=== PATIENT | male | born 1940 | race Caucasian/White ===

== ENCOUNTER 2016-02-12 12:15 | Inpatient (IN) | payer OTHER, MEDICAID, MEDICARE ==
[~2016-02-12] VITALS: Ht 167.6 cm; Wt 68.0 kg
[~2016-02-12 12:15] MED LIST: ATEN1TAB74 PO; GEMF600 PO; LORTA5 PO; NAPR550 PO; NEUR300C PO; OMEP20CA5 PO; SUCR1TAB6 PO
[2016-02-12 12:17] VITALS: BP 140/65; PULSE 66; RESP 16; TEMP 97.5; O2SAT 94
[2016-02-12] MEDS ORDERED: OMEP20TA PO (12:44)
[2016-02-12] MEDS ORDERED: GABA300C5 PO (12:44)
[2016-02-12] MEDS ORDERED: NAPR550T3 PO (12:44)
[2016-02-12] MEDS ORDERED: SUCR1TAB PO (12:44)
[2016-02-12] MEDS ORDERED: ATEN50TA PO (12:44)
[2016-02-12] MEDS ORDERED: GEMF600 PO (12:44)
[2016-02-12] MEDS ORDERED: SODIUM CHLORIDE 0.9% FLUSH 5 ML FLUSH IVF PRN (13:00)
[2016-02-12 13:18] LABS: AUTOMATED NEUTROPHIL # 4.4 TH/MM3 (1.8-7.7); BASOPHIL % 0.5 % (0.0-2.0); EOSINOPHIL # 0.1 TH/MM3 (0-0.4); EOSINOPHIL % 1.7 % (0.0-4.0); HEMATOCRIT 36.5 % (39.0-51.0); HEMO FLAGS DIFF FINAL; LYMPH % 18.7 % (9.0-44.0); LYMPHOCYTE # 1.2 TH/MM3 (1.0-4.8); MEAN CELL VOLUME 90.3 FL (80.0-100.0); MEAN CORPUSCULAR HEMOGLOBIN 31.2 PG (27.0-34.0); MEAN CORPUSCULAR HGB CONC 34.5 % (32.0-36.0); MONO % 9.2 % (0.0-8.0); NEUT % 69.9 % (16.0-70.0); PLATELET COUNT 253 TH/MM3 (150-450); RED BLOOD COUNT 4.04 MIL/MM3 (4.50-5.90); RED CELL DISTRIBUTION WIDTH 12.9 % (11.6-17.2); WHITE BLOOD COUNT 6.3 TH/MM3 (4.0-11.0)
[2016-02-12 13:26] LABS: APTT (PATIENT) 27.3 SEC (24.3-30.1); INTERNATIONAL NORMALIZED RATIO 1.1 RATIO
--- NOTE | 2016-02-12 13:35 | PD ---
HPI Chief Complaint: Cardiac Complaint Time Seen by Provider: 12:55 Travel History International Travel<30 days: No Contact w/Intl Traveler<30days: No Traveled to known affect area: No History of Present Illness HPI Patient is a 75-year-old male with significant history of tobacco abuse, COPD who presents the emergency department with complaint of shortness of breath and lightheadedness. Patient states that he has noticed exertional shortness of breath, lightheadedness over the course the last several weeks. He has also noticed right sided neck swelling. He was seen by his PCP and yesterday had a CT of the thorax at [facility]. 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 Patient was sent in by his PCP for further evaluation here. PFSH Past Medical History Cerebrovascular Accident: Yes Diminished Hearing: No Hypertension: Yes Ulcer: Yes Tetanus Vaccination: Unknown Past Surgical History Other Surgery: Yes (HERNIA) Social History Alcohol Use: Yes (OCCASIONAL) Tobacco Use: No (QUIT 3 YEARS AGO) Substance Use: No Allergies-Medications (Allergen,Severity, Reaction): Coded Allergies: No Known Allergies (Verified , 02/12/16) Reported Meds & Prescriptions Reported Meds & Active Scripts Active Reported Lopid (Gemfibrozil) 600 Mg Tab 600 Mg PO BIDAC Take 30 minutes prior to breakfast and dinner Naproxen Sodium DS (Naproxen Sodium) 550 Mg Tab 550 Mg PO DAILY Omeprazole 20 Mg Tab 20 Mg PO DAILY Sucralfate 1 Gm Tab 1 Gm PO TID on empty stomach Atenolol 50 Mg Tab 50 Mg PO DAILY Gabapentin 300 Mg Cap 300 Mg PO BID Review of Systems Except as stated in HPI: all other systems reviewed are Neg Physical Exam Narrative GENERAL: Elderly male in no acute distress SKIN: Warm and dry. HEAD: Normocephalic. EYES: No scleral icterus. No injection or drainage. ENT: No nasal bleeding or discharge. Mucous membranes pink and moist. NECK: Venous congestion of the head and neck. CARDIOVASCULAR: Regular rate and rhythm. No murmur appreciated. RESPIRATORY: No accessory muscle use. Clear to auscultation. Breath sounds equal bilaterally. GASTROINTESTINAL: Abdomen soft, non-tender, nondistended. MUSCULOSKELETAL: Mild edema of the upper extremities with venous congestion NEUROLOGICAL: Awake and alert. Normal gait. Normal speech. PSYCHIATRIC: Appropriate mood and affect; insight and judgment normal. Data Data Last Documented VS Vital Signs Date Time Temp Pulse Resp B/P Pulse Ox O2 Delivery O2 Flow Rate FiO2 02/12/16 12:17 97.5 66 16 140/65 94 Room Air Orders Electrocardiogram (02/12/16 12:55) Basic Metabolic Panel (Bmp) (02/12/16 12:55) Complete Blood Count With Diff (02/12/16 12:55) Prothrombin Time / Inr (Pt) (02/12/16 12:55) Act Partial Throm Time (Ptt) (02/12/16 12:55) Troponin I (02/12/16 12:55) Ecg Monitoring (02/12/16 12:55) Iv Access Insert/Monitor (02/12/16 12:55) Oximetry (02/12/16 12:55) Sodium Chloride 0.9% Flush (Ns Flush) (02/12/16 13:00) Invasive Rad Dept Consult (02/12/16 ) Consult Radiation Oncology (02/12/16 ) Consult Medical Oncology (02/12/16 ) (Hub Use Only)Inp Phy Cons/Ref (02/12/16 ) (Hub Use Only)Inp Phy Cons/Ref (02/12/16 ) Admit Order (Ed Use Only) (02/12/16 13:50) Labs Laboratory Tests Test 02/12/16 13:08 White Blood Count 6.3 TH/MM3 Red Blood Count 4.04 MIL/MM3 Hemoglobin 12.6 GM/DL Hematocrit 36.5 % Mean Corpuscular Volume 90.3 FL Mean Corpuscular Hemoglobin 31.2 PG Mean Corpuscular Hemoglobin 34.5 % Concent Red Cell Distribution Width 12.9 % Platelet Count 253 TH/MM3 Mean Platelet Volume 9.3 FL Neutrophils (%) (Auto) 69.9 % Lymphocytes (%) (Auto) 18.7 % Monocytes (%) (Auto) 9.2 % Eosinophils (%) (Auto) 1.7 % Basophils (%) (Auto) 0.5 % Neutrophils # (Auto) 4.4 TH/MM3 Lymphocytes # (Auto) 1.2 TH/MM3 Monocytes # (Auto) 0.6 TH/MM3 Eosinophils # (Auto) 0.1 TH/MM3 Basophils # (Auto) 0.0 TH/MM3 CBC Comment DIFF FINAL Differential Comment Prothrombin Time 12.0 SEC Prothromb Time International 1.1 RATIO Ratio Activated Partial 27.3 SEC Thromboplast Time Sodium Level 133 MEQ/L Potassium Level 3.7 MEQ/L Chloride Level 97 MEQ/L Carbon Dioxide Level 26.8 MEQ/L Anion Gap 9 MEQ/L Blood Urea Nitrogen 15 MG/DL Creatinine 1.30 MG/DL Estimat Glomerular Filtration 54 ML/MIN Rate Random Glucose 93 MG/DL Calcium Level 9.5 MG/DL Troponin I LESS THAN 0.02 NG/ML MDM Medical Decision Making Medical Screen Exam Complete: Yes Emergency Medical Condition: Yes Medical Record Reviewed: Yes Differential Diagnosis 75-year-old male with significant history of smoking and COPD here with several weeks of exertional lightheadedness and dyspnea and CT findings of pulmonary mass with mediastinal spread and superior vena cava syndrome. Differential includes lung cancer, superior vena cava syndrome, ACS, electrolyte abnormality , postobstructive pneumonia, PE. Narrative Course Patient placed on monitor, IV established and blood obtained. I spoke with interventional radiology as patient may benefit from either balloon or stent to the SVC for his SVC syndrome, Dr. Peguero agrees and will plan to balloon patient. I spoke with Dr. rivas of medical oncology who agrees with above plan and also recommends evaluation by radiation oncology. CBC, BMP, coags, troponin unremarkable. Critical Care Narrative Aggregate critical care time was 35 minutes. Time to perform other separately billable procedures was not included in the critical care time. My time did not include minutes spent treating any other patients simultaneously or on activities that did not directly contribute to the patient's treatment. The services I provided to this patient were to treat and/or prevent clinically significant deterioration that could result in: Cardiopulmonary decompensation, , disability, coordination of multiple consulting services I provided critical care services requiring my management, as noted below: Chart data review, documentation time, medication orders and management, vital sign assessments/reviewing monitor data, ordering and reviewing lab tests, ordering and interpreting/reviewing x-rays and diagnostic studies, care of the patient and discussion of the patient with the admitting physicians. Diagnosis Primary Impression: Superior vena cava syndrome Additional Impressions: Lung cancer Qualified Code: C34.31 - Malignant neoplasm of lower lobe of right lung COPD (chronic obstructive pulmonary disease) Qualified Code: J43.2 - Centrilobular emphysema Former smoker Admitting Information Admitting Physician Requests: it Antonia Coats MD Feb 12, 2016 13:35
[2016-02-12 13:40] LABS: ANION GAP 9 MEQ/L (5-15); BICARBONATE 26.8 MEQ/L (21.0-32.0); BLOOD UREA NITROGEN 15 MG/DL (7-18); CHLORIDE 97 MEQ/L (98-107); GLOMERULAR FILTRATION RATE 54 ML/MIN (>89); POTASSIUM 3.7 MEQ/L (3.5-5.1); SODIUM (NA) 133 MEQ/L (136-145)
[2016-02-12] MEDS ORDERED: SENNOSIDES 8.6 MG TAB PO PRN (14:00)
[2016-02-12] MEDS ORDERED: SODIUM CHLORIDE 0.9% FLUSH 5 ML FLUSH FLUSH PRN (14:00)
[2016-02-12] MEDS ORDERED: ONDANSETRON HCL 4 MG/2 ML VIAL IVP PRN (14:00)
[2016-02-12] MEDS ORDERED: BISACODYL 10 MG SUPP PR PRN (14:00)
[2016-02-12] MEDS ORDERED: NALOXONE HCL 0.4 MG/ML AMP IV PRN (14:00)
[2016-02-12] MEDS ORDERED: MAGNESIUM HYDROXIDE SUSP 30 ML CUP PO PRN (14:00)
--- NOTE | 2016-02-12 14:19 | HHI.HP ---
[facility] Primary Care Physician Unknown Admission Diagnosis superior vena cava syndrome, newly diagnosed lung cancer Diagnoses: Chief Complaint: lung mass Travel History International Travel<30 Days: No Contact w/Intl Traveler <30 Da: No Traveled to Known Affected Are: No History of Present Illness 75-year-old male with a past history of HTN, HLD, GERD, neuropathy, COPD who was sent in by his PCP for new lung mass. The patient states that earlier this month for about 17 days he was having cough productive with white and yellow sputum with associated fevers, increased prominence of the veins of his neck and chest wall. He has shortness of breath at that time, which has persisted but improved some. He states his symptoms seem to improved spontaneously. After that he developed for the past 2 weeks swelling of his head and neck. He states he's noticed some dizziness whenever he turns his head too quickly. He also feels like his attitude has been different. He does have a history of 77 to [id number] smoking, quit 7 years ago. He saw his PCP yesterday who ordered a chest CT which the patient had done at [facility]. He was called by his PCP today who told him that he had a large lung mass that was impinging on the great vessels of his thorax and was recommended to come to the ED. On review of systems the patient has intermittent chest discomfort that is relieved by belching. He has had occasional nausea over the past 2 or 3 days, no vomiting. He states he's been having intermittent loose bowel movements, 14 /day. Review of Systems Other 10 point review of systems performed and was negative except as stated in the history of present illness Past Family Social History Past Medical History Hypertension Hyperlipidemia GERD/bladder normal ulcer Neuropathy COPD Past Surgical History Inguinal hernia repair Reported Medications Lopid (Gemfibrozil) 600 Mg Tab 600 Mg PO BIDAC Take 30 minutes prior to breakfast and dinner Naproxen Sodium DS (Naproxen Sodium) 550 Mg Tab 550 Mg PO DAILY Omeprazole 20 Mg Tab 20 Mg PO DAILY Sucralfate 1 Gm Tab 1 Gm PO TID on empty stomach Atenolol 50 Mg Tab 50 Mg PO DAILY Gabapentin 300 Mg Cap 300 Mg PO BID Allergies: Coded Allergies: No Known Allergies (Verified , 02/12/16) Active Ordered Medications Current Medications Medications (Trade) Dose Ordered Sig/Hilaria Route Start Time Stop Time Status Last Admin IV Flush 2 ml 2 ml UNSCH PRN IVF 02/12/16 13:00 (NS 1000 ml Inj) 1,000 ml @ 100 mls/hr Q10H IV 02/12/16 13:51 (NS Flush) 2 ml UNSCH PRN FLUSH 02/12/16 14:00 (NS Flush) 2 ml BID FLUSH 02/12/16 21:00 (Zofran Inj) 4 mg Q6H PRN IVP 02/12/16 14:00 (Dulcolax Supp) 10 mg DAILY PRN AR 02/12/16 14:00 (Milk Of Magnesia Liq) 30 ml Q12HR PRN PO 02/12/16 14:00 (Senokot) 17.2 mg Q12HR PRN PO 02/12/16 14:00 (Narcan Inj) 0.4 mg UNSCH PRN IV 02/12/16 14:00 Family History Father passed in his 80s of heart disease Mother from complications from bilateral hip fracture Social History Former tobacco use, quit 7 years ago, prior to that smoked 1. 52 packs per day for 50 years Has to 3 beers at a time about 2-3 times per week Denies any drug use Physical Exam Vital Signs Vital Signs Date Time Temp Pulse Resp B/P Pulse Ox O2 Delivery O2 Flow Rate FiO2 02/12/16 12:17 97.5 66 16 140/65 94 Room Air Physical Exam GENERAL: Well-developed well-nourished. In no acute distress. SKIN: Warm and dry. Increased prominence of superficial veins on the chest wall. HEENT: Normocephalic. Pupils equal and round and reactive to light. Mucous membranes pink and moist. No cervical lymphadenopathy appreciated. Distention of superficial neck veins. CARDIOVASCULAR: Regular rate and rhythm. No murmur appreciated. RESPIRATORY: No accessory muscle use. Clear to auscultation. Breath sounds equal bilaterally. GASTROINTESTINAL: Abdomen soft, non-tender, nondistended. Bowel sounds x4. Rectus diastasis noted. MUSCULOSKELETAL: No obvious deformities. No clubbing or cyanosis. No edema. Bilateral feet warm with difficult to palpate peripheral pulses. NEUROLOGICAL: Awake and alert. No focal neurological deficits. Moves upper and lower extremities spontaneously. Normal speech. Strength 5/5. PSYCHIATRIC: Appropriate mood and affect; insight and judgment normal. Laboratory Laboratory Tests Test 02/12/16 13:08 White Blood Count 6.3 Red Blood Count 4.04 Hemoglobin 12.6 Hematocrit 36.5 Mean Corpuscular Volume 90.3 Mean Corpuscular Hemoglobin 31.2 Mean Corpuscular Hemoglobin 34.5 Concent Red Cell Distribution Width 12.9 Platelet Count 253 Mean Platelet Volume 9.3 Neutrophils (%) (Auto) 69.9 Lymphocytes (%) (Auto) 18.7 Monocytes (%) (Auto) 9.2 Eosinophils (%) (Auto) 1.7 Basophils (%) (Auto) 0.5 Neutrophils # (Auto) 4.4 Lymphocytes # (Auto) 1.2 Monocytes # (Auto) 0.6 Eosinophils # (Auto) 0.1 Basophils # (Auto) 0.0 CBC Comment DIFF FINAL Differential Comment Prothrombin Time 12.0 Prothromb Time International 1.1 Ratio Activated Partial 27.3 Thromboplast Time Sodium Level 133 Potassium Level 3.7 Chloride Level 97 Carbon Dioxide Level 26.8 Anion Gap 9 Blood Urea Nitrogen 15 Creatinine 1.30 Estimat Glomerular Filtration 54 Rate Random Glucose 93 Calcium Level 9.5 Troponin I LESS THAN 0.02 Result Diagram: 02/12/16 1308 02/12/16 1308 Assessment and Plan Assessment and Plan 75-year-old male with a past history of HTN, HLD, GERD, neuropathy, COPD who was sent in by his PCP for new lung mass Lung mass: Seen on outpatient chest CT. Medical oncology contacted from the EEG , recommended consultation and also consult radiation oncology. 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 See on outpatient chest CT. Complaining of head and neck fullness, distended neck veins, lightheadedness. IR was contacted from the ED, will perform angioplasty with stenting if needed today. Neuropathy: Chronic. Check TSH. Continue gabapentin. Hypertension/hyperlipidemia: Chronic, stable. Continue atenolol. Continue gemfibrozil. GERD/history of duodenal ulcer: Continue Carafate and PPI. DVT prophylaxis: SCDs Written by Giovani Barboza, acting as scribe for Dr. Cline on 02/12/16 at 14:19. Discussed Condition With Patient with at bedside, Dr. Marr Attending Statement The documentation accurately reflects the work performed [id number] by me, Dr. Cline on 02/12/16 at 14:19. Giovani Barboza Feb 12, 2016 14:19 Wade Cline MD Feb 13, 2016 23:47
[2016-02-12] MEDS ORDERED: fentaNYL CITRATE 250 MCG/5 ML AMP ONE (14:33)
[2016-02-12] MEDS ORDERED: MIDAZOLAM HCL 5 MG/5 ML VIAL ONE (14:33)
--- NOTE | 2016-02-12 15:49 | PD.RAD ---
Post Procedure Progress Note Pre Procedure Diagnosis: (1) Superior vena cava syndrome (2) Lung cancer Post Procedure Diagnosis: (1) Superior vena cava syndrome (2) Lung cancer Procedure Date: Feb 12, 2016 Supervising Radiologist: Dustin Peguero JR Proceduralist/Assist: Myrna Stratton, RT(R)(CV), Christy Solorio, RT(R) Anesthesia: Conscious Sedation Plan of Activity Patient to Unit: Other Patient Condition: Good Additional Comments: Patient with narrowing of SVC secondary to mediastinal mass seen on CT. Patient has facial swelling with exertional dyspnea. Denies SOB at rest. Venogram confirms SVC stenosis. Venoplasty shows an elastic stenosis without significant change following 10mm venoplasty. Deferred stent placement at this time as patient is early in workup and do not want to interfere with XRT if this is planned. Also, following therapy the patients mediastinal mass may shrink relieving the obstruction. Can see patient back if symptoms persist and therapy path is chosen. See PACS Report for procedural detail/treatment Jr. Sudhir,Dustin Saini MD Feb 12, 2016 15:49
[2016-02-12] MEDS ORDERED: IOHEXOL 350 MG/ML 100 ML BTL (for RAD DIAG) OTHER ONE (15:53)
[2016-02-12] MEDS: SODIUM CHLOR 0.9% 1000 ML INJ 1,000 ML IV SCH ×2 (15:54→22:02)
[2016-02-12 16:10] VITALS: O2SAT 98
--- NOTE | 2016-02-12 16:59 | RADRPT ---
EXAM DATE/TIME: 02/12/2016 14:04 [place] COMPARISON: No previous studies available for comparison. INDICATIONS : <<Patient newly diagnosed with malignancy of the chest likely relating to a primary bronchogenic carc inoma with metastatic involvement of the mediastinal lymph nodes. Patient has facial swelling with ex ertional dyspnea. Denies shortness of breath at rest. Venography with intervention requested by Dr. Mitzi penaloza. Outside CT scan reviewed. MEDICAL HISTORY : 1. COPD 2. smoker 3. HTN SURGICAL HISTORY : 1. Hernia ENCOUNTER: Initial ACUITY: 2 days PAIN SCORE: 0/10 FLUORO TIME: <<2.4>> minutes ACCESS SITE: Right Internal jugular vein SEDATION TIME: <<60>> minutes CONTRAST: 1.) <<70>> <<cc>> Omnipaque (iohexol) 350 MEDICATION(S): 1.) <<4.5>> mg midazolam (Versed) IV 2.) <<225>> mcg fentanyl (Sublimaze) IV DEVICE(S): 1.) Superior vena cava <<6 x 4>> TELECOMMUNICATION TOWER TECHNICIAN balloon 2.) Superior vena cava <<10 x 4>> TELECOMMUNICATION TOWER TECHNICIAN balloon PROCEDURE : 1. Ultrasound-guided puncture of the right internal jugular vein. 2. Conscious sedation with continuous EKG and Oximetry monitoring. 3. Venography of the <<SVC>> 4. Angioplasty of the SVC 5. Followup venography of the SVC The risks, benefits and alternatives to the procedure were explained and verbal and written consent w as obtained. The site was prepped in sterile fashion. Full sterile technique was used, including ca p, mask, sterile gloves and gown and a large sterile sheet. Hand hygiene and 2% chlorhexidine and/or betadine/alcohol prep was utilized per protocol for cutaneous antisepsis. The skin and subcutaneous tissues were infiltrated with local anesthetic solution. With ultrasound and fluoroscopic guidance the right internal jugular vein was punctured and a vascula r sheath was placed. Venography of the SVC shows occlusion of the SVC at the level of aortic knob. This is secondary to ex trinsic compression when correlated to the outside CT. Was able to navigate past the occlusion and in to the IVC. A 6 mm x 40 mm venoplasty was performed. The stenosis is quite rigid requiring 13 atmosph eres of pressure to fully inflate the balloon. The balloon was left inflated for 2 minutes. Followup venogram shows no change. A venogram was therefore performed with a 10 mm x 40 mm balloon in a simila r fashion. Followup venogram shows a fair amount of glass density to the stenosis but a patent channe l was able to be reestablished. Stenting was not felt prudent at this time. The patient's therapy has not been laid out at this point. It is possible the mediastinal mass wIll decrease in size with ther apy making stenting unnecessary. Stenting can also generated difficulties if radiation therapy is figueroa nned. The puncture site was closed with manual pressure and hemostasis was obtained. The patient tolerated the procedure well and there were no complications. Conscious sedation was performed with the prescribed dosages and duration as above. EKG and oximetry remained stable throughout the procedure. CONCLUSION: 1. 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 This stenosis is quite elastic in nature. I wa s able to reestablish a channel with antegrade flow with venoplasty. I would forego stenting at this time. If the patient's therapy fails to resolve the occlusion then stenting can be entertained at cuco t time. I spoke with Dr. Li. Dustin Peguero Jr., MD on February 12, 2016 at 16:34 Board Certified Radiologist. This report was verified electronically.
[2016-02-12] MEDS ORDERED: DEXAMETHASONE SOD PHOS 20 MG/5 ML VIAL IV PUSH ONE (17:00)
[2016-02-12 17:55] VITALS: BP 129/62; PULSE 55; RESP 18; TEMP 97.9; O2SAT 94
[2016-02-12] MEDS: GEMFIBROZIL 600 MG TAB PO SCH (19:21)
[2016-02-12] MEDS: SUCRALFATE 1 GM TAB PO SCH (19:21)
[2016-02-12 20:00] VITALS: BP 152/83; PULSE 60; RESP 18; TEMP 97.3; O2SAT 94
--- NOTE | 2016-02-12 20:36 | MB ---
cc: RUPERT BLAKE M.D., BOON Y. M.D. DATE OF CONSULTATION 02/12/16 DATE OF 1940 REASON FOR CONSULTATION A 75-year-old former smoker being admitted with a newly diagnosed SVC obstruction. BRIEF HISTORY This is a 75-year-old former smoker with a past history of hypertension, hyperlipidemia, gastroesophageal reflux disease and COPD. Over the past roughly 4 weeks he has had increasing cough which is nonproductive associated with no real shortness of breath, however, he has noticed veins on his chest and he believes these are ruptured veins due to coughing. He then developed some swelling of his face and neck which actually improved somewhat. He did, however, undergo an outpatient CT scan at [facility] yesterday. After that was performed his primary care doctor, Dr. Gutierrez, suggested he be seen in the emergency room. That CT scan reported right lower lobe pulmonary mass measuring 3.4 x 3.4 cm. There was mediastinal spread with lymphadenopathy and severe narrowing of the superior vena cava. No evidence of upper abdominal or bony metastatic disease was noted. Since being in the hospital this gentleman has been seen by Dr. Dustin Peguero of interventional radiology. He performed a venogram confirming the SVC stenosis. He attempted venoplasty which showed an elastic stenosis without significant change following 10 mm venoplasty. He did not put in a stent as he did not want this to interfere with his potential treatment. This patient does report to being a former smoker, although, he claims to have quit 7-8 years ago. He denies significant shortness of breath. He has had a loss of appetite and a 25-pound weight loss over the past 6 months. He has had no hemoptysis. He denies back pain and he feels that his facial swelling has improved somewhat. PAST MEDICAL AND SURGICAL HISTORY Includes a history of hypertension, hyperlipidemia, gastroesophageal reflux disease, unexplained neuropathy, COPD and an inguinal hernia repair. MEDICATIONS ON ADMISSION Have included: 1. Gemfibrozil 600 milligrams b.i.d. 2. Naproxen p.r.n. 3. Omeprazole 20 milligrams daily. 4. Sucralfate 1 gram t.i.d. 5. Atenolol 50 milligrams daily. 6. Gabapentin 300 milligrams b.i.d. ALLERGIES None known. FAMILY HISTORY AND SOCIAL HISTORY He is , although, his was not in attendance at the time I was there. His father in his 80s of heart disease. Mother with complications of hip fracture. He did smoke but quit 7 years ago, having smoked one and a half to two packs a day for 50 years. He drinks beer weekly. REVIEW OF SYSTEMS He has the pulmonary symptoms noted above. He has had facial swelling. He has had constitutional complaints of decreased appetite and 20-25 pounds weight loss. HEAD, EYES, EARS, NOSE AND THROAT: Facial swelling. No difficulty swallowing. No difficulty hearing. No altered taste. No dysphagia. RESPIRATORY: Some shortness of breath, dry cough. CARDIOVASCULAR: Denies chest pains, palpitations or ankle edema. GI: Has symptoms of gastroesophageal reflux disease. No nausea, vomiting, diarrhea, melena or bloody stool. : Denies dysuria, hematuria or urgency. MUSCULOSKELETAL: Age-related arthritis. NEUROLOGIC: He has some numbness in his feet. Denies stroke, seizure or memory loss. He denies diabetes or thyroid disease. He denies skin complaints. PHYSICAL EXAMINATION GENERAL: Today on exam this gentleman is alert and oriented. He is lying in bed resting comfortably. VITAL SIGNS: Vital signs show that he is afebrile. Pulse of 55 and regular, respiratory rate of 18, a blood pressure of 129/62, pulse oximetry on room air on admission was 94%. HEENT: There was no jaundice. His conjunctive and eyelids were normal and he had full EOMs. His oral cavity and oropharynx were visibly normal. There were no mucosal surface lesions. Palpation of his head and neck was also normal. There is no adenopathy in any region of his head and neck including supraclavicular regions. Trachea was midline and thyroid was not enlarged. LUNGS: His lung bases today were resonant on percussion and clear on auscultation. HEART: He had normal first and second heart sounds without murmurs, rubs or bruits. His rate and rhythm was normal. There is no clubbing, no axillary adenopathy. CHEST: He does have dilated veins on his anterior chest wall, both upper and lower. There was no arm edema noted. He has some facial puffiness but this is hard to ascertain as of course I have never met this gentleman before. ABDOMEN: There are no abdominal masses, tenderness or hepatosplenomegaly. EXTREMITIES: There is no ankle edema. He is moving all limbs normally. DATA Review of data, today I have had the opportunity to review this gentleman's CT scan of the chest performed yesterday on an outpatient basis. He has a right lower lobe lesion measuring 3.4 cm which should be easy to biopsy. He has the mediastinal disease as documented in the history. He does not appear to have extremely bulky disease but it is compressing the SVC. I have reviewed this CT scan and our findings with this gentleman. 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 I have discussed his case with Dr. Dustin Peguero, interventional radiology, and he has agreed that a CT directed needle biopsy of the lung would be very straightforward and would happy to arrange that on an in or outpatient basis. This gentleman is stable so I would like to take the time to attain pathology before we initiate treatment. On the other hand, if he is developing progressive symptoms then we would treat him on an emergent basis without pathology and I have discussed that with him. I have spoke to Dr. Marr who is managing his care in the emergency room and I have asked her to order IV steroids for this gentleman with a 10 milligram bolus and 4 milligrams q. 6 h. Have also asked her to order the CT directed needle biopsy. Hopefully, that pathology will be available early next week and we will be in a position to coordinate treatment with medical oncology. Thank you again for asking us to see this gentleman. I will be checking his records over the weekend but I can be contacted at any time. MD LUZ Rodriguez/WALE /6:17 PM /8:19 PM
[2016-02-12] MEDS: SODIUM CHLORIDE 0.9% FLUSH 5 ML FLUSH FLUSH SCH (21:14)
[2016-02-12] MEDS: GABAPENTIN 300 MG CAP PO SCH (21:14)
--- NOTE | 2016-02-12 21:37 | MB ---
cc: CHELSEA GUERRA M.D. DATE OF CONSULTATION 02/12/[address] 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 HISTORY OF PRESENT ILLNESS The patient is a very pleasant 75-year-old male, about a 100 pack year smoking history, first experienced a cough productive of yellowish sputum about 17 days ago. He stated he also had fever. His had the same symptoms. He also started noticing swelling of the neck and see some engorging vein on his chest wall and upper abdomen. He stated that his cough and fever spontaneously improved. However, he has increased swelling of the face and neck. He saw his primary physician and was sent for CT yesterday which showed a lung mass and a mediastinal mass causing occlusion of superior vena cava. He was directed to the emergency room. He stated he lost about 27 pounds over the last 3 weeks. He has dizziness. He had a headache this morning. He denies any chest pressure or palpitation. Denies nausea, vomiting, diarrhea, abdominal pain. Denies any bone pain. He denied any dysuria, hematuria, has chronic back pain. PAST MEDICAL HISTORY Hypertension, hyperlipidemia, gastroesophageal reflux disease, peripheral neuropathy, chronic obstructive pulmonary disease, osteoarthritis. PAST SURGICAL HISTORY Inguinal hernia repair. SOCIAL HISTORY Smoking one and a half to two pack a day for about 50 years, quit 7 years ago. He drinks about three times a week. He worked in sales. FAMILY HISTORY One half-sister . He has one son and two daughter, all healthy. ALLERGIES No known drug allergies. CURRENT MEDICATIONS 1. Atenolol. 2. Protonix. 3. Dexamethasone. 4. Gabapentin. 5. Sucralfate. 6. Lopid. REVIEW OF SYSTEMS CONSTITUTIONAL: He has lost about 27 pounds in 3 weeks. EYES: Denies any blurry vision, double vision. ENT: No mouth or voice changes. CARDIOVASCULAR: Denied chest pressure, palpitation. RESPIRATORY: As above. GI: Denies any nausea, vomiting, diarrhea, abdominal pain. : No dysuria, hematuria. MUSCULOSKELETAL: Chronic back pain. HEMATOLOGY: Negative. ENDOCRINE: Negative. DERMATOLOGY: Negative. PSYCHIATRIC: Negative. NEUROLOGIC: Farley had headache and dizziness. PHYSICAL EXAMINATION VITAL SIGNS: Temperature 97.9, blood pressure 129/62, O2 saturation 94% on room air. GENERAL: He is alert and oriented x3 in no acute distress. He is eating dinner. HEENT: Atraumatic, normocephalic. Pupils equal, round and reactive to light. Extraocular muscles intact. No scleral icterus. Oropharynx dry mucosa. No lesion. NECK: The right neck a little edematous. No significant tenderness. LYMPHATICS: No palpable supraclavicular, axillary, inguinal lymph node. CARDIOVASCULAR: Regular S1-S2. No murmur. He has varicose vein on the right chest wall and upper abdomen. RESPIRATORY: Clear to auscultation bilaterally. No wheezing or rhonchi. ABDOMEN: Soft, nontender. Could not palpate liver or spleen. EXTREMITIES: On examination no cyanosis or edema. No calf tenderness. BACK: No paravertebral tenderness. SKIN: No rash or petechiae. NEUROLOGIC: Nonfocal. LABORATORY DATA Reviewed. ASSESSMENT 1. 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 He started noticing swelling of the neck about 2-[address] of the chest February 10 showed 3.2 cm right lower lobe lung mass with 3.4 x 3.4 cm right paratracheal mass causing occlusion of the superior vena cava. There was also subcarinal adenopathy, largest measured about 2.3 cm. He also had constitutional symptom of a 27-pound weight loss. He has significant swelling of the neck for the last 2 days. He had a venogram done which showed occlusion of superior vena cava secondary to mediastinal mass. He underwent a venoplasty this afternoon. He only has mild swelling of the right neck when I saw him. He still has varicose veins on the chest wall and upper abdomen. I told the patient that he has a primary lung cancer until proven otherwise. I would recommend getting a CT scan, bone scan as well as brain MRI to complete the staging. He will also need a biopsy of the right lung mass. He is also going to need radiation with concurrent chemotherapy given his superior vena cava syndrome. He was started on steroid. We will monitor him closely. 2. Chronic obstructive pulmonary disease. 3. Hypertension. 4. Hyperlipidemia. 5. Peripheral neuropathy unclear etiology. 6. Osteoarthritis. 7. Gastroesophageal reflux disease. RECOMMENDATIONS 1. Reviewed CT scan and extensive discussion with the patient as above. 2. Continue dexamethasone. 3. Radiation oncology has been consulted. 4. Arrange for CT of the abdomen and pelvis, bone scan and brain MRI for complete staging. 5. Consult radiology to biopsy the right lung mass. 6. The patient is going to need treatment with radiation with concurrent chemotherapy once we establish diagnosis. Thank you Dr. Cline for asking me to see this patient. MD CHRIS Hopkins/WALE /7:38 PM /9:09 PM MTDMichael
[2016-02-12] MEDS: DEXAMETHASONE SOD PHOS 4 MG/ML VIAL IV PUSH SCH (21:50)
[2016-02-12] MEDS: diphenhydrAMINE HCL 25 MG CAP PO PRN (22:01)
[2016-02-13] VITALS (7 sets, daily range): BP systolic 145–185; BP diastolic 51–84; PULSE 57–98; RESP 16–20; TEMP 97.3–97.8; O2SAT 94–97
[2016-02-13] MEDS: DEXAMETHASONE SOD PHOS 4 MG/ML VIAL IV PUSH SCH ×3 (06:15→18:37)
[2016-02-13] MEDS: GEMFIBROZIL 600 MG TAB PO SCH ×2 (06:15→20:19)
[2016-02-13] MEDS ORDERED: ENOXAPARIN SODIUM 40 MG/0.4 ML SYRINGE SQ SCH (08:15)
[2016-02-13] MEDS ORDERED: MELATONIN 5 MG TAB PO PRN (08:15)
--- NOTE | 2016-02-13 08:15 | PD.ONC.PN ---
Subjective Subjective Remarks Afebrile overnight. Pt states he had a difficult time sleeping last night. He has some chronic back pain. He denies SOB. He states he feels like his neck is slightly more swollen this am. Objective Data Date Time Temp Pulse Resp B/P Pulse Ox O2 Delivery O2 Flow Rate FiO2 02/13/16 04:00 97.6 77 18 157/67 94 02/13/16 00:00 97.4 57 16 145/57 94 02/12/16 20:00 97.3 60 18 152/83 94 02/12/16 17:55 97.9 55 18 129/62 94 02/12/16 16:10 98 02/12/16 12:17 97.5 66 16 140/65 94 Room Air Result Diagram: 02/12/16 1308 02/12/16 1308 Laboratory Results Laboratory Tests Test 02/12/16 13:08 White Blood Count 6.3 TH/MM3 Red Blood Count 4.04 MIL/MM3 Hemoglobin 12.6 GM/DL Hematocrit 36.5 % Mean Corpuscular Volume 90.3 FL Mean Corpuscular Hemoglobin 31.2 PG Mean Corpuscular Hemoglobin 34.5 % Concent Red Cell Distribution Width 12.9 % Platelet Count 253 TH/MM3 Mean Platelet Volume 9.3 FL Neutrophils (%) (Auto) 69.9 % Lymphocytes (%) (Auto) 18.7 % Monocytes (%) (Auto) 9.2 % Eosinophils (%) (Auto) 1.7 % Basophils (%) (Auto) 0.5 % Neutrophils # (Auto) 4.4 TH/MM3 Lymphocytes # (Auto) 1.2 TH/MM3 Monocytes # (Auto) 0.6 TH/MM3 Eosinophils # (Auto) 0.1 TH/MM3 Basophils # (Auto) 0.0 TH/MM3 CBC Comment DIFF FINAL Differential Comment Prothrombin Time 12.0 SEC Prothromb Time International 1.1 RATIO Ratio Activated Partial 27.3 SEC Thromboplast Time Sodium Level 133 MEQ/L Potassium Level 3.7 MEQ/L Chloride Level 97 MEQ/L Carbon Dioxide Level 26.8 MEQ/L Anion Gap 9 MEQ/L Blood Urea Nitrogen 15 MG/DL Creatinine 1.30 MG/DL Estimat Glomerular Filtration 54 ML/MIN Rate Random Glucose 93 MG/DL Calcium Level 9.5 MG/DL Troponin I LESS THAN 0.02 NG/ML Imaging Studies Last Impressions Vena Cavagram 02/12/16 0000 Signed Impressions: Service Date/Time: Friday, February 12, 2016 14:04 - CONCLUSION: 1. 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 This stenosis is quite elastic in nature. I was able to reestablish a channel with antegrade flow with venoplasty. I would forego stenting at this time. If the patient's therapy fails to resolve the occlusion then stenting can be entertained at that time. I spoke with Dr. Li. Dustin Peguero Jr., MD Administered Medications Medications (Trade) Dose Ordered Sig/Hilaria Route PRN Reason Start Time Stop Time Status Last Admin Dose Admin Sodium Chloride (NS 1000 ml Inj) 1,000 ml @ 100 mls/hr Q10H IV 02/12/16 13:51 02/12/16 15:54 IV Flush (NS Flush) 2 ml BID FLUSH 02/12/16 21:00 02/12/16 21:14 Gabapentin (Neurontin) 300 mg BID PO 02/12/16 21:00 02/12/16 21:14 Gemfibrozil (Lopid) 600 mg BIDAC PO 02/12/16 16:00 02/13/16 06:15 Sucralfate (Carafate) 1 gm TID PO 02/12/16 18:00 02/12/16 19:21 Dexamethasone Sodium Phosphate (Decadron Inj) 4 mg Q6H IV PUSH 02/12/16 23:00 02/13/16 06:15 Diphenhydramine HCl (Benadryl) 25 mg HS PRN PO INSOMNIA 02/12/16 22:00 02/12/16 22:01 Objective Remarks GENERAL: Older male appearing close to chronological age, lying in bed in no distress. SKIN: Warm and dry. Diffuse varicose veins to chest wall. HEAD: Normocephalic. EYES: No scleral icterus. No injection or drainage. NECK: Supple, trachea midline. Very minimal swelling noted. CARDIOVASCULAR: +S1/S2. RESPIRATORY: Breath sounds equal bilaterally. No accessory muscle use. On RA. GASTROINTESTINAL: Abdomen soft, non-tender, nondistended. EXTREMITIES: No cyanosis, or edema. NEUROLOGICAL: No obvious focal deficit. Awake, alert, and oriented x3. Assessment/Plan Problem List: (1) Lung mass Status: Acute Plan: -- IR consulted for CT guided biopsy of lung mass -- To complete staging we will also order a CT scan, bone scan as well as brain MRI. -- He will need radiation with concurrent chemotherapy given the SVC syndrome. Hx: Mr. Luna has a 100 pack year smoking history. He reports having lost 27 pounds over the last 3 weeks. He patel noticed some swelling of his neck and engorgement of veins on his chest and abdomen. He was sent by his PCP for a CT of the chest yesterday which showed a lung mass with mediastinal mass causing occlusion of the superior vena cava. He was then directed to the ER. (2) Superior vena cava syndrome Status: Acute Plan: -- Consult radiation oncology -- Vena cavagram done on 02/12/16 was successful with venoplasty. -- Pt reports that swelling is much improved. -- Monitor Assessment 75 y/o male who presents to the ER with SVC syndrome, sent directly from the imaging center. Plan 1. Re-consult IR to get further imaging to make sure SVC remains patent. 2. IR consulted for biopsy of lung mass; will get staging scans incl MRI Brain. 3. Pt will need concurrent radiation/chemotherapy for SVC syndrome. 4. Continue decadron 4mg Q6H. 5. DVT prophylaxis after lung bx. 6. Supportive care. Attending Statement The exam, history, and the medical decision-making described in the above note were completed with the assistance of the mid-level provider. I reviewed and agree with the findings presented. I attest that I had a [id number] encounter with the patient on the same day, and personally performed and documented my assessment and findings in the medical record. Patient c/o of more neck swelling and headache. Has a lot of pressure behind the eyes. No CP/ SOB. He appeared dusky colored and swelling right and posterior neck. Dr. Saavedra has placed a call to IR online advertising analyst. I have discussed with . stated that the SVC stent may not be rigid enough to hold the SVC open. He is going to need XRT and plan to treat him later today. Will have to treat without tissue at this time due to the emergent nature of his condition. Explained to patient and he agrees. Will consult radiology to biopsy the right lung mass. Continue steroid. Plan to move pt to ICU for close observation. Traci Merritt Feb 13, 2016 08:14 Toro Saba MD Feb 13, 2016 11:34
[2016-02-13 08:16] LABS: ALKALINE PHOSPHATASE 27 U/L (45-117); ALT (GPT) 22 U/L (12-78); ANION GAP 13 MEQ/L (5-15); AST (GOT) 17 U/L (15-37); BICARBONATE 19.8 MEQ/L (21.0-32.0); CHLORIDE 95 MEQ/L (98-107); GLOMERULAR FILTRATION RATE 75 ML/MIN (>89); POTASSIUM 3.6 MEQ/L (3.5-5.1); SODIUM (NA) 128 MEQ/L (136-145); TOTAL BILIRUBIN ADULT 0.7 MG/DL (0.2-1.0)
[2016-02-13] MEDS: SUCRALFATE 1 GM TAB PO SCH ×3 (08:25→18:00)
[2016-02-13 08:29] LABS: BLOOD UREA NITROGEN 15 MG/DL (7-18)
[2016-02-13] MEDS: SODIUM CHLORIDE 0.9% FLUSH 5 ML FLUSH FLUSH SCH ×2 (09:00→19:29)
[2016-02-13] MEDS ORDERED: PANTOPRAZOLE SOD 20 MG DELAYED RELEASE TAB PO SCH (09:00)
[2016-02-13] MEDS: ATENOLOL 50 MG TAB PO SCH (10:43)
[2016-02-13] MEDS: GABAPENTIN 300 MG CAP PO SCH ×2 (10:43→20:19)
[2016-02-13 10:58] LABS: BASOPHIL % 0.1 % (0.0-2.0); EOSINOPHIL % 0.1 % (0.0-4.0); HEMATOCRIT 41.7 % (39.0-51.0); HEMO FLAGS DIFF FINAL; LYMPH % 5.5 % (9.0-44.0); LYMPHOCYTE # 0.5 TH/MM3 (1.0-4.8); MEAN CELL VOLUME 89.5 FL (80.0-100.0); MEAN CORPUSCULAR HEMOGLOBIN 30.6 PG (27.0-34.0); MEAN CORPUSCULAR HGB CONC 34.2 % (32.0-36.0); MONO % 2.1 % (0.0-8.0); NEUT % 92.2 % (16.0-70.0); PLATELET COUNT 283 TH/MM3 (150-450); RED BLOOD COUNT 4.66 MIL/MM3 (4.50-5.90); RED CELL DISTRIBUTION WIDTH 12.8 % (11.6-17.2); WHITE BLOOD COUNT 9.7 TH/MM3 (4.0-11.0)
--- NOTE | 2016-02-13 11:41 | HHI.PR ---
Subjective Remarks DW RN. Patient complained of neck swelling and neck pain. He reports a pressure type headache. He denies difficulty breathing at this time. Face noted to be dusky with conjunctival injection Objective Vitals Vital Signs Date Time Temp Pulse Resp B/P Pulse Ox O2 Delivery O2 Flow Rate FiO2 02/13/16 10:33 97.6 98 20 168/77 97 02/13/16 07:50 97.3 90 20 185/51 95 02/13/16 04:00 97.6 77 18 157/67 94 02/13/16 00:00 97.4 57 16 145/57 94 02/12/16 20:00 97.3 60 18 152/83 94 02/12/16 17:55 97.9 55 18 129/62 94 02/12/16 16:10 98 02/12/16 12:17 97.5 66 16 140/65 94 Room Air I/O 02/12/16 02/12/16 02/12/16 02/13/16 02/13/16 02/13/16 07:00 15:00 23:00 07:00 15:00 23:00 Intake Total 240 ml 240 ml Output Total 500 ml 450 ml Balance -260 ml -210 ml Intake Oral 240 ml 240 ml Output Urine Total 500 ml 450 ml Result Diagram: 02/13/16 1000 02/13/16 0711 Imaging Reported Meds & Active Scripts Active Reported Lopid (Gemfibrozil) 600 Mg Tab 600 Mg PO BIDAC Take 30 minutes prior to breakfast and dinner Naproxen Sodium DS (Naproxen Sodium) 550 Mg Tab 550 Mg PO DAILY Omeprazole 20 Mg Tab 20 Mg PO DAILY Sucralfate 1 Gm Tab 1 Gm PO TID on empty stomach Atenolol 50 Mg Tab 50 Mg PO DAILY Gabapentin 300 Mg Cap 300 Mg PO BID Objective Remarks GENERAL: Obese male in mild discomfort HEENT: Face appear dusky. Conjunctival vascular engorgement. Neck is swollen. Some engorgement of blood vessels on his chest. CARDIOVASCULAR: Normal rate and regular rhythm without murmurs, gallops, or rubs. RESPIRATORY: Good respiratory efforts. Breath sounds equal and clear to auscultation bilaterally. GASTROINTESTINAL: Abdomen soft, non-tender, non-distended. Normal active bowel sounds MUSCULOSKELETAL: Extremities without cyanosis, or edema. NEURO: Alert & Oriented x4 to person, place, time, situation. Moves all ext x4 PSYCH: Appropriate mood and affect. A/P Assessment and Plan 75-year-old male with a past history of HTN, HLD, GERD, neuropathy, COPD admitted with a new lung mass and SVC syndrome: SVC syndrome/Lung mass: New diagnosis. Medical oncology and radiation oncology following. Patient has SVC syndrome. S/P venoplasty, high-grade obstruction. Initially improved but showing symptoms of obstruction again. Radiation Oncology will re eval today, and consider starting treatment today. I discussed with Dr. Saba and interventional radiologist Dr. Peguero who graciously agreed to repeat venoplasty. We agreed this is for temporary relief. He needs radiation and plan to treat him later today given his current condition.- - Continue steroids. Move patient to the ICU for closer monitoring. He is at risk for sudden decompensation. -Will need further imaging for staging per oncology. Neuropathy: Continue gabapentin. Hypertension: Chronic, uncontrolled. Continue atenolol. Vasotec when necessary. Add nifedipine GERD/history of duodenal ulcer: Continue Carafate and PPI. DVT prophylaxis: Katie Leary MD Feb 13, 2016 11:40
[2016-02-13] MEDS ORDERED: MORPHINE SULFATE 4 MG/ML INJ IV PUSH PRN (12:00)
[2016-02-13] MEDS ORDERED: cloNIDine HCL 0.1 MG TAB PO ONE (12:00)
[2016-02-13] MEDS ORDERED: ENALAPRILAT 1.25 MG/ML VIAL IV PRN (12:00)
[2016-02-13] MEDS ORDERED: TEMAZEPAM 15 MG CAP PO PRN (13:00)
--- NOTE | 2016-02-13 14:45 | EKG ---
Date Performed: 02/12/2016 Time Performed: 17:06:37 PTAGE: 75 years EKG: SINUS BRADYCARDIA RIGHT BUNDLE BRANCH BLOCK Compared to previous tracing, the right bundle branch block is new. The inferolateral ST-T wave changes are no longer evident. ABNORMAL ECG PREVIOUS TRACING : 09/23/2003 01.26 DOCTOR: Kalyn Dior Interpretating Date/Time 02/13/2016 14:44:11
[2016-02-13] MEDS ORDERED: MIDAZOLAM HCL 5 MG/5 ML VIAL ONE (16:44)
[2016-02-13] MEDS ORDERED: fentaNYL CITRATE 250 MCG/5 ML AMP ONE (16:44)
--- NOTE | 2016-02-13 17:14 | MB ---
cc: RUPERT BLAKE M.D. DATE OF CONSULTATION: 02/13/2016 DATE OF 1940 BRIEF HISTORY This gentleman was seen yesterday late afternoon in the emergency room. He was presenting with an SVC obstruction and at that time was stable. It was elected to proceed with hospitalization workup including a biopsy of his lung lesion followed by initiation of treatment. Today I was called by Dr. Saba this morning as he was visiting the patient and he had obviously deteriorated overnight. He was having significant more facial swelling and puffiness associated with headaches. It was elected to proceed with emergent radiation treatment without pathology. Yesterday I discussed radiation treatment in detail with all the attendant side effects including fatigue, possible radiation pneumonitis and esophagitis. Today I re-discussed this with the patient with his [id number] present. We discussed initiating radiation treatment without pathology because of his worsening condition. I told him that I believed he had cancer and that this would eventually be proven with a biopsy. He was told that we would not proceed with treatment without his consent with a negative pathology. He did want to proceed with treatment. I discussed treatment briefly with his on the telephone who was not present in the hospital and everyone was in agreement to proceed with treatment. We have delivered his first treatment today. We will deliver his next treatment tomorrow and continue on a daily basis. MD LUZ Rodriguez/IGNACIO /3:22 PM /5:01 PM
[2016-02-13] MEDS ORDERED: IOHEXOL 350 MG/ML 100 ML BTL (for RAD DIAG) OTHER ONE (17:18)
--- NOTE | 2016-02-13 17:30 | PD.RAD ---
Post Procedure Progress Note Pre Procedure Diagnosis: (1) Superior vena cava syndrome (2) Lung cancer Post Procedure Diagnosis: (1) Superior vena cava syndrome (2) Lung cancer Procedure Date: Feb 13, 2016 Supervising Radiologist: Dustin Peguero JR Proceduralist/Assist: Donna Otoole, RT(R), Myrna Stratton, RT(R)(CV) Anesthesia: Conscious Sedation Plan of Activity Patient to Unit: Critical Care Patient Condition: Fair See PACS Report for procedural detail/treatment Vascular-Venous Procedure Procedure 1 Procedure Site: Thoracic Procedure(s): Angioplasty Access Access Site(s): Right Jugular Vein Findings: Recurrent occlusion of SVC since yesterday. Secondary to mediastinal mass. Patient started XRT today. Venogram shows small volume thrombus in SVC above occlusion. Repeat venoplasty shows poor results even less pronounced relative to yesterdays'. There is a small channel that is now patent but this will likely quickly occlude as well. Plan Poor results following venoplasty. Small volume thrombus also noted. Suggest heparinization. Jr. Sudhir,Dustin Saini MD Feb 13, 2016 17:29
--- NOTE | 2016-02-13 18:08 | RADRPT ---
EXAM DATE/TIME: 02/13/2016 16:40 [facility] COMPARISON: VENOGRAM, SUPERIOR VENA CAVA, February 12, 2016, 14:04. ANGIOPLASTY, VENOUS, RIGHT, February 11 6, 15:52. INDICATIONS : Lung mass. Facial swelling.SOB. Patient has SVC syndrome. Facial swelling and breathing improved some what overnight but has returned. Repeat venoplasty requested. Patient has started radiation therapy. MEDICAL HISTORY : 1. lung mass 2. HTN 3. COPD 4. GERD SURGICAL HISTORY : 1. hernia repair ENCOUNTER: Subsequent ACUITY: 4 - 6 days PAIN SCORE: FLUORO TIME: 2.7 minutes ACCESS SITE: Right Internal jugular vein SEDATION TIME: 30 minutes CONTRAST: 20 cc Omnipaque (iohexol) 350 MEDICATION(S): 1.) 3 mg midazolam (Versed) IV 2.) 150 mcg fentanyl (Sublimaze) IV DEVICE(S): 1.) Superior vena cava 10 x 4 GARBAGE COLLECTOR SUPERVISOR balloon PROCEDURE : 1. Ultrasound-guided puncture of the right internal jugular vein. 2. Conscious sedation with continuous EKG and Oximetry monitoring. 3. Angiography of the superior vena cava 4. Angioplasty of the superior vena cava 5. Followup venogram of the superior vena cava The risks, benefits and alternatives to the procedure were explained and verbal and written consent w as obtained. The site was prepped in sterile fashion. Full sterile technique was used, including ca p, mask, sterile gloves and gown and a large sterile sheet. Hand hygiene and 2% chlorhexidine and/or betadine/alcohol prep was utilized per protocol for cutaneous antisepsis. The skin and subcutaneous tissues were infiltrated with local anesthetic solution. With ultrasound and fluoroscopic guidance the right internal jugular vein was punctured and a vascula r sheath was placed. Angiography of the superior vena cava shows recurrent occlusion at the level the aortic knob. There i s small volume thrombus cephalad to the occlusion. This is a new finding. Angioplasty was performed u tilizing a 10 mm x 40 mm balloon. This required 15 atmospheres of pressure to efface the stenosis on the balloon. The patient did develop significant discomfort with this. A followup venogram was perfor med which shows persistent thrombus above the lesion. There is a very small channel but has now been established in the previously occluded segment. This channel measures approximately 2 mm in diameter. This will likely include very quickly. Stenting is not a viable option at this point as previously d iscussed in the other report.. The puncture site was closed with manual pressure and hemostasis was obtained. The patient tolerated the procedure well and there were no complications. Conscious sedation was performed with the prescribed dosages and duration as above. EKG and oximetry remained stable throughout the procedure. CONCLUSION: 1. Recurrent occlusion of the SVC. There has been the development of small volume thrombus above the occlusion which is a new finding. A venoplasty was performed with poor results. An approximate 2 mm c hannel was reestablished despite 10 mm angioplasty. This channel will likely quickly reocclude. I wou ld suggest heparinization of the patient to try and maintain the patency of the collateral vessels an d to try and prevent propagation of the small volume thrombus. A phone call is currently out to Dr. Deniz cruz. Dustin Peguero Jr., MD on February 13, 2016 at 18:00 Board Certified Radiologist. This report was verified electronically.
[2016-02-13] MEDS ORDERED: HEPARIN SODIUM - IV 10,000 UNITS/10 ML VIAL IV ONE (18:15)
[2016-02-13 18:39] LABS: HEMATOCRIT 39.4 % (39.0-51.0); MEAN CELL VOLUME 90.1 FL (80.0-100.0); MEAN CORPUSCULAR HEMOGLOBIN 30.6 PG (27.0-34.0); PLATELET COUNT 279 TH/MM3 (150-450); RED BLOOD COUNT 4.37 MIL/MM3 (4.50-5.90); RED CELL DISTRIBUTION WIDTH 12.6 % (11.6-17.2); REVIEW FLAG FINAL; WHITE BLOOD COUNT 9.8 TH/MM3 (4.0-11.0)
[2016-02-13 18:57] LABS: APTT (PATIENT) 29.4 SEC (24.3-30.1); INTERNATIONAL NORMALIZED RATIO 1.1 RATIO
[2016-02-13] MEDS: HEPARIN-D5W INJ 250 ML IV SCH (19:38)
[2016-02-13] MEDS ORDERED: diphenhydrAMINE HCL 50 MG/ML VIAL IV PUSH ONE (20:15)
[2016-02-13] MEDS: ACETAMINOPHEN/HYDROcodone 325 MG/5 MG TAB PO PRN (20:19)
[2016-02-14] VITALS (12 sets, daily range): BP systolic 131–165; BP diastolic 59–67; PULSE 67–81; RESP 14–20; TEMP 97.1–97.8; O2SAT 92–96
[2016-02-14] MEDS ORDERED: HEPARIN SODIUM - IV 10,000 UNITS/10 ML VIAL IV PRN ×2 (00:15)
[2016-02-14] MEDS: DEXAMETHASONE SOD PHOS 4 MG/ML VIAL IV PUSH SCH ×5 (00:30→21:52)
[2016-02-14 02:06] LABS: HEMATOCRIT 38.5 % (39.0-51.0); MEAN CELL VOLUME 90.6 FL (80.0-100.0); MEAN CORPUSCULAR HEMOGLOBIN 30.3 PG (27.0-34.0); MEAN CORPUSCULAR HGB CONC 33.4 % (32.0-36.0); PLATELET COUNT 261 TH/MM3 (150-450); RED BLOOD COUNT 4.24 MIL/MM3 (4.50-5.90); RED CELL DISTRIBUTION WIDTH 12.9 % (11.6-17.2); REVIEW FLAG FINAL; WHITE BLOOD COUNT 9.4 TH/MM3 (4.0-11.0)
[2016-02-14 04:12] LABS: BICARBONATE 22.9 MEQ/L (21.0-32.0); POTASSIUM 3.5 MEQ/L (3.5-5.1)
[2016-02-14] MEDS: GEMFIBROZIL 600 MG TAB PO SCH ×2 (06:48→16:03)
[2016-02-14 07:08] LABS: APTT (PATIENT) GREATER THAN 153.4 SEC (24.3-30.1)
--- NOTE | 2016-02-14 07:15 | PD.ONC.PN ---
Subjective Subjective Remarks Afebrile overnight. Pt states he slept OK. He denies headache, chest pain or SOB. He c/o not being able to sleep and his chronic back pain. Objective Data Date Time Temp Pulse Resp B/P Pulse Ox O2 Delivery O2 Flow Rate FiO2 02/14/16 06:00 67 02/14/16 04:00 68 02/14/16 04:00 97.3 68 17 132/62 96 02/14/16 02:00 72 02/14/16 00:00 71 02/14/16 00:00 97.7 71 17 134/63 94 02/13/16 22:00 68 02/13/16 21:19 16 02/13/16 20:00 81 02/13/16 20:00 97.8 81 16 152/72 94 02/13/16 16:30 02/13/16 11:30 97.5 90 20 184/84 96 02/13/16 10:33 97.6 98 20 168/77 97 02/13/16 07:50 97.3 90 20 185/51 95 02/14/16 02/14/16 02/14/16 07:00 15:00 23:00 Intake Total 194 ml Output Total 250 ml Balance -56 ml Result Diagram: 02/14/16 0149 02/14/16 0331 Laboratory Results Laboratory Tests Test 02/13/16 02/13/16 02/13/16 02/14/16 07:11 10:00 18:25 01:49 Sodium Level 128 MEQ/L Potassium Level 3.6 MEQ/L Chloride Level 95 MEQ/L Carbon Dioxide Level 19.8 MEQ/L Anion Gap 13 MEQ/L Blood Urea Nitrogen 15 MG/DL Creatinine 0.98 MG/DL Estimat Glomerular Filtration 75 ML/MIN Rate Random Glucose 106 MG/DL Calcium Level 9.5 MG/DL Total Bilirubin 0.7 MG/DL Aspartate Amino Transf 17 U/L (AST/SGOT) Alanine Aminotransferase 22 U/L (ALT/SGPT) Alkaline Phosphatase 27 U/L Total Protein 7.7 GM/DL Albumin 4.5 GM/DL Carcinoembryonic Antigen 5.7 NG/ML Thyroid Stimulating Hormone 0.966 uIU/ML 3rd Gen White Blood Count 9.7 TH/MM3 9.8 TH/MM3 9.4 TH/MM3 Red Blood Count 4.66 MIL/MM3 4.37 MIL/MM3 4.24 MIL/MM3 Hemoglobin 14.3 GM/DL 13.4 GM/DL 12.9 GM/DL Hematocrit 41.7 % 39.4 % 38.5 % Mean Corpuscular Volume 89.5 FL 90.1 FL 90.6 FL Mean Corpuscular Hemoglobin 30.6 PG 30.6 PG 30.3 PG Mean Corpuscular Hemoglobin 34.2 % 34.0 % 33.4 % Concent Red Cell Distribution Width 12.8 % 12.6 % 12.9 % Platelet Count 283 TH/MM3 279 TH/MM3 261 TH/MM3 Mean Platelet Volume 9.7 FL 8.8 FL 9.1 FL Neutrophils (%) (Auto) 92.2 % Lymphocytes (%) (Auto) 5.5 % Monocytes (%) (Auto) 2.1 % Eosinophils (%) (Auto) 0.1 % Basophils (%) (Auto) 0.1 % Neutrophils # (Auto) 9.0 TH/MM3 Lymphocytes # (Auto) 0.5 TH/MM3 Monocytes # (Auto) 0.2 TH/MM3 Eosinophils # (Auto) 0.0 TH/MM3 Basophils # (Auto) 0.0 TH/MM3 CBC Comment DIFF FINAL Differential Comment Prothrombin Time 12.0 SEC Prothromb Time International 1.1 RATIO Ratio Activated Partial 29.4 SEC Thromboplast Time Test 02/14/16 03:31 Sodium Level 130 MEQ/L Potassium Level 3.5 MEQ/L Chloride Level 96 MEQ/L Carbon Dioxide Level 22.9 MEQ/L Anion Gap 11 MEQ/L Blood Urea Nitrogen 23 MG/DL Creatinine 1.22 MG/DL Estimat Glomerular Filtration 58 ML/MIN Rate Random Glucose 127 MG/DL Calcium Level 9.6 MG/DL Imaging Studies Last 24 hours Impressions Vena Cavagram 02/13/16 7053 Signed Impressions: Service Date/Time: Saturday, February 13, 2016 16:40 - CONCLUSION: 1. Recurrent occlusion of the SVC. There has been the development of small volume thrombus above the occlusion which is a new finding. A venoplasty was performed with poor results. An approximate 2 mm channel was reestablished despite 10 mm angioplasty. This channel will likely quickly reocclude. I would suggest heparinization of the patient to try and maintain the patency of the collateral vessels and to try and prevent propagation of the small volume thrombus. A phone call is currently out to Dr. John. Dustin Peguero Jr., MD Administered Medications Medications (Trade) Dose Ordered Sig/Hilaria Route PRN Reason Start Time Stop Time Status Last Admin Dose Admin IV Flush (NS Flush) 2 ml BID FLUSH 02/12/16 21:00 02/13/16 19:29 Atenolol (Tenormin) 50 mg DAILY PO 02/13/16 09:00 02/13/16 10:43 Gabapentin (Neurontin) 300 mg BID PO 02/12/16 21:00 02/13/16 20:19 Gemfibrozil (Lopid) 600 mg BIDAC PO 02/12/16 16:00 02/13/16 20:19 Sucralfate (Carafate) 1 gm TID PO 02/12/16 18:00 02/13/16 08:25 Dexamethasone Sodium Phosphate (Decadron Inj) 4 mg Q6H IV PUSH 02/12/16 23:00 02/14/16 03:35 Diphenhydramine HCl (Benadryl) 25 mg HS PRN PO INSOMNIA 02/12/16 22:00 02/12/16 22:01 Acetaminophen/ Hydrocodone Bitart 1 tab 1 tab Q4H PRN PO PAIN GREATER THAN 5 02/13/16 12:00 02/13/16 20:19 Heparin Sodium/ Dextrose (Heparin-D5W Inj) 250 ml @ 0 mls/hr TITRATE IV 02/13/16 18:15 02/13/16 19:38 Objective Remarks GENERAL: Older male, lying in bed in no distress. SKIN: Varicose veins to chest. HEAD: Mildly erythremic with dusky color remaining to ears. EYES: Sclerae injected. NECK: Swollen. Not worse from yesterday afternoon. CARDIOVASCULAR: +S1/S2. RESPIRATORY: Lungs clear, diminished. GASTROINTESTINAL: Abdomen soft, non-tender, nondistended. EXTREMITIES: No edema to BLE NEUROLOGICAL: No obvious focal deficit. Awake, alert, and oriented x3. PSYCHIATRIC: Appropriate mood and affect. Verbalizes understanding of our discussion. Assessment/Plan Problem List: (1) Lung mass Status: Acute Plan: -- IR consulted for CT guided biopsy of lung mass -- To complete staging we will also order a CT scan, bone scan as well as brain MRI. We will wait until he is stable from the SVC syndrome to proceed. -- He will need radiation with concurrent chemotherapy given the SVC syndrome. Hx: Mr. Luna has a 100 pack year smoking history. He reports having lost 27 pounds over the last 3 weeks. He patel noticed some swelling of his neck and engorgement of veins on his chest and abdomen. He was sent by his PCP for a CT of the chest yesterday which showed a lung mass with mediastinal mass causing occlusion of the superior vena cava. He was then directed to the ER. 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 Swelling is unchanged from yesterday afternoon. Ears remain slightly dusky. Pt on heparin gtt. -- 02/13/16 first radiation treatment. Will proceed with daily treatments per Dr. Li. -- Repeat Vena cavagram done on 02/13/16 was done with a poor result with only a 2mm channel for blood flow in the SVC. 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 --Monitor APTT Assessment 75 y/o male who presents to the ER with SVC syndrome, sent directly from the imaging center. Plan 1. Daily radiation treatments to attempt to shrink mediastinal mass causing SVC syndrome. 2. Continue heparin gtt for SVC thrombus. 3. Pt will need concurrent radiation/chemotherapy for SVC syndrome. 4. Continue decadron 4mg Q6H. 5. IR consulted for biopsy of lung mass; will get staging scans incl MRI Brain once stable. 6. Pt will be monitored closely in the ICU. Pt was encouraged to position himself either on his back or his L side. Attending Statement The exam, history, and the medical decision-making described in the above note were completed with the assistance of the mid-level provider. I reviewed and agree with the findings presented. I attest that I had a [id number] encounter with the patient on the same day, and personally performed and documented my assessment and findings in the medical record. Neck is still swollen, and facial flushing. Stated that headache and pressure behind the eyes have subsided. Had venoplasty but only able to open the SVC to about 2mm. +SVC thrombus noted. Started on heparin. Continue decadron. Continue XRT. Radiology to biopsy right lung mass tomorrow. Traci Merritt Feb 14, 2016 07:15 Toro Saba MD Feb 14, 2016 11:15
[2016-02-14] MEDS: SUCRALFATE 1 GM TAB PO SCH ×3 (08:44→17:19)
[2016-02-14] MEDS: GABAPENTIN 300 MG CAP PO SCH ×2 (08:44→20:34)
[2016-02-14] MEDS: ATENOLOL 50 MG TAB PO SCH (08:44)
[2016-02-14] MEDS: PANTOPRAZOLE SOD 40 MG DELAYED RELEASE TAB PO SCH (08:44)
[2016-02-14] MEDS: SODIUM CHLORIDE 0.9% FLUSH 5 ML FLUSH FLUSH SCH ×2 (08:45→20:34)
[2016-02-14 10:28] LABS: APTT (PATIENT) 44.6 SEC (24.3-30.1)
[2016-02-14] MEDS: HEPARIN-D5W INJ 250 ML IV SCH (13:12)
[2016-02-14] MEDS: diphenhydrAMINE HCL 25 MG CAP PO PRN (16:03)
--- NOTE | 2016-02-14 17:00 | HHI.PR ---
Subjective Remarks Patient seen in follow-up for COPD, hypertension, superior vena cava syndrome. Doing well. Some sensation of neck fullness while eating earlier today. Objective Vitals Vital Signs Date Time Temp Pulse Resp B/P Pulse Ox O2 Delivery O2 Flow Rate FiO2 02/14/16 16:00 81 02/14/16 16:00 97.5 81 20 165/67 92 02/14/16 14:00 74 02/14/16 12:00 75 02/14/16 12:00 97.4 77 14 159/65 96 02/14/16 10:00 78 02/14/16 08:00 97.1 81 14 131/59 96 02/14/16 08:00 81 02/14/16 06:00 67 02/14/16 04:00 68 02/14/16 04:00 97.3 68 17 132/62 96 02/14/16 02:00 72 02/14/16 00:00 71 02/14/16 00:00 97.7 71 17 134/63 94 02/13/16 22:00 68 02/13/16 21:19 16 02/13/16 20:00 81 02/13/16 20:00 97.8 81 16 152/72 94 I/O 02/13/16 02/13/16 02/13/16 02/14/16 02/14/16 02/14/16 07:00 15:00 23:00 07:00 15:00 23:00 Intake Total 240 ml 194 ml 346 ml Output Total 450 ml 250 ml 200 ml Balance -210 ml -56 ml 146 ml Intake Oral 240 ml 300 ml IV Total 194 ml 46 ml Output Urine Total 450 ml 250 ml 200 ml # Bowel Movements 0 Result Diagram: 02/14/16 0149 02/14/16 0331 Imaging Last Impressions Vena Cavagram 02/13/16 1705 Signed Impressions: Service Date/Time: Saturday, February 13, 2016 16:40 - CONCLUSION: 1. Recurrent occlusion of the SVC. There has been the development of small volume thrombus above the occlusion which is a new finding. A venoplasty was performed with poor results. An approximate 2 mm channel was reestablished despite 10 mm angioplasty. This channel will likely quickly reocclude. I would suggest heparinization of the patient to try and maintain the patency of the collateral vessels and to try and prevent propagation of the small volume thrombus. A phone call is currently out to Dr. John. Dustin Peguero Jr., MD Objective Remarks GENERAL: This is a well-nourished, well-developed patient, in no apparent distress. Very thick neck CARDIOVASCULAR: Regular rate and rhythm without murmurs, gallops, or rubs. RESPIRATORY: Clear to auscultation. Breath sounds equal bilaterally. No wheezes , rales, or rhonchi. GASTROINTESTINAL: Abdomen soft, non-tender, nondistended. Normal active bowel sounds MUSCULOSKELETAL: Extremities without clubbing, cyanosis, or edema. NEURO: Alert & Oriented x4 to person, place, time, situation. Moves all ext x4 A/P Problem List: (1) COPD (chronic obstructive pulmonary disease) ICD Code: J44.9 Status: Acute Plan: Patient with 100 pack year history tobacco Patient with broncho-bronchodilators as needed (2) Superior vena cava syndrome ICD Code: I87.1 Status: Acute Plan: Secondary to mediastinal mass continue daily radiation, heparin gtt, decadron 4mg Q6H. ? biopsy of lung mass per IR Keep in ICU [facility] (3) HTN (hypertension) ICD Code: I10 Status: Acute Plan: on atenolol add norvasc may be more elevated due to steroids Problem Qualifiers (1) COPD (chronic obstructive pulmonary disease): Qualified Code: J43.2 - Centrilobular emphysema Kaitlin Sanchez MD Feb 14, 2016 17:00
[2016-02-14 17:39] LABS: APTT (PATIENT) 68.3 SEC (24.3-30.1)
[2016-02-14] MEDS ORDERED: RESP: ALBUTEROL 2.5 MG/IPRATROPIUM 0.5 MG NEB (PRN) NEB (18:00)
[2016-02-14] MEDS: ACETAMINOPHEN/HYDROcodone 325 MG/5 MG TAB PO PRN (20:36)
[2016-02-15] VITALS (16 sets, daily range): BP systolic 120–149; BP diastolic 58–77; PULSE 64–81; RESP 19–22; TEMP 97.5–97.9; O2SAT 92–98
[2016-02-15 02:22] LABS: APTT (PATIENT) 138.5 SEC (24.3-30.1)
[2016-02-15] MEDS: DEXAMETHASONE SOD PHOS 4 MG/ML VIAL IV PUSH SCH ×4 (04:08→19:56)
[2016-02-15 04:28] LABS: AUTOMATED NEUTROPHIL # 7.1 TH/MM3 (1.8-7.7); BASOPHIL % 0.1 % (0.0-2.0); HEMATOCRIT 37.7 % (39.0-51.0); HEMO FLAGS DIFF FINAL; LYMPH % 7.6 % (9.0-44.0); LYMPHOCYTE # 0.6 TH/MM3 (1.0-4.8); MEAN CELL VOLUME 88.7 FL (80.0-100.0); MEAN CORPUSCULAR HEMOGLOBIN 30.9 PG (27.0-34.0); MEAN CORPUSCULAR HGB CONC 34.8 % (32.0-36.0); MONO % 6.4 % (0.0-8.0); NEUT % 85.9 % (16.0-70.0); PLATELET COUNT 267 TH/MM3 (150-450); RED BLOOD COUNT 4.24 MIL/MM3 (4.50-5.90); RED CELL DISTRIBUTION WIDTH 12.7 % (11.6-17.2); WHITE BLOOD COUNT 8.2 TH/MM3 (4.0-11.0)
[2016-02-15 04:49] LABS: APTT (PATIENT) 60.3 SEC (24.3-30.1)
[2016-02-15 04:56] LABS: ALKALINE PHOSPHATASE 26 U/L (45-117); ALT (GPT) 18 U/L (12-78); ANION GAP 11 MEQ/L (5-15); AST (GOT) 11 U/L (15-37); BLOOD UREA NITROGEN 32 MG/DL (7-18); CHLORIDE 95 MEQ/L (98-107); GLOMERULAR FILTRATION RATE 57 ML/MIN (>89); POTASSIUM 3.6 MEQ/L (3.5-5.1); SODIUM (NA) 131 MEQ/L (136-145); TOTAL BILIRUBIN ADULT 0.6 MG/DL (0.2-1.0)
[2016-02-15] MEDS: GEMFIBROZIL 600 MG TAB PO SCH ×2 (06:28→16:10)
[2016-02-15] MEDS: diphenhydrAMINE HCL 25 MG CAP PO PRN (06:28)
[2016-02-15] MEDS: amLODIPine BESYLATE 5 MG TAB PO SCH (09:16)
[2016-02-15] MEDS: GABAPENTIN 300 MG CAP PO SCH ×2 (09:16→19:55)
[2016-02-15] MEDS: SUCRALFATE 1 GM TAB PO SCH ×2 (09:16→16:10)
[2016-02-15] MEDS: SODIUM CHLORIDE 0.9% FLUSH 5 ML FLUSH FLUSH SCH ×2 (09:16→19:57)
[2016-02-15] MEDS: ATENOLOL 50 MG TAB PO SCH (09:16)
[2016-02-15] MEDS: PANTOPRAZOLE SOD 40 MG DELAYED RELEASE TAB PO SCH (09:16)
[2016-02-15] MEDS: HEPARIN-D5W INJ 250 ML IV SCH (10:25)
--- NOTE | 2016-02-15 10:55 | HHI.PR ---
Subjective Remarks Patient seen today in follow-up for SVC. No events overnight. Patient is waiting for radiation therapy today. Care plan discussed with [employer] Objective Vitals Vital Signs Date Time Temp Pulse Resp B/P Pulse Ox O2 Delivery O2 Flow Rate FiO2 02/15/16 10:00 75 02/15/16 08:30 92 02/15/16 08:00 74 02/15/16 06:00 74 02/15/16 04:09 97.5 69 21 140/63 94 02/15/16 04:00 70 02/15/16 02:00 73 02/15/16 00:00 69 02/15/16 00:00 97.6 69 20 123/58 92 02/14/16 22:00 71 02/14/16 21:36 16 02/14/16 20:00 97.8 81 16 132/62 94 02/14/16 20:00 81 02/14/16 18:00 79 02/14/16 16:00 81 02/14/16 16:00 97.5 81 20 165/67 92 02/14/16 14:00 74 02/14/16 12:00 75 02/14/16 12:00 97.4 77 14 159/65 96 I/O 02/14/16 02/14/16 02/14/16 02/15/16 02/15/16 02/15/16 07:00 15:00 23:00 07:00 15:00 23:00 Intake Total 194 ml 346 ml 177 ml Output Total 250 ml 200 ml 351 ml Balance -56 ml 146 ml -174 ml Intake Oral 300 ml IV Total 194 ml 46 ml 177 ml Output Urine Total 250 ml 200 ml 350 ml Stool Total 1 ml # Voids 1 # Bowel Movements 0 Result Diagram: 02/15/16 0412 02/15/16 0412 Objective Remarks GENERAL: This is a well-nourished, well-developed patient, in no apparent distress. Very thick neck CARDIOVASCULAR: Regular rate and rhythm without murmurs, gallops, or rubs. RESPIRATORY: Clear to auscultation. Breath sounds equal bilaterally. No wheezes , rales, or rhonchi. GASTROINTESTINAL: Abdomen soft, non-tender, nondistended. Normal active bowel sounds MUSCULOSKELETAL: Extremities without clubbing, cyanosis, or edema. NEURO: Alert & Oriented x4 to person, place, time, situation. Moves all ext x4 A/P Problem List: (1) COPD (chronic obstructive pulmonary disease) ICD Code: J44.9 Status: Acute Plan: Patient with 100 pack year history tobacco Patient with broncho-bronchodilators as needed (2) Superior vena cava syndrome ICD Code: I87.1 Status: Acute Plan: Secondary to mediastinal mass continue daily radiation, heparin gtt, decadron 4mg Q6H. ? biopsy of lung mass per IR Keep in ICU [facility] for dysphagia (3) HTN (hypertension) ICD Code: I10 Status: Acute Plan: on atenolol, norvasc may be more elevated due to steroids Problem Qualifiers (1) COPD (chronic obstructive pulmonary disease): Qualified Code: J43.2 - Centrilobular emphysema Kaitlin Sanchez MD Feb 15, 2016 10:55
--- NOTE | 2016-02-15 12:16 | PD.ONC.PN ---
Subjective Subjective Remarks Feeling better. Headache and neck congestion improved. Able to eat. No SOB. Objective Data Date Time Temp Pulse Resp B/P Pulse Ox O2 Delivery O2 Flow Rate FiO2 02/15/16 10:00 75 02/15/16 08:30 92 02/15/16 08:00 74 02/15/16 06:00 74 02/15/16 04:09 97.5 69 21 140/63 94 02/15/16 04:00 70 02/15/16 02:00 73 02/15/16 00:00 69 02/15/16 00:00 97.6 69 20 123/58 92 02/14/16 22:00 71 02/14/16 21:36 16 02/14/16 20:00 97.8 81 16 132/62 94 02/14/16 20:00 81 02/14/16 18:00 79 02/14/16 16:00 81 02/14/16 16:00 97.5 81 20 165/67 92 02/14/16 14:00 74 02/15/16 02/15/16 02/15/16 07:00 15:00 23:00 Intake Total 177 ml Output Total 351 ml Balance -174 ml Result Diagram: 02/15/16 0412 02/15/16 0412 Laboratory Results Laboratory Tests Test 02/14/16 02/15/16 02/15/16 16:42 00:48 04:12 Activated Partial 68.3 SEC 138.5 SEC 60.3 SEC Thromboplast Time White Blood Count 8.2 TH/MM3 Red Blood Count 4.24 MIL/MM3 Hemoglobin 13.1 GM/DL Hematocrit 37.7 % Mean Corpuscular Volume 88.7 FL Mean Corpuscular Hemoglobin 30.9 PG Mean Corpuscular Hemoglobin 34.8 % Concent Red Cell Distribution Width 12.7 % Platelet Count 267 TH/MM3 Mean Platelet Volume 8.9 FL Neutrophils (%) (Auto) 85.9 % Lymphocytes (%) (Auto) 7.6 % Monocytes (%) (Auto) 6.4 % Eosinophils (%) (Auto) 0.0 % Basophils (%) (Auto) 0.1 % Neutrophils # (Auto) 7.1 TH/MM3 Lymphocytes # (Auto) 0.6 TH/MM3 Monocytes # (Auto) 0.5 TH/MM3 Eosinophils # (Auto) 0.0 TH/MM3 Basophils # (Auto) 0.0 TH/MM3 CBC Comment DIFF FINAL Differential Comment Sodium Level 131 MEQ/L Potassium Level 3.6 MEQ/L Chloride Level 95 MEQ/L Carbon Dioxide Level 25.0 MEQ/L Anion Gap 11 MEQ/L Blood Urea Nitrogen 32 MG/DL Creatinine 1.24 MG/DL Estimat Glomerular Filtration 57 ML/MIN Rate Random Glucose 128 MG/DL Calcium Level 9.3 MG/DL Total Bilirubin 0.6 MG/DL Aspartate Amino Transf 11 U/L (AST/SGOT) Alanine Aminotransferase 18 U/L (ALT/SGPT) Alkaline Phosphatase 26 U/L Total Protein 7.2 GM/DL Albumin 4.2 GM/DL Administered Medications Medications (Trade) Dose Ordered Sig/Hilaria Route PRN Reason Start Time Stop Time Status Last Admin Dose Admin IV Flush (NS Flush) 2 ml BID FLUSH 02/12/16 21:00 02/15/16 09:16 Atenolol (Tenormin) 50 mg DAILY PO 02/13/16 09:00 02/15/16 09:16 Gabapentin (Neurontin) 300 mg BID PO 02/12/16 21:00 02/15/16 09:16 Gemfibrozil (Lopid) 600 mg BIDAC PO 02/12/16 16:00 02/15/16 06:28 Sucralfate (Carafate) 1 gm TID PO 02/12/16 18:00 02/15/16 09:16 Dexamethasone Sodium Phosphate (Decadron Inj) 4 mg Q6H IV PUSH 02/12/16 23:00 02/15/16 09:16 Diphenhydramine HCl (Benadryl) 25 mg HS PRN PO INSOMNIA 02/12/16 22:00 02/15/16 06:28 Pantoprazole Sodium (Protonix) 40 mg DAILY PO 02/14/16 09:00 02/15/16 09:16 Acetaminophen/ Hydrocodone Bitart 1 tab 1 tab Q4H PRN PO PAIN GREATER THAN 5 02/13/16 12:00 02/14/16 20:36 Heparin Sodium/ Dextrose (Heparin-D5W Inj) 250 ml @ 0 mls/hr TITRATE IV 02/13/16 18:15 02/15/16 10:25 Amlodipine Besylate (Norvasc) 5 mg DAILY PO 02/15/16 09:00 02/15/16 09:16 Objective Remarks GENERAL: Well-nourished, well-developed patient. SKIN: Warm and dry. Facial flushing improving. HEAD: Normocephalic. EYES: No scleral icterus. No injection or drainage. NECK: Supple, trachea midline. No JVD or lymphadenopathy. Neck swelling improving. LYMPHATIC: No adenopathy. CARDIOVASCULAR: Regular rate and rhythm without murmurs. RESPIRATORY: Breath sounds equal bilaterally. No accessory muscle use. GASTROINTESTINAL: Abdomen soft, non-tender, nondistended. EXTREMITIES: No cyanosis, or edema. MUSCULOSKELETAL: Adequate muscle tone. NEUROLOGICAL: No obvious focal deficit. Awake, alert, and oriented x3. PSYCHIATRIC: Appropriate mood and affect; insight and judgment normal. Assessment/Plan Problem List: (1) Lung mass Status: Acute Plan: -- IR consulted for CT guided biopsy of lung mass, scheduled for 02/16/16 -- To complete staging we will also order a CT scan, bone scan as well as brain MRI. We will wait until he is stable from the SVC syndrome to proceed. -- He will need radiation with concurrent chemotherapy given the SVC syndrome. Hx: Mr. Luna has a 100 pack year smoking history. He reports having lost 27 pounds over the last 3 weeks. He patel noticed some swelling of his neck and engorgement of veins on his chest and abdomen. He was sent by his PCP for a CT of the chest yesterday which showed a lung mass with mediastinal mass causing occlusion of the superior vena cava. He was then directed to the ER. 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 Facial flushing improving. 02/14/16: Radiation today. Swelling is unchanged from yesterday afternoon. Ears remain slightly dusky. Pt on heparin gtt. -- 02/13/16 first radiation treatment. Will proceed with daily treatments per Dr. Li. -- Repeat Vena cavagram done on 02/13/16 was done with a poor result with only a 2mm channel for blood flow in the SVC. 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 --Monitor APTT Assessment 75 y/o male who presents to the ER with SVC syndrome, sent directly from the imaging center. Plan 1. Daily radiation treatments to attempt to shrink mediastinal mass causing SVC syndrome. 2. Continue heparin gtt for SVC thrombus. 3. Pt will need concurrent radiation/chemotherapy for SVC syndrome. 4. Continue decadron 4mg Q6H. 5. IR consulted for biopsy of lung mass; scheduled for 02/16/16. will get staging scans incl MRI Brain once stable. Toro Saba MD Feb 15, 2016 12:16
[2016-02-15] MEDS: ACETAMINOPHEN/HYDROcodone 325 MG/5 MG TAB PO PRN ×2 (16:10→19:56)
[2016-02-16] VITALS (16 sets, daily range): BP systolic 120–155; BP diastolic 58–76; PULSE 63–80; RESP 16–20; TEMP 97–98.1; O2SAT 91–98
[2016-02-16] MEDS: GEMFIBROZIL 600 MG TAB PO SCH ×2 (06:05→18:04)
[2016-02-16] MEDS: DEXAMETHASONE SOD PHOS 4 MG/ML VIAL IV PUSH SCH ×4 (06:06→23:53)
[2016-02-16 06:51] LABS: APTT (PATIENT) 58.3 SEC (24.3-30.1); HEMATOCRIT 37.5 % (39.0-51.0); MEAN CELL VOLUME 88.4 FL (80.0-100.0); MEAN CORPUSCULAR HEMOGLOBIN 30.6 PG (27.0-34.0); MEAN CORPUSCULAR HGB CONC 34.6 % (32.0-36.0); PLATELET COUNT 267 TH/MM3 (150-450); RED BLOOD COUNT 4.24 MIL/MM3 (4.50-5.90); RED CELL DISTRIBUTION WIDTH 12.6 % (11.6-17.2); REVIEW FLAG FINAL; WHITE BLOOD COUNT 7.3 TH/MM3 (4.0-11.0)
[2016-02-16] MEDS: GABAPENTIN 300 MG CAP PO SCH ×2 (09:22→19:44)
[2016-02-16] MEDS: PANTOPRAZOLE SOD 40 MG DELAYED RELEASE TAB PO SCH (09:23)
[2016-02-16] MEDS: SODIUM CHLORIDE 0.9% FLUSH 5 ML FLUSH FLUSH SCH ×2 (09:23→21:58)
[2016-02-16] MEDS: amLODIPine BESYLATE 5 MG TAB PO SCH (09:23)
[2016-02-16] MEDS: ATENOLOL 50 MG TAB PO SCH (09:23)
[2016-02-16] MEDS: SUCRALFATE 1 GM TAB PO SCH ×3 (09:23→18:04)
--- NOTE | 2016-02-16 09:33 | PD.ONC.PN ---
Subjective Subjective Remarks Afebrile overnight. Patient complains of feeling cold. He is scheduled for biopsy at 430 this afternoon. Heparin will be held. No overnight events per nurse. Objective Data Date Time Temp Pulse Resp B/P Pulse Ox O2 Delivery O2 Flow Rate FiO2 02/16/16 06:00 68 02/16/16 04:00 97.9 65 16 138/60 91 02/16/16 04:00 65 02/16/16 02:00 66 02/16/16 00:00 63 02/16/16 00:00 98.1 63 19 142/63 94 02/15/16 22:00 64 02/15/16 20:56 18 02/15/16 20:12 98 02/15/16 20:00 76 02/15/16 20:00 97.9 76 22 138/66 95 02/15/16 18:00 81 02/15/16 16:00 74 02/15/16 16:00 97.9 72 20 132/77 96 02/15/16 14:00 71 02/15/16 12:00 97.6 75 22 149/65 94 02/15/16 12:00 80 02/15/16 10:00 75 02/16/16 02/16/16 02/16/16 07:00 15:00 23:00 Intake Total 424 ml Output Total 300 ml Balance 124 ml Result Diagram: 02/16/16 0513 02/15/16 0412 Laboratory Results Laboratory Tests Test 02/15/16 02/16/16 12:25 05:13 Activated Partial 46.0 SEC 58.3 SEC Thromboplast Time White Blood Count 7.3 TH/MM3 Red Blood Count 4.24 MIL/MM3 Hemoglobin 13.0 GM/DL Hematocrit 37.5 % Mean Corpuscular Volume 88.4 FL Mean Corpuscular Hemoglobin 30.6 PG Mean Corpuscular Hemoglobin 34.6 % Concent Red Cell Distribution Width 12.6 % Platelet Count 267 TH/MM3 Mean Platelet Volume 9.7 FL Administered Medications Medications (Trade) Dose Ordered Sig/Hilaria Route PRN Reason Start Time Stop Time Status Last Admin Dose Admin IV Flush (NS Flush) 2 ml UNSCH PRN FLUSH FLUSH AFTER USING IV ACCESS 02/12/16 14:00 02/16/16 09:23 IV Flush (NS Flush) 2 ml BID FLUSH 02/12/16 21:00 02/16/16 09:23 Ondansetron HCl (Zofran Inj) 4 mg Q6H PRN IVP NAUSEA OR VOMITING 02/12/16 14:00 02/16/16 06:09 Atenolol (Tenormin) 50 mg DAILY PO 02/13/16 09:00 02/16/16 09:23 Gabapentin (Neurontin) 300 mg BID PO 02/12/16 21:00 02/16/16 09:22 Gemfibrozil (Lopid) 600 mg BIDAC PO 02/12/16 16:00 02/16/16 06:05 Sucralfate (Carafate) 1 gm TID PO 02/12/16 18:00 02/16/16 09:23 Dexamethasone Sodium Phosphate (Decadron Inj) 4 mg Q6H IV PUSH 02/12/16 23:00 02/16/16 09:23 Diphenhydramine HCl (Benadryl) 25 mg HS PRN PO INSOMNIA 02/12/16 22:00 02/15/16 06:28 Pantoprazole Sodium (Protonix) 40 mg DAILY PO 02/14/16 09:00 02/16/16 09:23 Acetaminophen/ Hydrocodone Bitart 1 tab 1 tab Q4H PRN PO PAIN GREATER THAN 5 02/13/16 12:00 02/15/16 19:56 Heparin Sodium/ Dextrose (Heparin-D5W Inj) 250 ml @ 0 mls/hr TITRATE IV 02/13/16 18:15 02/15/16 10:25 Amlodipine Besylate (Norvasc) 5 mg DAILY PO 02/15/16 09:00 02/16/16 09:23 Objective Remarks GENERAL: Elderly male, sitting up in bed in [facility]. SKIN: Warm and dry. HEAD: Normocephalic. EYES: No scleral icterus. No injection or drainage. NECK: Supple, trachea midline. CARDIOVASCULAR: +S1/S2 RESPIRATORY: Breath sounds equal bilaterally. No accessory muscle use. GASTROINTESTINAL: Abdomen soft, non-tender, nondistended. EXTREMITIES: No cyanosis, or edema. NEUROLOGICAL: No obvious focal deficit. Awake, alert, and oriented x3. Assessment/Plan Problem List: (1) Lung mass Status: Acute Plan: 02/16/16: CT guided lung mass biopsy at 430 this afternoon. plan for bone scan, brain MRI, CT ab/pelvis for staging once stable from SVC syndrome to proceed. continue XRT. -- He will need radiation with concurrent chemotherapy given the SVC syndrome. Hx: Mr. Luna has a 100 pack year smoking history. He reports having lost 27 pounds over the last 3 weeks. He patel noticed some swelling of his neck and engorgement of veins on his chest and abdomen. He was sent by his PCP for a CT of the chest yesterday which showed a lung mass with mediastinal mass causing occlusion of the superior vena cava. He was then directed to the ER. 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 02/15/16: XRT #3 today, Swelling has improved. Facial flushing improving. 02/14/16: Radiation today. Swelling is unchanged from yesterday afternoon. Ears remain slightly dusky. Pt on heparin gtt. -- 02/13/16 first radiation treatment. Will proceed with daily treatments per Dr. Li. -- Repeat Vena cavagram done on 02/13/16 was done with a poor result with only a 2mm channel for blood flow in the SVC. 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 --Monitor APTT Assessment 75 y/o male who presents to the ER with SVC syndrome, sent directly from the imaging center. Plan 1. biopsy lung mass today 2. resume heparin gtt post-biopsy this afternoon 3. continue decadron 4. continue XRT Attending Statement The exam, history, and the medical decision-making described in the above note were completed with the assistance of the mid-level provider. I reviewed and agree with the findings presented. I attest that I had a [id number] encounter with the patient on the same day, and personally performed and documented my assessment and findings in the medical record. Feeling better. Neck edema has improved. Await biopsy of lung mass. Plan to give concurrent chemo with XRT after path available. Charla Bangura Feb 16, 2016 09:33 Toro Saba MD Feb 16, 2016 15:49
[2016-02-16] MEDS: ACETAMINOPHEN/HYDROcodone 325 MG/5 MG TAB PO PRN (11:17)
--- NOTE | 2016-02-16 12:57 | HHI.PR ---
Subjective Remarks Follow for SVC syndrome Patient feels that facial swelling is better than yesterday is not the same. No chest pain, not short of breath. For biopsy today. No overnight events. Objective Vitals Vital Signs Date Time Temp Pulse Resp B/P Pulse Ox O2 Delivery O2 Flow Rate FiO2 02/16/16 10:00 67 02/16/16 08:00 97.6 70 19 145/63 92 02/16/16 08:00 70 02/16/16 06:00 68 02/16/16 04:00 97.9 65 16 138/60 91 02/16/16 04:00 65 02/16/16 02:00 66 02/16/16 00:00 63 02/16/16 00:00 98.1 63 19 142/63 94 02/15/16 22:00 64 02/15/16 20:56 18 02/15/16 20:12 98 02/15/16 20:00 76 02/15/16 20:00 97.9 76 22 138/66 95 02/15/16 18:00 81 02/15/16 16:00 74 02/15/16 16:00 97.9 72 20 132/77 96 02/15/16 14:00 71 I/O 02/15/16 02/15/16 02/15/16 02/16/16 02/16/16 02/16/16 06:59 14:59 22:59 06:59 14:59 22:59 Intake Total 177 ml 327 ml 336 ml 424 ml Output Total 351 ml 1 ml 200 ml 300 ml Balance -174 ml 326 ml 136 ml 124 ml Intake Oral 240 ml 175 ml 350 ml IV Total 177 ml 87 ml 161 ml 74 ml Output Urine Total 350 ml 200 ml 300 ml Stool Total 1 ml 1 ml # Voids 1 1 # Bowel Movements 0 0 Result Diagram: 02/16/16 0513 02/15/16 0412 Objective Remarks GENERAL: Not in distress Positive for facial swelling and thick neck also with swelling, stable. CARDIOVASCULAR: Regular rate and rhythm without murmurs, gallops, or rubs. RESPIRATORY: Clear to auscultation. Breath sounds equal bilaterally. No wheezes , rales, or rhonchi. GASTROINTESTINAL: Abdomen soft, non-tender, nondistended. Normal active bowel sounds MUSCULOSKELETAL: Extremities without clubbing, cyanosis, or edema. NEURO: Alert & Oriented x4 to person, place, time, situation. 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 Status post failed venoplasty 2. Continue heparin drip for thrombosis and monitor PTT, for biopsy of lung mass by interventional radiology this afternoon. Speech therapy evaluating for dysphagia. Will eventually need staging imaging including bone scan, brain MRI , and CT scan of the abdomen and pelvis. Medical Oncology and radiation oncology following COPD-not in exacerbation. Patient with 100 pack year history tobacco , Patient with broncho-bronchodilators as needed Hypertension-controlled, continue Norvasc and atenolol. DVT prophylaxis: On heparin drip. Problem Qualifiers (1) COPD (chronic obstructive pulmonary disease): Qualified Code: J43.2 - Centrilobular emphysema Laney Mckay MD Feb 16, 2016 12:57
[2016-02-16] MEDS ORDERED: LIDOCAINE 1%/EPINEPHrine 1:100,000 SOLN 20 ML VIAL ONE (13:00)
[2016-02-16] MEDS ORDERED: fentaNYL CITRATE 250 MCG/5 ML AMP ONE (13:34)
[2016-02-16] MEDS ORDERED: MIDAZOLAM HCL 5 MG/5 ML VIAL ONE (13:34)
--- NOTE | 2016-02-16 15:04 | RADRPT ---
EXAM DATE/TIME: 02/16/2016 14:37 [facility] COMPARISON: CT NEEDLE BIOPSY LUNG, RIGHT, February 16, 2016, 13:56. INDICATIONS : Post lung biopsy. MEDICAL HISTORY : Hypertension. Chronic obstructive pulmonary disease. Gastroesophageal reflux disease. SURGICAL HISTORY : Hernia repair, Lung biopsy ENCOUNTER: Initial ACUITY: 1 day PAIN SCORE: 3/10 LOCATION: Bilateral chest FINDINGS: The examination demonstrates a 6 mm calcified granuloma at the right lung base. The pulmonary parench yma is otherwise clear. The visualized bony structures are grossly intact. The patient's 2 cm mass in the right lower lobe is not visible by chest x-ray. CONCLUSION: 1. No pneumothorax identified following CT guided biopsy. Wenceslao Vazquez MD on February 16, 2016 at 15:00 Board Certified Radiologist. This report was verified electronically.
--- NOTE | 2016-02-16 15:08 | RADRPT ---
EXAM DATE/TIME: 02/16/2016 13:56 [facility] COMPARISON: CHEST EXPIRATION ONLY, February 16, 2016, 14:37. INDICATIONS : Left lung mass. SEDATION TIME: 30 minutes BIOPSY SITE: Right lung MEDICATION(S): 1.) 2 mg midazolam (Versed) IV 2.) 150 mcg fentanyl (Sublimaze) IV DEVICE(S): 1.) 18 gauge Serrano blunt needle 5cm 2.) 20 gauge Temno core biopsy needle 11cm MEDICAL HISTORY : Chronic obstructive pulmonary disease. Carcinoma, lung. SURGICAL HISTORY : None. ENCOUNTER: Initial ACUITY: 1 day PAIN SCORE: 0/10 LOCATION: chest A total of two core specimen(s) were obtained and sent to the laboratory for pathologic evaluation. PROCEDURE: 1. CT guided lung biopsy. 2. Conscious sedation with continuous EKG and oximetry monitoring. Prior to the procedure informed consent was obtained. Any appropriate prior imaging studies were rev iewed. The site was prepped in a sterile fashion. Full sterile technique was used, including cap, mask, eduar rile gloves and gown and a large sterile sheet. Hand hygiene and 2% chlorhexidine and/or betadine/al cohol prep was utilized per protocol for cutaneous antisepsis. The skin and subcutaneous tissues wer e infiltrated with local anesthetic solution. With CT guidance the previously identified target was localized. Biopsy was performed using the presc ribed needle as above. Adequate hemostasis was obtained with compression at the puncture site. Follow-up CT scan reveals a small right pneumothorax. Conscious sedation was performed with the prescribed dosages and duration as above. The patient yessi ated the procedure well and there were no complications. EKG and oximetry remained stable throughout the procedure. The patient was sent to Radiology Outpatient Unit in stable condition. CONCLUSION: Successful CT-guided biopsy of a right lung mass. Yosef Chappell MD on February 16, 2016 at 15:05 Board Certified Radiologist. This report was verified electronically.
--- NOTE | 2016-02-16 17:39 | RADRPT ---
EXAM DATE/TIME: 02/16/2016 17:06 [facility] COMPARISON: No previous studies available for comparison. INDICATIONS : Post lung biopsy. MEDICAL HISTORY : Hypertension. Chronic obstructive pulmonary disease. Gastroesophageal reflux disease. SURGICAL HISTORY : Lung biopsy ENCOUNTER: Subsequent ACUITY: 1 day PAIN SCORE: 0/10 LOCATION: Bilateral chest FINDINGS: No pneumothorax identified status post lung biopsy of right pulmonary nodule which projects over the right hilum. Calcified granuloma right lung base. Left lung clear. CONCLUSION: No pneumothorax identified post lung biopsy. Jonathan Michel MD on February 16, 2016 at 17:36 Board Certified Radiologist. This report was verified electronically.
[2016-02-16] MEDS: oxyCODONE/ACETAMINOPHEN 5 MG/325 MG TAB PO PRN (19:45)
[2016-02-16] MEDS: HEPARIN-D5W INJ 250 ML IV SCH (22:01)
[2016-02-17] VITALS: BP 147/66; PULSE 60; RESP 18; TEMP 97.6; O2SAT 94
[2016-02-17 04:00] VITALS: BP 144/65; PULSE 64; RESP 18; TEMP 97.7; O2SAT 94
[2016-02-17] MEDS: DEXAMETHASONE SOD PHOS 4 MG/ML VIAL IV PUSH SCH ×4 (05:00→22:45)
[2016-02-17 05:15] LABS: APTT (PATIENT) 53.7 SEC (24.3-30.1)
[2016-02-17] MEDS: GEMFIBROZIL 600 MG TAB PO SCH ×2 (06:24→16:36)
[2016-02-17 08:00] VITALS: BP 121/62; PULSE 68; RESP 18; TEMP 96.4; O2SAT 95
[2016-02-17] MEDS: amLODIPine BESYLATE 5 MG TAB PO SCH (09:05)
[2016-02-17] MEDS: PANTOPRAZOLE SOD 40 MG DELAYED RELEASE TAB PO SCH (09:05)
[2016-02-17] MEDS: SUCRALFATE 1 GM TAB PO SCH ×3 (09:05→16:36)
[2016-02-17] MEDS: ATENOLOL 50 MG TAB PO SCH (09:05)
[2016-02-17] MEDS: GABAPENTIN 300 MG CAP PO SCH ×2 (09:05→20:59)
[2016-02-17] MEDS: SODIUM CHLORIDE 0.9% FLUSH 5 ML FLUSH FLUSH SCH ×2 (09:06→21:00)
[2016-02-17 12:06] LABS: APTT (PATIENT) 48.1 SEC (24.3-30.1)
--- NOTE | 2016-02-17 15:01 | HHI.PR ---
Subjective Remarks no complains of shortness of breath, chest pain no difficulty swallowing Objective Vitals Vital Signs Date Time Temp Pulse Resp B/P Pulse Ox O2 Delivery O2 Flow Rate FiO2 02/17/16 08:00 96.4 68 18 121/62 95 02/17/16 04:00 97.7 64 18 144/65 94 02/17/16 00:00 97.6 60 18 147/66 94 02/16/16 21:45 74 120/64 94 02/16/16 20:00 97.7 71 18 131/63 94 02/16/16 18:00 97.1 74 20 136/67 95 02/16/16 17:00 79 18 128/66 96 02/16/16 16:30 74 16 120/58 97 02/16/16 16:00 72 18 125/71 94 02/16/16 15:30 73 20 136/73 95 I/O 02/16/16 02/16/16 02/16/16 02/17/16 02/17/16 02/17/16 06:59 14:59 22:59 06:59 14:59 22:59 Intake Total 424 ml 0 ml 103 ml 96 ml Output Total 300 ml Balance 124 ml 0 ml 103 ml 96 ml Intake Oral 350 ml 0 ml IV Total 74 ml 103 ml 96 ml Output Urine Total 300 ml # Bowel Movements 0 Result Diagram: 02/16/16 0513 02/15/16 0412 Imaging Last Impressions Chest X-Ray 02/16/16 1700 Signed Impressions: Service Date/Time: Tuesday, February 16, 2016 17:06 - CONCLUSION: No pneumothorax identified post lung biopsy. Jonathan Michel MD Lung Biopsy CT 02/16/16 0000 Signed Impressions: Service Date/Time: Tuesday, February 16, 2016 13:56 - CONCLUSION: Successful CT-guided biopsy of a right lung mass. Yosef Chappell MD Vena Cavagram 02/13/16 1705 Signed Impressions: Service Date/Time: Saturday, February 13, 2016 16:40 - CONCLUSION: 1. Recurrent occlusion of the SVC. There has been the development of small volume thrombus above the occlusion which is a new finding. A venoplasty was performed with poor results. An approximate 2 mm channel was reestablished despite 10 mm angioplasty. This channel will likely quickly reocclude. I would suggest heparinization of the patient to try and maintain the patency of the collateral vessels and to try and prevent propagation of the small volume thrombus. A phone call is currently out to Dr. John. 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 Status post failed venoplasty 2. Continue heparin drip for thrombosis and monitor PTT, for biopsy of lung mass by interventional radiology this afternoon. COPD-not in exacerbation. Patient with 100 pack year history tobacco , Patient with broncho-bronchodilators as needed Hypertension-controlled, continue Norvasc and atenolol. DVT prophylaxis: On heparin drip. Problem Qualifiers (1) COPD (chronic obstructive pulmonary disease): Qualified Code: J43.2 - Centrilobular emphysema Judy White MD Feb 17, 2016 15:01
[2016-02-17 16:00] VITALS: BP 119/57; PULSE 71; RESP 16; TEMP 97.2; O2SAT 96
[2016-02-17] MEDS: oxyCODONE/ACETAMINOPHEN 5 MG/325 MG TAB PO PRN (16:36)
--- NOTE | 2016-02-17 17:23 | PD.ONC.PN ---
Subjective Subjective Remarks No headache, no CP/SOB. Objective Data Date Time Temp Pulse Resp B/P Pulse Ox O2 Delivery O2 Flow Rate FiO2 02/17/16 16:00 97.2 71 16 119/57 96 02/17/16 08:00 96.4 68 18 121/62 95 02/17/16 04:00 97.7 64 18 144/65 94 02/17/16 00:00 97.6 60 18 147/66 94 02/16/16 21:45 74 120/64 94 02/16/16 20:00 97.7 71 18 131/63 94 02/16/16 18:00 97.1 74 20 136/67 95 02/17/16 02/17/16 02/17/16 06:59 14:59 22:59 Intake Total 103 ml 576 ml Balance 103 ml 576 ml Result Diagram: 02/16/16 0513 02/15/16 0412 Laboratory Results Laboratory Tests Test 02/16/16 02/17/16 02/17/16 19:52 04:26 11:29 Activated Partial 25.0 SEC 53.7 SEC 48.1 SEC Thromboplast Time Administered Medications Medications (Trade) Dose Ordered Sig/Hilaria Route PRN Reason Start Time Stop Time Status Last Admin Dose Admin IV Flush (NS Flush) 2 ml UNSCH PRN FLUSH FLUSH AFTER USING IV ACCESS 02/12/16 14:00 02/16/16 09:23 IV Flush (NS Flush) 2 ml BID FLUSH 02/12/16 21:00 02/17/16 09:06 Ondansetron HCl (Zofran Inj) 4 mg Q6H PRN IVP NAUSEA OR VOMITING 02/12/16 14:00 02/16/16 06:09 Atenolol (Tenormin) 50 mg DAILY PO 02/13/16 09:00 02/17/16 09:05 Gabapentin (Neurontin) 300 mg BID PO 02/12/16 21:00 02/17/16 09:05 Gemfibrozil (Lopid) 600 mg BIDAC PO 02/12/16 16:00 02/17/16 16:36 Sucralfate (Carafate) 1 gm TID PO 02/12/16 18:00 02/17/16 16:36 Dexamethasone Sodium Phosphate (Decadron Inj) 4 mg Q6H IV PUSH 02/12/16 23:00 02/17/16 16:37 Diphenhydramine HCl (Benadryl) 25 mg HS PRN PO INSOMNIA 02/12/16 22:00 02/15/16 06:28 Pantoprazole Sodium (Protonix) 40 mg DAILY PO 02/14/16 09:00 02/17/16 09:05 Morphine Sulfate 2 mg 2 mg Q3H PRN IV PUSH BREAKTHROUGH PAIN 02/13/16 12:00 02/16/16 21:57 Heparin Sodium/ Dextrose (Heparin-D5W Inj) 250 ml @ 0 mls/hr TITRATE IV 02/13/16 18:15 02/16/16 22:01 Amlodipine Besylate (Norvasc) 5 mg DAILY PO 02/15/16 09:00 02/17/16 09:05 Oxycodone/ Acetaminophen (Percocet 5-325 Mg) 1 tab Q4H PRN PO PAIN 1-10 02/16/16 15:00 02/17/16 16:36 Objective Remarks GENERAL: Well-nourished, well-developed patient. SKIN: Warm and dry. HEAD: Normocephalic. Swelling is improving, less facial flushing. EYES: No scleral icterus. No injection or drainage. COnjunctiva less injected. NECK: Supple, trachea midline. No JVD or lymphadenopathy. +swelling but improving LYMPHATIC: No adenopathy. CARDIOVASCULAR: Regular rate and rhythm without murmurs. RESPIRATORY: Breath sounds equal bilaterally. No accessory muscle use. GASTROINTESTINAL: Abdomen soft, non-tender, nondistended. EXTREMITIES: No cyanosis, or edema. MUSCULOSKELETAL: Adequate muscle tone. NEUROLOGICAL: No obvious focal deficit. Awake, alert, and oriented x3. PSYCHIATRIC: Appropriate mood and affect; insight and judgment normal. Assessment/Plan Problem List: (1) Lung mass Status: Acute Plan: 02/17/16: Path showed adenocarcinoma of lung primary. At least stage IIIA. 02/16/16: CT guided lung mass biopsy at 430 this afternoon. plan for bone scan, brain MRI, CT ab/pelvis for staging once stable from SVC syndrome to proceed. continue XRT. -- He will need radiation with concurrent chemotherapy given the SVC syndrome. Hx: Mr. Luna has a 100 pack year smoking history. He reports having lost 27 pounds over the last 3 weeks. He patel noticed some swelling of his neck and engorgement of veins on his chest and abdomen. He was sent by his PCP for a CT of the chest yesterday which showed a lung mass with mediastinal mass causing occlusion of the superior vena cava. He was then directed to the ER. (2) Superior vena cava syndrome Status: Acute Plan: 02/17/16:Improving. Continue XRT, plan to add weekly carboplatin/taxol 02/16/16: continue XRT. 02/15/16: XRT #3 today, Swelling has improved. Facial flushing improving. 02/14/16: Radiation today. Swelling is unchanged from yesterday afternoon. Ears remain slightly dusky. Pt on heparin gtt. -- 02/13/16 first radiation treatment. Will proceed with daily treatments per Dr. Li. -- Repeat Vena cavagram done on 02/13/16 was done with a poor result with only a 2mm channel for blood flow in the SVC. 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 --Monitor APTT Assessment 75 y/o male who presents to the ER with SVC syndrome, sent directly from the imaging center. Plan 1. Extensive discussion with patient and his multiple family members. Discussed with his daughter Montserrat over the phone. We discussed the pathology, diagnosis, probable staging and treatment plan. 2. Will need PICC line placement in subclavian vein, not able to place port due to SVC obstruction. Discussed with . 3. Plan to give him concurrent weekly carboplatin and Taxol. 4. Staging CT abdomen/pelvis, brain MRI and bone scan. 5. Continue heparin gtt and consider switching to Pradaxa after he is done with the procedure. 6. continue decadron 7. continue XRT. Discussed with Toro Gaytan MD Feb 17, 2016 17:23
[2016-02-17] MEDS ORDERED: DIATRIZOATE MEGLUM/DIATRIZOATE SOD 9 ML CUP PO ONE (18:45)
[2016-02-17 20:00] VITALS: BP 160/74; PULSE 66; RESP 18; TEMP 97.4; O2SAT 94
[2016-02-17] MEDS ORDERED: IOHEXOL 350 MG/ML 10 ML VIAL (for RAD DIAG) IV ONE (21:56)
--- NOTE | 2016-02-17 22:08 | RADRPT ---
EXAM DATE/TIME: 02/17/2016 21:44 [facility] COMPARISON: No previous studies available for comparison. INDICATIONS : Abdomen pain, evaluate for mass. IV CONTRAST: 91 cc Omnipaque 350 (iohexol) IV ORAL CONTRAST: Prescribed oral contrast ingested. RADIATION DOSE: 9.96 CTDIvol (mGy) MEDICAL HISTORY : Carcinoma, lung. Hypertension. cva SURGICAL HISTORY : None. ENCOUNTER: Initial ACUITY: 1 day PAIN SCALE: 4/10 LOCATION: abdomen TECHNIQUE: Volumetric scanning of the abdomen and pelvis was performed. Using automated exposure control and ad justment of the mA and/or kV according to patient size, radiation dose was kept as low as reasonably achievable to obtain optimal diagnostic quality images. FINDINGS: LOWER LUNGS: Calcified granuloma right middle lobe. Parenchymal scarring right lower lobe. LIVER: Decreased attenuation without lesion. There is no dilation of the biliary tree. No calcified gallst ones. SPLEEN: Normal size without lesion. Calcified splenic cranial most. PANCREAS: Within normal limits. KIDNEYS: Normal in size and shape. There is no mass, stone or hydronephrosis. ADRENAL GLANDS: Right atrium is normal. Slight prominence left adrenal gland. VASCULAR: There is no aortic aneurysm. Extensive atherosclerotic changes. BOWEL/MESENTERY: Diverticulosis without diverticulitis. There is no free intraperitoneal air or fluid. ABDOMINAL WALL: Within normal limits. RETROPERITONEUM: There is no lymphadenopathy. BLADDER: No wall thickening or mass. REPRODUCTIVE: Within normal limits. INGUINAL: There is no lymphadenopathy or hernia. MUSCULOSKELETAL: Within normal limits for patient age. CONCLUSION: 1. Diverticulosis without diverticulitis. 2. Hepatic steatosis. 3. No acute inflammatory process. Wali Coffman MD on February 17, 2016 at 22:03 Board Certified Radiologist. This report was verified electronically.
[2016-02-18] VITALS (9 sets, daily range): BP systolic 130–142; BP diastolic 63–95; PULSE 56–70; RESP 14–20; TEMP 96.8–98.2; O2SAT 94–98
[2016-02-18] MEDS: DEXAMETHASONE SOD PHOS 4 MG/ML VIAL IV PUSH SCH ×4 (04:41→23:20)
[2016-02-18] MEDS: GEMFIBROZIL 600 MG TAB PO SCH ×2 (06:20→17:00)
[2016-02-18] MEDS: HEPARIN-D5W INJ 250 ML IV SCH ×2 (06:39→17:46)
[2016-02-18 07:04] LABS: APTT (PATIENT) 61.1 SEC (24.3-30.1)
[2016-02-18] MEDS: SODIUM CHLORIDE 0.9% FLUSH 5 ML FLUSH FLUSH SCH ×2 (07:36→21:57)
[2016-02-18] MEDS: PANTOPRAZOLE SOD 40 MG DELAYED RELEASE TAB PO SCH (07:37)
[2016-02-18] MEDS: GABAPENTIN 300 MG CAP PO SCH ×2 (07:37→21:55)
[2016-02-18] MEDS: amLODIPine BESYLATE 5 MG TAB PO SCH (07:37)
[2016-02-18] MEDS: SUCRALFATE 1 GM TAB PO SCH ×3 (07:37→18:04)
[2016-02-18] MEDS: ATENOLOL 50 MG TAB PO SCH (07:37)
--- NOTE | 2016-02-18 10:27 | PD.RAD ---
Radiology Post PICC Prog Note Pre Procedure Diagnosis: (1) Lung cancer (2) Superior vena cava syndrome Post Procedure Diagnosis: (1) Superior vena cava syndrome (2) Lung cancer Procedure: Left PICC line placement Procedure Date: Feb 18, 2016 Supervising Radiologist Wenceslao Vazquez Device Korean: 4 single lumen cm: 29 Catheter: Power PICC Plan of Activity Patient to Unit: Nursing Unit Patient Condition: Poor PICC line can be used immediately Additional Comments: PICC placed catheter tip placed in the left subclavian due to SVC stenosis/ Occlusion from the patient's mass. Catheter OK for use. Wenceslao Vazquez MD Feb 18, 2016 10:27
[2016-02-18] MEDS ORDERED: SODIUM CHLORIDE 0.9% FLUSH 5 ML FLUSH IVF PRN ×2 (10:30)
[2016-02-18] MEDS ORDERED: IOHEXOL 350 MG/ML 50 ML BTL (for RAD DIAG) IV ONE (10:45)
--- NOTE | 2016-02-18 10:52 | RADRPT ---
EXAM DATE/TIME: 02/18/2016 09:16 [facility] COMPARISON: No previous studies available for comparison. INDICATIONS : Mass. Neoplasm. CONTRAST: 14 cc Omniscan (gadodiamide) IV MEDICAL HISTORY : Carcinoma, lung. Hypertension. SURGICAL HISTORY : Hernia repair. ENCOUNTER: Subsequent ACUITY: 4-6 days PAIN SCORE: 3/10 LOCATION: cranial TECHNIQUE: Multiplanar, multisequence MRI of the brain was performed both prior to and following the administrat ion of paramagnetic contrast. FINDINGS: There are small nonacute lacunar infarcts in the left caudate and left thalamus. There is patchy T2 p rolongation in the periventricular and subcortical white matter regions likely microvascular ischemic in etiology. There is no evidence of brain mass or hemorrhage. No abnormal parenchymal enhancement i s identified. Normal enhancement is present in the intracranial vascular structures. There is nothing to suggest acute infarction. Extracranial structures are benign and intact. CONCLUSION: No acute intracranial findings. No evidence of metastatic disease. Vikas Sandoval MD on February 18, 2016 at 10:31 Board Certified Radiologist. This report was verified electronically.
[2016-02-18] MEDS ORDERED: GADODIAMIDE PF 287 MG/ML 5 ML VIAL (for RAD MRI) IV ONE (12:21)
--- NOTE | 2016-02-18 13:18 | PD.ONC.PN ---
Subjective Subjective Remarks Afebrile overnight. Patient waiting on stretcher to go down to XRT. He states he is tired and wants to rest. No other complaints. Swelling significantly improved. Objective Data Date Time Temp Pulse Resp B/P Pulse Ox O2 Delivery O2 Flow Rate FiO2 02/18/16 12:00 97.0 60 16 132/95 95 02/18/16 08:00 97.4 70 14 142/68 95 02/18/16 04:00 97.2 67 18 130/63 94 02/18/16 00:00 98.2 63 18 142/64 95 02/17/16 20:00 97.4 66 18 160/74 94 02/17/16 16:00 97.2 71 16 119/57 96 02/18/16 02/18/16 02/18/16 07:00 15:00 23:00 Intake Total 200 ml Output Total 650 ml Balance -450 ml Result Diagram: 02/16/16 0513 02/15/16 0412 Laboratory Results Laboratory Tests Test 02/18/16 06:35 Activated Partial 61.1 SEC Thromboplast Time Imaging Studies Last 24 hours Impressions Brain MRI 02/18/16 0000 Signed Impressions: Service Date/Time: February 09:16 - CONCLUSION: No acute intracranial findings. No evidence of metastatic disease. Vikas Sandoval MD Administered Medications Medications (Trade) Dose Ordered Sig/Hilaria Route PRN Reason Start Time Stop Time Status Last Admin Dose Admin IV Flush (NS Flush) 2 ml UNSCH PRN FLUSH FLUSH AFTER USING IV ACCESS 02/12/16 14:00 02/16/16 09:23 IV Flush (NS Flush) 2 ml BID FLUSH 02/12/16 21:00 02/17/16 09:06 Ondansetron HCl (Zofran Inj) 4 mg Q6H PRN IVP NAUSEA OR VOMITING 02/12/16 14:00 02/16/16 06:09 Atenolol (Tenormin) 50 mg DAILY PO 02/13/16 09:00 02/18/16 07:37 Gabapentin (Neurontin) 300 mg BID PO 02/12/16 21:00 02/18/16 07:37 Gemfibrozil (Lopid) 600 mg BIDAC PO 02/12/16 16:00 02/18/16 06:20 Sucralfate (Carafate) 1 gm TID PO 02/12/16 18:00 02/18/16 07:37 Dexamethasone Sodium Phosphate (Decadron Inj) 4 mg Q6H IV PUSH 02/12/16 23:00 02/18/16 11:39 Diphenhydramine HCl (Benadryl) 25 mg HS PRN PO INSOMNIA 02/12/16 22:00 02/15/16 06:28 Pantoprazole Sodium (Protonix) 40 mg DAILY PO 02/14/16 09:00 02/18/16 07:37 Morphine Sulfate 2 mg 2 mg Q3H PRN IV PUSH BREAKTHROUGH PAIN 02/13/16 12:00 02/16/16 21:57 Heparin Sodium/ Dextrose (Heparin-D5W Inj) 250 ml @ 0 mls/hr TITRATE IV 02/13/16 18:15 02/18/16 06:39 Amlodipine Besylate (Norvasc) 5 mg DAILY PO 02/15/16 09:00 02/18/16 07:37 Oxycodone/ Acetaminophen (Percocet 5-325 Mg) 1 tab Q4H PRN PO PAIN 1-10 02/16/16 15:00 02/17/16 16:36 Objective Remarks GENERAL: Elderly male, sitting up in stretcher in nad. swelling significantly improved in face and upper extremities. SKIN: Warm and dry. HEAD: Normocephalic. EYES: No injection or drainage. NECK: Supple, trachea midline. CARDIOVASCULAR: Regular rate and rhythm RESPIRATORY: Breath sounds equal bilaterally. No accessory muscle use. GASTROINTESTINAL: Abdomen soft, non-tender, nondistended. EXTREMITIES: No cyanosis MUSCULOSKELETAL: Adequate muscle tone. NEUROLOGICAL: No obvious focal deficit. Awake, alert, and oriented x3. Assessment/Plan Problem List: (1) Adenocarcinoma of lung Status: Acute Plan: 02/18/16: start carbo/taxol--weekly. chemo teaching. continue XRT. PICC line placement in IR 02/17/16: Path showed adenocarcinoma of lung primary. At least stage IIIA. 02/16/16: CT guided lung mass biopsy at 430 this afternoon. plan for bone scan, brain MRI, CT ab/pelvis for staging once stable from SVC syndrome to proceed. continue XRT. Hx: Mr. Luna has a 100 pack year smoking history. He reports having lost 27 pounds over the last 3 weeks. He patel noticed some swelling of his neck and engorgement of veins on his chest and abdomen. He was sent by his PCP for a CT of the chest yesterday which showed a lung mass with mediastinal mass causing occlusion of the superior vena cava. He was then directed to the ER. (2) Superior vena cava syndrome Status: Acute Plan: 02/18/16: continuing to improve. start carbo/taxol today. continue XRT. 02/17/16:Improving. Continue XRT, plan to add weekly carboplatin/taxol 02/16/16: continue XRT. 02/15/16: XRT #3 today, Swelling has improved. Facial flushing improving. 02/14/16: Radiation today. Swelling is unchanged from yesterday afternoon. Ears remain slightly dusky. Pt on heparin gtt. -- 02/13/16 first radiation treatment. Will proceed with daily treatments per Dr. Li. -- Repeat Vena cavagram done on 02/13/16 was done with a poor result with only a 2mm channel for blood flow in the SVC. -- Monitor (3) Thrombosis of superior vena cava Status: Acute Plan: --on heparin gtt-->will consider switching to Pradaxa after he is done with the procedure. --Venogram on 02/13/16 showed that there has been the development of small volume thrombus above the occlusion which is a new finding --Heparin gtt started on 02/03/16. --Monitor APTT Assessment 75 y/o male who presents to the ER with SVC syndrome, sent directly from the imaging center. Plan 1. brain MRI and bone scan today 2. start carbo/taxol today 3. continue XRT 4. continue heparin for now 5. PICC line placement today Attending Statement The exam, history, and the medical decision-making described in the above note were completed with the assistance of the mid-level provider. I reviewed and agree with the findings presented. I attest that I had a [id number] encounter with the patient on the same day, and personally performed and documented my assessment and findings in the medical record. He has no headache , neck swelling has improved. Path showed lung adenocarcinoma. I had a long discussion with his daughter. Plan to give him weekly carboplatin/taxol with concurrent XRT. He needs PICC line placement in subclavian vein and can not have port placement at this time due to SVC occlusion. I have ordered the chemotherapy. Charla Bangura Feb 18, 2016 13:18 Toro Saba MD Feb 18, 2016 15:47
--- NOTE | 2016-02-18 13:55 | RADRPT ---
EXAM DATE/TIME: 02/18/2016 08:21 [facility] COMPARISON: No previous studies available for comparison. PRIOR BONE SCANS: No correlative bone scan available for comparison. INDICATIONS : Lung cancer. DOSE: 32.5 mCi Tc99m MDP IV MEDICAL HISTORY : Chronic obstructive pulmonary disease. Hypertension. Carcinoma, lung. Smoking history. SURGICAL HISTORY : Inguinal hernia repair. ENCOUNTER: Initial ACUITY: 4 - 6 months PAIN SCALE: 5/10 LOCATION: Bilateral chest TECHNIQUE: Three hours post intravenous administration of radiotracer, whole body bone scan imaging was performe d. FINDINGS: Blood pool images demonstrate a homogeneous pattern of uptake in the soft tissues. No hyperemic area s are identified. Planar bone scan demonstrates a normal pattern of uptake. No focal areas of incre ased or decreased uptake are seen. CONCLUSION: 1. Negative for metastatic disease. Exam within normal limits for age. Jonathan Michel MD on February 18, 2016 at 13:49 Board Certified Radiologist. This report was verified electronically.
--- NOTE | 2016-02-18 16:19 | HHI.PR ---
Subjective Remarks complained jokingly of back ache laying on those " hard table" patient denies any shortness of breath, chest pains, of headaches very appreciative of care he is getting on this floor Objective Vitals Vital Signs Date Time Temp Pulse Resp B/P Pulse Ox O2 Delivery O2 Flow Rate FiO2 02/18/16 16:00 97.2 65 16 138/64 96 02/18/16 12:00 97.0 60 16 132/95 95 02/18/16 08:00 97.4 70 14 142/68 95 02/18/16 04:00 97.2 67 18 130/63 94 02/18/16 00:00 98.2 63 18 142/64 95 02/17/16 20:00 97.4 66 18 160/74 94 I/O 02/17/16 02/17/16 02/17/16 02/18/16 02/18/16 02/18/16 07:00 15:00 23:00 07:00 15:00 23:00 Intake Total 103 ml 576 ml 300 ml 200 ml 600 ml Output Total 500 ml 650 ml Balance 103 ml 576 ml -200 ml -450 ml 600 ml Intake Oral 480 ml 300 ml 200 ml 600 ml IV Total 103 ml 96 ml Output Urine Total 500 ml 650 ml # Voids 2 1 2 # Bowel Movements 0 1 0 Result Diagram: 02/16/16 0513 02/15/16 0412 Imaging Last Impressions Brain MRI 02/18/16 0000 Signed Impressions: Service Date/Time: February 09:16 - CONCLUSION: No acute intracranial findings. No evidence of metastatic disease. Vikas Sandoval MD Bone Scan Nuclear Medicine 02/18/16 0000 Signed Impressions: Service Date/Time: February 08:21 - CONCLUSION: 1. Negative for metastatic disease. Exam within normal limits for age. Jonathan Michel MD Abdomen/Pelvis CT 02/17/16 0000 Signed Impressions: Service Date/Time: Wednesday, February 17, 2016 21:44 - CONCLUSION: 1. Diverticulosis without diverticulitis. 2. Hepatic steatosis. 3. No acute inflammatory process. Wali Coffman MD Chest X-Ray 02/16/16 1700 Signed Impressions: Service Date/Time: Tuesday, February 16, 2016 17:06 - CONCLUSION: No pneumothorax identified post lung biopsy. Jonathan Michel MD Lung Biopsy CT 02/16/16 0000 Signed Impressions: Service Date/Time: Tuesday, February 16, 2016 13:56 - CONCLUSION: Successful CT-guided biopsy of a right lung mass. Yosef Chappell MD Vena Cavagram 02/13/16 1705 Signed Impressions: Service Date/Time: Saturday, February 13, 2016 16:40 - CONCLUSION: 1. Recurrent occlusion of the SVC. There has been the development of small volume thrombus above the occlusion which is a new finding. A venoplasty was performed with poor results. An approximate 2 mm channel was reestablished despite 10 mm angioplasty. This channel will likely quickly reocclude. I would suggest heparinization of the patient to try and maintain the patency of the collateral vessels and to try and prevent propagation of the small volume thrombus. A phone call is currently out to Dr. John. 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 Status post failed venoplasty 2. Continue heparin drip for thrombosis and monitor PTT S/P PICC placement COPD-not in exacerbation. Patient with 100 pack year history tobacco , Patient with broncho-bronchodilators as needed Hypertension-controlled, continue Norvasc and atenolol. DVT prophylaxis: On heparin drip. Problem Qualifiers (1) COPD (chronic obstructive pulmonary disease): Qualified Code: J43.2 - Centrilobular emphysema Judy White MD Feb 18, 2016 16:19
[2016-02-18] MEDS ORDERED: SODIUM CHLOR 0.9% 250 ML INJ 250 ML IV SCH (16:30)
--- NOTE | 2016-02-18 16:50 | RADRPT ---
EXAM DATE/TIME: 02/18/2016 10:14 [facility] COMPARISON: ANGIOPLASTY, VENOUS, February 13, 2016, 17:05. INDICATIONS : Lung cancer.Central venous occulsion. Needs chemo. MEDICAL HISTORY : 1. HTN 2. HLD 3. GERD 4. COPD 5. Cough SURGICAL HISTORY : 1. Hernia reapir 2.Lung Bx ENCOUNTER: Initial ACUITY: 2 weeks PAIN SCORE: FLUORO TIME: 0.7 minutes CONTRAST: 5 cc Omnipaque (iohexol) 350 ACCESS: Left basilic vein DEVICE(S): 1.) 4 Hebrew single lumen 29 cm Xcela Power PICC PROCEDURE : 1. Ultrasound guidance for venous catheterization. 2. Fluoroscopic guidance. 3. Ultrasound & fluoroscopic guided central venous Power PICC line placement. The risks, benefits and alternatives to the procedure were explained and verbal and written consent w as obtained. The site was prepped in sterile fashion. Full sterile technique was used, including ca p, mask, sterile gloves and gown and a large sterile sheet. Hand hygiene and 2% chlorhexidine prep w as utilized per protocol for cutaneous antisepsis with appropriate dry time for site. The skin and s ubcutaneous tissues were infiltrated with local anesthetic solution. Under direct ultrasound guidance, a suitable vein was accessed and a measuring guidewire was introduc ed and positioned in the central venous system. The ultrasound images depicting access guidance were saved and stored to PACS for permanent record. A Power Injectable PICC line was cut to prescribed length and introduced, positioned with tip at the level of the left subclavian vein. The catheter tip was left in this position as the patient has a kn own SVC occlusion. CONCLUSION: 1. Uncomplicated central venous Power PICC line placement. 2. The PICC line can be used immediately. Wenceslao Vazquez MD on February 18, 2016 at 16:48 Board Certified Radiologist. This report was verified electronically.
[2016-02-18] MEDS: oxyCODONE/ACETAMINOPHEN 5 MG/325 MG TAB PO PRN ×2 (16:58→21:57)
[2016-02-18] MEDS ORDERED: FAMOTIDINE 20 MG/2 ML VIAL IV SCH (18:00)
[2016-02-18] MEDS ORDERED: diphenhydrAMINE HCL 25 MG CAP PO SCH (18:00)
[2016-02-18] MEDS ORDERED: GRANISETRON INJ 1 MG, DEXAMETHASONE INJ 20 MG in SODIUM CHLORIDE 0.9% INJ 50 ML IV SCH (18:00)
[2016-02-18] MEDS ORDERED: SODIUM CHLOR 0.9% IV SCH ×2 (19:00→21:00)
[2016-02-18] MEDS ORDERED: PACLITAXEL IV SCH (19:00)
[2016-02-18] MEDS ORDERED: CARBOPLATIN IV SCH (21:00)
[2016-02-19] VITALS: BP 140/63; PULSE 58; RESP 18; TEMP 96.9; O2SAT 96
[2016-02-19 02:16] LABS: HEMATOCRIT 37.1 % (39.0-51.0); MEAN CELL VOLUME 89.6 FL (80.0-100.0); MEAN CORPUSCULAR HEMOGLOBIN 30.8 PG (27.0-34.0); MEAN CORPUSCULAR HGB CONC 34.3 % (32.0-36.0); PLATELET COUNT 258 TH/MM3 (150-450); RED BLOOD COUNT 4.14 MIL/MM3 (4.50-5.90); RED CELL DISTRIBUTION WIDTH 12.7 % (11.6-17.2); REVIEW FLAG FINAL; WHITE BLOOD COUNT 4.8 TH/MM3 (4.0-11.0)
[2016-02-19 04:00] VITALS: BP 135/68; PULSE 70; RESP 18; TEMP 97.2; O2SAT 96
[2016-02-19] MEDS: DEXAMETHASONE SOD PHOS 4 MG/ML VIAL IV PUSH SCH ×2 (05:48→11:59)
[2016-02-19] MEDS: GEMFIBROZIL 600 MG TAB PO SCH ×2 (06:52→17:52)
[2016-02-19 07:13] LABS: HEMATOCRIT 34.6 % (39.0-51.0); MEAN CELL VOLUME 88.8 FL (80.0-100.0); MEAN CORPUSCULAR HEMOGLOBIN 30.1 PG (27.0-34.0); MEAN CORPUSCULAR HGB CONC 33.9 % (32.0-36.0); PLATELET COUNT 240 TH/MM3 (150-450); RED CELL DISTRIBUTION WIDTH 12.7 % (11.6-17.2); REVIEW FLAG FINAL; WHITE BLOOD COUNT 4.3 TH/MM3 (4.0-11.0)
[2016-02-19 07:17] LABS: APTT (PATIENT) 68.6 SEC (24.3-30.1)
[2016-02-19 08:00] VITALS: BP 140/65; PULSE 72; RESP 18; TEMP 96.8; O2SAT 96
[2016-02-19] MEDS: SODIUM CHLORIDE 0.9% FLUSH 5 ML FLUSH FLUSH SCH ×2 (09:00→20:08)
[2016-02-19] MEDS: SODIUM CHLORIDE 0.9% FLUSH 5 ML FLUSH IVF SCH (09:00)
[2016-02-19] MEDS: ATENOLOL 50 MG TAB PO SCH (09:32)
[2016-02-19] MEDS: amLODIPine BESYLATE 5 MG TAB PO SCH (09:33)
[2016-02-19] MEDS: PANTOPRAZOLE SOD 40 MG DELAYED RELEASE TAB PO SCH (09:33)
[2016-02-19] MEDS: GABAPENTIN 300 MG CAP PO SCH ×2 (09:33→20:07)
[2016-02-19] MEDS: SUCRALFATE 1 GM TAB PO SCH ×3 (09:33→17:52)
[2016-02-19] MEDS ORDERED: PRAD150C PO (10:19)
[2016-02-19 12:00] VITALS: BP 127/59; PULSE 84; RESP 16; TEMP 97.4; O2SAT 93
--- NOTE | 2016-02-19 12:29 | PD.ONC.PN ---
Subjective Subjective Remarks Afebrile overnight. Pt c/o being tired. He is looking forward to going home. He denies headache, head pressure or SOB. Objective Data Date Time Temp Pulse Resp B/P Pulse Ox O2 Delivery O2 Flow Rate FiO2 02/19/16 08:00 96.8 72 18 140/65 96 02/19/16 04:00 97.2 70 18 135/68 96 02/19/16 00:00 96.9 58 18 140/63 96 02/18/16 22:06 68 20 94 02/18/16 21:20 96.8 56 20 135/65 95 02/18/16 19:38 97.7 68 18 137/63 98 02/18/16 19:00 97.6 68 20 131/63 94 02/18/16 16:00 97.2 65 16 138/64 96 Result Diagram: 02/19/16 0620 02/15/16 0412 Laboratory Results Laboratory Tests Test 02/19/16 02/19/16 01:43 06:20 White Blood Count 4.8 TH/MM3 4.3 TH/MM3 Red Blood Count 4.14 MIL/MM3 3.90 MIL/MM3 Hemoglobin 12.7 GM/DL 11.7 GM/DL Hematocrit 37.1 % 34.6 % Mean Corpuscular Volume 89.6 FL 88.8 FL Mean Corpuscular Hemoglobin 30.8 PG 30.1 PG Mean Corpuscular Hemoglobin 34.3 % 33.9 % Concent Red Cell Distribution Width 12.7 % 12.7 % Platelet Count 258 TH/MM3 240 TH/MM3 Mean Platelet Volume 9.7 FL 9.6 FL Activated Partial 68.6 SEC Thromboplast Time Administered Medications Medications (Trade) Dose Ordered Sig/Hilaria Route PRN Reason Start Time Stop Time Status Last Admin Dose Admin IV Flush (NS Flush) 2 ml UNSCH PRN FLUSH FLUSH AFTER USING IV ACCESS 02/12/16 14:00 02/16/16 09:23 IV Flush (NS Flush) 2 ml BID FLUSH 02/12/16 21:00 02/17/16 09:06 Ondansetron HCl (Zofran Inj) 4 mg Q6H PRN IVP NAUSEA OR VOMITING 02/12/16 14:00 02/16/16 06:09 Atenolol (Tenormin) 50 mg DAILY PO 02/13/16 09:00 02/19/16 09:32 Gabapentin (Neurontin) 300 mg BID PO 02/12/16 21:00 02/19/16 09:33 Gemfibrozil (Lopid) 600 mg BIDAC PO 02/12/16 16:00 02/19/16 06:52 Sucralfate (Carafate) 1 gm TID PO 02/12/16 18:00 02/19/16 09:33 Dexamethasone Sodium Phosphate (Decadron Inj) 4 mg Q6H IV PUSH 02/12/16 23:00 02/19/16 05:48 Diphenhydramine HCl (Benadryl) 25 mg HS PRN PO INSOMNIA 02/12/16 22:00 02/15/16 06:28 Pantoprazole Sodium (Protonix) 40 mg DAILY PO 02/14/16 09:00 02/19/16 09:33 Morphine Sulfate (Morphine Inj) 2 mg Q3H PRN IV PUSH BREAKTHROUGH PAIN 02/13/16 12:00 02/16/16 21:57 Temazepam 15 mg 15 mg HS PRN PO INSOMNIA 02/13/16 13:00 02/18/16 21:55 Heparin Sodium/ Dextrose (Heparin-D5W Inj) 250 ml @ 0 mls/hr TITRATE IV 02/13/16 18:15 02/18/16 17:46 Amlodipine Besylate (Norvasc) 5 mg DAILY PO 02/15/16 09:00 02/19/16 09:33 Oxycodone/ Acetaminophen 1 tab 1 tab Q4H PRN PO PAIN 1-10 02/16/16 15:00 02/18/16 21:57 Granisetron HCl/ Dexamethasone Sodium Phosphate/ Sodium Chloride (Kytril Inj/ Decadron Inj/NS Inj) 56 ml @ 224 mls/hr Q7D IV 02/18/16 18:00 02/25/16 18:14 02/18/16 17:54 Famotidine 20 mg 20 mg Q7D IV 02/18/16 18:00 02/25/16 18:01 02/18/16 18:02 Paclitaxel 79.2 mg/Sodium Chloride 263.2 ml @ 131.6 mls/ hr Q7D IV 02/18/16 19:00 02/25/16 20:59 02/18/16 19:08 Carboplatin 151 mg/Sodium Chloride 250 ml @ 500 mls/hr Q7D IV 02/18/16 21:00 02/25/16 21:29 02/18/16 21:34 Sodium Chloride (NS 250 ml Inj) 250 ml @ 0 mls/hr Q7D IV 02/18/16 16:30 02/25/16 23:00 02/18/16 17:47 Diphenhydramine HCl (Benadryl) 25 mg Q7D PO 02/18/16 18:00 02/25/16 18:01 02/18/16 18:02 Objective Remarks GENERAL: Older male, lying in bed in no distress. SKIN: Warm and dry. HEAD: Normocephalic. EYES: Less injected than earlier this week. NECK: Swelling significantly decreased. CARDIOVASCULAR: +S1/S2. Regular rate/rhythm. RESPIRATORY: Scattered rhonchi. GASTROINTESTINAL: +BS. EXTREMITIES: No cyanosis, or edema. NEUROLOGICAL: No obvious focal deficit. Awake, alert, and oriented x3. Assessment/Plan Problem List: (1) Adenocarcinoma of lung Status: Acute Plan: 02/19/16: PICC line accidentally removed by patient overnight. Will attempt to get invasive IV as an outpatient. 02/18/16: start carbo/taxol--weekly. chemo teaching. continue XRT. 02/17/16: Path showed adenocarcinoma of lung primary. At least stage IIIA. 02/16/16: CT guided lung mass biopsy at 430 this afternoon. plan for bone scan, brain MRI, CT ab/pelvis for staging once stable from SVC syndrome to proceed. continue XRT. Hx: Mr. Luna has a 100 pack year smoking history. He reports having lost 27 pounds over the last 3 weeks. He patel noticed some swelling of his neck and engorgement of veins on his chest and abdomen. He was sent by his PCP for a CT of the chest yesterday which showed a lung mass with mediastinal mass causing occlusion of the superior vena cava. He was then directed to the ER. (2) Superior vena cava syndrome Status: Acute Plan: 02/19/16: Swelling significantly decreased. No XRT over the weekend. Tolerated chemo OK yesterday. 02/18/16: continuing to improve. start carbo/taxol today. continue XRT. 02/17/16:Improving. Continue XRT, plan to add weekly carboplatin/taxol 02/16/16: continue XRT. 02/15/16: XRT #3 today, Swelling has improved. Facial flushing improving. 02/14/16: Radiation today. Swelling is unchanged from yesterday afternoon. Ears remain slightly dusky. Pt on heparin gtt. -- 02/13/16 first radiation treatment. Will proceed with daily treatments per Dr. Li. -- Repeat Vena cavagram done on 02/13/16 was done with a poor result with only a 2mm channel for blood flow in the SVC. -- Monitor (3) Thrombosis of superior vena cava Status: Acute Plan: 02/19/16: We will transition pt from heparin gtt to Xarelto. --on heparin gtt-->will consider switching to Pradaxa after he is done with the procedure. (Pradaxa was high cost based on his insurance- we will order Xarelto instead. --Venogram on 02/13/16 showed that there has been the development of small volume thrombus above the occlusion which is a new finding --Heparin gtt started on 02/03/16. --Monitor APTT Assessment 75 y/o male who presents to the ER with SVC syndrome, sent directly from the imaging center. Plan 1. Convert Heparin to Xarelto. Start Xarelto at 2100 tonight. 2. Tolerated chemotherapy OK yesterday. 3. XRT today. He will not be getting XRT over the weekend. 4. Will get invasive line for chemo as an outpatient. 5. OK for pt to be D/C'd home over the weekend from an oncology standpoint. 6. Will decrease Decadron to 4mg po BID. Continue if discharged. Attending Statement The exam, history, and the medical decision-making described in the above note were completed with the assistance of the mid-level provider. I reviewed and agree with the findings presented. I attest that I had a [id number] encounter with the patient on the same day, and personally performed and documented my assessment and findings in the medical record. Feeling better. Tolerated chemotherapy yesterday. Facial edema significantly improved. Need to to f/u with rad onc to continue XRT after d/c. F/u oncology clinic to continue weekly chemotherapy. Traci Merritt Feb 19, 2016 12:29 Toro Saba MD Feb 19, 2016 16:33
[2016-02-19] MEDS: oxyCODONE/ACETAMINOPHEN 5 MG/325 MG TAB PO PRN ×2 (14:46→20:07)
--- NOTE | 2016-02-19 15:07 | HHI.PR ---
Subjective Remarks no pain complains, no chest discomfort or shortness of breath tolerated XRT session today Objective Vitals Vital Signs Date Time Temp Pulse Resp B/P Pulse Ox O2 Delivery O2 Flow Rate FiO2 02/19/16 12:00 97.4 84 16 127/59 93 02/19/16 08:00 96.8 72 18 140/65 96 02/19/16 04:00 97.2 70 18 135/68 96 02/19/16 00:00 96.9 58 18 140/63 96 02/18/16 22:06 68 20 94 02/18/16 21:20 96.8 56 20 135/65 95 02/18/16 19:38 97.7 68 18 137/63 98 02/18/16 19:00 97.6 68 20 131/63 94 02/18/16 16:00 97.2 65 16 138/64 96 I/O 02/18/16 02/18/16 02/18/16 02/19/16 02/19/16 02/19/16 07:00 15:00 23:00 07:00 15:00 23:00 Intake Total 200 ml 703 ml 720 ml 206 ml 102 ml Output Total 650 ml Balance -450 ml 703 ml 720 ml 206 ml 102 ml Intake Oral 200 ml 600 ml 120 ml 120 ml IV Total 103 ml 600 ml 86 ml 102 ml Output Urine Total 650 ml # Voids 1 2 1 1 # Bowel Movements 1 0 0 0 Result Diagram: 02/19/16 0620 02/15/16 0412 Imaging Last Impressions PICC Line Insertion 02/18/16 0000 Signed Impressions: Service Date/Time: February 10:14 - CONCLUSION: 1. Uncomplicated central venous Power PICC line placement. 2. The PICC line can be used immediately. Wenceslao Vazquez MD Brain MRI 02/18/16 0000 Signed Impressions: Service Date/Time: February 09:16 - CONCLUSION: No acute intracranial findings. No evidence of metastatic disease. Vikas Sandoval MD Bone Scan Nuclear Medicine 02/18/16 0000 Signed Impressions: Service Date/Time: February 08:21 - CONCLUSION: 1. Negative for metastatic disease. Exam within normal limits for age. Jonathan Michel MD Abdomen/Pelvis CT 02/17/16 0000 Signed Impressions: Service Date/Time: Wednesday, February 17, 2016 21:44 - CONCLUSION: 1. Diverticulosis without diverticulitis. 2. Hepatic steatosis. 3. No acute inflammatory process. Wali Coffman MD Chest X-Ray 02/16/16 1700 Signed Impressions: Service Date/Time: Tuesday, February 16, 2016 17:06 - CONCLUSION: No pneumothorax identified post lung biopsy. Jonathan Michel MD Lung Biopsy CT 02/16/16 0000 Signed Impressions: Service Date/Time: Tuesday, February 16, 2016 13:56 - CONCLUSION: Successful CT-guided biopsy of a right lung mass. Yosef Chappell MD Vena Cavagram 02/13/16 1705 Signed Impressions: Service Date/Time: Saturday, February 13, 2016 16:40 - CONCLUSION: 1. Recurrent occlusion of the SVC. There has been the development of small volume thrombus above the occlusion which is a new finding. A venoplasty was performed with poor results. An approximate 2 mm channel was reestablished despite 10 mm angioplasty. This channel will likely quickly reocclude. I would suggest heparinization of the patient to try and maintain the patency of the collateral vessels and to try and prevent propagation of the small volume thrombus. A phone call is currently out to Dr. John. 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 Status post failed venoplasty 2. heparin DC and switched to Pradaxa today 02/18 S/P PICC placement COPD-not in exacerbation. Patient with 100 pack year history tobacco , Patient with broncho-bronchodilators as needed Hypertension-controlled, continue Norvasc and atenolol. d/w CM- Pradaxa- cost- Insurance may not pay for thid Problem Qualifiers (1) COPD (chronic obstructive pulmonary disease): Qualified Code: J43.2 - Centrilobular emphysema Judy White MD Feb 19, 2016 15:07
--- NOTE | 2016-02-19 15:24 | HHI.FF ---
Face to Face Verification Diagnosis: (1) Thrombosis of superior vena cava (2) Superior vena cava syndrome (3) Adenocarcinoma of lung Physical Therapy Order: Strength and gait training Instructions: Pt deconditioned from recent hospitalization. He has been receiving PT in hospital. Please continue from a home health standpoint. Home Health Nursing Order: Medical education Signs/symptoms of disease process Medication education-adverse effect Instructions: Pt with new diagnosis of adenocarcinoma of the lung with recent superior vena cava syndrome. Also new thrombosis to superior vena cava. Home health nursing to followup with pt on new anticoagulation medications, education on recent diagnoses. I have seen patient Robert Luna on 02/19/16. My clinical findings support the need for the requested home health care services because: Deconditioned w/ increased weakness Limited ability to care for self Impaired cognition/judgement High risk of falls I certify that my clinical findings support that this patient is homebound because: Unsteady gait/balance Unsafe to leave home unassisted Please provide home health care to pt as he has a recent diagnosis of lung cancer with SVC syndrome as well as new dx of thrombosis of superior vena cava. He will need PT to increase his strength for continued chemotherapy/radiation. Traci Merritt Feb 19, 2016 15:24
[2016-02-19 16:00] VITALS: BP 142/70; PULSE 65; RESP 16; TEMP 97.4; O2SAT 100
[2016-02-19] MEDS: HEPARIN-D5W INJ 250 ML IV SCH (17:51)
[2016-02-19 20:00] VITALS: BP 126/60; PULSE 76; RESP 18; TEMP 95.6; O2SAT 95
[2016-02-19] MEDS: RIVAROXABAN 15 MG TAB PO SCH (20:07)
[2016-02-19] MEDS: DEXAMETHASONE 4 MG TAB PO SCH (20:07)
[2016-02-19] MEDS ORDERED: DABIGATRAN ETEXILATE 150 MG CAP PO SCH (21:00)
[2016-02-20] VITALS: BP 121/59; PULSE 80; RESP 18; TEMP 96; O2SAT 96
[2016-02-20] MEDS: oxyCODONE/ACETAMINOPHEN 5 MG/325 MG TAB PO PRN ×2 (02:22→10:04)
[2016-02-20 04:00] VITALS: BP 136/61; PULSE 62; RESP 18; TEMP 97.4; O2SAT 95
[2016-02-20] MEDS: GEMFIBROZIL 600 MG TAB PO SCH (06:26)
[2016-02-20 08:00] VITALS: BP 121/58; PULSE 77; RESP 18; TEMP 97.7; O2SAT 96
--- NOTE | 2016-02-20 08:20 | HHI.PR ---
Subjective Remarks no pain or shortness of breath Objective Vitals Vital Signs Date Time Temp Pulse Resp B/P Pulse Ox O2 Delivery O2 Flow Rate FiO2 02/20/16 04:00 97.4 62 18 136/61 95 02/20/16 00:00 96.0 80 18 121/59 96 02/19/16 20:00 95.6 76 18 126/60 95 02/19/16 16:00 97.4 65 16 142/70 100 02/19/16 12:00 97.4 84 16 127/59 93 I/O 02/19/16 02/19/16 02/19/16 02/20/16 02/20/16 02/20/16 07:00 15:00 23:00 07:00 15:00 23:00 Intake Total 206 ml 1062 ml 240 ml 240 ml Balance 206 ml 1062 ml 240 ml 240 ml Intake Oral 120 ml 960 ml 240 ml 240 ml IV Total 86 ml 102 ml # Voids 1 3 1 2 # Bowel Movements 0 1 Result Diagram: 02/19/16 0620 Imaging Last Impressions PICC Line Insertion 02/18/16 0000 Signed Impressions: Service Date/Time: February 10:14 - CONCLUSION: 1. Uncomplicated central venous Power PICC line placement. 2. The PICC line can be used immediately. Wenceslao Vazquez MD Brain MRI 02/18/16 0000 Signed Impressions: Service Date/Time: February 09:16 - CONCLUSION: No acute intracranial findings. No evidence of metastatic disease. Vikas Sandoval MD Bone Scan Nuclear Medicine 02/18/16 0000 Signed Impressions: Service Date/Time: February 08:21 - CONCLUSION: 1. Negative for metastatic disease. Exam within normal limits for age. Jonathan Michel MD Abdomen/Pelvis CT 02/17/16 0000 Signed Impressions: Service Date/Time: Wednesday, February 17, 2016 21:44 - CONCLUSION: 1. Diverticulosis without diverticulitis. 2. Hepatic steatosis. 3. No acute inflammatory process. Wali Coffman MD Chest X-Ray 02/16/16 1700 Signed Impressions: Service Date/Time: Tuesday, February 16, 2016 17:06 - CONCLUSION: No pneumothorax identified post lung biopsy. Jonathan Michel MD Lung Biopsy CT 02/16/16 0000 Signed Impressions: Service Date/Time: Tuesday, February 16, 2016 13:56 - CONCLUSION: Successful CT-guided biopsy of a right lung mass. Yosef Chappell MD Vena Cavagram 02/13/16 1705 Signed Impressions: Service Date/Time: Saturday, February 13, 2016 16:40 - CONCLUSION: 1. Recurrent occlusion of the SVC. There has been the development of small volume thrombus above the occlusion which is a new finding. A venoplasty was performed with poor results. An approximate 2 mm channel was reestablished despite 10 mm angioplasty. This channel will likely quickly reocclude. I would suggest heparinization of the patient to try and maintain the patency of the collateral vessels and to try and prevent propagation of the small volume thrombus. A phone call is currently out to Dr. John. 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 Decadron 4 mg po bid. AOC switched to Xaretlo 15 mg po bid 02/18 x 21 days then 20 mg po daily after concurrently getting radiotherapy and radiation therapy tolerated both yesterday 02/18 very well. PICC as OP XRT on Monday Oncology ff up in 2 weeks COPD-not in exacerbation. Patient with 100 pack year history tobacco , Patient with broncho-bronchodilators as needed Hypertension-controlled, continue Norvasc and atenolol. DC today if cleared with Oncology- Adrianna - CM is helping us to see if insurance will cover the cost of Xarelto and will let us know OP ff up with Radiology, Medical oncology Problem Qualifiers (1) COPD (chronic obstructive pulmonary disease): Qualified Code: J43.2 - Centrilobular emphysema Judy White MD Feb 20, 2016 08:20
[2016-02-20] MEDS: SODIUM CHLORIDE 0.9% FLUSH 5 ML FLUSH IVF SCH (09:00)
[2016-02-20] MEDS: SODIUM CHLORIDE 0.9% FLUSH 5 ML FLUSH FLUSH SCH (10:04)
[2016-02-20] MEDS: GABAPENTIN 300 MG CAP PO SCH (10:04)
[2016-02-20] MEDS: SUCRALFATE 1 GM TAB PO SCH ×2 (10:05→13:24)
[2016-02-20] MEDS: RIVAROXABAN 15 MG TAB PO SCH (10:05)
[2016-02-20] MEDS: amLODIPine BESYLATE 5 MG TAB PO SCH (10:05)
[2016-02-20] MEDS: DEXAMETHASONE 4 MG TAB PO SCH (10:05)
[2016-02-20] MEDS: PANTOPRAZOLE SOD 40 MG DELAYED RELEASE TAB PO SCH (10:05)
[2016-02-20] MEDS: ATENOLOL 50 MG TAB PO SCH (10:05)
--- NOTE | 2016-02-20 10:08 | PD.ONC.PN ---
Subjective Subjective Remarks No bleeding. Tolerating anticoagulant well. Objective Data Date Time Temp Pulse Resp B/P Pulse Ox O2 Delivery O2 Flow Rate FiO2 02/20/16 08:00 97.7 77 18 121/58 96 02/20/16 04:00 97.4 62 18 136/61 95 02/20/16 00:00 96.0 80 18 121/59 96 02/19/16 20:00 95.6 76 18 126/60 95 02/19/16 16:00 97.4 65 16 142/70 100 02/19/16 12:00 97.4 84 16 127/59 93 Result Diagram: 02/19/16 0620 Administered Medications Medications (Trade) Dose Ordered Sig/Hilaria Route PRN Reason Start Time Stop Time Status Last Admin Dose Admin IV Flush (NS Flush) 2 ml UNSCH PRN FLUSH FLUSH AFTER USING IV ACCESS 02/12/16 14:00 02/16/16 09:23 IV Flush (NS Flush) 2 ml BID FLUSH 02/12/16 21:00 02/19/16 20:08 Ondansetron HCl (Zofran Inj) 4 mg Q6H PRN IVP NAUSEA OR VOMITING 02/12/16 14:00 02/16/16 06:09 Atenolol (Tenormin) 50 mg DAILY PO 02/13/16 09:00 02/19/16 09:32 Gabapentin (Neurontin) 300 mg BID PO 02/12/16 21:00 02/19/16 20:07 Gemfibrozil (Lopid) 600 mg BIDAC PO 02/12/16 16:00 02/20/16 06:26 Sucralfate (Carafate) 1 gm TID PO 02/12/16 18:00 02/19/16 17:52 Diphenhydramine HCl (Benadryl) 25 mg HS PRN PO INSOMNIA 02/12/16 22:00 02/15/16 06:28 Pantoprazole Sodium (Protonix) 40 mg DAILY PO 02/14/16 09:00 02/19/16 09:33 Morphine Sulfate (Morphine Inj) 2 mg Q3H PRN IV PUSH BREAKTHROUGH PAIN 02/13/16 12:00 02/16/16 21:57 Temazepam (Restoril) 15 mg HS PRN PO INSOMNIA 02/13/16 13:00 02/18/16 21:55 Amlodipine Besylate (Norvasc) 5 mg DAILY PO 02/15/16 09:00 02/19/16 09:33 Oxycodone/ Acetaminophen 1 tab 1 tab Q4H PRN PO PAIN 1-10 02/16/16 15:00 02/20/16 02:22 Granisetron HCl/ Dexamethasone Sodium Phosphate/ Sodium Chloride (Kytril Inj/ Decadron Inj/NS Inj) 56 ml @ 224 mls/hr Q7D IV 02/18/16 18:00 02/25/16 18:14 02/18/16 17:54 Famotidine 20 mg 20 mg Q7D IV 02/18/16 18:00 02/25/16 18:01 02/18/16 18:02 Paclitaxel 79.2 mg/Sodium Chloride 263.2 ml @ 131.6 mls/ hr Q7D IV 02/18/16 19:00 02/25/16 20:59 02/18/16 19:08 Carboplatin 151 mg/Sodium Chloride 250 ml @ 500 mls/hr Q7D IV 02/18/16 21:00 02/25/16 21:29 02/18/16 21:34 Sodium Chloride (NS 250 ml Inj) 250 ml @ 0 mls/hr Q7D IV 02/18/16 16:30 02/25/16 23:00 02/18/16 17:47 Diphenhydramine HCl (Benadryl) 25 mg Q7D PO 02/18/16 18:00 02/25/16 18:01 02/18/16 18:02 Dexamethasone (Decadron) 4 mg Q12HR PO 02/19/16 21:00 02/19/16 20:07 Rivaroxaban (Xarelto) 15 mg BID PO 02/19/16 21:00 02/19/16 20:07 Objective Remarks GENERAL: Older male, lying in bed in no distress. SKIN: Warm and dry. Facial swelling, mild hyperemic. Bruise L arm. HEAD: Normocephalic. EYES: Less injected than earlier this week. NECK: Swelling significantly decreased. CARDIOVASCULAR: +S1/S2. Regular rate/rhythm. RESPIRATORY: Scattered rhonchi. GASTROINTESTINAL: +BS. EXTREMITIES: No cyanosis, or edema. NEUROLOGICAL: No obvious focal deficit. Awake, alert, and oriented x3. Assessment/Plan Problem List: (1) Adenocarcinoma of lung Status: Acute Plan: 02/20/16: IV site L arm, bruising post pic line. Follow up in [facility] for radiation sensitizing chemo. XRT continue at same time. Coordinate follow up. 02/19/16: PICC line accidentally removed by patient overnight. Will attempt to get invasive IV as an outpatient. 02/18/16: start carbo/taxol--weekly. chemo teaching. continue XRT. 02/17/16: Path showed adenocarcinoma of lung primary. At least stage IIIA. 02/16/16: CT guided lung mass biopsy at 430 this afternoon. plan for bone scan, brain MRI, CT ab/pelvis for staging once stable from SVC syndrome to proceed. continue XRT. Hx: Mr. Luna has a 100 pack year smoking history. He reports having lost 27 pounds over the last 3 weeks. He patel noticed some swelling of his neck and engorgement of veins on his chest and abdomen. He was sent by his PCP for a CT of the chest yesterday which showed a lung mass with mediastinal mass causing occlusion of the superior vena cava. He was then directed to the ER. 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 Continue anticoagulant therapy for thrombosis, continue Xarelto starter pack. No bleeding, improve symptoms. 02/19/16: Swelling significantly decreased. No XRT over the weekend. Tolerated chemo OK yesterday. 02/18/16: continuing to improve. start carbo/taxol today. continue XRT. 02/17/16:Improving. Continue XRT, plan to add weekly carboplatin/taxol 02/16/16: continue XRT. 02/15/16: XRT #3 today, Swelling has improved. Facial flushing improving. 02/14/16: Radiation today. Swelling is unchanged from yesterday afternoon. Ears remain slightly dusky. Pt on heparin gtt. -- 02/13/16 first radiation treatment. Will proceed with daily treatments per Dr. Li. -- Repeat Vena cavagram done on 02/13/16 was done with a poor result with only a 2mm channel for blood flow in the SVC. -- Monitor Assessment 75 y/o male who presents to the ER with SVC syndrome, sent directly from the imaging center. Plan 1. Continue Xarelto starter pack. 2. FU [facility] for weekly chemo. 3. XRT to resume on Monday. 4. OK to DC home from heme/onc perspective with follow up. 5. Continue Decadron taper. Wendy Joseph MD Feb 20, 2016 10:08
[2016-02-20] MEDS ORDERED: DEXA4TAB PO (11:27)
[2016-02-20] MEDS ORDERED: AMLO5 PO (11:27)
[2016-02-20] MEDS ORDERED: XARE15TA PO (11:27)
[2016-02-20] MEDS ORDERED: XARE20TA PO (11:29)
[2016-02-20 12:00] VITALS: BP 115/56; PULSE 75; RESP 20; TEMP 96; O2SAT 95
--- NOTE | 2016-02-20 17:00 | HHI.DS ---
Discharge Summary Admission Date Feb 12, 2016 at 13:51 Discharge Date: Feb 20, 2016 Admitting Diagnosis superior vena cava syndrome, newly diagnosed lung cancer (1) Superior vena cava syndrome ICD Code: I87.1 Diagnosis: Principal (2) COPD (chronic obstructive pulmonary disease) ICD Code: J44.9 Diagnosis: Secondary (3) HTN (hypertension) ICD Code: I10 Diagnosis: Secondary Procedures 02/17- LUE PICC line placement Brief History - From Admission 75-year-old male with a past history of HTN, HLD, GERD, neuropathy, COPD who was sent in by his PCP for new lung mass. The patient states that earlier this month for about 17 days he was having cough productive with white and yellow sputum with associated fevers, increased prominence of the veins of his neck and chest wall. He has shortness of breath at that time, which has persisted but improved some. He states his symptoms seem to improved spontaneously. After that he developed for the past 2 weeks swelling of his head and neck. He states he's noticed some dizziness whenever he turns his head too quickly. He also feels like his attitude has been different. He does have a history of 77 to [id number] smoking, quit 7 years ago. He saw his PCP yesterday who ordered a chest CT which the patient had done at [facility]. He was called by his PCP today who told him that he had a large lung mass that was impinging on the great vessels of his thorax and was recommended to come to the ED. On review of systems the patient has intermittent chest discomfort that is relieved by belching. He has had occasional nausea over the past 2 or 3 days, no vomiting. He states he's been having intermittent loose bowel movements, 14 /day. CBC/BMP: 02/19/16 0620 Significant Findings Laboratory Tests Test 02/18/16 02/19/16 02/19/16 06:35 01:43 06:20 Activated Partial 61.1 SEC 68.6 SEC Thromboplast Time (24.3-30.1) (24.3-30.1) Red Blood Count 4.14 MIL/MM3 3.90 MIL/MM3 (4.50-5.90) (4.50-5.90) Hemoglobin 12.7 GM/DL 11.7 GM/DL (13.0-17.0) (13.0-17.0) Hematocrit 37.1 % 34.6 % (39.0-51.0) (39.0-51.0) Imaging Last Impressions PICC Line Insertion 02/18/16 0000 Signed Impressions: Service Date/Time: February 10:14 - CONCLUSION: 1. Uncomplicated central venous Power PICC line placement. 2. The PICC line can be used immediately. Wenceslao Vazquez MD Brain MRI 02/18/16 0000 Signed Impressions: Service Date/Time: February 09:16 - CONCLUSION: No acute intracranial findings. No evidence of metastatic disease. Vikas Sandoval MD Bone Scan Nuclear Medicine 02/18/16 0000 Signed Impressions: Service Date/Time: February 08:21 - CONCLUSION: 1. Negative for metastatic disease. Exam within normal limits for age. Jonathan Michel MD Abdomen/Pelvis CT 02/17/16 0000 Signed Impressions: Service Date/Time: Wednesday, February 17, 2016 21:44 - CONCLUSION: 1. Diverticulosis without diverticulitis. 2. Hepatic steatosis. 3. No acute inflammatory process. Wali Coffman MD Chest X-Ray 02/16/16 1700 Signed Impressions: Service Date/Time: Tuesday, February 16, 2016 17:06 - CONCLUSION: No pneumothorax identified post lung biopsy. Jonathan Michel MD Lung Biopsy CT 02/16/16 0000 Signed Impressions: Service Date/Time: Tuesday, February 16, 2016 13:56 - CONCLUSION: Successful CT-guided biopsy of a right lung mass. Yosef Chappell MD Vena Cavagram 02/13/16 1705 Signed Impressions: Service Date/Time: Saturday, February 13, 2016 16:40 - CONCLUSION: 1. Recurrent occlusion of the SVC. There has been the development of small volume thrombus above the occlusion which is a new finding. A venoplasty was performed with poor results. An approximate 2 mm channel was reestablished despite 10 mm angioplasty. This channel will likely quickly reocclude. I would suggest heparinization of the patient to try and maintain the patency of the collateral vessels and to try and prevent propagation of the small volume thrombus. A phone call is currently out to Dr. John. 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 Decadron 4 mg po bid. AOC switched to Xaretlo 15 mg po bid 02/18 x 21 days then 20 mg po daily after concurrently getting radiotherapy and radiation therapy tolerated both yesterday 02/18 very well. PICC as OP XRT on Monday Oncology ff up in 2 weeks COPD-not in exacerbation. Patient with 100 pack year history tobacco , Patient with broncho-bronchodilators as needed Hypertension-controlled, continue Norvasc and atenolol. DC today if cleared with Oncology- Adrianna - CM is helping us to see if insurance will cover the cost of Xarelto and will let us know OP ff up with Radiology, Medical oncology Problem Qualifiers Pt Condition on Discharge: Stable Discharge Disposition: Discharge Home Discharge Time: <= 30 minutes Discharge Instructions DIET: Follow Instructions for: As Tolerated, No Restrictions Activities you can perform: Weight Bearing as Kristofer Activities to Avoid: Strenuous Activity Follow up Referrals: Oncology - 2 Weeks with [facility] New Medications: Rivaroxaban (Xarelto) 20 Mg Tab 20 MG PO DAILY Blood Clot Prevention #30 Ref 0 TAB Amlodipine (Norvasc) 5 Mg Tab 5 MG PO DAILY HTN Days 30 TAB Dexamethasone (Dexamethasone) 4 Mg Tab 4 MG PO Q12HR chemo #28 TAB Rivaroxaban (Xarelto) 15 Mg Tab 15 MG PO BID SVC #40 Ref 0 TAB Continued Medications: Atenolol (Atenolol) 50 Mg Tab 50 MG PO DAILY Blood Pressure Management #30 Ref 0 TAB Gabapentin (Gabapentin) 300 Mg Cap 300 MG PO BID #60 Ref 0 CAP Gemfibrozil (Lopid) 600 Mg Tab 600 MG PO BIDAC Take 30 minutes prior to breakfast and dinner #60 Ref 0 TAB Discontinued Medications: Naproxen Sodium DS (Naproxen Sodium DS) 550 Mg Tab 550 MG PO DAILY #30 Ref 0 TAB Omeprazole (Omeprazole) 20 Mg Tab 20 MG PO DAILY #30 Ref 0 TAB Sucralfate (Sucralfate) 1 Gm Tab 1 GM PO TID on empty stomach Duodenal ulcer #90 Ref 0 TAB Judy White MD Feb 20, 2016 17:00
== END 2016-02-20 13:59 | disposition home or self-care (01) | DRG 253 ==
LOC: NEPE 12:15 → NEDA 13:51 → HOCB 17:29 → HIMN 02-13 16:05 → HOCA 02-16 12:00
PROVIDERS: ADMIT Internal Medicine; ATTEND Internal Medicine
PROC: 027V3ZZ Dilation of Superior Vena Cava, Percutaneous Approach (ICD-10-PCS; principal; 2016-02-12)
PROC: B5181ZZ Fluoroscopy of Superior Vena Cava using Low Osmolar Contrast (ICD-10-PCS; 2016-02-12)
PROC: 027V3ZZ Dilation of Superior Vena Cava, Percutaneous Approach (ICD-10-PCS; 2016-02-13)
PROC: B5181ZZ Fluoroscopy of Superior Vena Cava using Low Osmolar Contrast (ICD-10-PCS; 2016-02-13)
PROC: 0BBK3ZX Excision of Right Lung, Percutaneous Approach, Diagnostic (ICD-10-PCS; 2016-02-16)
PROC: DW021ZZ Beam Radiation of Chest using Photons 1 - 10 MeV (ICD-10-PCS; 2016-02-18)
PROC: 3E04305 Introduction of Other Antineoplastic into Central Vein, Percutaneous Approach (ICD-10-PCS; 2016-02-18)
PROC: 05H633Z Insertion of Infusion Device into Left Subclavian Vein, Percutaneous Approach (ICD-10-PCS; 2016-02-18)
DX: I87.1 Compression of vein (principal); C34.31 Malignant neoplasm of lower lobe, right bronchus or lung; I82.210 Acute embolism and thrombosis of superior vena cava; G62.9 Polyneuropathy, unspecified; J43.2 Centrilobular emphysema; R63.0 Anorexia; I10 Essential (primary) hypertension; E78.5 Hyperlipidemia, unspecified; K21.9 Gastro-esophageal reflux disease without esophagitis; R59.1 Generalized enlarged lymph nodes; M19.90 Unspecified osteoarthritis, unspecified site; M54.9 Dorsalgia, unspecified; G89.29 Other chronic pain; I86.8 Varicose veins of other specified sites; Z86.73 Personal history of transient ischemic attack (TIA), and cerebral infarction without residual deficits; Z87.891 Personal history of nicotine dependence; Z87.11 Personal history of peptic ulcer disease
CPT/HCPCS: 32405; 35476; 36569; 70553; 71010; 74177; 75827; 76937; 77001; 77012; 77263; 77300; 77301; 77334; 77336; 77338; 77386; 77387; 77412; 77427; 78306; 80048; 80053; 81235; 82378; 84443; 84484; 85025; 85027; 85610; 85730; 88305; 88341; 88342; 88360; 88377; 93005; 99144; 99145; A9503; A9579; C1725; C1751; C1769; C1894; J1100; J1200; J1626; J1644; J2250; J2270; J2405; J3010; J7030; J7050; J8540; J9045; J9267; Q9963; Q9967

== ENCOUNTER 2016-02-26 14:39 | Emergency (ER) | payer OTHER, MEDICAID ==
[~2016-02-26] VITALS: Ht 170.2 cm; Wt 65.0 kg
[~2016-02-26 14:39] MED LIST changes: +AMLO5 PO; -ATEN1TAB74 PO; +ATEN50TA PO; +DEXA4TAB PO; +GABA300C5 PO; -LORTA5 PO; -NAPR550 PO; -NEUR300C PO; -OMEP20CA5 PO; -SUCR1TAB6 PO; +XARE15TA PO; +XARE20TA PO
[2016-02-26 14:43] VITALS: BP 122/58; PULSE 80; RESP 16; TEMP 97.3; O2SAT 99
[2016-02-26 14:45] VITALS: BP 139/63; PULSE 79; RESP 18; TEMP 97.4; O2SAT 98
[2016-02-26] MEDS ORDERED: SODIUM CHLOR 0.9% 1000 ML INJ 1,000 ML IV SCH ×2 (16:29→16:37)
[2016-02-26] MEDS ORDERED: SODIUM CHLORIDE 0.9% FLUSH 5 ML FLUSH IVF PRN (16:30)
[2016-02-26 16:59] LABS: AUTOMATED NEUTROPHIL # 6.4 TH/MM3 (1.8-7.7); BASOPHIL % 0.3 % (0.0-2.0); EOSINOPHIL % 0.1 % (0.0-4.0); HEMATOCRIT 29.6 % (39.0-51.0); LYMPHOCYTE # 0.4 TH/MM3 (1.0-4.8); MEAN CELL VOLUME 89.4 FL (80.0-100.0); MEAN CORPUSCULAR HEMOGLOBIN 30.9 PG (27.0-34.0); MEAN CORPUSCULAR HGB CONC 34.6 % (32.0-36.0); MONO % 8.6 % (0.0-8.0); PLATELET COUNT 277 TH/MM3 (150-450); RED BLOOD COUNT 3.31 MIL/MM3 (4.50-5.90); RED CELL DISTRIBUTION WIDTH 12.7 % (11.6-17.2); WHITE BLOOD COUNT 7.5 TH/MM3 (4.0-11.0)
[2016-02-26 17:09] LABS: APTT (PATIENT) 31.1 SEC (24.3-30.1); INTERNATIONAL NORMALIZED RATIO 1.5 RATIO; PROTHROMBIN TIME - PATIENT 16.7 SEC (9.8-11.6)
[2016-02-26 17:15] LABS: ALT (GPT) 32 U/L (12-78); ANION GAP 9 MEQ/L (5-15); AST (GOT) 11 U/L (15-37); BICARBONATE 24.3 MEQ/L (21.0-32.0); BLOOD UREA NITROGEN 24 MG/DL (7-18); CHLORIDE 101 MEQ/L (98-107); GLOMERULAR FILTRATION RATE 63 ML/MIN (>89); POTASSIUM 3.6 MEQ/L (3.5-5.1); SODIUM (NA) 134 MEQ/L (136-145)
[2016-02-26 17:17] LABS: ALKALINE PHOSPHATASE 24 U/L (45-117); TOTAL BILIRUBIN ADULT 0.3 MG/DL (0.2-1.0)
[2016-02-26 17:19] LABS: HEMO FLAGS AUTO DIFF
[2016-02-26 17:24] VITALS: BP 124/59; PULSE 74; RESP 20; O2SAT 96
[2016-02-26 18:31] LABS: SCAN/DIFF AUTO DIFF CONFIRMED
--- NOTE | 2016-02-26 19:34 | RADRPT ---
EXAM DATE/TIME: 02/26/2016 18:24 [facility] COMPARISON: No previous studies available for comparison. INDICATIONS : Swelling. MEDICAL HISTORY : Carcinoma, lung. COPD. Ulcer. Dsypnea. SURGICAL HISTORY : Hernial repair. ENCOUNTER: Initial ACUITY: 3 days PAIN SCORE: 0/10 LOCATION: Bilateral arms. FINDINGS: RIGHT UPPER EXTREMITY: There is spontaneous flow documented in the brachial, basilic, cephalic, axillary, and subclavian vei ns. The vessels are compressible and augmentation response is documented. No filling defects are se en. The flow is phasic with respiration. Direction of flow in the jugular vein is caudal. LEFT UPPER EXTREMITY: There is spontaneous flow documented in the brachial, basilic, cephalic, axillary, and subclavian vei ns. The vessels are compressible and augmentation response is documented. No filling defects are se en. The flow is phasic with respiration. Direction of flow in the jugular vein is caudal. CONCLUSION: No DVT. Vikas Burden MD on February 26, 2016 at 19:31 Board Certified Radiologist. This report was verified electronically.
--- NOTE | 2016-02-26 19:43 | PD ---
HPI Chief Complaint: Edema Time Seen by Provider: 15:14 Travel History International Travel<30 days: No Contact w/Intl Traveler<30days: No Traveled to known affect area: No History of Present Illness HPI Patient is a 75-year-old male who presents to emergency room with no complaints. Patient reports that he was recently diagnosed with SVC syndrome and has since started on radiation treatment as he has large masses in his lungs causing this SVC syndrome. Patient reports that he has had increased neck swelling and swelling to his upper extremities for a while. Patient reports that he went for his radiation treatment today and was told to come to the emergency room for evaluation. Patient reports that he has no complaints at this time. Patient reports that he feels fine. Patient reports "I don't know why I was sent to the emergency room." Patient denies dizziness, denies chest pain, denies shortness of breath. Patient with no complaints. Patient reports that he is currently on Xarelto for blood clot prevention. PFSH Past Medical History Arthritis: Yes Cancer: Yes (new dx of lunca ca) Chemotherapy: No COPD: Yes Cerebrovascular Accident: Yes Diminished Hearing: No Endocrine: No Gastrointestinal Disorders: No Genitourinary: No Hypertension: Yes Immune Disorder: No Implanted Vascular Access Dvce: No Musculoskeletal: Yes Neurologic: No Reproductive: No Respiratory: Yes (LUNG CA ) Radiation Therapy: No Ulcer: Yes Past Surgical History Other Surgery: Yes (HERNIA) Family History Family History: Negative Social History Alcohol Use: Yes (OCCASIONAL) Tobacco Use: No (QUIT 3 YEARS AGO) Substance Use: No Allergies-Medications (Allergen,Severity, Reaction): Coded Allergies: No Known Allergies (Verified , 02/26/16) Reported Meds & Prescriptions Reported Meds & Active Scripts Active Xarelto (Rivaroxaban) 20 Mg Tab 20 Mg PO DAILY Xarelto (Rivaroxaban) 15 Mg Tab 15 Mg PO BID Dexamethasone 4 Mg Tab 4 Mg PO Q12HR Norvasc (Amlodipine Besylate) 5 Mg Tab 5 Mg PO DAILY 30 Days Reported Lopid (Gemfibrozil) 600 Mg Tab 600 Mg PO BIDAC Take 30 minutes prior to breakfast and dinner Atenolol 50 Mg Tab 50 Mg PO DAILY Gabapentin 300 Mg Cap 300 Mg PO BID Review of Systems General / Constitutional: No: Fever Eyes: No: Visual changes HENT: No: Headaches Cardiovascular: No: Chest Pain or Discomfort Respiratory: No: Shortness of Breath Gastrointestinal: No: Abdominal Pain Genitourinary: No: Dysuria Musculoskeletal: No: Pain Skin: No Rash Neurologic: No: Weakness Psychiatric: No: Depression Endocrine: No: Polydipsia Hematologic/Lymphatic: No: Easy Bruising Physical Exam Narrative GENERAL: No acute distress, nontoxic SKIN: Warm and dry. HEAD: Atraumatic. Normocephalic. EYES: Pupils equal and round. No scleral icterus. No injection or drainage. ENT: No nasal bleeding or discharge. Mucous membranes pink and moist. NECK: Trachea midline. No JVD. CARDIOVASCULAR: Regular rate and rhythm. No murmur appreciated. RESPIRATORY: No accessory muscle use. Clear to auscultation. Breath sounds equal bilaterally. GASTROINTESTINAL: Abdomen soft, non-tender, nondistended. Hepatic and splenic margins not palpable. MUSCULOSKELETAL: No obvious deformities. No clubbing. No cyanosis. Patient with +2 edema to bilateral upper extremities NEUROLOGICAL: Awake and alert. No obvious cranial nerve deficits. Motor grossly within normal limits. Normal speech. PSYCHIATRIC: Appropriate mood and affect; insight and judgment normal. Data Data Last Documented VS Vital Signs Date Time Temp Pulse Resp B/P Pulse Ox O2 Delivery O2 Flow Rate FiO2 02/26/16 17:24 74 20 124/59 96 Room Air 02/26/16 14:45 97.4 Orders Complete Blood Count With Diff (02/26/16 16:29) Comprehensive Metabolic Panel (02/26/16 16:29) Iv Access Insert/Monitor (02/26/16 16:29) Ecg Monitoring (02/26/16 16:29) Sodium Chlor 0.9% 1000 Ml Inj (Ns 1000 M (02/26/16 16:29) Sodium Chloride 0.9% Flush (Ns Flush) (02/26/16 16:30) Prothrombin Time / Inr (Pt) (02/26/16 16:37) Act Partial Throm Time (Ptt) (02/26/16 16:37) Sodium Chlor 0.9% 1000 Ml Inj (Ns 1000 M (02/26/16 16:37) Us Arm Venous Doppler Bilat (02/26/16 ) Labs Laboratory Tests Test 02/26/16 16:46 White Blood Count 7.5 TH/MM3 Red Blood Count 3.31 MIL/MM3 Hemoglobin 10.2 GM/DL Hematocrit 29.6 % Mean Corpuscular Volume 89.4 FL Mean Corpuscular Hemoglobin 30.9 PG Mean Corpuscular Hemoglobin 34.6 % Concent Red Cell Distribution Width 12.7 % Platelet Count 277 TH/MM3 Mean Platelet Volume 9.1 FL Neutrophils (%) (Auto) 86.0 % Lymphocytes (%) (Auto) 5.0 % Monocytes (%) (Auto) 8.6 % Eosinophils (%) (Auto) 0.1 % Basophils (%) (Auto) 0.3 % Neutrophils # (Auto) 6.4 TH/MM3 Lymphocytes # (Auto) 0.4 TH/MM3 Monocytes # (Auto) 0.6 TH/MM3 Eosinophils # (Auto) 0.0 TH/MM3 Basophils # (Auto) 0.0 TH/MM3 CBC Comment AUTO DIFF Differential Comment AUTO DIFF CONFIRMED Prothrombin Time 16.7 SEC Prothromb Time International 1.5 RATIO Ratio Activated Partial 31.1 SEC Thromboplast Time Sodium Level 134 MEQ/L Potassium Level 3.6 MEQ/L Chloride Level 101 MEQ/L Carbon Dioxide Level 24.3 MEQ/L Anion Gap 9 MEQ/L Blood Urea Nitrogen 24 MG/DL Creatinine 1.14 MG/DL Estimat Glomerular Filtration 63 ML/MIN Rate Random Glucose 91 MG/DL Calcium Level 9.1 MG/DL Total Bilirubin 0.3 MG/DL Aspartate Amino Transf 11 U/L (AST/SGOT) Alanine Aminotransferase 32 U/L (ALT/SGPT) Alkaline Phosphatase 24 U/L Total Protein 6.4 GM/DL Albumin 3.9 GM/DL MDM Medical Decision Making Medical Screen Exam Complete: Yes Emergency Medical Condition: Yes Interpretation(s) Vital Signs Date Time Temp Pulse Resp B/P Pulse Ox O2 Delivery O2 Flow Rate FiO2 02/26/16 17:24 74 20 124/59 96 Room Air 02/26/16 14:45 97.4 79 18 139/63 98 02/26/16 14:43 97.3 80 16 122/58 99 Room Air CBC & BMP Diagram 02/26/16 16:46 Differential Diagnosis SVC syndrome, DVT, electrolyte abnormality Narrative Course Patient is a 75-year-old male who was sent to the emergency room by his oncologist for evaluation. Patient does not know why he was sent to the emergency room. Patient has no complaints at this time. A call was made to his oncologist, Dr Aguillon for further information. I talked to Dr. Aguillon's GROCERY MANAGER Traci, patient was sent to the ER for evaluation of possible DVT. Upper extremities given has swelling. Request ultrasound of upper extremities bilaterally. Patient with no complaints at this time.CBC & BMP Diagram 02/26/16 16:46 Patient with no DVT on ultrasound. Patient was given a copy of his also report. Patient with no complaints at this time, request to be discharged home. All labs and all studies reviewed patient in detail. Patient understands need to follow-up with his oncologist as well as primary care doctor and return to ER as needed Diagnosis Primary Impression: Superior vena cava syndrome Additional Impressions: Anemia Qualified Code: D64.9 - Anemia, unspecified type Swelling of upper arm Patient Instructions: General Instructions Additional Instructions: Please follow-up with your oncologist as well as her primary care doctor as soon as possible. Please bring copy of your ultrasound report to doctor's office for follow-up. Return to ER as needed Disposition: 01 DISCHARGE HOME Condition: Stable Christina Phelan DO Feb 26, 2016 19:43
[2016-02-26 20:19] VITALS: BP 109/59
== END 2016-02-26 20:38 | disposition home or self-care (01) ==
LOC: NEPA 14:39
DX: I87.1 Compression of vein (principal); M79.89 Other specified soft tissue disorders; J44.9 Chronic obstructive pulmonary disease, unspecified; I10 Essential (primary) hypertension; D64.9 Anemia, unspecified
CPT/HCPCS: 80053; 85025; 85610; 85730; 93970; 96360; 96361; 99285; J7030

== ENCOUNTER 2016-03-03 12:13 | Day surgery (SDC) | payer OTHER, MEDICAID ==
[2016-03-03 12:39] VITALS: BP 109/55; PULSE 82; RESP 20; TEMP 97.6; O2SAT 97
[2016-03-03] MEDS ORDERED: WARF-20 PO (12:40)
[2016-03-03 14:00] VITALS: BP 116/59; PULSE 75; RESP 20; O2SAT 97
--- NOTE | 2016-03-03 14:08 | PD.RAD ---
Radiology Post PICC Prog Note Pre Procedure Diagnosis: (1) Lung cancer Post Procedure Diagnosis: (1) Lung cancer Procedure: Left PICC line placement ((midline - central venous occlusion)) Procedure Date: Mar 03, 2016 Supervising Radiologist Shabbir Swanson Device Side: Left Iranian: 4 single lumen cm: 30 Catheter: Power PICC Plan of Activity Patient to Unit: ROPU Patient Condition: Good PICC line can be used immediately (Midline catheter) Shabbir Swanson MD Mar 03, 2016 14:08
[2016-03-03] MEDS ORDERED: IOHEXOL 350 MG/ML 50 ML BTL (for RAD DIAG) IV ONE (14:19)
--- NOTE | 2016-03-05 17:33 | RADRPT ---
EXAM DATE/TIME: 03/03/2016 13:13 [facility] COMPARISON: No previous studies available for comparison. INDICATIONS : Patient with history of lung cancer in need of midline placement for chemotherapy. MEDICAL HISTORY : 1.Lung cancer 2.SVC syndrome 3.COPD 4.Ulcers 5.Arthritis 6.CVA SURGICAL HISTORY : 1.Hernia repair ENCOUNTER: Subsequent ACUITY: 3 weeks PAIN SCORE: 0/10 FLUORO TIME: 0.5 minutes CONTRAST: 5 cc Omnipaque (iohexol) 350 ACCESS: Left basilic vein MEDICATION(S): 1.) 200 units Heparin IV DEVICE(S): 1.) 4 Italian single lumen 30 cm Xcela Power PICC PROCEDURE : 1. Ultrasound-guided venipuncture. 2. Fluoroscopically guided midline placement. The risks, benefits and alternatives to the procedure were explained and verbal and written consent w as obtained. The site was prepped in sterile fashion. Full sterile technique was used, including ca p, mask, sterile gloves and gown and a large sterile sheet. Hand hygiene and 2% chlorhexidine prep w as utilized per protocol for cutaneous antisepsis with appropriate dry time for site. The skin and s ubcutaneous tissues were infiltrated with local anesthetic solution. With ultrasound and fluoroscopic guidance the targeted vein was punctured and a guidewire was advance d as distally as possible in this patient with findings of central venous occlusion/stenosis. A peel- away sheath was placed and a PICC line cut to the prescribed length was placed without difficulty. T he catheter was fixed in place with a stat lock device. CONCLUSION: Uncomplicated midline placement. Shabbir Swanson MD on March 05, 2016 at 17:31 Board Certified Radiologist. This report was verified electronically.
== END 2016-03-03 14:30 | disposition home or self-care (01) ==
LOC: HROP 12:13 → HRIP 12:15 → HROP 14:30
PROVIDERS: ATTEND Internal Medicine Hematology & Oncology
DX: Z45.2 Encounter for adjustment and management of vascular access device (principal); C34.90 Malignant neoplasm of unspecified part of unspecified bronchus or lung; J44.9 Chronic obstructive pulmonary disease, unspecified; Z86.73 Personal history of transient ischemic attack (TIA), and cerebral infarction without residual deficits
CPT/HCPCS: 36569; 75820; 76937; 77001; C1751; J1642; Q9967

== ENCOUNTER 2016-03-04 14:33 | Emergency (ER) | payer MEDICAID, OTHER ==
[~2016-03-04] VITALS: Ht 167.6 cm; Wt 68.0 kg
[~2016-03-04 14:33] MED LIST changes: +WARF-20 PO; -XARE15TA PO; -XARE20TA PO
[2016-03-04 14:35] VITALS: BP 121/57; PULSE 17; PULSE 84; RESP 16; TEMP 97.6
--- NOTE | 2016-03-04 15:22 | PD ---
HPI Chief Complaint: Live Games Dealer Problem Time Seen by Provider: 15:21 Travel History International Travel<30 days: No Contact w/Intl Traveler<30days: No Traveled to known affect area: No History of Present Illness HPI 75-year-old Afro-Nauruan male coming in with possible issues with his PICC line. Patient is an oncology patient of Dr. Toro Quarles with history of stage III large cell lung cancer scheduled for radiation therapy. Patient states he' s had some leakage around the insertion site of his PICC line. Patient's PICC line was placed by Dr. Swanson last evening. Patient has had some serosanguineous drainage from the site and is concerned. Patient is here for evaluation and if all is good to go to oncology for his radiation therapy after discharge from here. He has no other acute complaints. Patient has no known drug allergies. PFSH Past Medical History Hx Anticoagulant Therapy: Yes Arthritis: Yes Cancer: Yes (new dx of lunca ca) Cardiovascular Problems: Yes (PE) Chemotherapy: Yes (LUNG CANCER) COPD: Yes Cerebrovascular Accident: Yes Diminished Hearing: No Endocrine: No Gastrointestinal Disorders: No Genitourinary: No Hypertension: Yes Immune Disorder: No Implanted Vascular Access Dvce: No Musculoskeletal: Yes Neurologic: No Reproductive: No Respiratory: Yes (LUNG CA ) Radiation Therapy: No Ulcer: Yes Past Surgical History Other Surgery: Yes (HERNIA) Social History Alcohol Use: Yes (OCCASIONAL) Tobacco Use: No (QUIT 3 YEARS AGO) Substance Use: No Allergies-Medications (Allergen,Severity, Reaction): Coded Allergies: No Known Allergies (Verified , 03/03/16) Reported Meds & Prescriptions Reported Meds & Active Scripts Active Dexamethasone 4 Mg Tab 4 Mg PO Q12HR Norvasc (Amlodipine Besylate) 5 Mg Tab 5 Mg PO DAILY 30 Days Reported Warfarin 4 Mg Tab 4 Mg PO DAILY Lopid (Gemfibrozil) 600 Mg Tab 600 Mg PO BIDAC Take 30 minutes prior to breakfast and dinner Atenolol 50 Mg Tab 50 Mg PO DAILY Gabapentin 300 Mg Cap 300 Mg PO BID Review of Systems Except as stated in HPI: all other systems reviewed are Neg General / Constitutional: No: Fever Eyes: No: Visual changes HENT: No: Headaches Cardiovascular: No: Chest Pain or Discomfort Respiratory: No: Shortness of Breath Gastrointestinal: No: Abdominal Pain Genitourinary: No: Dysuria Musculoskeletal: No: Pain Skin: No Rash Neurologic: No: Weakness Psychiatric: No: Depression Endocrine: No: Polydipsia Hematologic/Lymphatic: No: Easy Bruising Physical Exam Narrative GENERAL: Patient is in no acute distress. SKIN: Warm and dry. Normal color. Normal turgor. Patient's PICC line site was uncovered and assessed by Dr. Marr utilizing sterile technique. It was felt the PICC line was in good condition and dressing was replaced. HEAD: Atraumatic. Normocephalic. EYES: Pupils equal and round. No scleral icterus. No injection or drainage. ENT: No nasal bleeding or discharge. Mucous membranes pink and moist. NECK: Trachea midline. No JVD. CARDIOVASCULAR: Regular rate and rhythm. RESPIRATORY: No accessory muscle use. NEUROLOGICAL: Awake and alert. No obvious cranial nerve deficits. Motor grossly within normal limits. Five out of 5 muscle strength in the arms and legs. Normal speech. PSYCHIATRIC: Appropriate mood and affect; insight and judgment normal. Data Data Last Documented VS Vital Signs Date Time Temp Pulse Resp B/P Pulse Ox O2 Delivery O2 Flow Rate FiO2 03/04/16 14:35 97.6 84 16 121/57 [facility] Medical Decision Making Medical Screen Exam Complete: Yes Emergency Medical Condition: Yes Differential Diagnosis Lung cancer. PICC line drainage. PICC line evaluation. Narrative Course Patient is medically stable. PICC line is evaluated by the physician felt to be in good condition. Dressing to remain in place as previous. Patient follow with his oncologist as scheduled. Patient may return the emergency department at any time for acute issues. Diagnosis Primary Impression: S/P PICC central line placement Additional Impression: Adenocarcinoma of lung Qualified Code: C34.91 - Adenocarcinoma of lung, right Referrals: Toro Saba MD Patient Instructions: General Instructions Med/Other Pt SpecificInfo: No Change to Meds Disposition: 01 DISCHARGE HOME Condition: Stable Ryan Vega Mar 04, 2016 15:22
--- NOTE | 2016-03-04 15:40 | PD ---
Data Data Last Documented VS Vital Signs Date Time Temp Pulse Resp B/P Pulse Ox O2 Delivery O2 Flow Rate FiO2 03/04/16 14:35 97.6 84 16 121/57 MDM Supervised Visit with JESUS: Yes Narrative Course I, Dr. Coats, have reviewed the advance practice practioner's documentation and am in agreement, met with the patient face to face, made the diagnosis, and the medical decision making was done by me. 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 He had a PICC line placed yesterday by interventional radiology and states that it has been draining. On exam he has serosanguineous discharge from around the site. There is no active bleeding. The dressing was changed. Patient was reassured and he will be discharged. Antonia Coats MD Mar 04, 2016 15:40
== END 2016-03-04 16:29 | disposition home or self-care (01) ==
LOC: NEPE 14:33
DX: Z45.2 Encounter for adjustment and management of vascular access device (principal); C34.91 Malignant neoplasm of unspecified part of right bronchus or lung; J44.9 Chronic obstructive pulmonary disease, unspecified; I10 Essential (primary) hypertension; Z87.891 Personal history of nicotine dependence; Z79.01 Long term (current) use of anticoagulants; Z86.73 Personal history of transient ischemic attack (TIA), and cerebral infarction without residual deficits
CPT/HCPCS: 99283

== ENCOUNTER 2016-03-09 11:32 | Emergency (ER) | payer OTHER ==
[~2016-03-09] VITALS: Ht 170.2 cm; Wt 66.0 kg
[2016-03-09 11:34] VITALS: BP 131/59; PULSE 72; RESP 20; TEMP 97.4; O2SAT 97
--- NOTE | 2016-03-09 12:18 | PD ---
HPI Chief Complaint: Bleeding Time Seen by Provider: 12:16 Travel History International Travel<30 days: No Contact w/Intl Traveler<30days: No Traveled to known affect area: No History of Present Illness HPI 75 year old male presents to the ED for evaluation of bleeding from his LUE PICC line. Pt is undergoing chemo for lung cancer and gets it through his PICC. He states he slept on it last evening and when he woke up, his arm was covered in blood. The visiting nurse called 911. [facility] derived and placed a dressing on it. Patient and his family continued on to the ER.. He reports no injury. No fever or chills. No lightheadedness. No chest pain or tightness. Patient's daughter is with him and wants to know why he woke up with a red eye on the left. Patient does not recall any injury. Reports no pain or visual disturbances. PFSH Past Medical History Hx Anticoagulant Therapy: Yes Arthritis: Yes Cancer: Yes (new dx of lunca ca) Cardiovascular Problems: Yes Chemotherapy: Yes (LUNG CANCER) COPD: Yes Cerebrovascular Accident: Yes Diminished Hearing: No Endocrine: No Gastrointestinal Disorders: No Genitourinary: No Hypertension: Yes Immune Disorder: No Implanted Vascular Access Dvce: No Musculoskeletal: Yes Neurologic: No Reproductive: No Respiratory: Yes Radiation Therapy: No Ulcer: Yes Past Surgical History Other Surgery: Yes (HERNIA) Social History Alcohol Use: Yes (OCCASIONAL) Tobacco Use: No (QUIT 3 YEARS AGO) Substance Use: No Allergies-Medications (Allergen,Severity, Reaction): Coded Allergies: No Known Allergies (Verified , 03/09/16) Reported Meds & Prescriptions Reported Meds & Active Scripts Active Reported Warfarin 4 Mg Tab 4 Mg PO DAILY Lopid (Gemfibrozil) 600 Mg Tab 600 Mg PO BIDAC Take 30 minutes prior to breakfast and dinner Atenolol 50 Mg Tab 50 Mg PO DAILY Gabapentin 300 Mg Cap 300 Mg PO BID Review of Systems Except as stated in HPI: all other systems reviewed are Neg Physical Exam Narrative GENERAL: Well-nourished, well-developed male patient, ambulatory no acute distress SKIN: Warm and dry. HEAD: Normocephalic. EYES: No scleral icterus. Sub-conjunctival hematoma of the left eye. NECK: Supple, trachea midline. No JVD or lymphadenopathy. CARDIOVASCULAR: Regular rate and rhythm without murmurs, gallops, or rubs. RESPIRATORY: Breath sounds equal bilaterally. No accessory muscle use. MUSCULOSKELETAL: No cyanosis, or edema. Left upper extremity PICC line in place. Sanguinous drainage on the dressing. Not actively bleeding. Distal pulses are palpable. Cap refill is within normal limits. BACK: Nontender without obvious deformity. No CVA tenderness. Data Data Last Documented VS Vital Signs Date Time Temp Pulse Resp B/P Pulse Ox O2 Delivery O2 Flow Rate FiO2 03/09/16 15:12 72 20 97 03/09/16 11:34 97.4 131/59 Room Air Orders Complete Blood Count With Diff (03/09/16 12:58) Basic Metabolic Panel (Bmp) (03/09/16 12:58) Coag Profile (03/09/16 12:58) ^ Change Dressing (03/09/16 12:58) Labs Laboratory Tests Test 03/09/16 13:10 White Blood Count 7.6 TH/MM3 Red Blood Count 3.64 MIL/MM3 Hemoglobin 11.1 GM/DL Hematocrit 33.1 % Mean Corpuscular Volume 91.1 FL Mean Corpuscular Hemoglobin 30.5 PG Mean Corpuscular Hemoglobin 33.5 % Concent Red Cell Distribution Width 13.6 % Platelet Count 190 TH/MM3 Mean Platelet Volume 7.6 FL Neutrophils (%) (Auto) 92.1 % Lymphocytes (%) (Auto) 1.8 % Monocytes (%) (Auto) 5.9 % Eosinophils (%) (Auto) 0.1 % Basophils (%) (Auto) 0.1 % Neutrophils # (Auto) 7.0 TH/MM3 Lymphocytes # (Auto) 0.1 TH/MM3 Monocytes # (Auto) 0.4 TH/MM3 Eosinophils # (Auto) 0.0 TH/MM3 Basophils # (Auto) 0.0 TH/MM3 CBC Comment DIFF FINAL Differential Comment Prothrombin Time 46.2 SEC Prothromb Time International 3.9 RATIO Ratio Activated Partial 39.9 SEC Thromboplast Time Sodium Level 135 MEQ/L Potassium Level 3.5 MEQ/L Chloride Level 99 MEQ/L Carbon Dioxide Level 26.4 MEQ/L Anion Gap 10 MEQ/L Blood Urea Nitrogen 24 MG/DL Creatinine 1.12 MG/DL Estimat Glomerular Filtration 64 ML/MIN Rate Random Glucose 91 MG/DL Calcium Level 8.5 MG/DL MDM Medical Decision Making Medical Screen Exam Complete: Yes Emergency Medical Condition: Yes Medical Record Reviewed: Yes Differential Diagnosis PICC dressing change versus PICC displacement versus dislodged PICC versus infected line Narrative Course [address] Saba I reviewed the patient's chart it appears that Dr. Saba has ordered CBC and BMP but I can't believe fell at these as well as coagulation to the patient's workup today. CBC and BMP are consistent with previous lab work. INR is 3.9. Patient states this is decreased from 4.1. I discussed the patient with my attending physician Dr. Weldon. Patient is sized to not take his Coumadin until primary care provider or Dr. Saba restart it. PICC dressing is changed using aseptic technique. It is flushed. Patient is discharged to follow-up with his primary care provider and his oncologist. He is in agreement with this plan of care. Dr. Saba contacted me after the patient had been discharged. I discussed the patient's visit here and what we did. He is in agreement with this and states his office has already worked on rescheduling an appointment. Diagnosis Primary Impression: Encounter for assessment of peripherally inserted central venous catheter (PICC ) Additional Impression: Elevated INR Referrals: Toro Saba MD Patient Instructions: General Instructions, How to Care for Your Peripherally Inserted Central Catheter (ED) Additional Instructions: Follow-up with Dr. Galloway Return immediately with any acute worsening of symptoms Med/Other Pt SpecificInfo: No Change to Meds Disposition: 01 DISCHARGE HOME Condition: Stable Syeda Quarles Mar 09, 2016 12:18
[2016-03-09 13:26] LABS: BASOPHIL % 0.1 % (0.0-2.0); EOSINOPHIL % 0.1 % (0.0-4.0); HEMATOCRIT 33.1 % (39.0-51.0); HEMO FLAGS DIFF FINAL; LYMPH % 1.8 % (9.0-44.0); LYMPHOCYTE # 0.1 TH/MM3 (1.0-4.8); MEAN CELL VOLUME 91.1 FL (80.0-100.0); MEAN CORPUSCULAR HEMOGLOBIN 30.5 PG (27.0-34.0); MEAN CORPUSCULAR HGB CONC 33.5 % (32.0-36.0); MONO % 5.9 % (0.0-8.0); NEUT % 92.1 % (16.0-70.0); PLATELET COUNT 190 TH/MM3 (150-450); RED BLOOD COUNT 3.64 MIL/MM3 (4.50-5.90); RED CELL DISTRIBUTION WIDTH 13.6 % (11.6-17.2); WHITE BLOOD COUNT 7.6 TH/MM3 (4.0-11.0)
[2016-03-09 13:32] LABS: APTT (PATIENT) 39.9 SEC (24.3-30.1); INTERNATIONAL NORMALIZED RATIO 3.9 RATIO; PROTHROMBIN TIME - PATIENT 46.2 SEC (9.8-11.6)
[2016-03-09 13:42] LABS: BICARBONATE 26.4 MEQ/L (21.0-32.0); POTASSIUM 3.5 MEQ/L (3.5-5.1)
== END 2016-03-09 15:45 | disposition home or self-care (01) ==
LOC: NETRI 11:32
DX: Z45.2 Encounter for adjustment and management of vascular access device (principal); C34.90 Malignant neoplasm of unspecified part of unspecified bronchus or lung; D68.9 Coagulation defect, unspecified; I10 Essential (primary) hypertension; J44.9 Chronic obstructive pulmonary disease, unspecified; Z79.01 Long term (current) use of anticoagulants
CPT/HCPCS: 80048; 85025; 85610; 85730; 99283

== ENCOUNTER 2016-09-28 13:15 | Inpatient (IN) | payer OTHER, MEDICARE ==
[2016-09-28] VITALS (9 sets, daily range): BP systolic 130–158; BP diastolic 60–88; PULSE 74–86; RESP 16–20; TEMP 96.9–98.1; O2SAT 93–98
[~2016-09-28] VITALS: Ht 167.6 cm; Wt 61.0 kg
[~2016-09-28 13:15] MED LIST changes: -AMLO5 PO; -DEXA4TAB PO
--- NOTE | 2016-09-28 13:22 | PD ---
Physical Exam Date Seen by Provider: Sep 28, 2016 Time Seen by Provider: 13:19 Narrative 76 YOWM H/O LUNG CA. NOW WITH CP FOR 1 MONTH GETTING WORSE. ARMS FEELING SWOLLEN.. SOB AND WHEEZING . LAST CHEMO 2 MONTHS AGO. 5/10 PAIN VS REVIEWED PT WAITING FOR BED PLACEMENT. Data Data Last Documented VS Vital Signs Date Time Temp Pulse Resp B/P Pulse Ox O2 Delivery O2 Flow Rate FiO2 09/28/16 13:16 98.1 84 18 132/60 93 Room Air MDM Supervised Visit with JESUS: Jonathan Presley Sep 28, 2016 13:22
[2016-09-28 14:03] LABS: AUTOMATED NEUTROPHIL # 3.3 TH/MM3 (1.8-7.7); BASOPHIL % 0.6 % (0.0-2.0); EOSINOPHIL % 0.4 % (0.0-4.0); HEMATOCRIT 39.2 % (39.0-51.0); HEMO FLAGS DIFF FINAL; LYMPH % 11.5 % (9.0-44.0); LYMPHOCYTE # 0.5 TH/MM3 (1.0-4.8); MEAN CELL VOLUME 92.2 FL (80.0-100.0); MEAN CORPUSCULAR HGB CONC 34.7 % (32.0-36.0); MONO % 8.2 % (0.0-8.0); NEUT % 79.3 % (16.0-70.0); PLATELET COUNT 147 TH/MM3 (150-450); RED BLOOD COUNT 4.26 MIL/MM3 (4.50-5.90); RED CELL DISTRIBUTION WIDTH 13.6 % (11.6-17.2); WHITE BLOOD COUNT 4.2 TH/MM3 (4.0-11.0)
[2016-09-28 14:15] LABS: APTT (PATIENT) 32.2 SEC (24.3-30.1); INTERNATIONAL NORMALIZED RATIO 1.6 RATIO; PROTHROMBIN TIME - PATIENT 18.1 SEC (9.8-11.6)
[2016-09-28 14:24] LABS: ALT (GPT) 21 U/L (12-78); ANION GAP 9 MEQ/L (5-15); AST (GOT) 18 U/L (15-37); BICARBONATE 27.8 MEQ/L (21.0-32.0); BLOOD UREA NITROGEN 8 MG/DL (7-18); CHLORIDE 105 MEQ/L (98-107); GLOMERULAR FILTRATION RATE 78 ML/MIN (>89); SODIUM (NA) 142 MEQ/L (136-145)
[2016-09-28 14:29] LABS: ALKALINE PHOSPHATASE 62 U/L (45-117); TOTAL BILIRUBIN ADULT 0.8 MG/DL (0.2-1.0)
[2016-09-28 14:34] LABS: POTASSIUM 2.9 MEQ/L (3.5-5.1)
--- NOTE | 2016-09-28 14:38 | PD ---
HPI Chief Complaint: Cardiac Complaint Time Seen by Provider: 14:04 Travel History International Travel<30 days: No Contact w/Intl Traveler<30days: No Traveled to known affect area: No History of Present Illness HPI This is a 76-year-old male with history of lung cancer, presents today with complaints of left sided chest pain with radiation to his back. Patient also reports shortness of breath. Patient states the shortness of breath is worse than his baseline shortness of breath from his cancer and COPD. Denies any fevers, chills. He reports the pain is intermittent and worse with exertion. He states he called his oncologist, Dr. Galloway, who told him to come into the ER to be evaluated. Patient also reports weakness. There are no other complaints time my examination. PFSH Past Medical History Hx Anticoagulant Therapy: Yes Arthritis: Yes Cancer: Yes (new dx of lunca ca) Cardiovascular Problems: Yes Chemotherapy: Yes (LUNG CANCER) COPD: Yes Cerebrovascular Accident: Yes Diabetes: No Diminished Hearing: No Endocrine: No Gastrointestinal Disorders: No Genitourinary: No Hypertension: Yes Immune Disorder: No Implanted Vascular Access Dvce: No Musculoskeletal: Yes Neurologic: No Reproductive: No Respiratory: Yes Radiation Therapy: No Ulcer: Yes Tetanus Vaccination: > 5 Years Influenza Vaccination: Yes Past Surgical History Other Surgery: Yes (HERNIA) Social History Alcohol Use: Yes (OCCASIONAL) Tobacco Use: No Substance Use: No Allergies-Medications (Allergen,Severity, Reaction): Coded Allergies: No Known Allergies (Verified , 09/28/16) Reported Meds & Prescriptions Reported Meds & Active Scripts Active Reported Warfarin 4 Mg Tab 4 Mg PO DAILY Lopid (Gemfibrozil) 600 Mg Tab 600 Mg PO BIDAC Take 30 minutes prior to breakfast and dinner Atenolol 50 Mg Tab 50 Mg PO DAILY Gabapentin 300 Mg Cap 300 Mg PO BID Review of Systems Except as stated in HPI: all other systems reviewed are Neg General / Constitutional: No: Fever, Chills HENT: No: Headaches, Lightheadedness, Neck Stiffness Cardiovascular: Positive: Chest Pain or Discomfort (left sided that radiates to his back.), Palpitations, No: Irregular Rhythm Respiratory: Positive: Shortness of Breath, No: Cough, Wheezing Gastrointestinal: No: Nausea, Vomiting, Abdominal Pain Genitourinary: No: Frequency, Dysuria, Incontinence Musculoskeletal: Positive: Weakness (generalized), No: Pain Skin: No Rash, No Lesions Neurologic: Positive: Weakness (generalized), No: Dizziness Physical Exam Narrative GENERAL: Well-nourished, well-developed patient, in no acute respiratory distress.. SKIN: Focused skin assessment warm/dry. HEAD: Normocephalic/atraumatic. EYES: No scleral icterus. No injection or drainage. No JVD or lymphadenopathy. CARDIOVASCULAR: Regular rate and rhythm without murmurs, gallops, or rubs. RESPIRATORY: Decreased breath sounds on the right lung field. Good movement in the left lung. GASTROINTESTINAL: Abdomen soft, non-tender, nondistended. MUSCULOSKELETAL: No cyanosis, or edema. NEUROLOGICAL: Awake and alert. Cranial nerves II through XII intact. Motor grossly within normal limits. Five out of 5 muscle strength in all muscle groups. Normal speech. Data Data Last Documented VS Vital Signs Date Time Temp Pulse Resp B/P Pulse Ox O2 Delivery O2 Flow Rate FiO2 09/28/16 15:00 75 18 143/70 94 Room Air 09/28/16 13:16 98.1 Orders Electrocardiogram (09/28/16 13:22) Complete Blood Count With Diff (09/28/16 13:22) Comprehensive Metabolic Panel (09/28/16 13:22) Troponin I (09/28/16 13:22) Prothrombin Time / Inr (Pt) (09/28/16 13:22) Act Partial Throm Time (Ptt) (09/28/16 13:22) D-Dimer (09/28/16 13:22) Chest, Pa & Lat (09/28/16 13:22) Iv Access Insert/Monitor (09/28/16 13:22) Ecg Monitoring (09/28/16 13:22) Oximetry (09/28/16 13:22) Ckmb (Isoenzyme) Profile (09/28/16 14:12) Potassium Chloride Powder (Kcl Powder) (09/28/16 15:00) CKMB (09/28/16 13:30) CKMB% (09/28/16 13:30) Ct Brain W/O Iv Contrast(Rout) (09/28/16 15:37) Admit To Inpatient (09/28/16 ) Vital Signs (Adult) Q4H (09/28/16 15:54) Neuro Checks Q4H (09/28/16 15:54) Activity Oob Ad Zulma (09/28/16 15:54) Learning Disabilities Resource Teacher / Telemetry .CONTINUOUS (09/28/16 15:54) Intake + Output ROBERTO.QSHIFT (09/28/16 15:54) Diet Heart Healthy (09/28/16 Dinner) Acetaminophen (Tylenol) (09/28/16 16:00) Ondansetron Inj (Zofran Inj) (09/28/16 16:00) Basic Metabolic Panel (Bmp) (09/29/16 06:00) Complete Blood Count With Diff (09/29/16 06:00) Resp Oxygen Avi C Titrat 1-4 L (09/28/16 ) Pt Request For Service (09/28/16 15:54) Ot Request For Service (09/28/16 15:54) Docusate Sodium-Senna (Angeles-Colace) (09/28/16 21:00) Magnesium Hydroxide Liq (Milk Of Magnesi (09/28/16 16:00) Inpatient Certification (09/28/16 ) Scd&Teds Bilateral/Knee High ROBERTO.QSHIFT (09/28/16 15:54) Atenolol (Tenormin) (09/29/16 09:00) Gabapentin (Neurontin) (09/28/16 21:00) Gemfibrozil (Lopid) (09/28/16 16:00) Prothrombin Time / Inr (Pt) (09/29/16 06:00) Labs Laboratory Tests Test 09/28/16 13:30 White Blood Count 4.2 TH/MM3 Red Blood Count 4.26 MIL/MM3 Hemoglobin 13.6 GM/DL Hematocrit 39.2 % Mean Corpuscular Volume 92.2 FL Mean Corpuscular Hemoglobin 32.0 PG Mean Corpuscular Hemoglobin 34.7 % Concent Red Cell Distribution Width 13.6 % Platelet Count 147 TH/MM3 Mean Platelet Volume 9.1 FL Neutrophils (%) (Auto) 79.3 % Lymphocytes (%) (Auto) 11.5 % Monocytes (%) (Auto) 8.2 % Eosinophils (%) (Auto) 0.4 % Basophils (%) (Auto) 0.6 % Neutrophils # (Auto) 3.3 TH/MM3 Lymphocytes # (Auto) 0.5 TH/MM3 Monocytes # (Auto) 0.3 TH/MM3 Eosinophils # (Auto) 0.0 TH/MM3 Basophils # (Auto) 0.0 TH/MM3 CBC Comment DIFF FINAL Differential Comment Prothrombin Time 18.1 SEC Prothromb Time International 1.6 RATIO Ratio Activated Partial 32.2 SEC Thromboplast Time D-Dimer Quantitative (PE/DVT) 0.45 MG/L FEU Sodium Level 142 MEQ/L Potassium Level 2.9 MEQ/L Chloride Level 105 MEQ/L Carbon Dioxide Level 27.8 MEQ/L Anion Gap 9 MEQ/L Blood Urea Nitrogen 8 MG/DL Creatinine 0.94 MG/DL Estimat Glomerular Filtration 78 ML/MIN Rate Random Glucose 108 MG/DL Calcium Level 8.6 MG/DL Total Bilirubin 0.8 MG/DL Aspartate Amino Transf 18 U/L (AST/SGOT) Alanine Aminotransferase 21 U/L (ALT/SGPT) Alkaline Phosphatase 62 U/L Total Creatine Kinase 126 U/L Creatine Kinase MB 1.8 NG/ML Troponin I LESS THAN 0.02 NG/ML Total Protein 6.6 GM/DL Albumin 4.0 GM/DL [facility] Medical Decision Making Medical Screen Exam Complete: Yes Emergency Medical Condition: Yes Differential Diagnosis ACS versus recurrent lung cancer versus pneumonia versus pulmonary effusion. Narrative Course 76-year-old male presents with complaints of left sided chest pain, shortness of breath. Patient reports the pain as intermittent times several days. He reports exertional component of the chest pain as well as exertional shortness of breath that is worse than his baseline. The patient denies any fevers, chills. Patient has a large right pleural effusion. EKG shows no evidence of acute changes. Potassium is 2.9 and cardiac enzymes are normal. He is on Coumadin and his INR is 1.6. He'll be admitted to the hospital. I spoke with Dr. Henrik Vazquez who states that we hold his Coumadin today, he'll be able to do a thoracentesis tomorrow to drain the fluid. The case was discussed with Dr. Felder, [facility] who will admit the patient to his service. He's been given 20 mEq of potassium. The patient also reported to me that he has pain behind his left eye. A CT scan of the head is been ordered to rule out any intracranial mass. Diagnosis Primary Impression: Chest pain Additional Impressions: large right pleural effusion. Hypokalemia Lung cancer Retro-orbital pain of left eye Admitting Information Admitting Physician Requests: Admit Bentley Baird MD Sep 28, 2016 14:38
[2016-09-28] MEDS ORDERED: POTASSIUM CHLORIDE 20 MEQ PWD PACKET PO ONE (15:00)
--- NOTE | 2016-09-28 15:18 | RADRPT ---
EXAM DATE/TIME: 09/28/2016 14:06 [facility] COMPARISON: No previous studies available for comparison. INDICATIONS : Chest pain for 5 weeks. Short of breath for several weeks. MEDICAL HISTORY : Carcinoma, lung. COPD. Ulcer. Dsypnea. SURGICAL HISTORY : Hernia repair. ENCOUNTER: Initial ACUITY: 3 weeks PAIN SCORE: 2/10 LOCATION: Bilateral chest FINDINGS: There are moderate right pleural effusion. The left lung is clear. The heart and pulmonary vasculari ty are normal. The portion of the bony skeleton visualized is unremarkable. CONCLUSION: Moderate right pleural effusion. Henrik Vazquez MD FACR on September 28, 2016 at 15:15 Board Certified Radiologist. This report was verified electronically.
[2016-09-28 15:30] LABS: CREATINE KINASE 126 U/L (39-308)
[2016-09-28 15:47] LABS: CKMB 1.8 NG/ML (0.5-3.6)
[2016-09-28] MEDS ORDERED: ACETAMINOPHEN 325 MG TAB PO PRN (16:00)
[2016-09-28] MEDS ORDERED: MAGNESIUM HYDROXIDE SUSP 30 ML CUP PO PRN (16:00)
--- NOTE | 2016-09-28 16:38 | RADRPT ---
EXAM DATE/TIME: 09/28/2016 16:22 [facility] COMPARISON: No previous studies available for comparison. INDICATIONS : Left sided headaches for three months. 50 pound weight loss in last 8 months. RADIATION DOSE: 32.14 CTDIvol (mGy) MEDICAL HISTORY : Cardiovascular disease. Hypertension. Carcinoma, lung. SURGICAL HISTORY : Hernia sx. ENCOUNTER: Initial ACUITY: 3 months PAIN SCALE: 8/10 LOCATION: Left cranial TECHNIQUE: Multiple contiguous axial images were obtained of the head. Using automated exposure control and adj ustment of the mA and/or kV according to patient size, radiation dose was kept as low as reasonably a chievable to obtain optimal diagnostic quality images. DICOM format image data is available electro nically for review and comparison. FINDINGS: CEREBRUM: The ventricles are normal for age. No evidence of midline shift, mass lesion, hemorrhage or acute in farction. No extra-axial fluid collections are seen. POSTERIOR FOSSA: The cerebellum and brainstem are intact. The 4th ventricle is midline. The cerebellopontine angle i s unremarkable. EXTRACRANIAL: The visualized portion of the orbits is intact. SKULL: The calvaria is intact. No evidence of skull fracture. CONCLUSION: Negative noncontrast CT Paramjit Farr MD on September 28, 2016 at 16:34 Board Certified Radiologist. This report was verified electronically.
[2016-09-28] MEDS: GEMFIBROZIL 600 MG TAB PO SCH (18:07)
--- NOTE | 2016-09-28 18:08 | HHI.HP ---
[facility] Brigitte Osorio Do, MD Admission Diagnosis chest pain, right pleural effusion, hypokalemia, lung cancer by hist Diagnoses: (1) COPD (chronic obstructive pulmonary disease) Diagnosis: Secondary (2) Chest pain Diagnosis: Principal (3) Lung cancer Diagnosis: Secondary (4) Pleural effusion Diagnosis: Principal Chief Complaint: Chest pain Travel History International Travel<30 Days: No Contact w/Intl Traveler <30 Da: No Traveled to Known Affected Are: No History of Present Illness Mr. Luna is a 76-year-old male patient with a known medical history of non- small cell lung cancer, chronic back pain, hypertension and tobacco history who presented to the ED with complaints of chest pain. Patient states he has been experiencing this intermittent chest pain or the past 5 weeks. He states that this pain is concentrated mainly in the left anterior chest area occasionally radiating to the right anterior chest and around to his lower back. Pain is a 9/ 10 when present, usually lasts 2-3 minutes when present and slowly subsides. Does not recognize any aggravating or relieving factors. States the pain is stabbing and sharp in nature. Patient also complaints of occasional bilateral arm swelling. Does admit to associated shortness of breath and nausea, denies any vomiting or diaphoresis. Denies any recent illness including fever, chills, abdominal pain, diarrhea. Patient has been following with Dr. Saba for his non- small cell lung cancer, last saw him and received chemo 2.5 months ago. Patient states Dr. SABA has held the last 2 scheduled chemotherapy treatments due to patient being worn down and fatigued. Patient will undergo thoracentesis with interventional radiology will consult them Review of Systems Constitutional: DENIES: Fever, Chills Endocrine: DENIES: Polydipsia, Polyuria Eyes: COMPLAINS OF: Eye inflammation, DENIES: Eye pain Ears, nose, mouth, throat: DENIES: Hearing loss, Oral lesions Respiratory: COMPLAINS OF: Cough, Sputum production, Shortness of breath Cardiovascular: COMPLAINS OF: Chest pain, DENIES: Dyspnea on Exertion Gastrointestinal: COMPLAINS OF: Nausea, DENIES: Constipation, Diarrhea, Vomiting Genitourinary: DENIES: Urinary incontinence Musculoskeletal: COMPLAINS OF: Back pain, DENIES: Stiffness Neurologic: DENIES: Abnormal gait, Headache, Localized weakness, Paresthesias Psychiatric: DENIES: Anxiety, Confusion, Mood changes Except as stated in HPI: all other systems reviewed are Neg Past Family Social History Past Medical History Non-small cell lung cancer Arthritis COPD History of CVA Hypertension Past Surgical History Hernia repair Reported Medications Active Reported Warfarin 4 Mg Tab 4 Mg PO DAILY Lopid (Gemfibrozil) 600 Mg Tab 600 Mg PO BIDAC Take 30 minutes prior to breakfast and dinner Atenolol 50 Mg Tab 50 Mg PO DAILY Gabapentin 300 Mg Cap 300 Mg PO BID Allergies: Coded Allergies: No Known Allergies (Verified , 09/28/16) Active Ordered Medications Current Medications Medications (Trade) Dose Ordered Sig/Hilaria Route Start Time Stop Time Status Last Admin (Tylenol) 650 mg Q4H PRN PO 09/28/16 16:00 (Zofran Inj) 4 mg Q6H PRN IVP 09/28/16 16:00 (Angeles-Colace) 1 tab BID PO 09/28/16 21:00 (Milk Of Magnesia Liq) 30 ml Q12H PRN PO 09/28/16 16:00 (Tenormin) 50 mg DAILY PO 09/29/16 09:00 (Neurontin) 300 mg BID PO 09/28/16 21:00 (Lopid) 600 mg BIDAC PO 09/28/16 16:00 Family History Denies any significant family medical history including cardiovascular disease, Alzheimer's disease or cancer. Social History Patient is . Denies any current tobacco use, states he quit smoking 9 years ago. Denies any alcohol use. Denies any illicit drug use. Physical Exam Vital Signs Vital Signs Date Time Temp Pulse Resp B/P Pulse Ox O2 Delivery O2 Flow Rate FiO2 09/28/16 17:00 75 20 151/79 94 Nasal Cannula 2 09/28/16 15:00 75 18 143/70 94 Room Air 09/28/16 14:14 94 Room Air 09/28/16 13:16 98.1 84 18 132/60 93 Room Air Physical Exam GENERAL: This is a well-nourished, well-developed male patient, in no apparent distress. Lying in bed on supplemental O2. SKIN: No rashes. Upper extremity ecchymosis noted. Warm and dry. HEAD: Atraumatic. Normocephalic. Pupils equal round and reactive. Extraocular motions intact. No scleral icterus. Left eye erythema noted. Nose without bleeding. Airway patent. NECK: Trachea midline. No JVD. Supple. Has old extremity vessels from when he had SVC syndrome CARDIOVASCULAR: Regular rate and rhythm. No murmur appreciated. No rubs or gallops. S1 and S2 present. No S3 or S4. RESPIRATORY: Clear to auscultation. Right entire lung field diminished. No wheezing noted. GASTROINTESTINAL: Abdomen soft, non-tender, nondistended. No guarding. Medusae MUSCULOSKELETAL: Extremities without clubbing, cyanosis, or edema. No joint tenderness, effusion, or edema noted. NEUROLOGICAL: Awake and alert. Cranial nerves II through XII intact. Motor and sensory grossly within normal limits. Five out of 5 muscle strength in all muscle groups. Normal speech. Insight and judgment are good mood and behavior appropriate Laboratory Laboratory Tests Test 09/28/16 13:30 White Blood Count 4.2 Red Blood Count 4.26 Hemoglobin 13.6 Hematocrit 39.2 Mean Corpuscular Volume 92.2 Mean Corpuscular Hemoglobin 32.0 Mean Corpuscular Hemoglobin 34.7 Concent Red Cell Distribution Width 13.6 Platelet Count 147 Mean Platelet Volume 9.1 Neutrophils (%) (Auto) 79.3 Lymphocytes (%) (Auto) 11.5 Monocytes (%) (Auto) 8.2 Eosinophils (%) (Auto) 0.4 Basophils (%) (Auto) 0.6 Neutrophils # (Auto) 3.3 Lymphocytes # (Auto) 0.5 Monocytes # (Auto) 0.3 Eosinophils # (Auto) 0.0 Basophils # (Auto) 0.0 CBC Comment DIFF FINAL Differential Comment Prothrombin Time 18.1 Prothromb Time International 1.6 Ratio Activated Partial 32.2 Thromboplast Time D-Dimer Quantitative (PE/DVT) 0.45 Sodium Level 142 Potassium Level 2.9 Chloride Level 105 Carbon Dioxide Level 27.8 Anion Gap 9 Blood Urea Nitrogen 8 Creatinine 0.94 Estimat Glomerular Filtration 78 Rate Random Glucose 108 Calcium Level 8.6 Total Bilirubin 0.8 Aspartate Amino Transf 18 (AST/SGOT) Alanine Aminotransferase 21 (ALT/SGPT) Alkaline Phosphatase 62 Total Creatine Kinase 126 Creatine Kinase MB 1.8 Troponin I LESS THAN 0.02 Total Protein 6.6 Albumin 4.0 Result Diagram: 09/28/16 1330 09/28/16 1330 Imaging Last Impressions Head CT 09/28/16 1537 Signed Impressions: Service Date/Time: Wednesday, September 28, 2016 16:22 - CONCLUSION: Negative noncontrast CT Paramjit Farr MD Chest X-Ray 09/28/16 1322 Signed Impressions: Service Date/Time: Wednesday, September 28, 2016 14:06 - CONCLUSION: Moderate right pleural effusion. 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 Luna is a 76-year-old male patient with a known medical history of non- small cell lung cancer, chronic back pain, hypertension and tobacco history who presented to the ED with complaints of chest pain. Patient states he has been experiencing this intermittent chest pain or the past 5 weeks. He states that this pain is concentrated mainly in the left anterior chest area occasionally radiating to the right anterior chest and around to his lower back. Pain is a 9/ 10 when present, usually lasts 2-3 minutes when present and slowly subsides. Does not recognize any aggravating or relieving factors. States the pain is stabbing and sharp in nature. Atypical chest pain suspect secondary to right pleural effusion vs non-small cell lung cancer Thrombocytopenia suspect secondary to non-small cell lung cancer - CXR reviewed showing moderate right sided pleural effusion. - Troponin less than 0.02. CKMB unremarkable. - Supplemental O2 as needed. - Control pain, per patient pain is controlled at this time. Will monitor. - Repeat CBC in am. Follow. Subtherapeutic INR: INR 1.6 on Coumadin at home. Status post vitamin K given in ED. Will hold Coumadin today. Recheck INR in am. Follow. Hypokalemia suspect secondary to diuretic: K 2.9. Patient states he takes Lasix 40 mg PO daily. Denies any supplemental potassium. Status post replacement in ED. Recheck BMP in am. Follow. Will place on scheduled potassium supplementation. Monitor telemetry for ST changes. Hypertension, chronic: BP relatively controlled. Monitor BP. Continue home atenolol. Dyslipidemia: Continue home gemfibrozil. 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 The exam, history, and the medical decision-making described in the above note were completed with the assistance of the mid-level provider. I reviewed and agree with the findings presented. I attest that I had a [id number] encounter with the patient on the same day, and personally performed and documented my assessment and findings in the medical record. Code Status Full code Discussed Condition With Discussed with ER physician discussed with RN discussed with patient discussed with nurse practitioner Physician Certification 2 Midnight Certification Type: Admission for Inpatient Services Order for Inpatient Services The services are ordered in accordance with Medicare regulations or non- Medicare payer requirements, as applicable. In the case of services not specified as inpatient-only, they are appropriately provided as inpatient services in accordance with the 2-midnight benchmark. Estimated LOS (days): 3 3 days is the estimated time the patient will need to remain in the hospital, assuming treatment plan goals are met and no additional complications. Post-Hospital Plan: Home Nereida Hernandez Sep 28, 2016 18:07 Henrik Felder DO Sep 28, 2016 18:46
[2016-09-28] MEDS ORDERED: FURO1TAB60 PO (18:09)
[2016-09-28] MEDS ORDERED: GLUCAGON 1 MG/ML VIAL OTHER PRN (19:00)
[2016-09-28] MEDS ORDERED: RESP: ALBUTEROL 2.5 MG/IPRATROPIUM 0.5 MG NEB (PRN) NEB (19:00)
[2016-09-28] MEDS ORDERED: DEXTROSE 50% IN WATER 50 ML VIAL(D50) IV PRN (19:00)
[2016-09-28] MEDS: RESP: ALBUTEROL 2.5 MG/IPRATROPIUM 0.5 MG NEB (SCH) NEB (19:30)
[2016-09-28] MEDS: INSULIN ASPART SUPPLEMENTAL SCALE SQ SCH (21:00)
[2016-09-28] MEDS: DOCUSATE SODIUM 50 MG/SENNA 8.6 MG TAB PO SCH (23:00)
[2016-09-28] MEDS: guaiFENesin E.R. 600 MG TAB PO SCH (23:00)
[2016-09-28] MEDS: GABAPENTIN 300 MG CAP PO SCH (23:00)
[2016-09-29] VITALS (9 sets, daily range): BP systolic 129–159; BP diastolic 58–83; PULSE 69–95; RESP 16–20; TEMP 96.1–97.7; O2SAT 92–98
[2016-09-29] MEDS: RESP: ALBUTEROL 2.5 MG/IPRATROPIUM 0.5 MG NEB (SCH) NEB ×4 (04:10→19:34)
[2016-09-29] MEDS: GEMFIBROZIL 600 MG TAB PO SCH ×2 (05:47→17:03)
[2016-09-29] MEDS: INSULIN ASPART SUPPLEMENTAL SCALE SQ SCH ×4 (05:47→20:26)
[2016-09-29] MEDS: POTASSIUM CHLORIDE 10 MEQ CAP PO SCH (08:30)
[2016-09-29] MEDS: ATENOLOL 50 MG TAB PO SCH (08:30)
[2016-09-29] MEDS: DOCUSATE SODIUM 50 MG/SENNA 8.6 MG TAB PO SCH ×2 (08:30→20:18)
[2016-09-29] MEDS: guaiFENesin E.R. 600 MG TAB PO SCH ×2 (08:31→20:17)
[2016-09-29] MEDS: GABAPENTIN 300 MG CAP PO SCH ×2 (08:31→20:17)
[2016-09-29] MEDS: FUROSEMIDE 40 MG TAB PO SCH (08:31)
[2016-09-29] MEDS ORDERED: POTASSIUM CHLORIDE 10 MEQ CAP PO SCH (09:00)
--- NOTE | 2016-09-29 09:20 | EKG ---
Date Performed: 09/28/2016 Time Performed: 13:26:10 PTAGE: 76 years EKG: Sinus rhythm RIGHT BUNDLE BRANCH BLOCK ABNORMAL ECG PREVIOUS TRACING : 02/12/2016 17.06 Compared to prior tracing no significant change DOCTOR: Javon Lizama Interpretating Date/Time 09/29/2016 09:08:10
[2016-09-29 10:11] LABS: AUTOMATED NEUTROPHIL # 3.2 TH/MM3 (1.8-7.7); BASOPHIL % 0.6 % (0.0-2.0); EOSINOPHIL % 0.7 % (0.0-4.0); HEMATOCRIT 45.5 % (39.0-51.0); HEMO FLAGS DIFF FINAL; LYMPH % 10.9 % (9.0-44.0); LYMPHOCYTE # 0.4 TH/MM3 (1.0-4.8); MEAN CELL VOLUME 94.2 FL (80.0-100.0); MEAN CORPUSCULAR HEMOGLOBIN 31.2 PG (27.0-34.0); MEAN CORPUSCULAR HGB CONC 33.1 % (32.0-36.0); MONO % 8.1 % (0.0-8.0); NEUT % 79.7 % (16.0-70.0); PLATELET COUNT 162 TH/MM3 (150-450); RED BLOOD COUNT 4.83 MIL/MM3 (4.50-5.90); RED CELL DISTRIBUTION WIDTH 13.2 % (11.6-17.2)
[2016-09-29 10:13] LABS: INTERNATIONAL NORMALIZED RATIO 1.6 RATIO; PROTHROMBIN TIME - PATIENT 17.7 SEC (9.8-11.6)
--- NOTE | 2016-09-29 10:36 | HHI.PR ---
Subjective Remarks Follow up pleural effusion, chest pain. Patient states that he had an episode of chest pain this morning that lasted a few seconds. No chest pain currently. Dyspnea is less than yesterday. Objective Vitals Vital Signs Date Time Temp Pulse Resp B/P Pulse Ox O2 Delivery O2 Flow Rate FiO2 09/29/16 10:25 86 09/29/16 09:07 92 21 09/29/16 08:00 97.7 95 16 157/76 95 09/29/16 04:15 98 Nasal Cannula 2.00 09/29/16 04:00 97.3 69 18 147/68 93 09/29/16 00:00 97.3 72 20 159/76 92 09/28/16 23:25 86 09/28/16 21:13 96.9 76 20 130/74 94 09/28/16 19:20 82 16 158/88 98 Nasal Cannula 2 09/28/16 19:05 94 Nasal Cannula 2.00 09/28/16 18:30 74 17 152/74 94 Nasal Cannula 2 09/28/16 17:00 75 20 151/79 94 Nasal Cannula 2 09/28/16 15:00 75 18 143/70 94 Room Air 09/28/16 14:14 94 Room Air 09/28/16 14:10 72 17 09/28/16 13:16 98.1 84 18 132/60 93 Room Air I/O 09/28/16 09/28/16 09/28/16 09/29/16 09/29/16 09/29/16 07:00 15:00 23:00 07:00 15:00 23:00 Intake Total 240 ml 0 ml Balance 240 ml 0 ml Intake Oral 240 ml 0 ml # Voids 3 2 # Bowel Movements 2 Result Diagram: 09/29/16 0904 09/28/16 1330 Imaging Last Impressions Head CT 09/28/16 1537 Signed Impressions: Service Date/Time: Wednesday, September 28, 2016 16:22 - CONCLUSION: Negative noncontrast CT Paramjit Farr MD Chest X-Ray 09/28/16 1322 Signed Impressions: Service Date/Time: Wednesday, September 28, 2016 14:06 - CONCLUSION: Moderate right pleural effusion. Henrik Vazquez MD FACR Objective Remarks General: Elderly male in no acute distress. Heart: Regular rate and rhythm. No murmur. Lungs: Decreased breath sounds on the right. Breathing is nonlabored. Abdomen: Soft, nontender, nondistended. Extremities: No lower extremity edema. Psych: Alert and oriented. 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 Atypical chest pain: Likely secondary to pleural effusion, lung cancer. Cardiac enzymes are negative. No chest pain currently. 2. Pleural effusion: Thoracentesis ordered. Cannot be done today due to elevated INR. 3. History of SVC syndrome: Stable. 4. Dyslipidemia: Continue gemfibrozil. 5. Hypertension: Continue atenolol. 6. Hypokalemia: Secondary to diuretic. Supplement potassium. Repeat labs are pending this morning. 7. History of CVA: Patient on Coumadin. INR is subtherapeutic. Patient will receive vitamin K to lower INR so he can have thoracentesis. 8. DVT prophylaxis: SCDs, MI reed. Resume Coumadin following procedure. Sivakumar Rosas MD Sep 29, 2016 10:36
[2016-09-29 10:38] LABS: ALKALINE PHOSPHATASE 62 U/L (45-117); ALT (GPT) 18 U/L (12-78); ANION GAP 8 MEQ/L (5-15); AST (GOT) 15 U/L (15-37); BLOOD UREA NITROGEN 10 MG/DL (7-18); CHLORIDE 102 MEQ/L (98-107); FREE T4 1.08 NG/DL (0.76-1.46); GLOMERULAR FILTRATION RATE 99 ML/MIN (>89); MAGNESIUM 1.9 MG/DL (1.5-2.5); SODIUM (NA) 140 MEQ/L (136-145); TOTAL BILIRUBIN ADULT 0.9 MG/DL (0.2-1.0)
[2016-09-29 10:45] LABS: POTASSIUM 2.8 MEQ/L (3.5-5.1)
[2016-09-29] MEDS: POTASSIUM CHLOR 20 MEQ PREMIX 100 ML IV SCH ×2 (13:18→16:55)
[2016-09-29] MEDS ORDERED: DIATRIZOATE MEGLUM/DIATRIZOATE SOD 9 ML CUP PO ONE (14:40)
--- NOTE | 2016-09-29 15:41 | MB ---
cc: CHELSEA GUERRA M.D. DATE OF CONSULTATION: 09/29/2016. REASON FOR CONSULTATION: Oncology was consulted to render opinion regarding a patient with history of lung cancer admitted with chest pain and shortness of breath. REFERRING PHYSICIAN: Dr. Rosas. HISTORY OF PRESENT ILLNESS: The patient is a 76-year-old male with history of [id number] lung cancer stage III treated with concurrent chemotherapy and radiation which she completed in March of 2016. He has a borderline performance status and is not able to receive further consolidation chemotherapy. He has had chronic right pleural effusion. He was supposed to have a CT scan done as an outpatient prior to follow up however he was not able to get a CT scan done due to financial difficulty. He has not followed up in clinic since about a month ago. He stated that he had been having mid sternal pain for about five weeks. He stated that sometimes belching will relieved the pain. He also has pain in the mid to upper back. He has lost a few more pounds. He still has chronic cough productive of whitish sputum. He has baseline dyspnea on exertion. He denies any fever or chills, night sweats. He denies any chest pressure or palpitations. He has had occasional headache mostly on the left side. He denies any vision changes but it does hurt behind his left eye occasionally. He denies any nausea or vomiting, diarrhea or abdominal pain. He denies any dysuria or hematuria. PAST MEDICAL HISTORY: 1. Ocx-ogdmt-[id number] lung cancer. 2. Superior vena cava syndrome. 3. Chronic obstructive pulmonary disease. 4. Gastroesophageal reflux disease (GERD). 5. Hyperlipidemia. 6. Hypertension. 7. Neuropathy. PAST SURGICAL HISTORY: 1. Colonoscopy. 2. Hernia repair. 3. Port placement. FAMILY HISTORY: Noncontributory. SOCIAL HISTORY: He quit smoking nine years ago. He denies any alcohol use. He lives with his . REVIEW OF SYSTEMS: CONSTITUTIONAL: He has lost a few pounds recently. EYES: As above. HEAD, EYES, EARS, NOSE, THROAT: Negative. CARDIOVASCULAR: As above. RESPIRATORY: As above. GI: Denies any nausea or vomiting, diarrhea or abdominal pain. : Denies any dysuria or hematuria. MUSCULOSKELETAL: As above. HEMATOLOGIC: Negative. ENDOCRINE: Negative. DERMATOLOGIC: Negative. PSYCHIATRIC: Negative. NEUROLOGIC: Negative. PHYSICAL EXAMINATION: VITAL SIGNS: Temperature 96.0, blood pressure 143/72, 02 saturation 95%. GENERAL: He is alert and oriented times three and in no acute distress. He is a little weak. HEAD, EYES, EARS, NOSE, THROAT: Atraumatic, normocephalic. Pupils equal, round, reactive to light. Extraocular muscles are intact. No scleral icterus. OROPHARYNX: Dry mucosa. No lesions. No thrush. NECK: No thyromegaly. No palpable mass. LYMPHATIC: No palpable cervical, clavicular, axillary or inguinal lymph nodes. CARDIOVASCULAR: Regular S1-S2. No murmur. LUNGS: Slightly decreased breath sounds right lung base. No wheezing or rhonchi. ABDOMEN: Abdomen soft nontender. I could not palpate liver or spleen. EXTREMITIES: No cyanosis. No significant edema. No calf tenderness. BACK: A little tender in the upper back. SKIN: No rash or petechiae. NEUROLOGIC EXAM: Nonfocal. LABORATORY DATA: Reviewed. ASSESSMENT: 1. Fhc-[id number] lung carcinoma, at least stage IIIA. He presented with superior vena cava syndrome. He had a mass in the right lower lobe with significant right paratracheal adenopathy causing occlusion of the superior vena cava. He also has subcarinal adenopathy. Biopsy showed moderately to poorly differentiated adenocarcinoma. EGFR wild type, ALK negative. PDL-1 5%. He completed radiation with concurrent weekly carboplatin and Taxol in March of 2016. He has poor performance status and is not able to receive consolidation chemotherapy. He has been observed all this time. He was supposed to have a CT scan done as an outpatient but he was not able to get the CT scan due to the high co-pay. He now has increased pain in the mid-sternal area and upper back. He also has increased shortness of breath. We need to rule out progression of disease. His chest x-ray only showed pleural effusion on the right side, which is chronic. I am going to get a CT scan to see if there is any progression of disease. If he has significant right pleural effusion, would recommend thoracentesis and send fluid for cytology to see if he has developed recurrent disease. 2. Chronic obstructive pulmonary disease. He has quit smoking. 3. Gastroesophageal reflux disease (GERD), stable. 4. Hyperlipidemia. 5. Hypertension. 6. Peripheral neuropathy, stable. RECOMMENDATIONS: 1. Arrange for CT chest, abdomen and pelvis. 2. Recommend thoracentesis if he has significant right pleural effusion and send the fluid for cytology. 3. Continue supportive care. 4. The patient can follow up with me in clinic after discharge. Thank you, Dr. Rosas, for asking me to see this patient. MD CHRIS Hopkins/JCJuice /1:37 PM /3:08 PM MATTEO
[2016-09-29] MEDS: ONDANSETRON HCL 4 MG/2 ML VIAL IVP PRN (16:16)
[2016-09-29 16:33] LABS: HEMOGLOBIN A1a 0.9 %; HEMOGLOBIN A1b 1.2 %; HEMOGLOBIN Ao 87.3 %; HEMOGLOBIN LA1C 1.8 %; HEMOGLOBIN P3 3.4 %
[2016-09-29] MEDS ORDERED: IOHEXOL 350 MG/ML 10 ML VIAL (for RAD DIAG) IV ONE (20:43)
--- NOTE | 2016-09-29 22:50 | RADRPT ---
EXAM DATE/TIME: 09/29/2016 20:35 [facility] COMPARISON: No previous studies available for comparison. INDICATIONS : Evaluate for metastatic disease. Lung cancer. IV CONTRAST: 95 cc Omnipaque 350 (iohexol) IV ; Cumulative dose for multiple exams. ORAL CONTRAST: Prescribed oral contrast ingested. RADIATION DOSE: 8.94 CTDIvol (mGy) ; Combined studies - Thorax/Abdomen/Pelvis MEDICAL HISTORY : Cerebrovascular disease. Hypertension. Chronic obstructive pulmonary disease.Lung cancer GERD SURGICAL HISTORY : Hernia ENCOUNTER: Initial ACUITY: 1 day PAIN SCALE: 0/10 LOCATION: abdomen TECHNIQUE: Volumetric scanning of the abdomen and pelvis was performed. Using automated exposure control and ad justment of the mA and/or kV according to patient size, radiation dose was kept as low as reasonably achievable to obtain optimal diagnostic quality images. DICOM format image data is available electro nically for review and comparison. FINDINGS: Comparison is February 2016. There is now a large right effusion and moderate left effusion with compressive atelectasis. Small pe ricardial effusion. No definite metastatic disease in the liver. Calcified granulomata in the liver and spleen. Compared with February there is a new 2 cm mass in the inferior aspect of the spleen. Would have to consider me tastatic disease given history of malignancy, although unusual in the spleen. Adrenal glands are mildly enlarged but stable. Kidneys and pancreas are stable. Small amount of free fluid present in the pelvis. No free air. No bowel obstruction. No acute bony ab normalities. CONCLUSION: 1. Development of large right effusion and moderate left effusion since February. Small pericardial ef fusion. 2. New 2 cm mass inferior aspect of the spleen. Although unusual would have to consider metastatic di sease given the reported history of malignancy. Jonathan Michel MD on September 29, 2016 at 22:44 Board Certified Radiologist. This report was verified electronically.
--- NOTE | 2016-09-29 22:54 | RADRPT ---
EXAM DATE/TIME: 09/29/2016 20:35 [facility] COMPARISON: No previous studies available for comparison. INDICATIONS : Evaluate right pleural effusion. Lung cancer. IV CONTRAST: 95 cc Omnipaque 350 (iohexol) IV ; Cumulative dose for multiple exams. RADIATION DOSE: 8.94 CTDIvol (mGy) ; Combined studies - Thorax/Abdomen/Pelvis MEDICAL HISTORY : Cerebrovascular disease. Hypertension. Chronic obstructive pulmonary disease.Lung cancer GERD SURGICAL HISTORY : Hernia ENCOUNTER: Initial ACUITY: 1 day PAIN SCALE: 0/10 LOCATION: Right chest TECHNIQUE: Volumetric scanning of the chest was performed. Using automated exposure control and adjustment of t he mA and/or kV according to patient size, radiation dose was kept as low as reasonably achievable to obtain optimal diagnostic quality images. DICOM format image data is available electronically for review and comparison. Follow-up recommendations for detected pulmonary nodules are based at a minimum on nodule size and pa tient risk factors according to Fleischner Society Guidelines. FINDINGS: No prior chest CT for comparison although CT simulation is available. There is development of a large right effusion and moderate left effusion. Postradiation changes are noted in the right lung which i s displaced anteriorly from the large right effusion. There is thrombosis of the superior vena cava and left brachiocephalic vein with numerous venous jesse aterals in the chest wall especially on the left side. No pathologically enlarged lymph nodes. Small pericardial effusion. CONCLUSION: 1. Large right effusion and moderate left effusion with compressive atelectasis in both lungs and pos t radiation changes in the right paramediastinal region. 2. 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 Numerous venous collaterals in the chest wall. Jonathan Michel MD on September 29, 2016 at 22:49 Board Certified Radiologist. This report was verified electronically.
[2016-09-30] VITALS (15 sets, daily range): BP systolic 122–149; BP diastolic 60–74; PULSE 72–91; RESP 14–20; TEMP 96.4–98.5; O2SAT 85–98
[2016-09-30] MEDS: RESP: ALBUTEROL 2.5 MG/IPRATROPIUM 0.5 MG NEB (SCH) NEB ×4 (02:51→21:51)
[2016-09-30] MEDS: INSULIN ASPART SUPPLEMENTAL SCALE SQ SCH ×4 (07:00→20:22)
[2016-09-30] MEDS: GEMFIBROZIL 600 MG TAB PO SCH ×2 (08:01→17:10)
[2016-09-30] MEDS: GABAPENTIN 300 MG CAP PO SCH ×2 (09:10→20:15)
[2016-09-30] MEDS: FUROSEMIDE 40 MG TAB PO SCH (09:10)
[2016-09-30] MEDS: guaiFENesin E.R. 600 MG TAB PO SCH ×2 (09:10→20:15)
[2016-09-30] MEDS: POTASSIUM CHLORIDE 10 MEQ CAP PO SCH (09:11)
[2016-09-30] MEDS: ONDANSETRON HCL 4 MG/2 ML VIAL IVP PRN ×2 (09:11→19:13)
[2016-09-30] MEDS: ATENOLOL 50 MG TAB PO SCH (09:11)
[2016-09-30] MEDS: DOCUSATE SODIUM 50 MG/SENNA 8.6 MG TAB PO SCH ×2 (09:11→20:22)
[2016-09-30 09:16] LABS: INTERNATIONAL NORMALIZED RATIO 1.5 RATIO; PROTHROMBIN TIME - PATIENT 16.7 SEC (9.8-11.6)
[2016-09-30 09:36] LABS: BICARBONATE 27.8 MEQ/L (21.0-32.0)
--- NOTE | 2016-09-30 10:13 | PD.ONC.PN ---
Subjective Subjective Remarks Afebrile overnight. Patient resting in bed in nad. Just back from thoracentesis. feels much better. Objective Data Date Time Temp Pulse Resp B/P Pulse Ox O2 Delivery O2 Flow Rate FiO2 09/30/16 08:38 92 Nasal Cannula 2.00 09/30/16 08:00 98.1 80 18 142/73 93 09/30/16 04:00 96.4 91 16 149/72 94 09/30/16 02:51 96 09/30/16 00:56 82 09/30/16 00:00 96.8 72 16 143/74 95 09/29/16 20:00 96.6 85 16 153/83 93 09/29/16 16:00 97.2 79 20 129/58 95 09/29/16 12:00 96.1 84 16 143/72 95 09/29/16 10:25 86 09/30/16 09/30/16 09/30/16 06:59 14:59 22:59 Intake Total 150 ml Balance 150 ml Result Diagram: 09/29/16 0904 09/30/16 0630 Laboratory Results Laboratory Tests Test 09/30/16 06:30 Prothrombin Time 16.7 SEC Prothromb Time International 1.5 RATIO Ratio Sodium Level 139 MEQ/L Potassium Level 3.0 MEQ/L Chloride Level 103 MEQ/L Carbon Dioxide Level 27.8 MEQ/L Anion Gap 8 MEQ/L Blood Urea Nitrogen 9 MG/DL Creatinine 0.71 MG/DL Estimat Glomerular Filtration 108 ML/MIN Rate Random Glucose 84 MG/DL Calcium Level 8.3 MG/DL Administered Medications Medications (Trade) Dose Ordered Sig/Hilaria Route PRN Reason Start Time Stop Time Status Last Admin Dose Admin Acetaminophen (Tylenol) 650 mg Q4H PRN PO TEMP > 100.4 09/28/16 16:00 09/29/16 17:54 Ondansetron HCl (Zofran Inj) 4 mg Q6H PRN IVP NAUSEA OR VOMITING 09/28/16 16:00 09/30/16 09:11 Senna/Docusate Sodium (Angeles-Colace) 1 tab BID PO 09/28/16 21:00 09/30/16 09:11 Atenolol (Tenormin) 50 mg DAILY PO 09/29/16 09:00 09/30/16 09:11 Gabapentin (Neurontin) 300 mg BID PO 09/28/16 21:00 09/30/16 09:10 Gemfibrozil (Lopid) 600 mg BIDAC PO 09/28/16 16:00 09/30/16 08:01 Furosemide (Lasix) 40 mg DAILY PO 09/29/16 09:00 09/30/16 09:10 Guaifenesin (Mucinex Er) 600 mg BID PO 09/28/16 21:00 09/30/16 09:10 Potassium Chloride (KCl) 20 meq DAILY PO 09/29/16 09:00 09/30/16 09:11 Objective Remarks GENERAL: Elderly male upright in bed in nad. SKIN: Warm and dry. HEAD: Normocephalic. EYES: No injection or drainage. NECK: Supple, trachea midline. CARDIOVASCULAR: Regular rate and rhythm RESPIRATORY: diminished at right base. anterior shields clear GASTROINTESTINAL: Abdomen soft, non-tender, nondistended. MUSCULOSKELETAL: No cyanosis Assessment/Plan Problem List: (1) Lung cancer Status: Chronic Plan: --[id number] lung carcinoma, at least stage IIIA. --presented with superior vena cava syndrome. had a mass in the right lower lobe with significant right paratracheal adenopathy causing occlusion in the superior vena cava. also has subcarinal adenopathy. --Biopsy showed moderately to poorly differentiated adenocarcinoma. EGFR wild type ALK negative. PDL-1 5%. --completed radiation with concurrent weekly carboplatin and Taxol in March of 2016. --has poor performance status and is not able to receive consolidation chemotherapy. has been observed all this time. --was supposed to have a CT scan done as an outpatient but he was not able to get the CT scan due to the high co-pay. --now has increased pain in the mid-sternal area and upper back. also has increased shortness of breath. need to rule out progression of disease. --CT chest shows right pleural effusion and SVC thrombosis --CT ab/pelvis--shows new 2cm mass inferior to the spleen Assessment 76y/o male with history of lung cancer admitted with chest pain and shortness of breath. h/o [id number] lung cancer. Superior vena cava syndrome. Chronic obstructive pulmonary disease. Gastroesophageal reflux disease (GERD). Hyperlipidemia. Hypertension. Neuropathy. Colonoscopy. Hernia repair. Port placement. Plan 1. thoracentesis today 2. resume coumadin 3. once INR therapeutic, patient clear for discharge Charla Bangura Sep 30, 2016 10:13 Toro Saba MD Oct 04, 2016 18:34
--- NOTE | 2016-09-30 10:44 | RADRPT ---
EXAM DATE/TIME: 09/30/2016 09:42 [facility] COMPARISON: No previous studies available for comparison. INDICATIONS : Right pleural effusion. MEDICAL HISTORY : Hypercholesterolemia. Arthritis. Carcinoma, lung. CVA. COPD. Dyspnea. GERD. HTN. Anticoagulant therap y. SURGICAL HISTORY : Hernia repair. Chemotherapy. ENCOUNTER: Initial ACUITY: 2 days PAIN SCORE: 3/10 LOCATION: Right chest FLUID: Total volume of 1000 cc of cloudy pink fluid was removed. Fluid was sent to lab for ordered studies. TECHNIQUE: 1. Ultrasound guidance for thoracentesis. 2. Thoracentesis. The risks, benefits, and alternatives to ultrasound guided thoracentesis were explained to the patien t in lay simple terms, including the risk of bleeding and infection. Written and verbal informed con sent was obtained. Appropriate area for thoracentesis was marked under ultrasound guidance with the patient in the uprig ht position. Overlying skin was prepped and draped in the usual sterile fashion and with local anest hetic, a dermatotomy was made with an 11 blade scalpel. A 6 [place]i thoracentesis catheter was placed in the pleural space and fluid was removed. Catheter was then removed and a sterile dressing applie d. There were no immediate complications. The patient tolerated the procedure well and the left the ultrasound suite in stable condition. Chest radiograph is to be obtained. CONCLUSION: Uncomplicated ultrasound guided thoracentesis. Fluid was sent for ordered studies including cytology and culture. Henrik Vazquez MD FACR on September 30, 2016 at 10:42 Board Certified Radiologist. This report was verified electronically.
--- NOTE | 2016-09-30 10:44 | RADRPT ---
EXAM DATE/TIME: 09/30/2016 10:42 [facility] COMPARISON: CHEST PA & LAT, September 28, 2016, 14:06. CHEST EXPIRATION ONLY, February 16, 2016, 17:06. INDICATIONS : Post thoracentesis. MEDICAL HISTORY : Gastroesophageal reflux disease. Cerebrovascular disease. Hypertension. Chronic obstructive pul monary disease.Lung cancer SURGICAL HISTORY : Hernia repair. ENCOUNTER: Initial ACUITY: 1 day PAIN SCORE: 0/10 LOCATION: Bilateral chest FINDINGS: A single frontal expiratory view of the chest was performed. The lungs are symmetrically aerated and clear. No evidence of pneumothorax. Mediastinal structures are in the midline. The cardio-mediastinal contours and bronchopulmonary markings are unremarkable for an expiratory exam . Osseous structures are intact. CONCLUSION: There is no pneumothorax. Consolidative changes remain right base. Henrik Vazquez MD FACR on September 30, 2016 at 10:42 Board Certified Radiologist. This report was verified electronically.
[2016-09-30 11:57] LABS: TOTAL PROTEIN,PLEURAL FLUID 3.9 GM/DL
[2016-09-30 12:30] LABS: PLEURAL FLUID LYMPHS 37 %
[2016-09-30] MEDS: POTASSIUM CHLOR 20 MEQ PREMIX 100 ML IV SCH ×2 (13:26→17:08)
--- NOTE | 2016-09-30 15:09 | HHI.PR ---
Subjective Remarks Follow-up pleural effusion, chest pain. Patient denies chest pain or dyspnea at this time. States that his breathing is much better following thoracentesis. No specific complaints at this time. Objective Vitals Vital Signs Date Time Temp Pulse Resp B/P Pulse Ox O2 Delivery O2 Flow Rate FiO2 09/30/16 12:00 88 09/30/16 12:00 98.5 88 20 136/71 94 09/30/16 11:00 76 16 128/68 98 09/30/16 10:45 78 16 127/69 98 09/30/16 10:35 98.0 78 16 122/65 98 09/30/16 10:11 98.1 85 14 128/70 85 09/30/16 08:38 92 Nasal Cannula 2.00 09/30/16 08:00 98.1 80 18 142/73 93 09/30/16 08:00 78 09/30/16 04:00 96.4 91 16 149/72 94 09/30/16 02:51 96 09/30/16 00:56 82 09/30/16 00:00 96.8 72 16 143/74 95 09/29/16 20:00 96.6 85 16 153/83 93 09/29/16 16:00 97.2 79 20 129/58 95 I/O 09/29/16 09/29/16 09/29/16 09/30/16 09/30/16 09/30/16 07:00 15:00 23:00 07:00 15:00 23:00 Intake Total 0 ml 480 ml 600 ml 150 ml Balance 0 ml 480 ml 600 ml 150 ml Intake Oral 0 ml 480 ml 600 ml 150 ml # Voids 3 4 1 1 # Bowel Movements 4 1 0 Result Diagram: 09/29/16 0904 09/30/16 0630 Imaging Last Impressions Thoracentesis Ultrasound 09/30/16 0000 Signed Impressions: Service Date/Time: Friday, September 30, 2016 09:42 - CONCLUSION: Uncomplicated ultrasound guided thoracentesis. Fluid was sent for ordered studies including cytology and culture. Henrik Vazquez MD FACR Chest X-Ray 09/30/16 0000 Signed Impressions: Service Date/Time: Friday, September 30, 2016 10:42 - CONCLUSION: There is no pneumothorax. Consolidative changes remain right base. Henrik Vazquez MD FACR Chest CT 09/29/16 0000 Signed Impressions: Service Date/Time: September 20:35 - CONCLUSION: 1. Large right effusion and moderate left effusion with compressive atelectasis in both lungs and post radiation changes in the right paramediastinal region. 2. 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 Numerous venous collaterals in the chest wall. Jonathan Michel MD Abdomen/Pelvis CT 09/29/16 0000 Signed Impressions: Service Date/Time: September 20:35 - CONCLUSION: 1. Development of large right effusion and moderate left effusion since February. Small pericardial effusion. 2. New 2 cm mass inferior aspect of the spleen. Although unusual would have to consider metastatic disease given the reported history of malignancy. Jonathan Michel MD Head CT 09/28/16 1537 Signed Impressions: Service Date/Time: Wednesday, September 28, 2016 16:22 - CONCLUSION: Negative noncontrast CT Paramjit Farr MD Objective Remarks General: Elderly male in no acute distress. Heart: Regular rate and rhythm. No murmur. Lungs: Decreased breath sounds on the right. Breathing is nonlabored. Abdomen: Soft, nontender, nondistended. Extremities: No lower extremity edema. Psych: Alert and oriented. Skin: There is a 2 cm scabbed lesion on the posterior scalp Procedures None Urinary Catheter: No Vascular Central Line Catheter: No A/P Problem List: (1) Pleural effusion ICD Code: J90 Status: Acute (2) Chest pain ICD Code: R07.9 Status: Acute (3) Lung cancer ICD Code: C34.90 Status: Chronic (4) COPD (chronic obstructive pulmonary disease) ICD Code: J44.9 Status: Chronic (5) Hypokalemia ICD Code: E87.6 Status: Acute (6) Elevated INR ICD Code: R79.1 Status: Acute (7) Superior vena cava syndrome ICD Code: I87.1 Status: Chronic (8) Adenocarcinoma of lung ICD Code: C34.90 Status: Chronic Assessment and Plan 1. Atypical chest pain: Likely secondary to pleural effusion, lung cancer. Cardiac enzymes are negative. Chest pain has resolved. 2. Pleural effusion: Thoracentesis done with removal of 1 L of fluid. Cytology pending. 3. History of SVC syndrome: Stable. Coumadin restarted. 4. Dyslipidemia: Continue gemfibrozil. 5. Hypertension: Continue atenolol. 6. Hypokalemia: Secondary to diuretic. Supplement potassium. Repeat labs are pending this morning. 7. History of CVA: Patient on Coumadin. INR is subtherapeutic. Patient will receive vitamin K to lower INR so he can have thoracentesis. 8. DVT prophylaxis: MI Parrish. Coumadin. 9. Nonhealing wound, scalp: Patient was advised to have this removed or biopsied as an outpatient. Discharge Planning Possible discharge home tomorrow pending repeat INR and clearance by oncology. May need Lovenox to bridge to therapeutic INR, which could be given tomorrow prior to discharge. (Lovenox not given at this time due to interventional procedure). Sivakumar Rosas MD Sep 30, 2016 15:09
[2016-09-30] MEDS ORDERED: WARFARIN SOD 4 MG TAB PO ONE (18:00)
[2016-09-30] MEDS: ACETAMINOPHEN/HYDROcodone 325 MG/5 MG TAB PO PRN (20:16)
[2016-09-30] MEDS ORDERED: diphenhydrAMINE HCL 25 MG CAP PO PRN (20:45)
[2016-10-01] VITALS (10 sets, daily range): BP systolic 110–135; BP diastolic 57–64; PULSE 71–91; RESP 16–18; TEMP 96–96.9; O2SAT 92–95
[2016-10-01] MEDS: RESP: ALBUTEROL 2.5 MG/IPRATROPIUM 0.5 MG NEB (SCH) NEB ×4 (03:55→20:42)
[2016-10-01] MEDS: GEMFIBROZIL 600 MG TAB PO SCH ×2 (06:15→16:45)
[2016-10-01] MEDS: INSULIN ASPART SUPPLEMENTAL SCALE SQ SCH ×4 (06:16→21:00)
[2016-10-01] MEDS: POTASSIUM CHLORIDE 10 MEQ CAP PO SCH (09:06)
[2016-10-01] MEDS: DOCUSATE SODIUM 50 MG/SENNA 8.6 MG TAB PO SCH ×2 (09:06→19:56)
[2016-10-01] MEDS: FUROSEMIDE 40 MG TAB PO SCH (09:06)
[2016-10-01] MEDS: ATENOLOL 50 MG TAB PO SCH (09:06)
[2016-10-01] MEDS: GABAPENTIN 300 MG CAP PO SCH ×2 (09:06→19:56)
[2016-10-01] MEDS: guaiFENesin E.R. 600 MG TAB PO SCH ×2 (09:07→19:56)
[2016-10-01] MEDS: ACETAMINOPHEN/HYDROcodone 325 MG/5 MG TAB PO PRN ×2 (11:47→19:55)
[2016-10-01 13:03] LABS: AUTOMATED NEUTROPHIL # 2.5 TH/MM3 (1.8-7.7); BASOPHIL % 0.6 % (0.0-2.0); EOSINOPHIL % 0.7 % (0.0-4.0); HEMATOCRIT 38.7 % (39.0-51.0); HEMO FLAGS DIFF FINAL; LYMPH % 11.1 % (9.0-44.0); LYMPHOCYTE # 0.4 TH/MM3 (1.0-4.8); MEAN CORPUSCULAR HEMOGLOBIN 31.4 PG (27.0-34.0); MEAN CORPUSCULAR HGB CONC 33.7 % (32.0-36.0); MONO % 10.5 % (0.0-8.0); NEUT % 77.1 % (16.0-70.0); PLATELET COUNT 141 TH/MM3 (150-450); RED BLOOD COUNT 4.17 MIL/MM3 (4.50-5.90); RED CELL DISTRIBUTION WIDTH 13.4 % (11.6-17.2); WHITE BLOOD COUNT 3.2 TH/MM3 (4.0-11.0)
[2016-10-01 13:06] LABS: INTERNATIONAL NORMALIZED RATIO 1.4 RATIO
[2016-10-01 13:34] LABS: BICARBONATE 29.9 MEQ/L (21.0-32.0); POTASSIUM 3.4 MEQ/L (3.5-5.1)
--- NOTE | 2016-10-01 14:08 | HHI.PR ---
Subjective Remarks No acute events overnight. Afebrile, vital signs stable. Patient with no complaints this morning. Wishes to go home. Objective Vitals Vital Signs Date Time Temp Pulse Resp B/P Pulse Ox O2 Delivery O2 Flow Rate FiO2 10/01/16 11:57 96.1 76 16 132/64 95 10/01/16 09:54 95 21 10/01/16 08:00 96.7 75 16 135/63 94 10/01/16 04:03 71 10/01/16 04:00 96.5 78 17 117/63 92 10/01/16 00:00 80 10/01/16 00:00 96.8 84 18 118/58 93 09/30/16 21:52 94 21 09/30/16 20:03 76 09/30/16 20:00 96.4 78 17 134/65 93 09/30/16 16:00 96.4 74 16 128/60 95 I/O 09/30/16 09/30/16 09/30/16 10/01/16 10/01/16 10/01/16 07:00 15:00 23:00 07:00 15:00 23:00 Intake Total 150 ml 480 ml 480 ml 240 ml Output Total 4 ml Balance 150 ml 476 ml 480 ml 240 ml Intake Oral 150 ml 480 ml 480 ml 240 ml Output Urine Total 4 ml # Voids 1 9 5 # Bowel Movements 0 1 5 2 Result Diagram: 10/01/16 1150 10/01/16 1150 Objective Remarks General: Elderly male in no acute distress. Heart: Regular rate and rhythm. No murmur. Lungs: Decreased breath sounds on the right. Breathing is nonlabored. Abdomen: Soft, nontender, nondistended. Extremities: No lower extremity edema. Psych: Alert and oriented. Skin: There is a 2 cm scabbed lesion on the posterior scalp Procedures None A/P Problem List: (1) Pleural effusion ICD Code: J90 Status: Acute (2) Chest pain ICD Code: R07.9 Status: Acute (3) Lung cancer ICD Code: C34.90 Status: Chronic (4) COPD (chronic obstructive pulmonary disease) ICD Code: J44.9 Status: Chronic (5) Hypokalemia ICD Code: E87.6 Status: Acute (6) Elevated INR ICD Code: R79.1 Status: Acute (7) Superior vena cava syndrome ICD Code: I87.1 Status: Chronic (8) Adenocarcinoma of lung ICD Code: C34.90 Status: Chronic Assessment and Plan 1. Atypical chest pain: Likely secondary to pleural effusion, lung cancer. Cardiac enzymes are negative. Chest pain has resolved. 2. Pleural effusion: Thoracentesis done with removal of 1 L of fluid. Cytology pending. 3. History of SVC syndrome: Stable. Coumadin restarted. 4. Dyslipidemia: Continue gemfibrozil. 5. Hypertension: Continue atenolol. 6. Hypokalemia: Secondary to diuretic. Supplement potassium. Repeat labs are pending this morning. 7. History of CVA: Patient on Coumadin. Given vitamin K so that he could have thoracentesis. Coumadin restarted as above. 8. DVT prophylaxis: MI Parrish. Coumadin. 9. Nonhealing wound, scalp: Patient was advised to have this removed or biopsied as an outpatient. Discharge Planning Discharge once INR therapeutic Christina Guaman MD R3 Oct 01, 2016 14:08
[2016-10-01] MEDS ORDERED: WARFARIN SOD 4 MG TAB PO SCH (16:00)
[2016-10-01] MEDS: ONDANSETRON HCL 4 MG/2 ML VIAL IVP PRN (19:54)
[2016-10-02] VITALS (12 sets, daily range): BP systolic 100–113; BP diastolic 55–63; PULSE 72–96; RESP 16–18; TEMP 96–97.5; O2SAT 92–97
[2016-10-02] MEDS: RESP: ALBUTEROL 2.5 MG/IPRATROPIUM 0.5 MG NEB (SCH) NEB ×4 (03:58→21:29)
[2016-10-02] MEDS: GEMFIBROZIL 600 MG TAB PO SCH ×2 (05:35→16:31)
[2016-10-02 05:39] LABS: INTERNATIONAL NORMALIZED RATIO 1.4 RATIO; PROTHROMBIN TIME - PATIENT 16.2 SEC (9.8-11.6)
[2016-10-02] MEDS: INSULIN ASPART SUPPLEMENTAL SCALE SQ SCH ×4 (05:39→21:00)
[2016-10-02] MEDS: GABAPENTIN 300 MG CAP PO SCH ×2 (08:20→21:10)
[2016-10-02] MEDS: guaiFENesin E.R. 600 MG TAB PO SCH ×2 (08:20→21:10)
[2016-10-02] MEDS: DOCUSATE SODIUM 50 MG/SENNA 8.6 MG TAB PO SCH ×2 (08:20→21:00)
[2016-10-02] MEDS: ATENOLOL 50 MG TAB PO SCH (08:20)
[2016-10-02] MEDS: FUROSEMIDE 40 MG TAB PO SCH (08:20)
[2016-10-02] MEDS: POTASSIUM CHLORIDE 10 MEQ CAP PO SCH (08:20)
--- NOTE | 2016-10-02 13:01 | HHI.PR ---
Subjective Remarks No acute events overnight. Afebrile, vital signs stable. Patient with no complaints this morning. INR 1.4. Objective Vitals Vital Signs Date Time Temp Pulse Resp B/P (MAP) Pulse Ox O2 Delivery O2 Flow Rate FiO2 10/02/16 07:18 97.0 83 16 113/63 (80) 92 10/02/16 04:00 97.0 77 17 107/60 (76) 93 10/02/16 00:05 85 10/02/16 00:00 97.5 84 18 106/61 (76) 94 10/01/16 20:44 93 10/01/16 20:11 87 10/01/16 20:00 96.9 84 17 111/57 (75) 93 10/01/16 16:00 96.0 91 16 110/62 (78) 95 I/O 10/01/16 10/01/16 10/01/16 10/02/16 10/02/16 10/02/16 07:00 15:00 23:00 07:00 15:00 23:00 Intake Total 240 ml 480 ml 480 ml Balance 240 ml 480 ml 480 ml Intake Oral 240 ml 480 ml 480 ml # Voids 5 7 6 3 # Bowel Movements 2 Result Diagram: 10/01/16 1150 10/01/16 1150 Objective Remarks General: Elderly male in no acute distress. Heart: Regular rate and rhythm. No murmur. Lungs: Decreased breath sounds on the right. Breathing is nonlabored. Abdomen: Soft, nontender, nondistended. Extremities: No lower extremity edema. Psych: Alert and oriented. Skin: There is a 2 cm scabbed lesion on the posterior scalp Procedures None A/P Problem List: (1) Pleural effusion ICD Code: J90 - Pleural effusion, not elsewhere classified Status: Acute (2) Chest pain ICD Code: R07.9 - Chest pain, unspecified Status: Acute (3) Lung cancer ICD Code: C34.90 - Malignant neoplasm of unspecified part of unspecified bronchus or lung Status: Chronic (4) COPD (chronic obstructive pulmonary disease) ICD Code: J44.9 - Chronic obstructive pulmonary disease, unspecified Status: Chronic (5) Hypokalemia ICD Code: E87.6 - Hypokalemia Status: Acute (6) Elevated INR ICD Code: R79.1 - Abnormal coagulation profile Status: Acute (7) Superior vena cava syndrome ICD Code: I87.1 - Compression of vein Status: Chronic (8) Adenocarcinoma of lung ICD Code: C34.90 - Malignant neoplasm of unspecified part of unspecified bronchus or lung Status: Chronic Assessment and Plan 1. Atypical chest pain: Likely secondary to pleural effusion, lung cancer. Cardiac enzymes are negative. Chest pain has resolved. 2. Pleural effusion: Thoracentesis done with removal of 1 L of fluid. Cytology pending. 3. History of SVC syndrome: Stable. Coumadin restarted. Patient remains subtherapeutic, increased Coumadin to 5 mg daily. 4. Dyslipidemia: Continue gemfibrozil. 5. Hypertension: Continue atenolol. 6. Hypokalemia: Secondary to diuretic. Supplement potassium. Repeat labs are pending this morning. 7. History of CVA: Patient on Coumadin. Given vitamin K so that he could have thoracentesis. Coumadin restarted as above. 8. DVT prophylaxis: MI Parrish. Coumadin. 9. Nonhealing wound, scalp: Patient was advised to have this removed or biopsied as an outpatient. Discharge Planning Discharge once INR therapeutic Christina Guaman MD R3 Oct 02, 2016 13:01
[2016-10-02] MEDS: WARFARIN SOD 5 MG TAB PO SCH (16:31)
[2016-10-02] MEDS: ACETAMINOPHEN/HYDROcodone 325 MG/5 MG TAB PO PRN (21:10)
[2016-10-03] VITALS (10 sets, daily range): BP systolic 99–125; BP diastolic 51–64; PULSE 75–95; RESP 16–18; TEMP 95.7–97; O2SAT 92–96
[2016-10-03] MEDS: GEMFIBROZIL 600 MG TAB PO SCH ×2 (05:54→16:08)
[2016-10-03] MEDS: INSULIN ASPART SUPPLEMENTAL SCALE SQ SCH ×4 (05:58→21:31)
--- NOTE | 2016-10-03 07:57 | PD.ONC.PN ---
Subjective Subjective Remarks SOB improved. No chest pressure. Objective Data Date Time Temp Pulse Resp B/P (MAP) Pulse Ox O2 Delivery O2 Flow Rate FiO2 10/03/16 04:00 96.8 84 18 118/64 (82) 94 10/03/16 00:00 96.2 95 17 117/60 (79) 94 10/02/16 21:31 97 10/02/16 20:00 96.0 91 18 112/55 (74) 95 10/02/16 16:37 88 10/02/16 16:00 97.2 72 16 108/61 (77) 94 10/02/16 12:13 92 10/02/16 12:00 97.3 89 16 100/57 (71) 94 10/02/16 09:02 96 10/02/16 08:33 95 21 10/03/16 10/03/16 10/03/16 07:00 15:00 23:00 Intake Total 480 ml Balance 480 ml Result Diagram: 10/01/16 1150 10/01/16 1150 Laboratory Results Laboratory Tests Test 10/03/16 05:56 Culture Results Microbiology Date/Time Source Procedure Growth Status 09/30/16 10:20 Fluid Pleural Fluid Fungal Smear - Final NO FUNGAL ELEMENTS SEEN. Resulted 09/30/16 10:20 Fluid Pleural Fluid Fungal Culture Pending Resulted 09/30/16 10:20 Fluid Pleural Fluid Acid Fast Stain - Final NO ACID FAST BACILLI SEEN Resulted 09/30/16 10:20 Fluid Pleural Fluid Mycobacterial Culture Pending Resulted 09/30/16 10:20 Fluid Pleural Fluid Gram Stain - Final Resulted 09/30/16 10:20 Fluid Pleural Fluid Body Fluid Culture - Preliminary NO GROWTH IN 48 HOURS. Resulted Administered Medications Medications (Trade) Dose Ordered Sig/Hilaria Route PRN Reason Start Time Stop Time Status Last Admin Dose Admin Acetaminophen (Tylenol) 650 mg Q4H PRN PO TEMP > 100.4 09/28/16 16:00 09/29/16 17:54 Ondansetron HCl (Zofran Inj) 4 mg Q6H PRN IVP NAUSEA OR VOMITING 09/28/16 16:00 10/01/16 19:54 Senna/Docusate Sodium (Angeles-Colace) 1 tab BID PO 09/28/16 21:00 10/01/16 09:06 Atenolol (Tenormin) 50 mg DAILY PO 09/29/16 09:00 10/02/16 08:20 Gabapentin (Neurontin) 300 mg BID PO 09/28/16 21:00 10/02/16 21:10 Gemfibrozil (Lopid) 600 mg BIDAC PO 09/28/16 16:00 10/03/16 05:54 Furosemide (Lasix) 40 mg DAILY PO 09/29/16 09:00 10/02/16 08:20 Insulin Aspart (NovoLOG SUPPLEMENTAL SCALE) 1 ACHS SLIDING SCALE SQ 09/28/16 21:00 09/29/16 11:00 Guaifenesin (Mucinex Er) 600 mg BID PO 09/28/16 21:00 10/02/16 21:10 Potassium Chloride (KCl) 20 meq DAILY PO 09/29/16 09:00 10/02/16 08:20 Acetaminophen/ Hydrocodone Bitart ([place] 5-325 Mg) 1 tab Q6H PRN PO PAIN SCALE 2 TO 10 09/30/16 20:15 10/02/16 21:10 Warfarin Sodium (Coumadin) 5 mg DAILY@1600 PO 10/02/16 16:00 10/02/16 16:31 Objective Remarks GENERAL: Well-nourished, well-developed patient. SKIN: Warm and dry. HEAD: Normocephalic. EYES: No scleral icterus. No injection or drainage. NECK: Supple, trachea midline. No JVD or lymphadenopathy. No edema. LYMPHATIC: No adenopathy. CARDIOVASCULAR: Regular rate and rhythm without murmurs. RESPIRATORY: Breath sounds equal bilaterally. No accessory muscle use. GASTROINTESTINAL: Abdomen soft, non-tender, nondistended. EXTREMITIES: No cyanosis, or edema. MUSCULOSKELETAL: Adequate muscle tone. NEUROLOGICAL: No obvious focal deficit. Awake, alert, and oriented x3. PSYCHIATRIC: Appropriate mood and affect; insight and judgment normal. Assessment/Plan Problem List: (1) Lung cancer ICD Codes: C34.90 - Malignant neoplasm of unspecified part of unspecified bronchus or lung Status: Chronic Plan: --[id number] lung carcinoma, at least stage IIIA. --presented with superior vena cava syndrome. had a mass in the right lower lobe with significant right paratracheal adenopathy causing occlusion in the superior vena cava. also has subcarinal adenopathy. --Biopsy showed moderately to poorly differentiated adenocarcinoma. EGFR wild type ALK negative. PDL-1 5%. --completed radiation with concurrent weekly carboplatin and Taxol in March of 2016. --has poor performance status and is not able to receive consolidation chemotherapy. has been observed all this time. --was supposed to have a CT scan done as an outpatient but he was not able to get the CT scan due to the high co-pay. --now has increased pain in the mid-sternal area and upper back. also has increased shortness of breath. need to rule out progression of disease. --CT chest shows right pleural effusion and SVC thrombosis, no evidence of recurrent mass. S/p thoracentesis, pleural fluid cytology pending. --CT ab/pelvis--shows new 2cm mass inferior to the spleen Assessment 76y/o male with history of lung cancer admitted with chest pain and shortness of breath. h/o [id number] lung cancer. Superior vena cava syndrome. Chronic obstructive pulmonary disease. Gastroesophageal reflux disease (GERD). Hyperlipidemia. Hypertension. Neuropathy. Colonoscopy. Hernia repair. Plan 1. thoracentesis todaypleural fluid cytology pending. 2. Continue coumadin, f/u PCP to monitor INR. 3. Can be d/c from oncology standpoint. F/u Oncology clinic. Toro Saba MD Oct 03, 2016 07:56
[2016-10-03 08:03] LABS: AUTOMATED NEUTROPHIL # 1.7 TH/MM3 (1.8-7.7); BASOPHIL % 0.6 % (0.0-2.0); EOSINOPHIL # 0.1 TH/MM3 (0-0.4); EOSINOPHIL % 2.1 % (0.0-4.0); HEMATOCRIT 38.6 % (39.0-51.0); HEMO FLAGS DIFF FINAL; LYMPH % 23.1 % (9.0-44.0); LYMPHOCYTE # 0.6 TH/MM3 (1.0-4.8); MEAN CORPUSCULAR HEMOGLOBIN 31.3 PG (27.0-34.0); MEAN CORPUSCULAR HGB CONC 33.6 % (32.0-36.0); MONO % 12.6 % (0.0-8.0); NEUT % 61.6 % (16.0-70.0); PLATELET COUNT 138 TH/MM3 (150-450); RED BLOOD COUNT 4.15 MIL/MM3 (4.50-5.90); RED CELL DISTRIBUTION WIDTH 13.5 % (11.6-17.2); WHITE BLOOD COUNT 2.7 TH/MM3 (4.0-11.0)
[2016-10-03 08:12] LABS: INTERNATIONAL NORMALIZED RATIO 1.7 RATIO; PROTHROMBIN TIME - PATIENT 18.7 SEC (9.8-11.6)
[2016-10-03 08:30] LABS: BICARBONATE 26.2 MEQ/L (21.0-32.0); POTASSIUM 3.5 MEQ/L (3.5-5.1)
[2016-10-03] MEDS: DOCUSATE SODIUM 50 MG/SENNA 8.6 MG TAB PO SCH ×2 (09:00→21:36)
--- NOTE | 2016-10-03 09:06 | HHI.PR ---
Subjective Remarks no complains of chest discomfort or shortness of breath good po Objective Vitals Vital Signs Date Time Temp Pulse Resp B/P (MAP) Pulse Ox O2 Delivery O2 Flow Rate FiO2 10/03/16 04:00 96.8 84 18 118/64 (82) 94 10/03/16 00:00 96.2 95 17 117/60 (79) 94 10/02/16 21:31 97 10/02/16 20:00 96.0 91 18 112/55 (74) 95 10/02/16 16:37 88 10/02/16 16:00 97.2 72 16 108/61 (77) 94 10/02/16 12:13 92 10/02/16 12:00 97.3 89 16 100/57 (71) 94 I/O 10/02/16 10/02/16 10/02/16 10/03/16 10/03/16 10/03/16 06:59 14:59 22:59 06:59 14:59 22:59 Intake Total 1440 ml 480 ml Balance 1440 ml 480 ml Intake Oral 1440 ml 480 ml # Voids 3 10 2 # Bowel Movements 1 2 Result Diagram: 10/03/16 0556 10/03/16 0556 Imaging Last Impressions Thoracentesis Ultrasound 09/30/16 0000 Signed Impressions: Service Date/Time: Friday, September 30, 2016 09:42 - CONCLUSION: Uncomplicated ultrasound guided thoracentesis. Fluid was sent for ordered studies including cytology and culture. Henrik Vazquez MD FACR Chest X-Ray 09/30/16 0000 Signed Impressions: Service Date/Time: Friday, September 30, 2016 10:42 - CONCLUSION: There is no pneumothorax. Consolidative changes remain right base. Henrik Vazquez MD FACR Chest CT 09/29/16 0000 Signed Impressions: Service Date/Time: September 20:35 - CONCLUSION: 1. Large right effusion and moderate left effusion with compressive atelectasis in both lungs and post radiation changes in the right paramediastinal region. 2. 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 Numerous venous collaterals in the chest wall. Jonathan Michel MD Abdomen/Pelvis CT 09/29/16 0000 Signed Impressions: Service Date/Time: September 20:35 - CONCLUSION: 1. Development of large right effusion and moderate left effusion since February. Small pericardial effusion. 2. New 2 cm mass inferior aspect of the spleen. Although unusual would have to consider metastatic disease given the reported history of malignancy. Jonathan Michel MD Head CT 09/28/16 1537 Signed Impressions: Service Date/Time: Wednesday, September 28, 2016 16:22 - CONCLUSION: Negative noncontrast CT Paramjit Farr MD Objective Remarks awake and alert, NAD anicteric, no facial sweeling lungs no rales or wheezes regular rhythm abdomen soft, nontender UE/LE- no edema, good peripheral pulses neuro exam- unremarkable Procedures 07/31- thoracentesis, right A/P Problem List: (1) Pleural effusion ICD Code: J90 - Pleural effusion, not elsewhere classified Status: Acute (2) Chest pain ICD Code: R07.9 - Chest pain, unspecified Status: Acute (3) Lung cancer ICD Code: C34.90 - Malignant neoplasm of unspecified part of unspecified bronchus or lung Status: Chronic (4) COPD (chronic obstructive pulmonary disease) ICD Code: J44.9 - Chronic obstructive pulmonary disease, unspecified Status: Chronic (5) Hypokalemia ICD Code: E87.6 - Hypokalemia Status: Acute (6) Elevated INR ICD Code: R79.1 - Abnormal coagulation profile Status: Acute (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 Atypical chest pain: Likely secondary to pleural effusion, lung cancer. Cardiac enzymes are negative. Chest pain has resolved. 2. Malignant Pleural effusion: Thoracentesis done with removal of 1 L of fluid. Cytology + 3. History of SVC syndrome: Stable. Coumadin restarted. Patient remains subtherapeutic, increased Coumadin to 5 mg daily. give extra 2 mg today. INR as OP 4. Dyslipidemia: Continue gemfibrozil. 5. Hypertension: Continue atenolol. 6. Hypokalemia: Secondary to diuretic. Supplement potassium. Improved. on KCL daily 7. History of CVA: Patient on Coumadin. Given vitamin K so that he could have thoracentesis. Coumadin restarted as above. 8. DVT prophylaxis: MI Parrish. Coumadin. 9. Nonhealing wound, scalp: Patient was advised to have this removed or biopsied as an outpatient. Discharge Planning Discharge once INR therapeutic Judy White MD Oct 03, 2016 09:06
[2016-10-03] MEDS: guaiFENesin E.R. 600 MG TAB PO SCH ×2 (09:07→21:35)
[2016-10-03] MEDS: ATENOLOL 50 MG TAB PO SCH (09:07)
[2016-10-03] MEDS: POTASSIUM CHLORIDE 10 MEQ CAP PO SCH (09:07)
[2016-10-03] MEDS: FUROSEMIDE 40 MG TAB PO SCH (09:07)
[2016-10-03] MEDS: GABAPENTIN 300 MG CAP PO SCH ×2 (09:07→21:36)
[2016-10-03] MEDS: ONDANSETRON HCL 4 MG/2 ML VIAL IVP PRN (10:45)
[2016-10-03] MEDS: ACETAMINOPHEN/HYDROcodone 325 MG/5 MG TAB PO PRN (13:17)
[2016-10-03] MEDS ORDERED: WARFARIN SOD 2.5 MG TAB PO ONE (16:00)
[2016-10-03] MEDS: WARFARIN SOD 5 MG TAB PO SCH (16:08)
[2016-10-04] VITALS: BP 104/56; PULSE 70; RESP 18; TEMP 96.1; O2SAT 93
[2016-10-04 04:00] VITALS: BP 114/55; PULSE 77; PULSE 81; RESP 18; TEMP 97.5; O2SAT 94
[2016-10-04] MEDS: GEMFIBROZIL 600 MG TAB PO SCH (05:47)
[2016-10-04] MEDS: INSULIN ASPART SUPPLEMENTAL SCALE SQ SCH (06:47)
--- NOTE | 2016-10-04 07:33 | PD.ONC.PN ---
Subjective Subjective Remarks No CP. SOB improved. Eager to go home. Objective Data Date Time Temp Pulse Resp B/P (MAP) Pulse Ox O2 Delivery O2 Flow Rate FiO2 10/04/16 04:00 81 10/04/16 04:00 97.5 77 18 114/55 (74) 94 10/04/16 00:00 70 10/04/16 00:00 96.1 70 18 104/56 (72) 93 10/03/16 21:02 21 10/03/16 20:00 97.0 75 18 105/59 (74) 93 10/03/16 16:30 83 10/03/16 16:00 95.9 83 16 99/54 (69) 96 10/03/16 12:07 84 10/03/16 12:00 95.7 82 18 125/64 (84) 95 10/03/16 09:40 95 10/03/16 08:32 81 10/03/16 08:00 96.7 89 16 102/51 (68) 92 Result Diagram: 10/03/16 0556 10/03/16 0556 Administered Medications Medications (Trade) Dose Ordered Sig/Hilaria Route PRN Reason Start Time Stop Time Status Last Admin Dose Admin Acetaminophen (Tylenol) 650 mg Q4H PRN PO TEMP > 100.4 09/28/16 16:00 09/29/16 17:54 Ondansetron HCl (Zofran Inj) 4 mg Q6H PRN IVP NAUSEA OR VOMITING 09/28/16 16:00 10/03/16 10:45 Senna/Docusate Sodium (Angeles-Colace) 1 tab BID PO 09/28/16 21:00 10/03/16 21:36 Atenolol (Tenormin) 50 mg DAILY PO 09/29/16 09:00 10/03/16 09:07 Gabapentin (Neurontin) 300 mg BID PO 09/28/16 21:00 10/03/16 21:36 Gemfibrozil (Lopid) 600 mg BIDAC PO 09/28/16 16:00 10/04/16 05:47 Furosemide (Lasix) 40 mg DAILY PO 09/29/16 09:00 10/03/16 09:07 Insulin Aspart (NovoLOG SUPPLEMENTAL SCALE) 1 ACHS SLIDING SCALE SQ 09/28/16 21:00 09/29/16 11:00 Guaifenesin (Mucinex Er) 600 mg BID PO 09/28/16 21:00 10/03/16 21:35 Potassium Chloride (KCl) 20 meq DAILY PO 09/29/16 09:00 10/03/16 09:07 Acetaminophen/ Hydrocodone Bitart ([place] 5-325 Mg) 1 tab Q6H PRN PO PAIN SCALE 2 TO 10 09/30/16 20:15 10/03/16 13:17 Diphenhydramine HCl (Benadryl) 25 mg HS PRN PO SLEEP 09/30/16 20:45 10/03/16 21:36 Warfarin Sodium (Coumadin) 5 mg DAILY@1600 PO 10/02/16 16:00 10/03/16 16:08 Objective Remarks GENERAL: Well-nourished, well-developed patient. SKIN: Warm and dry. HEAD: Normocephalic. EYES: No scleral icterus. No injection or drainage. NECK: Supple, trachea midline. No JVD or lymphadenopathy. LYMPHATIC: No adenopathy. CARDIOVASCULAR: Regular rate and rhythm without murmurs. RESPIRATORY: Breath sounds decreased at bases. GASTROINTESTINAL: Abdomen soft, non-tender, nondistended. EXTREMITIES: No cyanosis, or edema. MUSCULOSKELETAL: Adequate muscle tone. NEUROLOGICAL: No obvious focal deficit. Awake, alert, and oriented x3. PSYCHIATRIC: Appropriate mood and affect; insight and judgment normal. Assessment/Plan Problem List: (1) Lung cancer ICD Codes: C34.90 - Malignant neoplasm of unspecified part of unspecified bronchus or lung Status: Chronic Plan: --[id number] lung carcinoma, at least stage IIIA. --presented with superior vena cava syndrome. had a mass in the right lower lobe with significant right paratracheal adenopathy causing occlusion in the superior vena cava. also has subcarinal adenopathy. --Biopsy showed moderately to poorly differentiated adenocarcinoma. EGFR wild type ALK negative. PDL-1 5%. --completed radiation with concurrent weekly carboplatin and Taxol in March of 2016. --has poor performance status and is not able to receive consolidation chemotherapy. has been observed all this time. --was supposed to have a CT scan done as an outpatient but he was not able to get the CT scan due to the high co-pay. --now has increased pain in the mid-sternal area and upper back. also has increased shortness of breath. need to rule out progression of disease. --CT chest shows right pleural effusion and SVC thrombosis, no evidence of recurrent mass. S/p thoracentesis, pleural fluid cytology pending. 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 INR not therapeutic yet. Assessment 76y/o male with history of lung cancer admitted with chest pain and shortness of breath. h/o [id number] lung cancer. Superior vena cava syndrome. Chronic obstructive pulmonary disease. Gastroesophageal reflux disease (GERD). Hyperlipidemia. Hypertension. Neuropathy. Colonoscopy. Hernia repair. Plan 1. pleural fluid cytology pending. 2. Continue coumadin, f/u PCP to monitor INR. 3. Can be d/c from oncology standpoint. F/u Oncology clinic. Toro Saba MD Oct 04, 2016 07:33
[2016-10-04 08:27] LABS: INTERNATIONAL NORMALIZED RATIO 1.8 RATIO
[2016-10-04 08:47] VITALS: BP 107/53; PULSE 89; RESP 18; TEMP 96.2; O2SAT 94
--- NOTE | 2016-10-04 09:43 | HHI.PR ---
Subjective Remarks comfortable, no complains of chest discomfort or shortness of breath- ambulating around slowly in the room Objective Vitals Vital Signs Date Time Temp Pulse Resp B/P (MAP) Pulse Ox O2 Delivery O2 Flow Rate FiO2 10/04/16 08:47 96.2 89 18 107/53 (71) 94 10/04/16 04:00 81 10/04/16 04:00 97.5 77 18 114/55 (74) 94 10/04/16 00:00 70 10/04/16 00:00 96.1 70 18 104/56 (72) 93 10/03/16 21:02 21 10/03/16 20:00 97.0 75 18 105/59 (74) 93 10/03/16 16:30 83 10/03/16 16:00 95.9 83 16 99/54 (69) 96 10/03/16 12:07 84 10/03/16 12:00 95.7 82 18 125/64 (84) 95 I/O 10/03/16 10/03/16 10/03/16 10/04/16 10/04/16 10/04/16 06:59 14:59 22:59 06:59 14:59 22:59 Intake Total 480 ml 960 ml Balance 480 ml 960 ml Intake Oral 480 ml 960 ml # Voids 2 5 1 # Bowel Movements 2 0 Result Diagram: 10/03/16 0556 10/03/16 0556 Imaging Last Impressions Thoracentesis Ultrasound 09/30/16 0000 Signed Impressions: Service Date/Time: Friday, September 30, 2016 09:42 - CONCLUSION: Uncomplicated ultrasound guided thoracentesis. Fluid was sent for ordered studies including cytology and culture. Henrik Vazquez MD FACR Chest X-Ray 09/30/16 0000 Signed Impressions: Service Date/Time: Friday, September 30, 2016 10:42 - CONCLUSION: There is no pneumothorax. Consolidative changes remain right base. Henrik Vazquez MD FACR Chest CT 09/29/16 0000 Signed Impressions: Service Date/Time: September 20:35 - CONCLUSION: 1. Large right effusion and moderate left effusion with compressive atelectasis in both lungs and post radiation changes in the right paramediastinal region. 2. 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 Numerous venous collaterals in the chest wall. Jonathan Michel MD Abdomen/Pelvis CT 09/29/16 0000 Signed Impressions: Service Date/Time: September 20:35 - CONCLUSION: 1. Development of large right effusion and moderate left effusion since February. Small pericardial effusion. 2. New 2 cm mass inferior aspect of the spleen. Although unusual would have to consider metastatic disease given the reported history of malignancy. Jonathan Michel MD Head CT 09/28/16 1537 Signed Impressions: Service Date/Time: Wednesday, September 28, 2016 16:22 - CONCLUSION: Negative noncontrast CT Paramjit Farr MD Objective Remarks awake and alert, NAD anicteric, no facial swelling lungs no rales or wheezes, decrease breath sounds and vocal fremiti, right base regular rhythm abdomen soft, nontender UE/LE- no edema, good peripheral pulses neuro exam- unremarkable Procedures 07/31- thoracentesis, right A/P Problem List: (1) Pleural effusion ICD Code: J90 - Pleural effusion, not elsewhere classified Status: Acute (2) Chest pain ICD Code: R07.9 - Chest pain, unspecified Status: Acute (3) Lung cancer ICD Code: C34.90 - Malignant neoplasm of unspecified part of unspecified bronchus or lung Status: Chronic (4) COPD (chronic obstructive pulmonary disease) ICD Code: J44.9 - Chronic obstructive pulmonary disease, unspecified Status: Chronic (5) Hypokalemia ICD Code: E87.6 - Hypokalemia Status: Acute (6) Elevated INR ICD Code: R79.1 - Abnormal coagulation profile Status: Acute (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 Atypical chest pain: Likely secondary to pleural effusion, lung cancer. Cardiac enzymes are negative. Chest pain has resolved. 2. Malignant Pleural effusion: S/P Thoracentesis done with removal of 1 L of fluid. Cytology + 3. History of SVC syndrome: Stable. Coumadin restarted. Patient remains subtherapeutic, increased Coumadin to 5 mg daily. give extra 2 mg today. INR as OP 4. Dyslipidemia: Continue gemfibrozil. 5. Hypertension: Continue atenolol. 6. Hypokalemia: Secondary to diuretic. Supplement potassium. Improved. on KCL daily 7. History of CVA: Patient on Coumadin. Given vitamin K so that he could have thoracentesis. Coumadin restarted as above. 8. DVT prophylaxis: SCDs, MI reed. Coumadin. 9. Nonhealing wound, scalp: Patient was advised to have this removed or biopsied as an outpatient. DC home today OP repeat INR in am- results to PCP OP ff up with Judy Jimenez MD Oct 04, 2016 09:43
[2016-10-04] MEDS: guaiFENesin E.R. 600 MG TAB PO SCH (09:46)
[2016-10-04] MEDS: POTASSIUM CHLORIDE 10 MEQ CAP PO SCH (09:46)
[2016-10-04] MEDS: DOCUSATE SODIUM 50 MG/SENNA 8.6 MG TAB PO SCH (09:46)
[2016-10-04] MEDS: ATENOLOL 50 MG TAB PO SCH (09:46)
[2016-10-04] MEDS: GABAPENTIN 300 MG CAP PO SCH (09:46)
[2016-10-04] MEDS: FUROSEMIDE 40 MG TAB PO SCH (09:46)
[2016-10-04] MEDS ORDERED: COUM5TAB PO (09:49)
[2016-10-04] MEDS ORDERED: POTA10CA PO (09:49)
--- NOTE | 2016-10-04 09:55 | HHI.DS ---
Discharge Summary Admission Date Sep 28, 2016 at 15:59 Discharge Date: Oct 04, 2016 Admitting Diagnosis chest pain, right pleural effusion, hypokalemia, lung cancer by hist (1) Pleural effusion ICD Code: J90 - Pleural effusion, not elsewhere classified Status: Acute (2) Chest pain ICD Code: R07.9 - Chest pain, unspecified Status: Acute (3) Lung cancer ICD Code: C34.90 - Malignant neoplasm of unspecified part of unspecified bronchus or lung Status: Chronic (4) COPD (chronic obstructive pulmonary disease) ICD Code: J44.9 - Chronic obstructive pulmonary disease, unspecified Status: Chronic (5) Hypokalemia ICD Code: E87.6 - Hypokalemia Status: Acute (6) Elevated INR ICD Code: R79.1 - Abnormal coagulation profile Status: Acute (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 Luna is a 76-year-old male patient with a known medical history of non- small cell lung cancer, chronic back pain, hypertension and tobacco history who presented to the ED with complaints of chest pain. Patient states he has been experiencing this intermittent chest pain or the past 5 weeks. He states that this pain is concentrated mainly in the left anterior chest area occasionally radiating to the right anterior chest and around to his lower back. Pain is a 9/ 10 when present, usually lasts 2-3 minutes when present and slowly subsides. Does not recognize any aggravating or relieving factors. States the pain is stabbing and sharp in nature. Patient also complaints of occasional bilateral arm swelling. Does admit to associated shortness of breath and nausea, denies any vomiting or diaphoresis. Denies any recent illness including fever, chills, abdominal pain, diarrhea. Patient has been following with Dr. Saba for his non- small cell lung cancer, last saw him and received chemo 2.5 months ago. Patient states Dr. SABA has held the last 2 scheduled chemotherapy treatments due to patient being worn down and fatigued. Patient will undergo thoracentesis with interventional radiology will consult them CBC/BMP: 10/03/16 0556 10/03/16 0556 Significant Findings Laboratory Tests Test 10/01/16 11:50 10/02/16 03:20 10/03/16 05:56 10/04/16 07:21 White Blood Count 3.2 TH/MM3 (4.0-11.0) 2.7 TH/MM3 (4.0-11.0) Red Blood Count 4.17 MIL/MM3 (4.50-5.90) 4.15 MIL/MM3 (4.50-5.90) Hematocrit 38.7 % (39.0-51.0) 38.6 % (39.0-51.0) Platelet Count 141 TH/MM3 (150-450) 138 TH/MM3 (150-450) Neutrophils (%) (Auto) 77.1 % (16.0-70.0) Monocytes (%) (Auto) 10.5 % (0.0-8.0) 12.6 % (0.0-8.0) Lymphocytes # (Auto) 0.4 TH/MM3 (1.0-4.8) 0.6 TH/MM3 (1.0-4.8) Prothrombin Time 16.0 SEC (9.8-11.6) 16.2 SEC (9.8-11.6) 18.7 SEC (9.8-11.6) 21.0 SEC (9.8-11.6) Calcium Level 8.4 MG/DL (8.5-10.1) Potassium Level 3.4 MEQ/L (3.5-5.1) Neutrophils # (Auto) 1.7 TH/MM3 (1.8-7.7) Imaging Last Impressions Thoracentesis Ultrasound 09/30/16 0000 Signed Impressions: Service Date/Time: Friday, September 30, 2016 09:42 - CONCLUSION: Uncomplicated ultrasound guided thoracentesis. Fluid was sent for ordered studies including cytology and culture. Henrik Vazquez MD FACR Chest X-Ray 09/30/16 0000 Signed Impressions: Service Date/Time: Friday, September 30, 2016 10:42 - CONCLUSION: There is no pneumothorax. Consolidative changes remain right base. Henrik Vazquez MD FACR Chest CT 09/29/16 0000 Signed Impressions: Service Date/Time: September 20:35 - CONCLUSION: 1. Large right effusion and moderate left effusion with compressive atelectasis in both lungs and post radiation changes in the right paramediastinal region. 2. 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 Numerous venous collaterals in the chest wall. Jonathan Michel MD Abdomen/Pelvis CT 09/29/16 0000 Signed Impressions: Service Date/Time: , September 29, 2016 20:35 - CONCLUSION: 1. Development of large right effusion and moderate left effusion since February. Small pericardial effusion. 2. New 2 cm mass inferior aspect of the spleen. Although unusual would have to consider metastatic disease given the reported history of malignancy. Jonathan Michel MD Head CT 09/28/16 1537 Signed Impressions: Service Date/Time: Wednesday, September 28, 2016 16:22 - CONCLUSION: Negative noncontrast CT Paramjit Farr MD PE at Discharge awake and alert, NAD anicteric, no facial swelling lungs no rales or wheezes, decrease breath sounds and vocal fremiti, right base regular rhythm abdomen soft, nontender UE/LE- no edema, good peripheral pulses neuro exam- unremarkable Pt update on day of discharge no distress, no pain sinus rhythm amublating around- good sats at room air Hospital Course 76 years old male 1. Atypical chest pain: Likely secondary to pleural effusion, lung cancer. Cardiac enzymes are negative. Chest pain has resolved. 2. Malignant Pleural effusion: S/P Thoracentesis done with removal of 1 L of fluid. Cytology + 3. History of SVC syndrome: Stable. Coumadin restarted. Patient remains subtherapeutic, increased Coumadin to 5 mg daily. give extra 2 mg today. INR as OP 4. Dyslipidemia: Continue gemfibrozil. 5. Hypertension: Continue atenolol. 6. Hypokalemia: Secondary to diuretic. Supplement potassium. Improved. on KCL daily 7. History of CVA: Patient on Coumadin. Given vitamin K so that he could have thoracentesis. Coumadin restarted as above. 8. DVT prophylaxis: SCDs, MI hose. Coumadin. 9. Nonhealing wound, scalp: Patient was advised to have this removed or biopsied as an outpatient. DC home today. Instruct patient - if develops shortness of breath- to inform PCP- -may need periodic thoracentesis- which can be done as OP with INR monitoring OP repeat INR in am- results to PCP OP ff up with Dr. Saba Pt Condition on Discharge: Stable Discharge Disposition: Discharge Home Discharge Time: <= 30 minutes Discharge Instructions DIET: Follow Instructions for: Heart Healthy Diet, Coumadin (Warfarin) Diet Speech Therapy-Diet Recommends: Regular Activities you can perform: Weight Bearing as Kristofer Follow up Referrals: Oncology - 3-5 Days @ [facility] PCP Follow-up - 2-3 Days with [facility] New Orders: PT/INR - 10/05/16 New Medications: Potassium Chloride ER (Potassium Chloride ER) 10 Meq Cap 20 MEQ PO DAILY for electrrepl for 30 Days, #30 CAP Warfarin (Coumadin) 5 Mg Tab 5 MG PO DAILY@1600 for SVC for 30 Days, #30 TAB Continued Medications: Atenolol (Atenolol) 50 Mg Tab 50 MG PO DAILY for Blood Pressure Management, #30 TAB 0 Refills Furosemide (Lasix) 40 Mg Tab 40 MG PO DAILY for diuretic, #30 TAB 0 Refills Gabapentin (Gabapentin) 300 Mg Cap 300 MG PO BID, #60 CAP 0 Refills Judy White MD Oct 04, 2016 09:55
[2016-10-04 10:01] VITALS: O2SAT 96
[2016-10-04 10:05] VITALS: O2SAT 95
[2016-10-04] MEDS ORDERED: WARFARIN SOD 2.5 MG TAB PO ONE (16:00)
== END 2016-10-04 12:31 | disposition home or self-care (01) | DRG 181 ==
LOC: NEPC 13:15 → NEDA 15:59 → HOCA 21:10
PROVIDERS: ADMIT Internal Medicine; ATTEND Internal Medicine
PROC: 0W993ZZ Drainage of Right Pleural Cavity, Percutaneous Approach (ICD-10-PCS; principal; 2016-09-30)
DX: C34.91 Malignant neoplasm of unspecified part of right bronchus or lung (principal); J91.0 Malignant pleural effusion; I82.210 Acute embolism and thrombosis of superior vena cava; I87.1 Compression of vein; G62.9 Polyneuropathy, unspecified; J44.9 Chronic obstructive pulmonary disease, unspecified; R07.89 Other chest pain; E87.6 Hypokalemia; E78.5 Hyperlipidemia, unspecified; I10 Essential (primary) hypertension; Z92.21 Personal history of antineoplastic chemotherapy; Z92.3 Personal history of irradiation; K21.9 Gastro-esophageal reflux disease without esophagitis; T50.2X5A Adverse effect of carbonic-anhydrase inhibitors, benzothiadiazides and other diuretics, initial encounter; Z79.01 Long term (current) use of anticoagulants; Z86.73 Personal history of transient ischemic attack (TIA), and cerebral infarction without residual deficits; Z87.891 Personal history of nicotine dependence; M19.90 Unspecified osteoarthritis, unspecified site
CPT/HCPCS: 32555; 70450; 71010; 71020; 71260; 74177; 80048; 80053; 82150; 82550; 82552; 82945; 82948; 83036; 83615; 83735; 83986; 84100; 84157; 84439; 84443; 84484; 85025; 85379; 85610; 85730; 87015; 87070; 87102; 87116; 87205; 87206; 88112; 88305; 89051; 93005; 94640; 94664; C1729; J1815; J2405; J3480; Q9963; Q9967

== ENCOUNTER 2017-01-02 12:36 | Inpatient (IN) | payer OTHER, MEDICARE ==
[2017-01-02] VITALS (11 sets, daily range): BP systolic 105–137; BP diastolic 52–65; PULSE 82–100; RESP 16–20; TEMP 97.4–98.3; O2SAT 95–100
[~2017-01-02] VITALS: Ht 172.7 cm; Wt 57.5 kg
[~2017-01-02 12:36] MED LIST changes: +ATOR20TA15 PO; +COUM5TAB PO; +FURO1TAB60 PO; +POTA10CA PO; -WARF-20 PO
--- NOTE | 2017-01-02 13:18 | PD ---
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 PFSH Past Medical History Hx Anticoagulant Therapy: Yes Arthritis: Yes Asthma: No Blood Disorders: No Anxiety: No Depression: No Heart Rhythm Problems: No Cancer: Yes (non-small cell lung cancer) Cardiovascular Problems: Yes High Cholesterol: Yes Chemotherapy: Yes Chest Pain: No Congestive Heart Failure: No COPD: Yes Cerebrovascular Accident: Yes Diabetes: No Diminished Hearing: No Endocrine: No Gastrointestinal Disorders: No GERD: Yes Genitourinary: No Headaches: No Hiatal Hernia: No Heparin Induced Thrombocytopen: No Hypertension: Yes Immune Disorder: No Implanted Vascular Access Dvce: No Kidney Stones: No Musculoskeletal: Yes Neurologic: No Psychiatric: No Reproductive: No Respiratory: Yes (COPD, LUNG CA) Migraines: No Radiation Therapy: No Renal Failure: No Sickle Cell Disease: No Sleep Apnea: No Thyroid Disease: No Ulcer: No ?: Not Past Surgical History Abdominal Surgery: No AICD: No Arteriovenous Shunt: No Cardiac Surgery: No Ear Surgery: No Endocrine Surgery: No Eye Surgery: No Genitourinary Surgery: No Gynecologic Surgery: No Insulin Pump: No Joint Replacement: No Neurologic Surgery: No Oral Surgery: No Pacemaker: No Thoracic Surgery: No Other Surgery: Yes (HERNIA) Social History Alcohol Use: Yes (on occasion) Tobacco Use: Yes (quit 8 yrs ago) Substance Use: No Allergies-Medications (Allergen,Severity, Reaction): Coded Allergies: No Known Allergies (Verified Allergy, Unknown, 12/27/16) Reported Meds & Prescriptions Reported Meds & Active Scripts Active Atorvastatin (Atorvastatin Calcium) 20 Mg Tab 20 Mg PO HS Potassium Chloride ER (Potassium Chloride) 10 Meq Cap 20 Meq PO DAILY 30 Days Coumadin (Warfarin) 5 Mg Tab 5 Mg PO DAILY@1600 30 Days Lasix (Furosemide) 40 Mg Tab 40 Mg PO DAILY Reported Lopid (Gemfibrozil) 600 Mg Tab 600 Mg PO BIDAC Take 30 minutes prior to breakfast and dinner Atenolol 50 Mg Tab 50 Mg PO DAILY Gabapentin 300 Mg Cap 300 Mg PO BID Review of Systems Except as stated in HPI: all other systems reviewed are Neg General / Constitutional: No: Fever Eyes: No: Visual changes HENT: No: Headaches Cardiovascular: No: Chest Pain or Discomfort Respiratory: Positive: Cough, Hemoptysis Gastrointestinal: No: Abdominal Pain Genitourinary: No: Dysuria Musculoskeletal: No: Pain Skin: No Rash Neurologic: No: Weakness Psychiatric: No: Depression Endocrine: No: Polydipsia Hematologic/Lymphatic: No: Easy Bruising Physical Exam Narrative GENERAL: SKIN: Warm and dry. HEAD: Atraumatic. Normocephalic. EYES: Pupils equal and round. No scleral icterus. No injection or drainage. ENT: No nasal bleeding or discharge. Mucous membranes pink and moist. NECK: Trachea midline. No JVD. CARDIOVASCULAR: Regular rate and rhythm. RESPIRATORY: No accessory muscle use. Clear to auscultation. Breath sounds equal bilaterally. GASTROINTESTINAL: Abdomen soft, non-tender, nondistended. MUSCULOSKELETAL: Extremities without clubbing, cyanosis, or edema. No obvious deformities. NEUROLOGICAL: Awake and alert. No obvious cranial nerve deficits. Motor grossly within normal limits. Five out of 5 muscle strength in the arms and legs. Normal speech. PSYCHIATRIC: Appropriate mood and affect; insight and judgment normal. Data Data Last Documented VS Vital Signs Date Time Temp Pulse Resp B/P (MAP) Pulse Ox O2 Delivery O2 Flow Rate FiO2 01/02/17 14:12 86 18 122/61 (81) 98 Nasal Cannula 4.00 01/02/17 12:38 98.0 Orders Orders Complete Blood Count With Diff (01/02/17 13:15) Basic Metabolic Panel (Bmp) (01/02/17 13:15) Troponin I (01/02/17 13:15) Prothrombin Time / Inr (Pt) (01/02/17 13:15) Act Partial Throm Time (Ptt) (01/02/17 13:15) Chest, Single Ap (01/02/17 13:15) Hydromorphone Pf Inj (Dilaudid Pf Inj) (01/02/17 13:30) Ondansetron Inj (Zofran Inj) (01/02/17 13:30) Oxygen Administration (01/02/17 13:58) Admit Order (Ed Use Only) (01/02/17 14:53) Labs Laboratory Tests Test 01/02/17 13:20 White Blood Count 4.4 TH/MM3 Red Blood Count 4.13 MIL/MM3 Hemoglobin 13.1 GM/DL Hematocrit 38.9 % Mean Corpuscular Volume 94.2 FL Mean Corpuscular Hemoglobin 31.7 PG Mean Corpuscular Hemoglobin Concent 33.6 % Red Cell Distribution Width 13.4 % Platelet Count 164 TH/MM3 Mean Platelet Volume 9.0 FL Neutrophils (%) (Auto) 66.0 % Lymphocytes (%) (Auto) 19.7 % Monocytes (%) (Auto) 12.1 % Eosinophils (%) (Auto) 1.4 % Basophils (%) (Auto) 0.8 % Neutrophils # (Auto) 2.9 TH/MM3 Lymphocytes # (Auto) 0.9 TH/MM3 Monocytes # (Auto) 0.5 TH/MM3 Eosinophils # (Auto) 0.1 TH/MM3 Basophils # (Auto) 0.0 TH/MM3 CBC Comment DIFF FINAL Differential Comment Prothrombin Time 16.3 SEC Prothromb Time International Ratio 1.5 RATIO Activated Partial Thromboplast Time 31.7 SEC Blood Urea Nitrogen 18 MG/DL Creatinine 0.91 MG/DL Random Glucose 109 MG/DL Calcium Level 8.9 MG/DL Sodium Level 140 MEQ/L Potassium Level 3.7 MEQ/L Chloride Level 101 MEQ/L Carbon Dioxide Level 30.7 MEQ/L Anion Gap 8 MEQ/L Estimat Glomerular Filtration Rate 81 ML/MIN Troponin I LESS THAN 0.02 NG/ML [facility] Medical Decision Making Medical Screen Exam Complete: Yes Emergency Medical Condition: Yes Medical Record Reviewed: Yes Differential Diagnosis PNA V HEMOPTYSIS FROM COUMADIN V HEMOPTYSIS FROM LUNG CA V SVC Narrative Course PATIENT H/H STABLE, HD STABLE, NO REPEAT EPISODES OF HEMOPTYSIS WHILE IN OBSERVATION IN ED...HOWEVER DUE TO THE COMPLEX MEDICAL HISTORY I BELIEVE IT PRUDENT TO ADMIT FOR OBSERVATION TO [facility] Diagnosis Primary Impression: HEMOPTYSIS Admitting Information Admitting Physician Requests: Observation Mahad Nelson MD Jan 02, 2017 13:18
[2017-01-02] MEDS ORDERED: ONDANSETRON HCL 4 MG/2 ML VIAL IV PUSH ONE (13:30)
[2017-01-02] MEDS ORDERED: HYDROmorphone HCL PF 0.5 MG/0.5 ML SYRINGE IV PUSH ONE (13:30)
[2017-01-02 13:43] LABS: AUTOMATED NEUTROPHIL # 2.9 TH/MM3 (1.8-7.7); BASOPHIL % 0.8 % (0.0-2.0); EOSINOPHIL # 0.1 TH/MM3 (0-0.4); EOSINOPHIL % 1.4 % (0.0-4.0); HEMATOCRIT 38.9 % (39.0-51.0); HEMO FLAGS DIFF FINAL; LYMPH % 19.7 % (9.0-44.0); LYMPHOCYTE # 0.9 TH/MM3 (1.0-4.8); MEAN CELL VOLUME 94.2 FL (80.0-100.0); MEAN CORPUSCULAR HEMOGLOBIN 31.7 PG (27.0-34.0); MEAN CORPUSCULAR HGB CONC 33.6 % (32.0-36.0); MONO % 12.1 % (0.0-8.0); PLATELET COUNT 164 TH/MM3 (150-450); RED BLOOD COUNT 4.13 MIL/MM3 (4.50-5.90); RED CELL DISTRIBUTION WIDTH 13.4 % (11.6-17.2); WHITE BLOOD COUNT 4.4 TH/MM3 (4.0-11.0)
--- NOTE | 2017-01-02 13:50 | RADRPT ---
EXAM DATE/TIME: 01/02/2017 13:26 [facility] COMPARISON: CHEST EXPIRATION ONLY, December 29, 2016, 9:26. CT PULMONARY ANGIOGRAM, December 27, 2016, 19:03. INDICATIONS : Coughing up blood, short of breath. MEDICAL HISTORY : None. SURGICAL HISTORY : None. ENCOUNTER: Initial ACUITY: 2 days PAIN SCORE: 0/10 LOCATION: Bilateral chest FINDINGS: A single portable frontal view the chest is a masslike consolidation involving the suprahilar region on the right. A tiny right effusion is seen. This is considerably smaller than the prior CT. No effus ion on the left. There is a tiny apical pneumothorax which is a new finding from the prior study. Hea rt is normal in size. CONCLUSION: 1. Tiny right-sided apical pneumothorax which is a new finding from the prior exam. Its lack of visua lization on the post thoracentesis study may simply be technical in nature. 2. Unchanged masslike density involving the right suprahilar region. 3. Tiny right effusion. Dustin Peguero Jr., MD on January 02, 2017 at 13:42 Board Certified Radiologist. This report was verified electronically.
[2017-01-02 13:54] LABS: APTT (PATIENT) 31.7 SEC (24.3-30.1); INTERNATIONAL NORMALIZED RATIO 1.5 RATIO; PROTHROMBIN TIME - PATIENT 16.3 SEC (9.8-11.6)
[2017-01-02 14:02] LABS: ANION GAP 8 MEQ/L (5-15); BICARBONATE 30.7 MEQ/L (21.0-32.0); BLOOD UREA NITROGEN 18 MG/DL (7-18); CHLORIDE 101 MEQ/L (98-107); GLOMERULAR FILTRATION RATE 81 ML/MIN (>89); POTASSIUM 3.7 MEQ/L (3.5-5.1); SODIUM (NA) 140 MEQ/L (136-145)
--- NOTE | 2017-01-02 16:33 | HHI.HP ---
HPI Service [facility] Hospitalists Primary Care Physician Unknown Admission Diagnosis SMALL RIGHT APICAL PNEUMOTHORAX Diagnoses: Chief Complaint: chest pain hemoptysis head pain s/p excision of cancer Travel History International Travel<30 Days: No Contact w/Intl Traveler <30 Da: No Traveled to Known Affected Are: No History of Present Illness Written by Jen Jones, acting as scribe for Dr. Jones on 01/02/17 at 16: 25. This is a 76-year-old male with past medical history significant for 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 Saba, anticoagulated on Coumadin, COPD, dyslipidemia and hypertension who was recently admitted to our facility on 12/27/16 to 12/30/16 for altered mental status, confusion and dizziness and was found to have moderate right-sided effusion and underwent therapeutic thoracentesis with 2100ml of fluid removed. Patient presents to [facility] ED today with complaints of hemoptysis, left-sided chest pain and excisional pain from recent resection of a cancerous lesion on the back of his head. Patient describes 8 out of 10 left-sided chest pain that would improve with belching but then returns. He reports associated nausea but denies any vomiting. In the ED, chest x-ray was obtained showing a tiny right- sided apical pneumothorax. His O2 saturation is currently 99% on 4 L nasal cannula. Hemoglobin and hematocrit are within normal limits. Initial troponin is less than 0.02. Review of Systems Except as stated in HPI: all other systems reviewed are Neg Past Family Social History Past Medical History Non-small cell lung cancer SVC syndrome, anticoagulated on Coumadin Recent admission 12/27/16, status post therapeutic right-sided thoracentesis with 2100ml fluid removed COPD Dyslipidemia Hypertension GERD Dyslipidemia Neuropathy Past Surgical History Hernia repair Port placement Reported Medications Atorvastatin (Atorvastatin Calcium) 20 Mg Tab 20 Mg PO HS Potassium Chloride ER (Potassium Chloride) 10 Meq Cap 20 Meq PO DAILY 30 Days Coumadin (Warfarin) 5 Mg Tab 5 Mg PO DAILY@1600 30 Days Lasix (Furosemide) 40 Mg Tab 40 Mg PO DAILY Lopid (Gemfibrozil) 600 Mg Tab 600 Mg PO BIDAC Take 30 minutes prior to breakfast and dinner Atenolol 50 Mg Tab 50 Mg PO DAILY Gabapentin 300 Mg Cap 300 Mg PO BID Allergies: Coded Allergies: No Known Allergies (Verified Allergy, Unknown, 12/27/16) Family History Father, cardiac disease Social History Patient quit smoking 9 years ago but prior to that has a [id number] history of smoking. Reports rare alcohol consumption. Denies any illicit drug use. Physical Exam Vital Signs Vital Signs Date Time Temp Pulse Resp B/P (MAP) Pulse Ox O2 Delivery O2 Flow Rate FiO2 01/02/17 15:43 83 18 116/56 (76) 99 Nasal Cannula 4.00 01/02/17 14:12 86 18 122/61 (81) 98 Nasal Cannula 4.00 01/02/17 14:12 98 Nasal Cannula 4.00 01/02/17 13:15 92 18 122/61 (81) 96 Room Air 01/02/17 13:11 18 01/02/17 12:38 98.0 100 18 137/65 (89) 95 Physical Exam GENERAL: This is a elderly ill-appearing patient, in no apparent distress. SKIN: Cool and dry. Healing incision back of head s/p recent excision of cancerous lesion. HEAD: Normocephalic. (+)scalp tenderness around recent excision. EYES: Pupils equal round and reactive. Extraocular motions intact. No scleral icterus. No injection or drainage. ENT: Nose without bleeding or purulent drainage. Throat without erythema, tonsillar hypertrophy or exudate. Uvula midline. Airway patent. NECK: Trachea midline. No lymphadenopathy. Supple, nontender, no meningeal signs. CARDIOVASCULAR: Regular rate and rhythm without murmurs, gallops, or rubs. RESPIRATORY: Fair air entry. Breath sounds equal bilaterally. No wheezes, rales , or rhonchi. GASTROINTESTINAL: Abdomen soft, non-tender, nondistended. No hepato-splenomegaly , or palpable masses. No guarding. MUSCULOSKELETAL: Extremities without clubbing, cyanosis, or edema. No joint tenderness, effusion, or edema noted. No calf tenderness. NEUROLOGICAL: Awake and alert. Able to move all extremities spontaneously. No focal neurologic findings appreciated.. Normal speech. Laboratory Laboratory Tests Test 01/02/17 13:20 White Blood Count 4.4 Red Blood Count 4.13 Hemoglobin 13.1 Hematocrit 38.9 Mean Corpuscular Volume 94.2 Mean Corpuscular Hemoglobin 31.7 Mean Corpuscular Hemoglobin Concent 33.6 Red Cell Distribution Width 13.4 Platelet Count 164 Mean Platelet Volume 9.0 Neutrophils (%) (Auto) 66.0 Lymphocytes (%) (Auto) 19.7 Monocytes (%) (Auto) 12.1 Eosinophils (%) (Auto) 1.4 Basophils (%) (Auto) 0.8 Neutrophils # (Auto) 2.9 Lymphocytes # (Auto) 0.9 Monocytes # (Auto) 0.5 Eosinophils # (Auto) 0.1 Basophils # (Auto) 0.0 CBC Comment DIFF FINAL Differential Comment Prothrombin Time 16.3 Prothromb Time International Ratio 1.5 Activated Partial Thromboplast Time 31.7 Blood Urea Nitrogen 18 Creatinine 0.91 Random Glucose 109 Calcium Level 8.9 Sodium Level 140 Potassium Level 3.7 Chloride Level 101 Carbon Dioxide Level 30.7 Anion Gap 8 Estimat Glomerular Filtration Rate 81 Troponin I LESS THAN 0.02 Result Diagram: 01/02/17 1320 01/02/17 1320 Imaging Last Impressions Chest X-Ray 01/02/17 1315 Signed Impressions: Service Date/Time: Monday, January 02, 2017 13:26 - CONCLUSION: 1. Tiny right-sided apical pneumothorax which is a new finding from the prior exam. Its lack of visualization on the post thoracentesis study may simply be technical in nature. 2. Unchanged masslike density involving the right suprahilar region. 3. Tiny right effusion. MD Natalie Tenorio Jr. VTE Risk Assessment Caprini VTE Risk Assessment: Mod/High Risk (score >= 2) Caprini Risk Assessment Model Point Value = 1 Point Value = 2 Point Value = 3 Point Value = 5 Age 41-60 Minor surgery BMI > 25 kg/m2 Swollen legs Varicose veins or History of unexplained or recurrent spontaneous Oral contraceptives or hormone replacement Sepsis (< 1 month) Serious lung disease, including pneumonia (< 1 month) Abnormal pulmonary function Acute myocardial infarction Congestive heart failure (< 1 month) History of inflammatory bowel disease Medical patient at bed rest Age 61-74 Arthroscopic surgery Major open surgery (> 45 min) Laparoscopic surgery (> 45 min) Malignancy Confined to bed (> 72 hours) Immobilizing plaster cast Central venous access Age >= 75 History of VTE Family history of VTE Factor V Leiden Prothrombin [id number] Lupus anticoagulant Anticardiolipin antibodies Elevated serum homocysteine Heparin-induced thrombocytopenia Other congenital or acquired thrombophilia Stroke (< 1 month) Elective arthroplasty Hip, pelvis, or leg fracture Acute spinal cord injury (< 1 month) Prophylaxis Regimen Total Risk Factor Score Risk Level Prophylaxis Regimen 0-1 Low Early ambulation 2 Moderate Order ONE of the following: *Sequential Compression Device (SCD) *Heparin 5000 units SQ BID 3-4 Higher Order ONE of the following medications: *Heparin 5000 units SQ TID *Enoxaparin/Lovenox 40 mg SQ daily (WT < 150 kg, CrCl > 30 mL/min) *Enoxaparin/Lovenox 30 mg SQ daily (WT < 150 kg, CrCl > 10-29 mL/min) *Enoxaparin/Lovenox 30 mg SQ BID (WT < 150 kg, CrCl > 30 mL/min) AND/OR *Sequential Compression Device (SCD) 5 or more Highest Order ONE of the following medications: *Heparin 5000 units SQ TID (Preferred with Epidurals) *Enoxaparin/Lovenox 40 mg SQ daily (WT < 150 kg, CrCl > 30 mL/min) *Enoxaparin/Lovenox 30 mg SQ daily (WT < 150 kg, CrCl > 10-29 mL/min) *Enoxaparin/Lovenox 30 mg SQ BID (WT < 150 kg, CrCl > 30 mL/min) AND *Sequential Compression Device (SCD) Assessment and Plan Assessment and Plan 76-year-old male with a history of non-small cell lung cancer status post recent admission with right-sided therapeutic thoracentesis with 2100 miles fluid removed admitted with complaints of hemoptysis, left-sided chest pain and post incisional pain from recent excision of cancerous lesion on the back of the head. Small right sided apical pneumothorax status post recent therapeutic thoracentesis for right-sided pleural effusion - Chest x-ray personally reviewed shows tiny right-sided apical pneumothorax - Patient currently satting 99% on 4 L nasal cannula - Continue to monitor respiratory status - Continue supplemental oxygen to maintain O2 sats above 92% - Repeat chest x-ray in a.m. - Of note, cytology from thoracentesis 12/29/16 negative for malignant cells Hemoptysis - Status post recent thoracentesis - Patient anticoagulated on Coumadin - He is hemodynamically stable. - Hemoglobin and hematocrit are within normal limits. Continue to monitor. Stage III Non-small cell lung carcinoma/SVC syndrome - Completed radiation with concurrent chemotherapy March 2016 - Patient follows with Dr. Saba - Continue on Coumadin. INR subtherapeutic at 1.5. Continue to monitor INR. Pharmacy to dose. Left-sided chest pain, atypical - Patient is asymptomatic at this time - rule out for ACS although unlikely - Continuous cardiac monitoring - Initial troponin less than 0.02 - Continue trending cardiac enzymes COPD, not in acute exacerbation - Brian - Monitor respiratory status Splenic lesion - Incidental finding found on CT of abdomen/pelvis from September 2016 - Enlarging, worrisome for metastasis - Oncology aware and is following Status post excision of skin cancer back of head - Bacitracin ointment twice a day Hypertension/hyperlipidemia - Resume on home medications DVT prophylaxis - Patient is on Coumadin Discussed Condition With ED physician, patient This note was transcribed by cayla Jones ]. I, Dr. Trciia Jones personally performed the history, physical exam, and medical decision making; and confirmed the accuracy of the information in the transcribed note. Authenticated by Dr. Tricia Jones on 01/02/17 at 16:25. Jen Jones Jan 02, 2017 16:33 Tricia Jones MD Jan 03, 2017 10:41
[2017-01-02] MEDS ORDERED: SODIUM CHLORIDE 0.9% FLUSH 10 ML FLUSH IV FLUSH PRN (17:15)
[2017-01-02] MEDS ORDERED: WARFARIN SOD 2.5 MG TAB PO ONE (18:00)
[2017-01-02] MEDS: RESP: ALBUTEROL 2.5 MG/IPRATROPIUM 0.5 MG NEB (SCH) NEB (19:31)
[2017-01-02] MEDS: GABAPENTIN 300 MG CAP PO SCH (20:54)
[2017-01-02] MEDS: ATORVASTATIN 20 MG TAB PO SCH (20:54)
[2017-01-02] MEDS: BACITRACIN TOP OINT 15 GM TUBE TOPICAL SCH (20:54)
[2017-01-02] MEDS: SODIUM CHLORIDE 0.9% FLUSH 10 ML FLUSH IV FLUSH SCH (22:14)
[2017-01-02] MEDS: ACETAMINOPHEN 325 MG TAB PO PRN (22:15)
[2017-01-03] VITALS (12 sets, daily range): BP systolic 105–146; BP diastolic 55–68; PULSE 80–106; RESP 18–23; TEMP 97.5–98.2; O2SAT 94–99
[2017-01-03 05:19] LABS: AUTOMATED NEUTROPHIL # 2.5 TH/MM3 (1.8-7.7); BASOPHIL % 0.6 % (0.0-2.0); EOSINOPHIL # 0.1 TH/MM3 (0-0.4); EOSINOPHIL % 2.3 % (0.0-4.0); HEMATOCRIT 36.3 % (39.0-51.0); HEMO FLAGS DIFF FINAL; LYMPH % 17.5 % (9.0-44.0); LYMPHOCYTE # 0.6 TH/MM3 (1.0-4.8); MEAN CELL VOLUME 93.2 FL (80.0-100.0); MEAN CORPUSCULAR HEMOGLOBIN 32.3 PG (27.0-34.0); MEAN CORPUSCULAR HGB CONC 34.7 % (32.0-36.0); MONO % 11.1 % (0.0-8.0); NEUT % 68.5 % (16.0-70.0); PLATELET COUNT 161 TH/MM3 (150-450); RED BLOOD COUNT 3.89 MIL/MM3 (4.50-5.90); RED CELL DISTRIBUTION WIDTH 13.2 % (11.6-17.2); WHITE BLOOD COUNT 3.6 TH/MM3 (4.0-11.0)
[2017-01-03 05:25] LABS: INTERNATIONAL NORMALIZED RATIO 1.3 RATIO; PROTHROMBIN TIME - PATIENT 14.7 SEC (9.8-11.6)
[2017-01-03 05:55] LABS: ANION GAP 10 MEQ/L (5-15); BICARBONATE 30.4 MEQ/L (21.0-32.0); BLOOD UREA NITROGEN 19 MG/DL (7-18); CHLORIDE 102 MEQ/L (98-107); GLOMERULAR FILTRATION RATE 87 ML/MIN (>89); POTASSIUM 3.6 MEQ/L (3.5-5.1); SODIUM (NA) 142 MEQ/L (136-145)
[2017-01-03] MEDS: RESP: ALBUTEROL 2.5 MG/IPRATROPIUM 0.5 MG NEB (SCH) NEB ×3 (07:29→19:12)
[2017-01-03] MEDS: POTASSIUM CHLORIDE 10 MEQ CAP PO SCH (09:10)
--- NOTE | 2017-01-03 09:10 | RADRPT ---
EXAM DATE/TIME: 01/03/2017 08:33 [facility] COMPARISON: CHEST SINGLE AP, January 02, 2017, 13:26. CHEST PA & LAT, December 27, 2016, 17:00. INDICATIONS : Shortness of breath. Follow up pneumothorax. MEDICAL HISTORY : Hypercholesterolemia. Arthritis. Carcinoma, lung. CVA. COPD. Dyspnea. GERD. HTN. Superior vena cava s yndrome. Anticoagulant therapy. SURGICAL HISTORY : Thoracentesis. Hernia repair. Chemotherapy. ENCOUNTER: Subsequent ACUITY: 3 days PAIN SCORE: 0/10 LOCATION: Bilateral chest FINDINGS: There is a stable subtle right apical pneumothorax. Redemonstration of right suprahilar opacity. Stab le small right pleural effusion with elevation of the right hemidiaphragm. Very subtle blunting of th e posterior costophrenic angle on the left. Cardiac silhouette is within normal limits. Remainder of the exam is unchanged. CONCLUSION: 1. Stable subtle right apical pneumothorax. 2. Redemonstration of right suprahilar masslike opacity. 3. Small right and subtle left pleural effusions. 4. No significant interval change. Sammy Duval MD on January 03, 2017 at 8:59 Board Certified Radiologist. This report was verified electronically.
[2017-01-03] MEDS: FUROSEMIDE 40 MG TAB PO SCH (09:11)
[2017-01-03] MEDS: BACITRACIN TOP OINT 15 GM TUBE TOPICAL SCH ×2 (09:11→20:47)
[2017-01-03] MEDS: SODIUM CHLORIDE 0.9% FLUSH 10 ML FLUSH IV FLUSH SCH ×2 (09:11→20:47)
[2017-01-03] MEDS: GABAPENTIN 300 MG CAP PO SCH ×2 (09:11→20:46)
[2017-01-03] MEDS ORDERED: INFLUENZA VIRUS VACCINE (QUADRIVALENT) 0.5 ML SYR IM ONE (10:00)
[2017-01-03] MEDS: ATENOLOL 50 MG TAB PO SCH (11:24)
--- NOTE | 2017-01-03 12:24 | HHI.PR ---
Subjective Remarks Patient still having chest pain on the right side 8 out of 10 Repeated chest x-ray still showing apical pneumothorax not changed Objective Vitals Vital Signs Date Time Temp Pulse Resp B/P (MAP) Pulse Ox O2 Delivery O2 Flow Rate FiO2 01/03/17 11:21 97.5 106 20 146/68 (94) 97 01/03/17 07:43 97.5 94 18 123/57 (79) 94 01/03/17 07:31 95 Nasal Cannula 2.00 01/03/17 07:30 92 01/03/17 03:42 98.2 85 18 110/55 (73) 94 01/02/17 23:17 98.3 86 20 105/52 (69) 96 01/02/17 23:11 82 01/02/17 19:33 99 Nasal Cannula 4.00 01/02/17 19:21 97.4 88 16 126/61 (82) 100 01/02/17 19:08 93 01/02/17 18:52 97.5 90 20 128/58 (81) 100 01/02/17 18:39 99 Nasal Cannula 4.00 01/02/17 15:43 83 18 116/56 (76) 99 Nasal Cannula 4.00 01/02/17 14:12 86 18 122/61 (81) 98 Nasal Cannula 4.00 01/02/17 14:12 98 Nasal Cannula 4.00 01/02/17 13:15 92 18 122/61 (81) 96 Room Air 01/02/17 13:11 18 01/02/17 12:38 98.0 100 18 137/65 (89) 95 Result Diagram: 01/03/1739901/03/17399 Objective Remarks GENERAL: This is a elderly ill-appearing patient, in no apparent distress. SKIN: Cool and dry. Healing incision back of head s/p recent excision of cancerous lesion. HEAD: Normocephalic. (+)scalp tenderness around recent excision. EYES: Pupils equal round and reactive. Extraocular motions intact. No scleral icterus. No injection or drainage. ENT: Nose without bleeding or purulent drainage. Throat without erythema, tonsillar hypertrophy or exudate. Uvula midline. Airway patent. NECK: Trachea midline. No lymphadenopathy. Supple, nontender, no meningeal signs. CARDIOVASCULAR: Regular rate and rhythm without murmurs, gallops, or rubs. RESPIRATORY: Crackles bibasilar. No wheezes, rales, or rhonchi. GASTROINTESTINAL: Abdomen soft, non-tender, nondistended. No hepato-splenomegaly , or palpable masses. No guarding. MUSCULOSKELETAL: Extremities without clubbing, cyanosis, or edema. No joint tenderness, effusion, or edema noted. No calf tenderness. NEUROLOGICAL: Awake and alert. Able to move all extremities spontaneously. No focal neurologic findings appreciated.. Normal speech. A/P Assessment and Plan 76-year-old male with a history of non-small cell lung cancer status post recent admission with right-sided therapeutic thoracentesis with 2100 miles fluid removed admitted with complaints of hemoptysis, left-sided chest pain and post incisional pain from recent excision of cancerous lesion on the back of the head. Small right sided apical pneumothorax status post recent therapeutic thoracentesis for right-sided pleural effusion -Repeat the chest x-ray 01/03 still shows tiny right-sided apical pneumothorax no change in volume, however patient still having pain, we'll consult pulmonology - Continue to monitor respiratory status - Continue supplemental oxygen to maintain O2 sats above 92% - Repeat chest x-ray in a.m. - Of note, cytology from thoracentesis 12/29/16 negative for malignant cells Hemoptysis - Status post recent thoracentesis - Patient anticoagulated on Coumadin - He is hemodynamically stable. - Hemoglobin and hematocrit are within normal limits. Continue to monitor. Stage III Non-small cell lung carcinoma/SVC syndrome - Completed radiation with concurrent chemotherapy March 2016 - Patient follows with Dr. Saba - Continue on Coumadin. INR subtherapeutic at 1.5. Continue to monitor INR. Pharmacy to dose. Left-sided chest pain, atypical - Patient is asymptomatic at this time - rule out for ACS although unlikely - Continuous cardiac monitoring - Initial troponin less than 0.02 - Continue trending cardiac enzymes COPD, not in acute exacerbation - Brian - Monitor respiratory status Splenic lesion - Incidental finding found on CT of abdomen/pelvis from September 2016 - Enlarging, worrisome for metastasis - Oncology aware and is following Status post excision of skin cancer back of head - Bacitracin ointment twice a day Hypertension/hyperlipidemia - Resume on home medications DVT prophylaxis - Patient is on Coumadin Tricia Jones MD Jan 03, 2017 12:24
[2017-01-03] MEDS: ONDANSETRON HCL 4 MG/2 ML VIAL IVP PRN (14:50)
[2017-01-03] MEDS: ACETAMINOPHEN 325 MG TAB PO PRN ×2 (14:50→20:46)
[2017-01-03] MEDS ORDERED: HYDR-3580 PO (15:16)
[2017-01-03] MEDS ORDERED: CLON.5 PO (15:16)
[2017-01-03] MEDS: WARFARIN SOD 5 MG TAB PO SCH (15:30)
[2017-01-03] MEDS: ACETAMINOPHEN/HYDROcodone 325 MG/7.5 MG TAB PO PRN (15:32)
[2017-01-03] MEDS ORDERED: WARFARIN SOD 2 MG TAB PO ONE (16:00)
[2017-01-03] MEDS: cefTRIAXone INJ 1,000 MG in SODIUM CHLORIDE 0.9% INJ 100 ML IV SCH (16:37)
--- NOTE | 2017-01-03 16:58 | MB ---
cc: JEMMA EASTON DATE OF CONSULTATION 01/03/17 REASON FOR CONSULTATION COPD, hemoptysis, known history of lung cancer. HISTORY OF PRESENT ILLNESS Mr. Luna is a 76-year-old male with known history of mga-[id number] lung cancer and SV syndrome. The patient has had radiation and chemotherapy, presently anticoagulated, complaining of hemoptysis which is minor for the last two or three days. He had a recent right thoracentesis draining 2100 mL of fluid. The patient has mild exertional dyspnea. No orthopnea, no PND. He has chronic respiratory failure, presently on home oxygen therapy as well as bronchodilator therapy. Denies history of fever, chills or hemoptysis. PAST MEDICAL HISTORY 1. 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 History of COPD 3. Pleural effusion post thoracentesis 4. Hyperlipidemia, 5. Hypertension, 5. Acid reflux disease 6. He has a port in place MEDICATIONS 1. Inhaled bronchodilator 2. Atorvastatin 3. Coumadin 4. Potassium. 5. Lasix 6. Lopid 7. Atenolol 8. Gabapentin ALLERGIES None known to medication FAMILY HISTORY Noncontributory. REVIEW OF SYSTEMS A 12-point review of systems as per HPI and past history otherwise negative. SOCIAL HISTORY A long smoking history, however, smoked about nine years ago. Drinks alcohol on rare occasion. Does not use drugs. PHYSICAL EXAMINATION GENERAL: The patient is alert. VITAL SIGNS: Temperature 98, pulse 84, respirations 18, blood pressure 130/65. HEENT: Exam unremarkable. Eyes without icterus. NECK: Without adenopathy or thyroid enlargement. Central trachea. CHEST: Without dullness to percussion, decreased breath sounds at right base on auscultation. CARDIAC: PMI not appreciated. S1-S2 audible. No murmur or rub. ABDOMEN: Lax, audible bowel sounds. EXTREMITIES: No clubbing, cyanosis or edema. LABORATORY DATA White count 4.4, hemoglobin 13, hematocrit 38, platelets 164,000. Sodium 140, potassium 3.7, BUN 18, creatinine 0.9. IMAGING STUDIES Chest x-ray with tiny apical right pneumothorax which was previously present, apparently post thoracentesis, right suprahilar mass noted as well. IMPRESSION 1. Hemoptysis, probably due to underlying malignancy 2. Stage III [id number] lung cancer. 3. COPD 4. Hyperlipidemia. PLAN Patient is with minor hemoptysis. Antibiotic therapy would be appropriate for possible superimposed infection. The patient had concluded radiation therapy and has received chemotherapy. This needs to be discussed with Dr. Saba if he is a candidate for further radiation therapy. If this is the case, further evaluation including CT of the chest as well as bronchoscopic examination in an attempt to localize the exact origin of the patient's hemoptysis. Otherwise, empiric therapy with antibiotics and bronchodilator therapy will be appropriate. I do thank you for asking me to partake in Mr. Luna's care. Jemma Easton MD WWW/ /3:57 PM /4:50 PM
[2017-01-03] MEDS: clonazePAM 0.5 MG TAB PO PRN (20:46)
[2017-01-03] MEDS: ATORVASTATIN 20 MG TAB PO SCH (20:47)
[2017-01-04] VITALS (11 sets, daily range): BP systolic 108–119; BP diastolic 57–68; PULSE 75–94; RESP 16–24; TEMP 97.5–98.3; O2SAT 91–99
[2017-01-04] MEDS: ACETAMINOPHEN/HYDROcodone 325 MG/7.5 MG TAB PO PRN ×3 (00:08→19:36)
[2017-01-04 06:55] LABS: INTERNATIONAL NORMALIZED RATIO 1.2 RATIO; PROTHROMBIN TIME - PATIENT 13.4 SEC (9.8-11.6)
[2017-01-04] MEDS: RESP: ALBUTEROL 2.5 MG/IPRATROPIUM 0.5 MG NEB (SCH) NEB ×3 (07:26→20:01)
[2017-01-04] MEDS: SODIUM CHLORIDE 0.9% FLUSH 10 ML FLUSH IV FLUSH SCH ×2 (09:38→19:39)
[2017-01-04] MEDS: FUROSEMIDE 40 MG TAB PO SCH (09:38)
[2017-01-04] MEDS: ATENOLOL 50 MG TAB PO SCH (09:38)
[2017-01-04] MEDS: POTASSIUM CHLORIDE 10 MEQ CAP PO SCH (09:38)
[2017-01-04] MEDS: GABAPENTIN 300 MG CAP PO SCH ×2 (09:38→19:36)
[2017-01-04] MEDS: BACITRACIN TOP OINT 15 GM TUBE TOPICAL SCH ×2 (09:41→19:39)
[2017-01-04] MEDS ORDERED: LORazepam 2 MG/ML VIAL IV PUSH ONE (11:15)
[2017-01-04] MEDS: ONDANSETRON HCL 4 MG/2 ML VIAL IVP PRN (11:57)
[2017-01-04] MEDS: clonazePAM 0.5 MG TAB PO PRN (13:10)
--- NOTE | 2017-01-04 15:05 | HHI.PR ---
Subjective Remarks still having hemoptysis Pulmonary asked for oncology to reevaluate No significant change as far as the pneumothorax will repeat chest x-ray in a.m. Objective Vitals Vital Signs Date Time Temp Pulse Resp B/P (MAP) Pulse Ox O2 Delivery O2 Flow Rate FiO2 01/04/17 11:47 97.5 89 20 108/57 (74) 95 01/04/17 07:51 97.5 89 20 117/58 (77) 91 01/04/17 07:48 89 01/04/17 07:26 96 Nasal Cannula 2.00 01/04/17 04:24 98.0 79 18 119/59 (79) 93 01/04/17 04:02 75 01/04/17 00:01 94 01/03/17 23:26 98.2 85 18 105/56 (72) 96 01/03/17 20:00 80 01/03/17 19:42 97.9 83 18 129/61 (83) 95 01/03/17 19:13 98 01/03/17 16:11 98.2 82 23 113/56 (75) 99 01/03/17 16:02 80 I/O 01/03/17 01/03/17 01/03/17 01/04/17 01/04/17 01/04/17 07:00 15:00 23:00 07:00 15:00 23:00 Intake Total 100 ml 240 ml Balance 100 ml 240 ml Intake Oral 240 ml IV Total 100 ml # Voids 2 3 2 # Bowel Movements 1 Result Diagram: 01/03/1739901/03/17399 Objective Remarks GENERAL: This is a elderly ill-appearing patient, in no apparent distress. SKIN: Cool and dry. Healing incision back of head s/p recent excision of cancerous lesion. HEAD: Normocephalic. (+)scalp tenderness around recent excision. EYES: Pupils equal round and reactive. Extraocular motions intact. No scleral icterus. No injection or drainage. ENT: Nose without bleeding or purulent drainage. Throat without erythema, tonsillar hypertrophy or exudate. Uvula midline. Airway patent. NECK: Trachea midline. No lymphadenopathy. Supple, nontender, no meningeal signs. CARDIOVASCULAR: Regular rate and rhythm without murmurs, gallops, or rubs. RESPIRATORY: Crackles bibasilar. No wheezes, rales, or rhonchi. GASTROINTESTINAL: Abdomen soft, non-tender, nondistended. No hepato-splenomegaly , or palpable masses. No guarding. MUSCULOSKELETAL: Extremities without clubbing, cyanosis, or edema. No joint tenderness, effusion, or edema noted. No calf tenderness. NEUROLOGICAL: Awake and alert. Able to move all extremities spontaneously. No focal neurologic findings appreciated.. Normal speech. A/P Assessment and Plan 76-year-old male with a history of non-small cell lung cancer status post recent admission with right-sided therapeutic thoracentesis with 2100 miles fluid removed admitted with complaints of hemoptysis, left-sided chest pain and post incisional pain from recent excision of cancerous lesion on the back of the head. Small right sided apical pneumothorax status post recent therapeutic thoracentesis for right-sided pleural effusion -Repeat the chest x-ray 01/03 still shows tiny right-sided apical pneumothorax no change in volume, -Appreciate pulmonary consultation, recommending reevaluation by oncologist, and starting antibiotic Rocephin for suspected superimposed respiratory infection - Continue to monitor respiratory status - Continue supplemental oxygen to maintain O2 sats above 92% - Repeat chest x-ray in a.m. - Of note, cytology from thoracentesis 12/29/16 negative for malignant cells Hemoptysis - Status post recent thoracentesis - Patient anticoagulated on Coumadin - He is hemodynamically stable. - Hemoglobin and hematocrit are within normal limits. Continue to monitor. Stage III Non-small cell lung carcinoma/SVC syndrome - Completed radiation with concurrent chemotherapy March 2016 - Patient follows with Dr. Saba which was consulted for pulmonology recommendation - Continue on Coumadin. INR subtherapeutic at 1.5. Continue to monitor INR. Pharmacy to dose. Left-sided chest pain, atypical - Patient is asymptomatic at this time - rule out for ACS although unlikely - Continuous cardiac monitoring - Initial troponin less than 0.02 - Continue trending cardiac enzymes COPD, not in acute exacerbation - Brian - Monitor respiratory status Splenic lesion - Incidental finding found on CT of abdomen/pelvis from September 2016 - Enlarging, worrisome for metastasis - Oncology aware and is following Status post excision of skin cancer back of head - Bacitracin ointment twice a day Hypertension/hyperlipidemia - Resume on home medications DVT prophylaxis - Patient is on Coumadin Tricia Jones MD Jan 04, 2017 15:04
[2017-01-04] MEDS ORDERED: WARFARIN SOD 2.5 MG TAB PO ONE (16:00)
--- NOTE | 2017-01-04 16:18 | HHI.PR ---
Subjective Remarks alert no sob minor hemoptysis Objective Vital Signs Date Time Temp Pulse Resp B/P (MAP) Pulse Ox O2 Delivery O2 Flow Rate FiO2 01/04/17 11:47 97.5 89 20 108/57 (74) 95 01/04/17 07:51 97.5 89 20 117/58 (77) 91 01/04/17 07:48 89 01/04/17 07:26 96 Nasal Cannula 2.00 01/04/17 04:24 98.0 79 18 119/59 (79) 93 01/04/17 04:02 75 01/04/17 00:01 94 01/03/17 23:26 98.2 85 18 105/56 (72) 96 01/03/17 20:00 80 01/03/17 19:42 97.9 83 18 129/61 (83) 95 01/03/17 19:13 98 I/O 01/03/17 01/03/17 01/03/17 01/04/17 01/04/17 01/04/17 07:00 15:00 23:00 07:00 15:00 23:00 Intake Total 100 ml 240 ml Balance 100 ml 240 ml Intake Oral 240 ml IV Total 100 ml # Voids 2 3 2 # Bowel Movements 1 Result Diagram: 01/03/1739901/03/17399 Objective Remarks GENERAL: SKIN: Warm and dry. HEAD: Atraumatic. Normocephalic. EYES: Pupils equal and round. No scleral icterus. No injection or drainage. ENT: No nasal bleeding or discharge. Mucous membranes pink and moist. NECK: Trachea midline. No JVD. CARDIOVASCULAR: Regular rate and rhythm. RESPIRATORY: No accessory muscle use. Clear to auscultation. Breath sounds equal bilaterally. GASTROINTESTINAL: Abdomen soft, non-tender, nondistended. Hepatic and splenic margins not palpable. MUSCULOSKELETAL: Extremities without clubbing, cyanosis, or edema. No obvious deformities. NEUROLOGICAL: Awake and alert. No obvious cranial nerve deficits. Motor grossly within normal limits. Five out of 5 muscle strength in the arms and legs. Normal speech. PSYCHIATRIC: Appropriate mood and affect; insight and judgment normal. Assessment and Plan Assessment and Plan IMP: Minor hemoptysis lung CA PLAN STABLE AT PRESENT MQAY GO HOME ON PO ANTIBX OFFICE 1 WEEK Jemma Easton MD Jan 04, 2017 16:18
[2017-01-04] MEDS: WARFARIN SOD 5 MG TAB PO SCH (16:58)
[2017-01-04] MEDS: cefTRIAXone INJ 1,000 MG in SODIUM CHLORIDE 0.9% INJ 100 ML IV SCH (17:00)
[2017-01-04] MEDS: ATORVASTATIN 20 MG TAB PO SCH (19:36)
[2017-01-04] MEDS: HEPARIN SODIUM - SQ 10,000 UNITS/ML VIAL SQ SCH (19:39)
--- NOTE | 2017-01-04 20:21 | MB ---
cc: CHELSEA GUERRA M.D., KHALIL MD DATE OF CONSULTATION: 01/04/2017 ATTENDING PHYSICIAN: Dr. Jones REASON FOR CONSULTATION: Oncology consulted to render an opinion regarding patient with lung cancer, admitted with hemoptysis and chest pain. HISTORY OF PRESENT ILLNESS Patient is a 76-year-old male with history of a stage III [id number] lung cancer treated with concurrent chemotherapy and radiation completed March 2016. He had a good response to treatment. He was just admitted to the hospital on December 27, with mental status change. At that time he was found to have significant right-sided pleural effusion. He underwent thoracentesis removal of 2100 cc of fluid. Fluid cytology was negative for malignancy. He was just discharged last week. He stated that since a thoracentesis he had hemoptysis. He coughed up about a teaspoonful of bright red blood. His shortness of breath has improved since thoracentesis. He is complaining of pain in the left lateral chest as well as midsternal area. It is non-pleuritic. He also denies significant shortness of breath. He continues to complain of pain at the scalp biopsy site. He denies any fever or chills. Denies any chest pressure or palpitation. He has dyspnea on exertion but has no nausea or vomiting. Denies any diarrhea. Denies change in urinary habit. He stopped taking the Coumadin Monday because of hemoptysis. PAST MEDICAL HISTORY: 1. Nonsmall cell lung cancer. 2. Severe vena cava syndrome. 3. Chronic obstructive pulmonary disease. 4. Gastroesophageal reflux disease. 5. Hyperlipidemia. 6. Hypertension. 7. Neuropathy. 8. Right pleural effusion. 9. Lung cancer. PAST SURGICAL HISTORY: 1. Colonoscopy. 2. Hernia repair. 3. Port placement. 4. Multiple thoracenteses. 5. Excisional scalp lesion. FAMILY HISTORY: Noncontributory. SOCIAL HISTORY: He quit smoking more than nine years ago. He denies any alcohol use. He lives with his . REVIEW OF SYSTEMS Constitution: As above. Eyes: Negative. ENT: Negative. Cardiovascular: As above. Respiratory: As above. GI: Negative. : Negative. Musculoskeletal: Negative. Endocrine: Negative. Dermatology: As above. Psychiatric: As above. Neurologic: As above. PHYSICAL EXAMINATION: Vitals: Temperature 97.5, blood pressure 108/57, O2 saturation 95% room air. General: He is alert and oriented x3. No acute distress. He is eating his lunch. HEENT: Atraumatic, normocephalic. Pupils equal, round and reactive to light. Extraocular muscles intact. No scleral icterus. Oropharynx: dry mucosa. No lesion, no thrush. Neck: No thyromegaly. No palpable masses. Lymphatics: No palpable cervical, clavicular, axillary lymph node. Cardiovascular: Regular S1-S2 no murmur. Lungs: Slight decreased breath sounds lung bases. Occasional wheezes. Abdomen: Soft, nontender. Could not palpate liver or spleen. Extremities: No cyanosis, no clubbing, no edema, no calf tenderness. Back: No paravertebral tenderness. Skin: No rash or petechia. The scalp excision site well-healed. No erythema noted. Neurologic: Exam nonfocal. LABORATORY DATA Reviewed. ASSESSMENT: 1. [id number] lung cancer stage III. He presented with superior vena cava syndrome. He had a large mass in the right lower lobe with significant right paratracheal adenopathy causing occlusion of superior vena cava. He also had subcarinal adenopathy. Biopsy showed moderately differentiated to poorly differentiated adenocarcinoma. EGFR wild type, ALK negative and PDL1 5%. He completed radiation with concurrent chemotherapy in March of 2016. He had a CT angiogram done last week when he was admitted to the hospital which showed reaccumulation of right pleural effusion but there is no obvious mass or adenopathy. The CT of the abdomen and pelvis, however, showed splenic lesion that has enlarged and worrisome for metastatic disease. 2. Right pleural effusion. He had thoracentesis done last week with removal of 2100 mL fluid. Cytology again did not show any malignancy. On exam the fluid has not reaccumulated. His shortness of breath has significantly improved since the thoracentesis. 3. Hemoptysis, started after the thoracentesis. Etiology unclear. He stopped taking the Coumadin on Monday because of hemoptysis. He is still coughing up specs of blood. I would recommend doing a bronchoscopy to see if we can find the etiology of the hemoptysis. CT scan of the chest does not show clear recurrent malignancy at this time. 4. Splenic lesion noted incidentally on CT scan in September. His CT scan last week showed the splenic lesion was larger, worrisome for metastatic disease. However, this lesion is too risky for biopsy. I would recommend getting a PET scan as outpatient, and if it is hypermetabolic can consider giving him radiation. 5. Chronic obstructive pulmonary disease. He has quit smoking. He has chronic cough and shortness of breath. 6. Gastroesophageal reflux disease, stable. 7. Skin cancer. He has a lesion excised from the scalp. The wound is healing well. He still complains of pain around the excision site. 7. Hyperlipidemia. 8. Hypertension. 9. Peripheral neuropathy. PLAN 1. Recommend a bronchoscopy to further evaluate the hemoptysis. 2. Continue supportive care. 3. Start him on heparin for DVT prophylaxis. Coumadin may have to be on hold if he is going to have a bronchoscopy. 4. Continue empiric antibiotic. 5. Discussed with the patient and his daughter. Thank you Dr. Jones for asking me to see this patient. Chelsea Guerra MD [facility] /2:47 PM /7:31 PM MATTEO
[2017-01-05] VITALS (12 sets, daily range): BP systolic 93–108; BP diastolic 50–67; PULSE 74–98; RESP 15–20; TEMP 97.5–98.4; O2SAT 92–97
[2017-01-05] MEDS: ACETAMINOPHEN/HYDROcodone 325 MG/7.5 MG TAB PO PRN ×4 (03:41→23:48)
[2017-01-05 04:33] LABS: INTERNATIONAL NORMALIZED RATIO 1.2 RATIO; PROTHROMBIN TIME - PATIENT 13.4 SEC (9.8-11.6)
--- NOTE | 2017-01-05 08:10 | PD.ONC.PN ---
Subjective Subjective Remarks CP improved. No SOB. Still cough up small specks of blood this morning. Objective Data Date Time Temp Pulse Resp B/P (MAP) Pulse Ox O2 Delivery O2 Flow Rate FiO2 01/05/17 03:33 98.3 74 18 101/60 (74) 95 01/05/17 00:04 98.2 80 16 96/50 (65) 95 01/04/17 20:01 99 21 01/04/17 20:00 98.0 85 16 117/68 (84) 96 01/04/17 20:00 82 01/04/17 18:35 97.6 81 20 117/68 (84) 98 01/04/17 16:15 98.3 89 24 117/58 (77) 94 01/04/17 11:47 97.5 89 20 108/57 (74) 95 01/05/17 01/05/17 01/05/17 07:00 15:00 23:00 Intake Total 240 ml Balance 240 ml Result Diagram: 01/03/17 0400 01/03/17 0400 Laboratory Results Laboratory Tests Test 01/05/17 03:30 Prothrombin Time 13.4 SEC Prothromb Time International Ratio 1.2 RATIO Administered Medications Medications (Trade) Dose Ordered Sig/Hilaria Route PRN Reason Start Time Stop Time Status Last Admin Dose Admin Sodium Chloride (NS Flush) 2 ml BID IV FLUSH 01/02/17 21:00 01/04/17 19:39 Acetaminophen (Tylenol) 650 mg Q4H PRN PO headache/fever/pain1-4 01/02/17 17:15 01/03/17 20:46 Ondansetron HCl (Zofran Inj) 4 mg Q6H PRN IVP NAUSEA OR VOMITING 01/02/17 17:15 01/04/17 11:57 Bacitracin (Baciguent Oint) 1 applic Q12HR TOPICAL 01/02/17 21:00 01/04/17 19:39 Atenolol (Tenormin) 50 mg DAILY PO 01/03/17 09:00 01/04/17 09:38 Atorvastatin Calcium (Lipitor) 20 mg HS PO 01/02/17 21:00 01/04/17 19:36 Furosemide (Lasix) 40 mg DAILY PO 01/03/17 09:00 01/04/17 09:38 Gabapentin (Neurontin) 300 mg BID PO 01/02/17 21:00 01/04/17 19:36 Potassium Chloride (KCl) 20 meq DAILY PO 01/03/17 09:00 01/04/17 09:38 Warfarin Sodium (Coumadin) 5 mg DAILY@1600 PO 01/03/17 16:00 01/04/17 16:58 Albuterol/ Ipratropium (Duoneb Neb) 1 ampule Q6HR WHILE AWAKE NEB NEB 01/02/17 20:00 01/04/17 20:01 Clonazepam (KlonoPIN) 0.5 mg Q8H PRN PO ANXIETY 01/03/17 15:30 01/04/17 13:10 Acetaminophen/ Hydrocodone Bitart ([place] 7.5-325 Mg) 1 tab Q6H PRN PO pain scale 5-10 01/03/17 15:30 01/05/17 03:41 Ceftriaxone Sodium 1000 mg/ Sodium Chloride 100 ml @ 200 mls/hr Q24H IV 01/03/17 17:00 01/04/17 17:00 Heparin Sodium (Porcine) (Heparin Inj) 5,000 units Q12HR SQ 01/04/17 21:00 01/04/17 19:39 Objective Remarks GENERAL: Well-nourished, well-developed patient. SKIN: Warm and dry. HEAD: Normocephalic. EYES: No scleral icterus. No injection or drainage. NECK: Supple, trachea midline. No JVD or lymphadenopathy. LYMPHATIC: No adenopathy. CARDIOVASCULAR: Regular rate and rhythm without murmurs. RESPIRATORY: Breath sounds slightly decreased right lung base. No accessory muscle use. GASTROINTESTINAL: Abdomen soft, non-tender, nondistended. EXTREMITIES: No cyanosis, or edema. MUSCULOSKELETAL: Adequate muscle tone. NEUROLOGICAL: No obvious focal deficit. Awake, alert, and oriented x3. PSYCHIATRIC: Appropriate mood and affect; insight and judgment normal. Assessment/Plan Assessment 1. Oiz-deszf-ykzt lung cancer stage III. He presented with superior vena cava syndrome. He had a large mass in the right lower lobe with significant right paratracheal adenopathy causing occlusion of superior vena cava. He also had subcarinal adenopathy. Biopsy showed moderately differentiated to poorly differentiated adenocarcinoma. EGFR wild type, ALK negative and PDL1 5%. He completed radiation with concurrent chemotherapy in March of 2016. He had a CT angiogram done last week when he was admitted to the hospital which showed reaccumulation of right pleural effusion but there is no obvious mass or adenopathy. The CT of the abdomen and pelvis, however, showed splenic lesion that has enlarged and worrisome for metastatic disease. 2. Right pleural effusion. He had thoracentesis done last week with removal of 2100 mL fluid. Cytology again did not show any malignancy. On exam the fluid has not reaccumulated. His shortness of breath has significantly improved since the thoracentesis. 3. Hemoptysis, started after the thoracentesis. Etiology unclear. He stopped taking the Coumadin on Monday because of hemoptysis. He is still coughing up specks of blood. CT scan of the chest did not show clear recurrent malignancy at this time. 01/05 Cough up tiny specks of blood but better. Pulmonology recommend continue abx and f/u outpt for bronchoscopy if no improvement. 4. Splenic lesion noted incidentally on CT scan in September. His CT scan last week showed the splenic lesion was larger, worrisome for metastatic disease. However, this lesion is too risky for biopsy. I would recommend getting a PET scan as outpatient, and if it is hypermetabolic can consider giving him radiation. 5. Chronic obstructive pulmonary disease. He has quit smoking. He has chronic cough and shortness of breath. 6. Skin cancer. He has a lesion excised from the scalp. The wound is healing well. He still complains of pain around the excision site. No erythema noted. Plan PLAN 1. Continue abx and f/u pulmonology for bronchoscopy if no improvement of hemoptysis. 2. Continue supportive care. 3. Continue heparin for DVT prophylaxis until coumadin is therapeutic. Toro Saba MD Jan 05, 2017 08:10
[2017-01-05] MEDS: RESP: ALBUTEROL 2.5 MG/IPRATROPIUM 0.5 MG NEB (SCH) NEB ×3 (08:28→19:56)
[2017-01-05] MEDS: HEPARIN SODIUM - SQ 10,000 UNITS/ML VIAL SQ SCH ×2 (10:39→20:43)
[2017-01-05] MEDS: ATENOLOL 50 MG TAB PO SCH (10:40)
[2017-01-05] MEDS: POTASSIUM CHLORIDE 10 MEQ CAP PO SCH (10:40)
[2017-01-05] MEDS: clonazePAM 0.5 MG TAB PO PRN ×2 (10:40→20:29)
[2017-01-05] MEDS: GABAPENTIN 300 MG CAP PO SCH ×2 (10:41→20:29)
[2017-01-05] MEDS: FUROSEMIDE 40 MG TAB PO SCH (10:41)
[2017-01-05] MEDS: BACITRACIN TOP OINT 15 GM TUBE TOPICAL SCH ×2 (10:42→20:35)
[2017-01-05] MEDS: SODIUM CHLORIDE 0.9% FLUSH 10 ML FLUSH IV FLUSH SCH ×2 (10:46→20:29)
--- NOTE | 2017-01-05 10:59 | HHI.PR ---
Subjective Remarks alert no sob minor hemoptysis Objective Vital Signs Date Time Temp Pulse Resp B/P (MAP) Pulse Ox O2 Delivery O2 Flow Rate FiO2 01/05/17 09:43 97.6 98 20 102/60 (74) 97 01/05/17 08:25 97 21 01/05/17 03:33 98.3 74 18 101/60 (74) 95 01/05/17 00:04 98.2 80 16 96/50 (65) 95 01/04/17 20:01 99 21 01/04/17 20:00 98.0 85 16 117/68 (84) 96 01/04/17 20:00 82 01/04/17 18:35 97.6 81 20 117/68 (84) 98 01/04/17 16:15 98.3 89 24 117/58 (77) 94 01/04/17 11:47 97.5 89 20 108/57 (74) 95 I/O 01/04/17 01/04/17 01/04/17 01/05/17 01/05/17 01/05/17 07:00 15:00 23:00 07:00 15:00 23:00 Intake Total 240 ml 100 ml 240 ml Balance 240 ml 100 ml 240 ml Intake Oral 240 ml 240 ml IV Total 100 ml # Voids 2 2 Result Diagram: 01/03/1739901/03/17399 Objective Remarks GENERAL: SKIN: Warm and dry. HEAD: Atraumatic. Normocephalic. EYES: Pupils equal and round. No scleral icterus. No injection or drainage. ENT: No nasal bleeding or discharge. Mucous membranes pink and moist. NECK: Trachea midline. No JVD. CARDIOVASCULAR: Regular rate and rhythm. RESPIRATORY: No accessory muscle use. Clear to auscultation. Breath sounds equal bilaterally. GASTROINTESTINAL: Abdomen soft, non-tender, nondistended. Hepatic and splenic margins not palpable. MUSCULOSKELETAL: Extremities without clubbing, cyanosis, or edema. No obvious deformities. NEUROLOGICAL: Awake and alert. No obvious cranial nerve deficits. Motor grossly within normal limits. Five out of 5 muscle strength in the arms and legs. Normal speech. PSYCHIATRIC: Appropriate mood and affect; insight and judgment normal. Assessment and Plan Assessment and Plan IMP: Minor hemoptysis lung CA ONCOLOGY NOTE APPRETIATED PLAN BRONCHOSCOPY Jemma Fernandez MD Jan 05, 2017 10:59
--- NOTE | 2017-01-05 13:28 | RADRPT ---
EXAM DATE/TIME: 01/05/2017 12:37 [facility] COMPARISON: CHEST PA & LAT, January 03, 2017, 8:33. INDICATIONS : Evaluate neoplasm RADIATION DOSE: 8.01 CTDIvol (mGy) MEDICAL HISTORY : Hypertension. Carcinoma, lung. Cardiovascular disease SURGICAL HISTORY : None. ENCOUNTER: Initial ACUITY: 1 day PAIN SCALE: 0/10 LOCATION: chest TECHNIQUE: Volumetric scanning of the chest was performed. Using automated exposure control and adjustment of t he mA and/or kV according to patient size, radiation dose was kept as low as reasonably achievable to obtain optimal diagnostic quality images. DICOM format image data is available electronically for r eview and comparison. Follow-up recommendations for detected pulmonary nodules are based at a minimum on nodule size and pa tient risk factors according to Fleischner Society Guidelines. FINDINGS: LUNGS: Prominent area of consolidation in the medial right lung with sharp lateral demarcation, characterist ic of radiation pneumonitis measures in excess of 14 cm in superior/inferior extent and surrounds the bronchi in the upper middle and lower lobes. There is a pneumothorax in the medial right apex measu ring 2.7 cm and a right medial basilar pneumothorax which measures 1.6 cm. The left lung is clear. 7 mm calcified granuloma lateral right midlung. PLEURAE: Large right pleural effusion measures in excess of 5.8 cm in AP dimension and extends the upper one t hird of the lung. MEDIASTINUM: No enlarged middle mediastinal nodes. Coronary calcification. Several calcified middle mediastinal and right hilar nodes. There is mild thickening of the anterior pericardium measuring up to 1.2 cm. AXILLAE: Within normal limits. No lymphadenopathy. MUSCULOSKELETAL: Within normal limits for patient age. MISCELLANEOUS: Scattered calcifications in the liver and spleen characteristic of granulomatous exposure. CONCLUSION: 1. 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 2. Large right pleural effusion. 3. Localized pneumothoraces are seen in the medial right apex and medial right lower lung 4. Probable pericardial effusion. Dustin Francois MD on January 05, 2017 at 13:21 Board Certified Radiologist. This report was verified electronically.
--- NOTE | 2017-01-05 14:00 | HHI.PR ---
Subjective Remarks No significant deterioration since last night per nursing. Patient says he still is coughing up some specks of blood in the commode and then flushing them. Says that his breathing is much better today. Says his head still hurts where they had the excisional bx done. He admits to still having chest pain and admits that it is reproducible when i palpate his sternum and left sided rib cage. Objective Vital Signs Date Time Temp Pulse Resp B/P (MAP) Pulse Ox O2 Delivery O2 Flow Rate FiO2 01/05/17 12:00 98.4 75 18 93/50 (64) 95 01/05/17 09:43 97.6 98 20 102/60 (74) 97 01/05/17 08:25 97 21 01/05/17 08:00 75 01/05/17 03:33 98.3 74 18 101/60 (74) 95 01/05/17 00:04 98.2 80 16 96/50 (65) 95 01/04/17 20:01 99 21 01/04/17 20:00 98.0 85 16 117/68 (84) 96 01/04/17 20:00 82 01/04/17 18:35 97.6 81 20 117/68 (84) 98 01/04/17 16:15 98.3 89 24 117/58 (77) 94 I/O 01/04/17 01/04/17 01/04/17 01/05/17 01/05/17 01/05/17 07:00 15:00 23:00 07:00 15:00 23:00 Intake Total 240 ml 100 ml 240 ml Balance 240 ml 100 ml 240 ml Intake Oral 240 ml 240 ml IV Total 100 ml # Voids 2 2 Result Diagram: 01/03/1739901/03/170 Objective Remarks Lying in bed, awake, alert, no acute distress Unlabored breathing, clear lungs bilaterally chest wall TTP over sternum and left sided rib cage Has a healing deep excisional wound on his occipital scalp l A/P Assessment and Plan 76-year-old male with a history of non-small cell lung cancer status post recent admission with right-sided therapeutic thoracentesis with 2100 miles fluid removed admitted with complaints of hemoptysis, left-sided chest pain and post incisional pain from recent excision of cancerous lesion on the back of the head. Hemoptysis - Likely secondary to cancer, still persisting, pulmonology plans to do bronchoscopy in a.m. - Status post recent thoracentesis - Patient anticoagulated on Coumadin - He is hemodynamically stable. - Hemoglobin and hematocrit are within normal limits. Continue to monitor. Small right sided apical pneumothorax status post recent therapeutic thoracentesis for right-sided pleural effusion - Repeat the chest x-ray 01/03 still shows tiny right-sided apical pneumothorax no change in volume. 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 IINR stable at this time, pharmacy co-managing Left-sided chest wall pain - not cardiac COPD, not in acute exacerbation - DuoNebs - Monitor respiratory status Splenic lesion - Incidental finding found on CT of abdomen/pelvis from September 2016 - Enlarging, worrisome for metastasis per oncology who is following Status post excision of skin cancer back of head - Bacitracin ointment twice a day Hypertension/hyperlipidemia -home medications DVT prophylaxis - Patient is on Coumadin w/ heparin for bridging. INR currently 1.2. RN will contact pulmonology to see if they want to hold heparin and Coumadin for scope or not. Froy Vazquez MD Jan 05, 2017 14:00
[2017-01-05] MEDS: WARFARIN SOD 4 MG TAB PO SCH (16:00)
[2017-01-05] MEDS: cefTRIAXone INJ 1,000 MG in SODIUM CHLORIDE 0.9% INJ 100 ML IV SCH (17:17)
[2017-01-05] MEDS: ACETAMINOPHEN 325 MG TAB PO PRN (20:41)
[2017-01-05] MEDS: ATORVASTATIN 20 MG TAB PO SCH (20:43)
[2017-01-06] VITALS (12 sets, daily range): BP systolic 72–113; BP diastolic 40–62; PULSE 60–87; RESP 16–18; TEMP 97.8–98.3; O2SAT 93–98
[2017-01-06 06:09] LABS: INTERNATIONAL NORMALIZED RATIO 1.3 RATIO; PROTHROMBIN TIME - PATIENT 14.2 SEC (9.8-11.6)
[2017-01-06] MEDS: ATENOLOL 50 MG TAB PO SCH (07:10)
[2017-01-06] MEDS: RESP: ALBUTEROL 2.5 MG/IPRATROPIUM 0.5 MG NEB (SCH) NEB ×2 (08:06→14:00)
[2017-01-06] MEDS ORDERED: EPINEPHrine HCL (1:1000) 1 MG/ML VIAL ONE (08:31)
[2017-01-06] MEDS ORDERED: SODIUM CHLORIDE 0.9% 20 ML VIAL ONE (08:31)
[2017-01-06] MEDS ORDERED: LIDOCAINE HCL 2% PF SOLN 10 ML VIAL ONE (08:31)
--- NOTE | 2017-01-06 08:35 | PD.ONC.PN ---
Subjective Subjective Remarks Afebrile Still coughing up blood but overall improved "I'm so tired" Objective Data Date Time Temp Pulse Resp B/P (MAP) Pulse Ox O2 Delivery O2 Flow Rate FiO2 01/06/17 08:06 97 21 01/06/17 04:26 98.2 83 16 102/58 (73) 93 01/06/17 04:01 81 01/06/17 00:48 16 01/06/17 00:00 98.3 80 18 105/62 (76) 96 01/05/17 23:45 80 01/05/17 21:41 18 01/05/17 20:27 97.5 93 15 104/55 (71) 94 01/05/17 20:09 86 01/05/17 19:56 92 21 01/05/17 17:21 98.0 87 20 100/55 (70) 97 01/05/17 16:43 97.6 90 20 108/67 (81) 96 01/05/17 12:00 98.4 75 18 93/50 (64) 95 01/05/17 09:43 97.6 98 20 102/60 (74) 97 Result Diagram: 01/03/17 0400 01/03/17 0400 Laboratory Results Laboratory Tests Test 01/06/17 04:20 Prothrombin Time 14.2 SEC Prothromb Time International Ratio 1.3 RATIO Administered Medications Medications (Trade) Dose Ordered Sig/Hilaria Route PRN Reason Start Time Stop Time Status Last Admin Dose Admin Sodium Chloride (NS Flush) 2 ml BID IV FLUSH 01/02/17 21:00 01/05/17 20:29 Acetaminophen (Tylenol) 650 mg Q4H PRN PO headache/fever/pain1-4 01/02/17 17:15 01/05/17 20:41 Ondansetron HCl (Zofran Inj) 4 mg Q6H PRN IVP NAUSEA OR VOMITING 01/02/17 17:15 01/04/17 11:57 Bacitracin (Baciguent Oint) 1 applic Q12HR TOPICAL 01/02/17 21:00 01/05/17 20:35 Atenolol (Tenormin) 50 mg DAILY PO 01/03/17 09:00 01/06/17 07:10 Atorvastatin Calcium (Lipitor) 20 mg HS PO 01/02/17 21:00 01/05/17 20:43 Furosemide (Lasix) 40 mg DAILY PO 01/03/17 09:00 01/05/17 10:41 Gabapentin (Neurontin) 300 mg BID PO 01/02/17 21:00 01/05/17 20:29 Potassium Chloride (KCl) 20 meq DAILY PO 01/03/17 09:00 01/05/17 10:40 Albuterol/ Ipratropium (Duoneb Neb) 1 ampule Q6HR WHILE AWAKE NEB NEB 01/02/17 20:00 01/06/17 08:06 Clonazepam (KlonoPIN) 0.5 mg Q8H PRN PO ANXIETY 01/03/17 15:30 01/05/17 20:29 Acetaminophen/ Hydrocodone Bitart (Cassatt 7.5-325 Mg) 1 tab Q6H PRN PO pain scale 5-10 01/03/17 15:30 01/05/17 23:48 Ceftriaxone Sodium 1000 mg/ Sodium Chloride 100 ml @ 200 mls/hr Q24H IV 01/03/17 17:00 01/05/17 17:17 Heparin Sodium (Porcine) (Heparin Inj) 5,000 units Q12HR SQ 01/04/17 21:00 01/05/17 10:39 Objective Remarks GENERAL: Older male, chronically ill appearing resting in bed in no acute distress SKIN: Warm and dry. HEAD: Normocephalic. EYES: No injection or drainage. NECK: Supple, trachea midline. CARDIOVASCULAR: Regular rate and rhythm without murmurs. RESPIRATORY: Clear, diminished anteriorly. Breathing unlabored at rest. GASTROINTESTINAL: Abdomen soft, non-tender, nondistended. EXTREMITIES: No cyanosis, or edema. MUSCULOSKELETAL: Generalized weakness. NEUROLOGICAL: No obvious focal deficit. Awake, alert, and oriented x3. Assessment/Plan Assessment 1. Vtk-[id number]-ryux lung cancer stage III. He presented with superior vena cava syndrome. He had a large mass in the right lower lobe with significant right paratracheal adenopathy causing occlusion of superior vena cava. He also had subcarinal adenopathy. Biopsy showed moderately differentiated to poorly differentiated adenocarcinoma. EGFR wild type, ALK negative and PDL1 5%. He completed radiation with concurrent chemotherapy in March of 2016. He had a CT angiogram done last week when he was admitted to the hospital which showed reaccumulation of right pleural effusion but there is no obvious mass or adenopathy. The CT of the abdomen and pelvis, however, showed splenic lesion that has enlarged and worrisome for metastatic disease. 2. Right pleural effusion. He had thoracentesis done last week with removal of 2100 mL fluid. Cytology again did not show any malignancy. On exam the fluid has not reaccumulated. His shortness of breath has significantly improved since the thoracentesis. 3. Hemoptysis, started after the thoracentesis. Etiology unclear. He stopped taking the Coumadin on Monday because of hemoptysis. He is still coughing up specks of blood. CT scan of the chest did not show clear recurrent malignancy at this time. 01/06- Pulmonology planning bronchoscopy this am 4. Splenic lesion noted incidentally on CT scan in September. His CT scan last week showed the splenic lesion was larger, worrisome for metastatic disease. However, this lesion is too risky for biopsy. I would recommend getting a PET scan as outpatient, and if it is hypermetabolic can consider giving him radiation. 5. Chronic obstructive pulmonary disease. He has quit smoking. He has chronic cough and shortness of breath. 6. Skin cancer. He has a lesion excised from the scalp. The wound is healing well. He still complains of pain around the excision site. No erythema noted. Plan 1. Dr Easton planning bronchoscopy this am 2. Pt had CT thorax yesterday that showed radiation pneumonitis; likely chronic 3. Monitor CBC 4. Supportive care Attending Statement The exam, history, and the medical decision-making described in the above note were completed with the assistance of the mid-level provider. I reviewed and agree with the findings presented. I attest that I had a [id number] encounter with the patient on the same day, and personally performed and documented my assessment and findings in the medical record. Still has mild hemoptysis. Await bronchoscopy this am. CT showed reaccumulation of right pleural effusion and chronic radiation pneumonitis. No significant SOB. May have to consider pleurodesis if pleural effusion continue to worsen. Traci Merritt Jan 06, 2017 08:35 Toro Saba MD Jan 06, 2017 09:58
[2017-01-06] MEDS: PANTOPRAZOLE SOD 40 MG DELAYED RELEASE TAB PO SCH (09:00)
[2017-01-06] MEDS: SODIUM CHLORIDE 0.9% FLUSH 10 ML FLUSH IV FLUSH SCH ×2 (09:00→21:16)
[2017-01-06] MEDS ORDERED: methylPREDNISolone SOD SUCC 125 MG/2 ML VIAL IV PUSH SCH (09:00)
[2017-01-06] MEDS: HEPARIN SODIUM - SQ 10,000 UNITS/ML VIAL SQ SCH ×2 (09:00→21:14)
[2017-01-06] MEDS: BACITRACIN TOP OINT 15 GM TUBE TOPICAL SCH ×2 (09:00→21:00)
[2017-01-06] MEDS: POTASSIUM CHLORIDE 10 MEQ CAP PO SCH (09:53)
[2017-01-06] MEDS: FUROSEMIDE 40 MG TAB PO SCH (09:53)
[2017-01-06] MEDS: GABAPENTIN 300 MG CAP PO SCH ×2 (09:53→21:14)
--- NOTE | 2017-01-06 10:31 | HHI.PR ---
Subjective Remarks alert no sob minor hemoptysis RADIATION PNA BY CT , AND LARGE RIGHT EFUSION Objective Vital Signs Date Time Temp Pulse Resp B/P (MAP) Pulse Ox O2 Delivery O2 Flow Rate FiO2 01/06/17 08:06 97 21 01/06/17 04:26 98.2 83 16 102/58 (73) 93 01/06/17 04:01 81 01/06/17 00:48 16 01/06/17 00:00 98.3 80 18 105/62 (76) 96 01/05/17 23:45 80 01/05/17 21:41 18 01/05/17 20:27 97.5 93 15 104/55 (71) 94 01/05/17 20:09 86 01/05/17 19:56 92 21 01/05/17 17:21 98.0 87 20 100/55 (70) 97 01/05/17 16:43 97.6 90 20 108/67 (81) 96 01/05/17 12:00 98.4 75 18 93/50 (64) 95 I/O 01/05/17 01/05/17 01/05/17 01/06/17 01/06/17 01/06/17 06:59 14:59 22:59 06:59 14:59 22:59 Intake Total 240 ml Balance 240 ml Intake Oral 240 ml # Voids 2 Result Diagram: 01/03/1739901/03/17399 Objective Remarks GENERAL: SKIN: Warm and dry. HEAD: Atraumatic. Normocephalic. EYES: Pupils equal and round. No scleral icterus. No injection or drainage. ENT: No nasal bleeding or discharge. Mucous membranes pink and moist. NECK: Trachea midline. No JVD. CARDIOVASCULAR: Regular rate and rhythm. RESPIRATORY: No accessory muscle use. Clear to auscultation. Breath sounds equal bilaterally. GASTROINTESTINAL: Abdomen soft, non-tender, nondistended. Hepatic and splenic margins not palpable. MUSCULOSKELETAL: Extremities without clubbing, cyanosis, or edema. No obvious deformities. NEUROLOGICAL: Awake and alert. No obvious cranial nerve deficits. Motor grossly within normal limits. Five out of 5 muscle strength in the arms and legs. Normal speech. PSYCHIATRIC: Appropriate mood and affect; insight and judgment normal. Assessment and Plan Assessment and Plan IMP: Minor hemoptysis lung CA ONCOLOGY NOTE APPRETIATED PLAN BRONCHOSCOPY TODAY IR FOR RIGHT CHEST TUBE Jemma,Jemma Wadie MD Jan 06, 2017 10:31
[2017-01-06] MEDS ORDERED: DO NOT ADM ANY ANTICOAGULANT DRUGS PRN (11:00)
--- NOTE | 2017-01-06 12:25 | MR ---
cc: JEMMA EASTON M.D. DATE 01/06/2017 PROCEDURE Fiberoptic bronchoscopy flexible. REASON FOR BRONCHOSCOPY History of lung cancer, hemoptysis. PROCEDURE NOTE Fiberoptic bronchoscopy performed via LMA. Vocal cords intact. Trachea mildly hyperemic. Satcy sharp. Right mainstem bronchus, right upper, middle and lower lobes, left main bronchus, left upper and lower lobes inspected. No obstructive pathology or mass lesion seen. Mild diffuse hyperemia noted. Washings obtained from both sides of the tracheobronchial tree for routine TB, fungal cultures cytological exam. Procedure well tolerated. The patient transferred to recovery in stable condition. IMPRESSION 1. Mild tracheobronchitis 2. No obstruction. No mass lesion. 3. No evidence of active bleeding. 4. Procedure well tolerated. 5. The patient transferred recovery in stable condition. Jemma Easton MD [email or web address] /11:37 AM /12:25 PM
[2017-01-06] MEDS ORDERED: LIDOCAINE 1%/EPINEPHrine 1:100,000 SOLN 20 ML VIAL ONE (13:16)
--- NOTE | 2017-01-06 14:38 | PD.RAD ---
Post CT Procedure Prog Note Pre Procedure Diagnosis: (1) Lung mass Post Procedure Diagnosis: (1) Lung cancer Procedure Date: Jan 06, 2017 Supervising Radiologist: Sammy Duval Anesthesia: Local Plan of Activity Patient to Unit: ROPU Patient Condition: Good See PACS Report for procedural detail/treatment Sammy Duval MD Jan 06, 2017 14:38
--- NOTE | 2017-01-06 15:10 | RADRPT ---
EXAM DATE/TIME: 01/06/2017 14:18 INDICATIONS : Recurrent likely malignant pleural effusion. Chest tube placement are requested. MEDICATION(S): 1.) 75 mcg fentanyl (Sublimaze) IV DEVICE(S): 1.) 12 gauge [place] FLUID: Total volume [id number] cc of clear, yellow fluid was remoted. Fluid was sent for laboratory ordered studies. MEDICAL HISTORY : Carcinoma, lung. SURGICAL HISTORY : None. ENCOUNTER: Initial ACUITY: 1 day PAIN SCORE: 0/10 LOCATION: Right chest PROCEDURE : 1. CT guided chest tube placement. 2. Conscious sedation with continuous EKG and oximetry monitoring. The risks, benefits and alternatives to the procedure were explained and verbal and written consent w as obtained. The site was prepped in sterile fashion. Full sterile technique was used, including ca p, mask, sterile gloves and gown and a large sterile sheet. Hand hygiene and 2% chlorhexidine and/or betadine/alcohol prep was utilized per protocol for cutaneous antisepsis. The skin and subcutaneous tissues were infiltrated with local anesthetic solution. Using automated exposure control and adjus tment of the mA and/or kV according to patient size, radiation dose was kept as low as reasonably ach ievable to obtain optimal diagnostic quality images. DICOM format image data is available electronic ally for review and comparison. With CT guidance the chest was punctured and the prescribed catheter was placed in the lung apex. Wal l suction was applied. Post procedure images demonstrate satisfactory position of the tube. The cat heter was sutured in place and a Percu-Stay was applied. Conscious sedation was performed with the prescribed dosages and duration as above. The patient yessi ated the procedure well and there were no complications. EKG and oximetry remained stable throughout the procedure. The patient was sent to post anesthesia recovery in stable condition. CONCLUSION: Uncomplicated chest tube placement as above. Sammy Duval MD on January 06, 2017 at 15:08 Board Certified Radiologist. This report was verified electronically.
[2017-01-06] MEDS ORDERED: SODIUM CHLOR 0.9% 1000 ML INJ 1,000 ML IV SCH (16:00)
--- NOTE | 2017-01-06 17:24 | HHI.PR ---
Subjective Remarks No significant deterioration since last night per nursing except for some transient hypotension after bronchoscopy. Tolerated procedure well otherwise. Patient has also now returned from chest tube insertion. Objective Vital Signs Date Time Temp Pulse Resp B/P (MAP) Pulse Ox O2 Delivery O2 Flow Rate FiO2 01/06/17 13:15 78/50 (59) 01/06/17 13:00 75/44 (54) 01/06/17 12:45 72/40 (51) 01/06/17 12:11 98.4 73 19 97/54 (68) 97 Nasal Cannula 2 01/06/17 12:00 72 20 96/55 (69) 97 Nasal Cannula 2 01/06/17 11:45 75 24 105/57 (73) 96 Nasal Cannula 3 01/06/17 11:35 98.6 76 14 94/51 (65) 95 Nasal Cannula 4 01/06/17 11:20 80 167/68 01/06/17 09:00 98.3 60 18 100/60 (73) 98 01/06/17 08:06 97 21 01/06/17 04:26 98.2 83 16 102/58 (73) 93 01/06/17 04:01 81 01/06/17 00:48 16 01/06/17 00:00 98.3 80 18 105/62 (76) 96 01/05/17 23:45 80 01/05/17 21:41 18 01/05/17 20:27 97.5 93 15 104/55 (71) 94 01/05/17 20:09 86 01/05/17 19:56 92 21 I/O 01/05/17 01/05/17 01/05/17 01/06/17 01/06/17 01/06/17 07:00 15:00 23:00 07:00 15:00 23:00 Intake Total 240 ml 400 ml Balance 240 ml 400 ml Intake Oral 240 ml 0 ml IV Total 0 ml Other 400 ml # Voids 2 0 Result Diagram: 01/03/1739901/03/17399 Objective Remarks Lying in bed, awake, alert, no acute distress Unlabored breathing, clear lungs bilaterally Has chest tube on right side which is actively suctioning A/P Assessment and Plan 76-year-old male with a history of non-small cell lung cancer status post recent admission with right-sided therapeutic thoracentesis with 2100 miles fluid removed admitted with complaints of hemoptysis, left-sided chest pain and post incisional pain from recent excision of cancerous lesion on the back of the head. New hypotension - likely 2/2 sedation, given NS bolus, no signs of fever, improved post bolus, continue IVFs. Hemoptysis - Likely secondary to cancer, hemodynamically stable, on cost to be unremarkable, bronchoscopy is unremarkable for any obstruction or mass - just shows hyperemia suggestive of tracheobronchitis. 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 INR stable at this time, pharmacy co-managing Left-sided chest wall pain - not cardiac COPD, not in acute exacerbation - DuoNebs - Monitor respiratory status Splenic lesion - Incidental finding found on CT of abdomen/pelvis from September 2016 - Enlarging, worrisome for metastasis per oncology who is following Status post excision of skin cancer back of head - Bacitracin ointment twice a day Hypertension/hyperlipidemia -home medications DVT prophylaxis - Patient is on Coumadin w/ heparin for bridging. Resume anticoagulation post procedure. Froy Vazquez MD Jan 06, 2017 17:24
[2017-01-06] MEDS: cefTRIAXone INJ 1,000 MG in SODIUM CHLORIDE 0.9% INJ 100 ML IV SCH (17:43)
[2017-01-06] MEDS: WARFARIN SOD 4 MG TAB PO SCH (17:44)
[2017-01-06] MEDS: ONDANSETRON HCL 4 MG/2 ML VIAL IVP PRN (17:44)
[2017-01-06] MEDS: ACETAMINOPHEN/HYDROcodone 325 MG/7.5 MG TAB PO PRN ×2 (17:45→23:36)
[2017-01-06 18:18] LABS: TOTAL PROTEIN,PLEURAL FLUID 4.2 GM/DL
[2017-01-06 19:14] LABS: PLEURAL FLUID LYMPHS 53 %
[2017-01-06] MEDS: ATORVASTATIN 20 MG TAB PO SCH (21:00)
[2017-01-06] MEDS: clonazePAM 0.5 MG TAB PO PRN (21:14)
[2017-01-06] MEDS: ACETAMINOPHEN 325 MG TAB PO PRN (21:29)
[2017-01-07] VITALS (9 sets, daily range): BP systolic 97–111; BP diastolic 53–60; PULSE 77–91; RESP 16–18; TEMP 97.7–98; O2SAT 93–99
[2017-01-07] MEDS: ACETAMINOPHEN 325 MG TAB PO PRN (02:34)
[2017-01-07 05:41] LABS: INTERNATIONAL NORMALIZED RATIO 1.3 RATIO; PROTHROMBIN TIME - PATIENT 14.7 SEC (9.8-11.6)
[2017-01-07] MEDS: ACETAMINOPHEN/HYDROcodone 325 MG/7.5 MG TAB PO PRN ×3 (05:53→21:53)
[2017-01-07] MEDS: POTASSIUM CHLORIDE 10 MEQ CAP PO SCH (08:20)
[2017-01-07] MEDS: FUROSEMIDE 40 MG TAB PO SCH (08:20)
[2017-01-07] MEDS: PANTOPRAZOLE SOD 40 MG DELAYED RELEASE TAB PO SCH (08:20)
[2017-01-07] MEDS: GABAPENTIN 300 MG CAP PO SCH ×2 (08:20→19:41)
[2017-01-07] MEDS: SODIUM CHLORIDE 0.9% FLUSH 10 ML FLUSH IV FLUSH SCH ×2 (08:21→19:52)
[2017-01-07] MEDS: HEPARIN SODIUM - SQ 10,000 UNITS/ML VIAL SQ SCH ×2 (08:21→19:41)
[2017-01-07] MEDS: ATENOLOL 50 MG TAB PO SCH (09:00)
--- NOTE | 2017-01-07 09:18 | RADRPT ---
EXAM DATE/TIME: 01/07/2017 08:43 [facility] COMPARISON: CHEST PA & LAT, January 03, 2017, 8:33. CT THORAX W/O CONTRAST, January 05, 2017, 12:37. INDICATIONS : Pneumothorax. MEDICAL HISTORY : Carcinoma, lung. SURGICAL HISTORY : None. ENCOUNTER: Subsequent ACUITY: 2 days PAIN SCORE: 0/10 LOCATION: Bilateral chest FINDINGS: Right-sided paramediastinal airspace disease is stable. There is a small caliber right chest tube wit h no significant pneumothorax. Minimal basilar dependent atelectasis. Heart size normal. Atherosclero tic aorta. CONCLUSION: 1. Small caliber right chest tube present without significant pneumothorax. Jonathan Michel MD on January 07, 2017 at 9:14 Board Certified Radiologist. This report was verified electronically.
--- NOTE | 2017-01-07 10:23 | PD.ONC.PN ---
Subjective Subjective Remarks Afebrile C/o pain from chest tube insertion site Reports his breathing is much improved Had a difficult time sleeping last night Objective Data Date Time Temp Pulse Resp B/P (MAP) Pulse Ox O2 Delivery O2 Flow Rate FiO2 01/07/17 09:57 97.8 77 16 98/56 (70) 93 01/07/17 09:19 94 21 01/07/17 05:30 97.7 77 16 97/54 (68) 96 01/06/17 23:38 76 16 96/51 (66) 95 01/06/17 22:18 96 21 01/06/17 20:00 87 01/06/17 20:00 97.8 81 18 113/59 (77) 97 01/06/17 17:00 97.8 72 18 98/56 (70) 96 01/06/17 13:15 78/50 (59) 01/06/17 13:00 75/44 (54) 01/06/17 12:45 72/40 (51) 01/06/17 12:11 98.4 73 19 97/54 (68) 97 Nasal Cannula 2 01/06/17 12:00 72 20 96/55 (69) 97 Nasal Cannula 2 01/06/17 11:45 75 24 105/57 (73) 96 Nasal Cannula 3 01/06/17 11:35 98.6 76 14 94/51 (65) 95 Nasal Cannula 4 01/06/17 11:20 80 167/68 01/07/17 01/07/17 01/07/17 07:00 15:00 23:00 Intake Total 894 ml Output Total 200 ml Balance 694 ml Result Diagram: 01/03/17 0400 01/03/17 0400 Laboratory Results Laboratory Tests Test 01/06/17 14:30 01/07/17 05:17 Pleural Fluid WBC 464 /MM3 Pleural Fluid RBC 3978 /MM3 Pleural Fluid Neutrophils 4 % Pleural Fluid Lymphocytes 53 % Pleural Fluid Monocytes 6 % Pleural Fluid Eosinophils 37 % Pleural Fluid Comment Pleural Fluid Total Protein 4.2 GM/DL Pleural Fluid LDH 161 U/L Pleural Fluid Glucose 97 MG/DL Prothrombin Time 14.7 SEC Prothromb Time International Ratio 1.3 RATIO Culture Results Microbiology Date/Time Source Procedure Growth Status 01/06/17 14:30 Fluid Pleural Fluid Gram Stain - Final Resulted 01/06/17 14:30 Fluid Pleural Fluid Body Fluid Culture Pending Resulted 01/06/17 11:25 Bronchial Washings Bronchial Acid Fast Stain Pending Received 01/06/17 11:25 Bronchial Washings Bronchial Mycobacterial Culture Pending Received 01/06/17 11:25 Bronchial Washings Bronchial Fungal Smear - Final NO FUNGAL ELEMENTS SEEN. Resulted 01/06/17 11:25 Bronchial Washings Bronchial Fungal Culture Pending Resulted 01/06/17 11:25 Bronchial Washings Bronchial Gram Stain - Final Resulted 01/06/17 11:25 Bronchial Washings Bronchial Bronchial Culture Pending Resulted Imaging Studies Last 24 hours Impressions Chest X-Ray 01/07/17 0000 Signed Impressions: Service Date/Time: Saturday, January 07, 2017 08:43 - CONCLUSION: 1. Small caliber right chest tube present without significant pneumothorax. Jonathan Michel MD Chest Tube Insertion 01/06/17 1334 Signed Impressions: Service Date/Time: Friday, January 06, 2017 14:18 - CONCLUSION: Uncomplicated chest tube placement as above. Sammy Duval MD Administered Medications Medications (Trade) Dose Ordered Sig/Hilaria Route PRN Reason Start Time Stop Time Status Last Admin Dose Admin Sodium Chloride (NS Flush) 2 ml BID IV FLUSH 01/02/17 21:00 01/07/17 08:21 Acetaminophen (Tylenol) 650 mg Q4H PRN PO headache/fever/pain1-4 01/02/17 17:15 01/07/17 02:34 Ondansetron HCl (Zofran Inj) 4 mg Q6H PRN IVP NAUSEA OR VOMITING 01/02/17 17:15 01/06/17 17:44 Bacitracin (Baciguent Oint) 1 applic Q12HR TOPICAL 01/02/17 21:00 01/06/17 21:00 Atenolol (Tenormin) 50 mg DAILY PO 01/03/17 09:00 01/06/17 07:10 Atorvastatin Calcium (Lipitor) 20 mg HS PO 01/02/17 21:00 01/06/17 21:00 Furosemide (Lasix) 40 mg DAILY PO 01/03/17 09:00 01/07/17 08:20 Gabapentin (Neurontin) 300 mg BID PO 01/02/17 21:00 01/07/17 08:20 Potassium Chloride (KCl) 20 meq DAILY PO 01/03/17 09:00 01/07/17 08:20 Clonazepam (KlonoPIN) 0.5 mg Q8H PRN PO ANXIETY 01/03/17 15:30 01/06/17 21:14 Acetaminophen/ Hydrocodone Bitart ([place] 7.5-325 Mg) 1 tab Q6H PRN PO pain scale 5-10 01/03/17 15:30 01/07/17 05:53 Ceftriaxone Sodium 1000 mg/ Sodium Chloride 100 ml @ 200 mls/hr Q24H IV 01/03/17 17:00 01/06/17 17:43 Heparin Sodium (Porcine) (Heparin Inj) 5,000 units Q12HR SQ 01/04/17 21:00 01/07/17 08:21 Warfarin Sodium (Coumadin) 8 mg DAILY@1600 PO 01/05/17 16:00 01/06/17 17:44 Pantoprazole Sodium (Protonix) 40 mg DAILY PO 01/06/17 09:00 01/07/17 08:20 Objective Remarks GENERAL: Chronically ill appearing older male resting in bed asleep on approach. He awakens easily to verbal stimuli. SKIN: Warm and dry. HEAD: Normocephalic. EYES: No injection or drainage. NECK: Supple, trachea midline. CARDIOVASCULAR: +S1/S2. RRR. Chest tube with pigtail catheter inserted to R upper lateral chest. RESPIRATORY: Clear anteriorly. Breathing unlabored. GASTROINTESTINAL: Abdomen soft, non-tender, nondistended. EXTREMITIES: No cyanosis, or edema. NEUROLOGICAL: No obvious focal deficit. Awake, alert, and oriented x3. Assessment/Plan Assessment 1. Gaw-stezp-bqbt lung cancer stage III. He presented with superior vena cava syndrome. He had a large mass in the right lower lobe with significant right paratracheal adenopathy causing occlusion of superior vena cava. He also had subcarinal adenopathy. Biopsy showed moderately differentiated to poorly differentiated adenocarcinoma. EGFR wild type, ALK negative and PDL1 5%. He completed radiation with concurrent chemotherapy in March of 2016. He had a CT angiogram done last week when he was admitted to the hospital which showed reaccumulation of right pleural effusion but there is no obvious mass or adenopathy. The CT of the abdomen and pelvis, however, showed splenic lesion that has enlarged and worrisome for metastatic disease. 2. Right pleural effusion. He had thoracentesis done last week with removal of 2100 mL fluid. Cytology again did not show any malignancy. On exam the fluid has not reaccumulated. His shortness of breath has significantly improved since the thoracentesis. 3. Hemoptysis, started after the thoracentesis. Etiology unclear. He stopped taking the Coumadin on Monday because of hemoptysis. He is still coughing up specks of blood. CT scan of the chest did not show clear recurrent malignancy at this time. 4. Splenic lesion noted incidentally on CT scan in September. His CT scan last week showed the splenic lesion was larger, worrisome for metastatic disease. However, this lesion is too risky for biopsy. I would recommend getting a PET scan as outpatient, and if it is hypermetabolic can consider giving him radiation. 5. Chronic obstructive pulmonary disease. He has quit smoking. He has chronic cough and shortness of breath. 6. Skin cancer. He has a lesion excised from the scalp. The wound is healing well. He still complains of pain around the excision site. No erythema noted. Plan 1. Bronchoscopy yesterday showed mild tracheobronchitis. Cytology pending. 2. Chest tube draining significant amt; 1500 ml's out since insertion. 3. Await cytology results. 4. May possibly consider pleurodesis if accumulation continues 5. Supportive care. Attending Statement The exam, history, and the medical decision-making described in the above note were completed with the assistance of the mid-level provider. I reviewed and agree with the findings presented. I attest that I had a [id number] encounter with the patient on the same day, and personally performed and documented my assessment and findings in the medical record. Patient seen and examined, vital signs, labs and medications reviewed. History of non-small cell lung carcinoma on the right side status post chemoradiotherapy. Now with a right sided pleural effusion, no definite evidence of malignant cells. He does have a chest tube in place, we'll likely require pleurodesis on the right side given the high output of the pleural effusion/chest drain on the right side. Patient's ltlahi-[id number] was at bedside, she had many questions that were answered. Patient's [id number] indicates that the patient has a very poor social situation at home and at times has no access to food. She tells me that she has been grocery shopping for him and stocking his fridge and even cooking for him. She expresses concern about whether or not the patient will be able to care for himself after discharge. She would prefer he be transferred to a rehabilitation facility or a penitentiary facility. Traci Merritt Jan 07, 2017 10:23 Hadley Merino MD Jan 07, 2017 12:43
--- NOTE | 2017-01-07 11:16 | HHI.PR ---
Subjective Remarks No deterioration since last night per nursing. Patient's blood pressure has been fluctuating from the systolic 160 systolic 90s with no symptoms. Patient himself says that his breathing is much improved today. Objective Vital Signs Date Time Temp Pulse Resp B/P (MAP) Pulse Ox O2 Delivery O2 Flow Rate FiO2 01/07/17 09:57 97.8 77 16 98/56 (70) 93 01/07/17 09:19 94 21 01/07/17 05:30 97.7 77 16 97/54 (68) 96 01/06/17 23:38 76 16 96/51 (66) 95 01/06/17 22:18 96 21 01/06/17 20:00 87 01/06/17 20:00 97.8 81 18 113/59 (77) 97 01/06/17 17:00 97.8 72 18 98/56 (70) 96 01/06/17 13:15 78/50 (59) 01/06/17 13:00 75/44 (54) 01/06/17 12:45 72/40 (51) 01/06/17 12:11 98.4 73 19 97/54 (68) 97 Nasal Cannula 2 01/06/17 12:00 72 20 96/55 (69) 97 Nasal Cannula 2 01/06/17 11:45 75 24 105/57 (73) 96 Nasal Cannula 3 01/06/17 11:35 98.6 76 14 94/51 (65) 95 Nasal Cannula 4 01/06/17 11:20 80 167/68 I/O 01/06/17 01/06/17 01/06/17 01/07/17 01/07/17 01/07/17 07:00 15:00 23:00 07:00 15:00 23:00 Intake Total 400 ml 1700 ml 894 ml Output Total 2200 ml 200 ml Balance 400 ml -500 ml 694 ml Intake Oral 0 ml 600 ml IV Total 0 ml 1100 ml 894 ml Other 400 ml Output Urine Total 800 ml 100 ml Chest Tube Drainage Total 1400 ml 100 ml # Voids 0 2 Result Diagram: 01/03/1739901/03/17399 Objective Remarks Sitting up on side of the bed, no acute distress, seems more energetic today and awake today Unlabored breathing, chest tube in place on the right, clear lungs bilaterally all throughout Heart rate shows regular rate and rhythm, no murmurs Chest tube shows a collection of about 1500 MLS of yellow/brown fluid A/P Assessment and Plan 76-year-old male with a history of non-small cell lung cancer status post recent admission with right-sided therapeutic thoracentesis with 2100 miles fluid removed admitted with complaints of hemoptysis, left-sided chest pain and post incisional pain from recent excision of cancerous lesion on the back of the head. New hypotension - resolved Hemoptysis - Negative bronchoscopy except for mild tracheobronchitis, pulmonology following Small right sided apical pneumothorax status post recent therapeutic thoracentesis for right-sided pleural effusion - 1 day S/p chest tube insertion, at least 1500 mL suctioned so far, if continues with no significant improvement then home pulmonology plans for pleurodesis. Most recent cytology done previously is negative for malignant cells. 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 INR still subtherapeutic at 1.3, pharmacy comanaging COPD, not in acute exacerbation - DuoNebs - Monitor respiratory status Splenic lesion - Incidental finding found on CT of abdomen/pelvis from September 2016 - Enlarging, worrisome for metastasis per oncology who is following Status post excision of skin cancer back of head - Bacitracin ointment twice a day Hypertension/hyperlipidemia -home medications DVT prophylaxis - Patient is on Coumadin w/ heparin for bridging. Froy Vazquez MD Jan 07, 2017 11:16
[2017-01-07] MEDS: BACITRACIN TOP OINT 15 GM TUBE TOPICAL SCH ×2 (12:17→19:52)
[2017-01-07] MEDS: RESP: ALBUTEROL 2.5 MG/IPRATROPIUM 0.5 MG NEB (SCH) INH ×2 (13:06→21:14)
[2017-01-07] MEDS: WARFARIN SOD 4 MG TAB PO SCH (15:52)
[2017-01-07] MEDS: cefTRIAXone INJ 1,000 MG in SODIUM CHLORIDE 0.9% INJ 100 ML IV SCH (17:07)
[2017-01-07] MEDS: ATORVASTATIN 20 MG TAB PO SCH (19:46)
[2017-01-07] MEDS: clonazePAM 0.5 MG TAB PO PRN (21:52)
[2017-01-08] VITALS (9 sets, daily range): BP systolic 97–125; BP diastolic 54–70; PULSE 77–107; RESP 15–20; TEMP 97.5–98; O2SAT 94–97
[2017-01-08] MEDS: ACETAMINOPHEN/HYDROcodone 325 MG/7.5 MG TAB PO PRN ×3 (04:32→23:12)
[2017-01-08 07:35] LABS: INTERNATIONAL NORMALIZED RATIO 1.6 RATIO; PROTHROMBIN TIME - PATIENT 17.8 SEC (9.8-11.6)
[2017-01-08] MEDS: HEPARIN SODIUM - SQ 10,000 UNITS/ML VIAL SQ SCH ×2 (08:45→20:14)
[2017-01-08] MEDS: GABAPENTIN 300 MG CAP PO SCH ×2 (08:45→20:14)
[2017-01-08] MEDS: PANTOPRAZOLE SOD 40 MG DELAYED RELEASE TAB PO SCH (08:45)
[2017-01-08] MEDS: POTASSIUM CHLORIDE 10 MEQ CAP PO SCH (08:45)
[2017-01-08] MEDS: FUROSEMIDE 40 MG TAB PO SCH (08:45)
[2017-01-08] MEDS: BACITRACIN TOP OINT 15 GM TUBE TOPICAL SCH ×2 (08:46→20:14)
[2017-01-08] MEDS: SODIUM CHLORIDE 0.9% FLUSH 10 ML FLUSH IV FLUSH SCH ×2 (08:46→20:14)
[2017-01-08] MEDS: ATENOLOL 50 MG TAB PO SCH (09:00)
[2017-01-08] MEDS: RESP: ALBUTEROL 2.5 MG/IPRATROPIUM 0.5 MG NEB (SCH) INH ×3 (09:04→20:57)
--- NOTE | 2017-01-08 10:24 | HHI.PR ---
Subjective Remarks No deterioration since last night per nursing. Patient says his breathing is good. Tolerating by mouth intake well. His chest tube now says 1700 (1500 of output yesterday) Objective Vital Signs Date Time Temp Pulse Resp B/P (MAP) Pulse Ox O2 Delivery O2 Flow Rate FiO2 01/08/17 09:04 95 21 01/08/17 08:49 97.5 85 16 113/70 (84) 94 01/08/17 07:49 77 01/08/17 04:26 97.6 80 15 109/56 (73) 95 01/07/17 23:00 97.8 87 16 111/53 (72) 96 01/07/17 21:18 99 01/07/17 20:30 82 01/07/17 20:00 97.9 91 18 106/60 (75) 96 01/07/17 15:57 98.0 87 16 102/56 (71) 98 01/07/17 12:15 98.0 86 16 103/53 (70) 96 I/O 01/07/17 01/07/17 01/07/17 01/08/17 01/08/17 01/08/17 07:00 15:00 23:00 07:00 15:00 23:00 Intake Total 894 ml 720 ml 240 ml Output Total 200 ml 980 ml 180 ml Balance 694 ml -260 ml 60 ml Intake Oral 720 ml 240 ml IV Total 894 ml Output Urine Total 100 ml 900 ml 150 ml Chest Tube Drainage Total 100 ml 80 ml 30 ml Objective Remarks Sitting up on side of the bed, no acute distress, Unlabored breathing, chest tube in place on the right, clear lungs bilaterally all throughout Heart rate shows regular rate and rhythm, no murmurs Chest tube shows a collection of about 1700 ML of fluid A/P Assessment and Plan 76-year-old male with a history of non-small cell lung cancer status post recent admission with right-sided therapeutic thoracentesis with 2100 miles fluid removed admitted with complaints of hemoptysis, left-sided chest pain and post incisional pain from recent excision of cancerous lesion on the back of the head. Hemoptysis - Negative bronchoscopy except for mild tracheobronchitis, pulmonology following - no significant recurrence Small right sided apical pneumothorax status post recent therapeutic thoracentesis for right-sided pleural effusion - 2 days S/p chest tube insertion, at least 1700 mL suctioned so far, if continues with no significant improvement then pulmonology plans for pleurodesis. Most recent cytology done previously is negative for malignant cells. 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 INR showing improvement to 1.6, pharmacy comanaging COPD, not in acute exacerbation - DuoNebs - Monitor respiratory status Splenic lesion - Incidental finding found on CT of abdomen/pelvis from September 2016 - Enlarging, worrisome for metastasis per oncology who is following Status post excision of skin cancer back of head - Bacitracin ointment twice a day Hypertension/hyperlipidemia -home medications DVT prophylaxis - Patient is on Coumadin w/ heparin for bridging. Froy Vazquez MD Jan 08, 2017 10:24
[2017-01-08] MEDS: WARFARIN SOD 4 MG TAB PO SCH (15:21)
[2017-01-08] MEDS: cefTRIAXone INJ 1,000 MG in SODIUM CHLORIDE 0.9% INJ 100 ML IV SCH (16:24)
[2017-01-08] MEDS: ONDANSETRON HCL 4 MG/2 ML VIAL IVP PRN (20:03)
[2017-01-08] MEDS: ATORVASTATIN 20 MG TAB PO SCH (20:14)
[2017-01-08] MEDS: clonazePAM 0.5 MG TAB PO PRN (21:08)
[2017-01-09] VITALS (8 sets, daily range): BP systolic 92–119; BP diastolic 50–67; PULSE 78–94; RESP 16–20; TEMP 97.5–98.4; O2SAT 94–97
[2017-01-09] MEDS: ACETAMINOPHEN/HYDROcodone 325 MG/7.5 MG TAB PO PRN ×4 (04:52→22:20)
[2017-01-09 05:20] LABS: INTERNATIONAL NORMALIZED RATIO 2.1 RATIO; PROTHROMBIN TIME - PATIENT 23.6 SEC (9.8-11.6)
[2017-01-09] MEDS: GABAPENTIN 300 MG CAP PO SCH ×2 (07:39→22:19)
[2017-01-09] MEDS: SODIUM CHLORIDE 0.9% FLUSH 10 ML FLUSH IV FLUSH SCH ×2 (07:39→20:52)
[2017-01-09] MEDS: FUROSEMIDE 40 MG TAB PO SCH (07:40)
[2017-01-09] MEDS: ATENOLOL 50 MG TAB PO SCH (07:40)
[2017-01-09] MEDS: PANTOPRAZOLE SOD 40 MG DELAYED RELEASE TAB PO SCH (07:41)
[2017-01-09] MEDS: POTASSIUM CHLORIDE 10 MEQ CAP PO SCH (07:42)
[2017-01-09] MEDS: BACITRACIN TOP OINT 15 GM TUBE TOPICAL SCH ×2 (07:45→22:19)
[2017-01-09] MEDS: RESP: ALBUTEROL 2.5 MG/IPRATROPIUM 0.5 MG NEB (SCH) INH ×3 (07:51→19:49)
--- NOTE | 2017-01-09 09:29 | PD.ONC.PN ---
Subjective Subjective Remarks Afebrile overnight. Patient resting in bed in nad. No overnight events. 440cc drainage/24 hours Objective Data Date Time Temp Pulse Resp B/P (MAP) Pulse Ox O2 Delivery O2 Flow Rate FiO2 01/09/17 07:51 97 21 01/09/17 07:32 97.5 85 16 113/66 (82) 95 01/09/17 07:12 82 01/09/17 04:49 98.1 90 16 119/67 (84) 95 01/08/17 23:11 97.9 96 18 110/65 (80) 97 01/08/17 20:57 21 01/08/17 20:30 107 01/08/17 20:00 97.7 89 16 125/65 (85) 95 01/08/17 15:22 97.8 99 20 113/59 (77) 96 01/08/17 11:40 98.0 97 20 97/54 (68) 97 01/09/17 01/09/17 01/09/17 07:00 15:00 23:00 Output Total 450 ml Balance -450 ml Laboratory Results Laboratory Tests Test 01/09/17 04:47 Prothrombin Time 23.6 SEC Prothromb Time International Ratio 2.1 RATIO Culture Results Microbiology Date/Time Source Procedure Growth Status 01/06/17 14:30 Fluid Pleural Fluid Gram Stain - Final Resulted 01/06/17 14:30 Fluid Pleural Fluid Body Fluid Culture - Preliminary NO GROWTH IN 48 HOURS. Resulted 01/06/17 11:25 Bronchial Washings Bronchial Acid Fast Stain - Final NO ACID FAST BACILLI SEEN Resulted 01/06/17 11:25 Bronchial Washings Bronchial Mycobacterial Culture Pending Resulted 01/06/17 11:25 Bronchial Washings Bronchial Fungal Smear - Final NO FUNGAL ELEMENTS SEEN. Resulted 01/06/17 11:25 Bronchial Washings Bronchial Fungal Culture Pending Resulted 01/06/17 11:25 Bronchial Washings Bronchial Gram Stain - Final Complete 01/06/17 11:25 Bronchial Washings Bronchial Bronchial Culture - Final MODERATE GROWTH NORMAL RESPIRATORY KISHORE Complete Administered Medications Medications (Trade) Dose Ordered Sig/Hilaria Route PRN Reason Start Time Stop Time Status Last Admin Dose Admin Sodium Chloride (NS Flush) 2 ml BID IV FLUSH 01/02/17 21:00 01/09/17 07:39 Acetaminophen (Tylenol) 650 mg Q4H PRN PO headache/fever/pain1-4 01/02/17 17:15 01/07/17 02:34 Ondansetron HCl (Zofran Inj) 4 mg Q6H PRN IVP NAUSEA OR VOMITING 01/02/17 17:15 01/08/17 20:03 Bacitracin (Baciguent Oint) 1 applic Q12HR TOPICAL 01/02/17 21:00 01/09/17 07:45 Atenolol (Tenormin) 50 mg DAILY PO 01/03/17 09:00 01/09/17 07:40 Atorvastatin Calcium (Lipitor) 20 mg HS PO 01/02/17 21:00 01/08/17 20:14 Furosemide (Lasix) 40 mg DAILY PO 01/03/17 09:00 01/09/17 07:40 Gabapentin (Neurontin) 300 mg BID PO 01/02/17 21:00 01/09/17 07:39 Potassium Chloride (KCl) 20 meq DAILY PO 01/03/17 09:00 01/09/17 07:42 Clonazepam (KlonoPIN) 0.5 mg Q8H PRN PO ANXIETY 01/03/17 15:30 01/08/17 21:08 Ceftriaxone Sodium 1000 mg/ Sodium Chloride 100 ml @ 200 mls/hr Q24H IV 01/03/17 17:00 01/08/17 16:24 Warfarin Sodium (Coumadin) 8 mg DAILY@1600 PO 01/05/17 16:00 01/08/17 15:21 Pantoprazole Sodium (Protonix) 40 mg DAILY PO 01/06/17 09:00 01/09/17 07:41 Albuterol/ Ipratropium (Duoneb Neb) 1 ampule TID NEB INH 01/07/17 14:00 01/09/17 07:51 Acetaminophen/ Hydrocodone Bitart ([place] 7.5-325 Mg) 1 tab Q4H PRN PO pain scale 5-10 01/08/17 23:15 01/09/17 04:52 Objective Remarks GENERAL: Elderly male resting n bed in nad. SKIN: Warm and dry. HEAD: Normocephalic. EYES: No injection or drainage. NECK: Supple, trachea midline. CARDIOVASCULAR: +S1/S2 RESPIRATORY: anterior shields clear. CT in place to right chest wall draining clear fluid GASTROINTESTINAL: Abdomen soft, non-tender, nondistended. EXTREMITIES: No cyanosis Assessment/Plan Problem List: (1) Pleural effusion ICD Codes: J90 - Pleural effusion, not elsewhere classified Status: Acute Plan: --had thoracentesis done last week with removal of 2100 mL fluid. Cytology again did not show any malignancy. --has CT in place, still draining fluid. --will consult invasive radiology for pleurodesis. (2) Adenocarcinoma of lung ICD Codes: C34.90 - Malignant neoplasm of unspecified part of unspecified bronchus or lung Status: Chronic Plan: --Bnp-dloxv-asej lung cancer stage III. 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 had a large mass in the right lower lobe with significant right paratracheal adenopathy causing occlusion of superior vena cava. also had subcarinal adenopathy. --Biopsy showed moderately differentiated to poorly differentiated adenocarcinoma. EGFR wild type, ALK negative and PDL1 5%. --completed radiation with concurrent chemotherapy in March of 2016. --CT angiogram done last week when he was admitted to the hospital which showed reaccumulation of right pleural effusion but no obvious mass or adenopathy. --CT abdomen and pelvis, however, showed splenic lesion that had enlarged and worrisome for metastatic disease. -->this lesion is too risky for biopsy. would recommend getting a PET scan as outpatient, and if it is hypermetabolic can consider giving him radiation. (3) Hemoptysis ICD Codes: R04.2 - Hemoptysis Status: Resolved Plan: --currently resolved --started after the thoracentesis. Etiology unclear. -- CT scan of the chest did not show clear recurrent malignancy at this time. (4) COPD (chronic obstructive pulmonary disease) ICD Codes: J44.9 - Chronic obstructive pulmonary disease, unspecified Status: Chronic (5) Skin cancer ICD Codes: C44.90 - Unspecified malignant neoplasm of skin, unspecified Plan: --had a lesion excised from the scalp. wound is healing well. He still complains of pain around the excision site. No erythema noted. Assessment 76y/o male with NSCLC admitted with hemoptysis and pain. Plan 1. consult invasive radiology for pleurodesis 2. monitor CBC 3. continue supportive care 4. continue coumadin, stop heparin prophylaxis 5. monitor INR Attending Statement The exam, history, and the medical decision-making described in the above note were completed with the assistance of the mid-level provider. I reviewed and agree with the findings presented. I attest that I had a [id number] encounter with the patient on the same day, and personally performed and documented my assessment and findings in the medical record. Hemoptysis improved. Bronchoscopy showed no endobronchial lesion and no active bleeding. CT still draining. Fluid cytology from 01/06 showed no definite malignancy. Will consult IR for pleurodesis. Charla Bangura Jan 09, 2017 09:29 Toro Saba MD Jan 09, 2017 17:48
[2017-01-09] MEDS ORDERED: PROPOFOL 200 MG/20 ML AMP IV ONE (12:00)
[2017-01-09] MEDS ORDERED: ePHEDrine/NS 25 MG/5 ML SYR IV ONE (12:00)
[2017-01-09] MEDS ORDERED: PHENYLEPH/NS 1000 MCG/10 ML SYR IV ONE (12:00)
--- NOTE | 2017-01-09 13:03 | HHI.PR ---
Subjective Remarks No deterioration since last night per nursing. Patient says his breathing is good. Has had still considerable output from his chest tube in the last 24 hours apparently for 440 cc per heme/onc. Patient says he is still coughing up but very mild specks of blood. Awaiting on input from pulmonology. Objective Vital Signs Date Time Temp Pulse Resp B/P (MAP) Pulse Ox O2 Delivery O2 Flow Rate FiO2 01/09/17 10:59 97.6 80 20 108/57 (74) 97 01/09/17 07:51 97 21 01/09/17 07:32 97.5 85 16 113/66 (82) 95 01/09/17 07:12 82 01/09/17 04:49 98.1 90 16 119/67 (84) 95 01/08/17 23:11 97.9 96 18 110/65 (80) 97 01/08/17 20:57 21 01/08/17 20:30 107 01/08/17 20:00 97.7 89 16 125/65 (85) 95 01/08/17 15:22 97.8 99 20 113/59 (77) 96 I/O 01/08/17 01/08/17 01/08/17 01/09/17 01/09/17 01/09/17 07:00 15:00 23:00 07:00 15:00 23:00 Intake Total 240 ml 922 ml Output Total 180 ml 1040 ml 450 ml Balance 60 ml -118 ml -450 ml Intake Oral 240 ml 720 ml IV Total 202 ml Output Urine Total 150 ml 800 ml 250 ml Chest Tube Drainage Total 30 ml 240 ml 200 ml # Bowel Movements 1 Objective Remarks Sitting up on side of the bed, no acute distress, Unlabored breathing, chest tube in place on the right, clear lungs bilaterally all throughout A/P Assessment and Plan 76-year-old male with a history of non-small cell lung cancer status post recent admission with right-sided therapeutic thoracentesis with 2100 miles fluid removed admitted with complaints of hemoptysis, left-sided chest pain and post incisional pain from recent excision of cancerous lesion on the back of the head. Hemoptysis - Negative bronchoscopy except for mild tracheobronchitis, pulmonology following - clinically very mild Small right sided apical pneumothorax status post recent therapeutic thoracentesis for right-sided pleural effusion - 3 days S/p chest tube insertion, still has considerable chest tube output. Most recent cytology done previously is negative for malignant cells. 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 INR showing improvement to 2.1, pharmacy comanaging COPD, not in acute exacerbation - DuoNebs - Monitor respiratory status Splenic lesion - Incidental finding found on CT of abdomen/pelvis from September 2016 - Enlarging, worrisome for metastasis per oncology who is following - oncology recommending outpatient PET scan Status post excision of skin cancer back of head - Bacitracin ointment twice a day Hypertension/hyperlipidemia -home medications DVT prophylaxis - Patient is on Coumadin w/ heparin for bridging. Froy Vazquez MD Jan 09, 2017 13:03
--- NOTE | 2017-01-09 16:43 | HHI.PR ---
Subjective Remarks alert no sob minor hemoptysis RADIATION PNA BY CT , AND LARGE RIGHT EFUSION Objective Vital Signs Date Time Temp Pulse Resp B/P (MAP) Pulse Ox O2 Delivery O2 Flow Rate FiO2 01/09/17 10:59 97.6 80 20 108/57 (74) 97 01/09/17 07:51 97 21 01/09/17 07:32 97.5 85 16 113/66 (82) 95 01/09/17 07:12 82 01/09/17 04:49 98.1 90 16 119/67 (84) 95 01/08/17 23:11 97.9 96 18 110/65 (80) 97 01/08/17 20:57 21 01/08/17 20:30 107 01/08/17 20:00 97.7 89 16 125/65 (85) 95 I/O 01/08/17 01/08/17 01/08/17 01/09/17 01/09/17 01/09/17 07:00 15:00 23:00 07:00 15:00 23:00 Intake Total 240 ml 922 ml Output Total 180 ml 1040 ml 450 ml Balance 60 ml -118 ml -450 ml Intake Oral 240 ml 720 ml IV Total 202 ml Output Urine Total 150 ml 800 ml 250 ml Chest Tube Drainage Total 30 ml 240 ml 200 ml # Bowel Movements 1 Objective Remarks GENERAL: SKIN: Warm and dry. HEAD: Atraumatic. Normocephalic. EYES: Pupils equal and round. No scleral icterus. No injection or drainage. ENT: No nasal bleeding or discharge. Mucous membranes pink and moist. NECK: Trachea midline. No JVD. CARDIOVASCULAR: Regular rate and rhythm. RESPIRATORY: No accessory muscle use. Clear to auscultation. Breath sounds equal bilaterally. GASTROINTESTINAL: Abdomen soft, non-tender, nondistended. Hepatic and splenic margins not palpable. MUSCULOSKELETAL: Extremities without clubbing, cyanosis, or edema. No obvious deformities. NEUROLOGICAL: Awake and alert. No obvious cranial nerve deficits. Motor grossly within normal limits. Five out of 5 muscle strength in the arms and legs. Normal speech. PSYCHIATRIC: Appropriate mood and affect; insight and judgment normal. Assessment and Plan Assessment and Plan IMP: stable post bronchoscopy and CT placement Minor hemoptysis no distress lung CA ONCOLOGY NOTE APPRETIATED PLAN pleurodesis when fluid drainage reduced Jemma Easton MD Jan 09, 2017 16:43
[2017-01-09] MEDS: cefTRIAXone INJ 1,000 MG in SODIUM CHLORIDE 0.9% INJ 100 ML IV SCH (17:59)
[2017-01-09] MEDS: WARFARIN SOD 1 MG TAB PO SCH (17:59)
[2017-01-09] MEDS: WARFARIN SOD 6 MG TAB PO SCH (17:59)
[2017-01-09] MEDS: ONDANSETRON HCL 4 MG/2 ML VIAL IVP PRN (20:51)
[2017-01-09] MEDS: ATORVASTATIN 20 MG TAB PO SCH (22:19)
[2017-01-10] VITALS (9 sets, daily range): BP systolic 96–116; BP diastolic 51–62; PULSE 76–87; RESP 16–20; TEMP 97.7–98.5; O2SAT 93–96
[2017-01-10] MEDS: ACETAMINOPHEN/HYDROcodone 325 MG/7.5 MG TAB PO PRN ×3 (03:20→21:47)
[2017-01-10 06:44] LABS: INTERNATIONAL NORMALIZED RATIO 2.2 RATIO; PROTHROMBIN TIME - PATIENT 25.4 SEC (9.8-11.6)
[2017-01-10 06:47] LABS: AUTOMATED NEUTROPHIL # 2.6 TH/MM3 (1.8-7.7); BASOPHIL % 0.8 % (0.0-2.0); EOSINOPHIL # 0.1 TH/MM3 (0-0.4); HEMATOCRIT 36.5 % (39.0-51.0); HEMO FLAGS DIFF FINAL; LYMPH % 20.1 % (9.0-44.0); LYMPHOCYTE # 0.8 TH/MM3 (1.0-4.8); MEAN CORPUSCULAR HEMOGLOBIN 32.1 PG (27.0-34.0); MEAN CORPUSCULAR HGB CONC 34.9 % (32.0-36.0); MONO % 10.4 % (0.0-8.0); NEUT % 66.7 % (16.0-70.0); PLATELET COUNT 180 TH/MM3 (150-450); RED BLOOD COUNT 3.97 MIL/MM3 (4.50-5.90)
[2017-01-10] MEDS: RESP: ALBUTEROL 2.5 MG/IPRATROPIUM 0.5 MG NEB (SCH) INH ×3 (07:52→21:56)
[2017-01-10] MEDS: GABAPENTIN 300 MG CAP PO SCH ×2 (08:21→21:08)
[2017-01-10] MEDS: POTASSIUM CHLORIDE 10 MEQ CAP PO SCH (08:21)
[2017-01-10] MEDS: BACITRACIN TOP OINT 15 GM TUBE TOPICAL SCH ×2 (08:21→21:24)
[2017-01-10] MEDS: FUROSEMIDE 40 MG TAB PO SCH (08:21)
[2017-01-10] MEDS: ATENOLOL 50 MG TAB PO SCH (08:21)
[2017-01-10] MEDS: PANTOPRAZOLE SOD 40 MG DELAYED RELEASE TAB PO SCH (08:21)
[2017-01-10] MEDS: SODIUM CHLORIDE 0.9% FLUSH 10 ML FLUSH IV FLUSH SCH ×2 (08:21→21:09)
--- NOTE | 2017-01-10 11:45 | PD.ONC.PN ---
Subjective Subjective Remarks Afebrile overnight. Patient resting in chair next to bed with daughter and granddaughter at bedside. 330cc CT output/24 hours tired of being in the hospital. Objective Data Date Time Temp Pulse Resp B/P (MAP) Pulse Ox O2 Delivery O2 Flow Rate FiO2 01/10/17 08:19 98.3 87 20 116/51 (72) 94 01/10/17 08:01 78 01/10/17 07:52 95 21 01/10/17 04:20 16 01/10/17 04:00 76 01/10/17 04:00 98.1 79 16 102/52 (69) 93 01/10/17 00:00 78 01/10/17 00:00 98.5 79 18 96/55 (69) 96 01/09/17 20:00 98.4 94 18 92/50 (64) 94 01/09/17 20:00 93 01/09/17 19:50 96 21 01/09/17 17:48 98.3 78 20 96/51 (66) 95 01/10/17 01/10/17 01/10/17 07:00 15:00 23:00 Output Total 250 ml Balance -250 ml Result Diagram: 01/10/17 0609 Laboratory Results Laboratory Tests Test 01/10/17 06:08 01/10/17 06:09 Prothrombin Time 25.4 SEC Prothromb Time International Ratio 2.2 RATIO White Blood Count 4.0 TH/MM3 Red Blood Count 3.97 MIL/MM3 Hemoglobin 12.8 GM/DL Hematocrit 36.5 % Mean Corpuscular Volume 92.0 FL Mean Corpuscular Hemoglobin 32.1 PG Mean Corpuscular Hemoglobin Concent 34.9 % Red Cell Distribution Width 13.0 % Platelet Count 180 TH/MM3 Mean Platelet Volume 8.8 FL Neutrophils (%) (Auto) 66.7 % Lymphocytes (%) (Auto) 20.1 % Monocytes (%) (Auto) 10.4 % Eosinophils (%) (Auto) 2.0 % Basophils (%) (Auto) 0.8 % Neutrophils # (Auto) 2.6 TH/MM3 Lymphocytes # (Auto) 0.8 TH/MM3 Monocytes # (Auto) 0.4 TH/MM3 Eosinophils # (Auto) 0.1 TH/MM3 Basophils # (Auto) 0.0 TH/MM3 CBC Comment DIFF FINAL Differential Comment Administered Medications Medications (Trade) Dose Ordered Sig/Hilaria Route PRN Reason Start Time Stop Time Status Last Admin Dose Admin Sodium Chloride (NS Flush) 2 ml BID IV FLUSH 01/02/17 21:00 01/10/17 08:21 Acetaminophen (Tylenol) 650 mg Q4H PRN PO headache/fever/pain1-4 01/02/17 17:15 01/07/17 02:34 Ondansetron HCl (Zofran Inj) 4 mg Q6H PRN IVP NAUSEA OR VOMITING 01/02/17 17:15 01/09/17 20:51 Bacitracin (Baciguent Oint) 1 applic Q12HR TOPICAL 01/02/17 21:00 01/10/17 08:21 Atenolol (Tenormin) 50 mg DAILY PO 01/03/17 09:00 01/10/17 08:21 Atorvastatin Calcium (Lipitor) 20 mg HS PO 01/02/17 21:00 01/09/17 22:19 Furosemide (Lasix) 40 mg DAILY PO 01/03/17 09:00 01/10/17 08:21 Gabapentin (Neurontin) 300 mg BID PO 01/02/17 21:00 01/10/17 08:21 Potassium Chloride (KCl) 20 meq DAILY PO 01/03/17 09:00 01/10/17 08:21 Clonazepam (KlonoPIN) 0.5 mg Q8H PRN PO ANXIETY 01/03/17 15:30 01/08/17 21:08 Ceftriaxone Sodium 1000 mg/ Sodium Chloride 100 ml @ 200 mls/hr Q24H IV 01/03/17 17:00 01/09/17 17:59 Pantoprazole Sodium (Protonix) 40 mg DAILY PO 01/06/17 09:00 01/10/17 08:21 Albuterol/ Ipratropium (Duoneb Neb) 1 ampule TID NEB INH 01/07/17 14:00 01/10/17 07:52 Acetaminophen/ Hydrocodone Bitart ([place] 7.5-325 Mg) 1 tab Q4H PRN PO pain scale 5-10 01/08/17 23:15 01/10/17 03:20 Warfarin Sodium (Coumadin) 6 mg DAILY@1600 PO 01/09/17 16:00 11/27/17 17:59 Warfarin Sodium (Coumadin) 1 mg DAILY@1600 PO 01/09/17 16:00 01/09/17 17:59 Objective Remarks GENERAL: Elderly male sitting up in bed in [place]. SKIN: Warm and dry. HEAD: Normocephalic. EYES: No injection or drainage. NECK: Supple, trachea midline. CARDIOVASCULAR: Regular rate and rhythm. RESPIRATORY: diminished at right base. occasional rhonchi. GASTROINTESTINAL: Abdomen soft, non-tender, nondistended. EXTREMITIES: No cyanosis NEUROLOGICAL: awake and alert, normal speech. Assessment/Plan Problem List: (1) Pleural effusion ICD Codes: J90 - Pleural effusion, not elsewhere classified Status: Acute Plan: --had thoracentesis done last week with removal of 2100 mL fluid. Cytology again did not show any malignancy. --has CT in place, still draining fluid. --invasive radiology consulted for pleurodesis. they are awaiting drainage to lessen to less than 150cc/24hrs (2) Adenocarcinoma of lung ICD Codes: C34.90 - Malignant neoplasm of unspecified part of unspecified bronchus or lung Status: Chronic Plan: --[id number] lung cancer stage III. 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 had a large mass in the right lower lobe with significant right paratracheal adenopathy causing occlusion of superior vena cava. also had subcarinal adenopathy. --Biopsy showed moderately differentiated to poorly differentiated adenocarcinoma. EGFR wild type, ALK negative and PDL1 5%. --completed radiation with concurrent chemotherapy in March of 2016. --CT angiogram done last week when he was admitted to the hospital which showed reaccumulation of right pleural effusion but no obvious mass or adenopathy. --CT abdomen and pelvis, however, showed splenic lesion that had enlarged and worrisome for metastatic disease. -->this lesion is too risky for biopsy. would recommend getting a PET scan as outpatient, and if it is hypermetabolic can consider giving him radiation. (3) Hemoptysis ICD Codes: R04.2 - Hemoptysis Status: Resolved Plan: --currently resolved --started after the thoracentesis. Etiology unclear. -- CT scan of the chest did not show clear recurrent malignancy at this time. --on antibiotics for possible superimposed infection. (4) COPD (chronic obstructive pulmonary disease) ICD Codes: J44.9 - Chronic obstructive pulmonary disease, unspecified Status: Chronic (5) Skin cancer ICD Codes: C44.90 - Unspecified malignant neoplasm of skin, unspecified Plan: --had a lesion excised from the scalp. wound is healing well. He still complains of pain around the excision site. No erythema noted. 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 h/o Severe vena cava syndrome. Chronic obstructive pulmonary disease. Gastroesophageal reflux disease.Hyperlipidemia. Hypertension.Neuropathy. Right pleural effusion. Lung cancer. Plan 1. await pleurodesis 2. monitor CBC 3. monitor INR 4. continue coumadin Attending Statement The exam, history, and the medical decision-making described in the above note were completed with the assistance of the mid-level provider. I reviewed and agree with the findings presented. I attest that I had a [id number] encounter with the patient on the same day, and personally performed and documented my assessment and findings in the medical record. No CP/SOB. CT still draining. Await pleurodesis. Pleural fluid cytology from 01/06 negative for malignancy. Continue supportive care. INR now therapeutic. Charla Bangura Jan 10, 2017 11:45 Toro Saba MD Jan 10, 2017 15:04
--- NOTE | 2017-01-10 13:34 | HHI.PR ---
Subjective Remarks Follow-up right large pleural effusion/hemoptysis 01/10/17-patient seen and examined, some shortness of breath. Chest tube with high output. Currently afebrile Objective Vitals Vital Signs Date Time Temp Pulse Resp B/P (MAP) Pulse Ox O2 Delivery O2 Flow Rate FiO2 01/10/17 12:02 97.7 81 18 109/62 (78) 96 01/10/17 08:19 98.3 87 20 116/51 (72) 94 01/10/17 08:01 78 01/10/17 07:52 95 21 01/10/17 04:20 16 01/10/17 04:00 76 01/10/17 04:00 98.1 79 16 102/52 (69) 93 01/10/17 00:00 78 01/10/17 00:00 98.5 79 18 96/55 (69) 96 01/09/17 20:00 98.4 94 18 92/50 (64) 94 01/09/17 20:00 93 01/09/17 19:50 96 21 01/09/17 17:48 98.3 78 20 96/51 (66) 95 I/O 01/09/17 01/09/17 01/09/17 01/10/17 01/10/17 01/10/17 07:00 15:00 23:00 07:00 15:00 23:00 Intake Total 440 ml Output Total 450 ml 80 ml 250 ml Balance -450 ml 360 ml -250 ml Intake Oral 340 ml IV Total 100 ml Output Urine Total 250 ml Chest Tube Drainage Total 200 ml 80 ml 250 ml # Voids 4 Result Diagram: 01/10/17 0609 Imaging Last Impressions Chest X-Ray 01/07/17 0000 Signed Impressions: Service Date/Time: Saturday, January 07, 2017 08:43 - CONCLUSION: 1. Small caliber right chest tube present without significant pneumothorax. Jonathan Michel MD Chest Tube Insertion 01/06/17 1334 Signed Impressions: Service Date/Time: Friday, January 06, 2017 14:18 - CONCLUSION: Uncomplicated chest tube placement as above. Sammy Duval MD Chest CT 01/05/17 0000 Signed Impressions: Service Date/Time: December 12:37 - CONCLUSION: 1. 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 2. Large right pleural effusion. 3. Localized pneumothoraces are seen in the medial right apex and medial right lower lung 4. Probable pericardial effusion. Dustin Francois MD Objective Remarks GENERAL: NAD SKIN: Warm and dry. HEAD: Normocephalic. EYES: No scleral icterus. No injection or drainage. NECK: Supple, trachea midline. No JVD or lymphadenopathy. CARDIOVASCULAR: Regular rate and rhythm without murmurs, gallops, or rubs. RESPIRATORY: Breath sounds equal bilaterally. No accessory muscle use.Chest tube in Right lung GASTROINTESTINAL: Abdomen soft, non-tender, nondistended. MUSCULOSKELETAL: No cyanosis, or edema. BACK: Nontender without obvious deformity. No CVA tenderness. 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 (4) Adenocarcinoma of lung ICD Code: C34.90 - Malignant neoplasm of unspecified part of unspecified bronchus or lung Status: Chronic Assessment and Plan 76-year-old man with Right large pleural effusion Chest tube with high output Plan for pleurodesis when output less than 150 Hemoptysis Resolved s/p bronchoscopy with finding of mild tracheobronchitis. Cytology pending Management per pulmonary medicine Small right sided apical pneumothorax status post recent therapeutic thoracentesis for right-sided pleural effusion Chest x-ray lower 20 04/04/16 without any evidence of significant pneumothorax Stage III Non-small cell lung carcinoma Completed radiation with concurrent chemotherapy March 2016 Management per oncology following Thrombosis of SVC Currently on Coumadin Monitor INR/PT COPD No exacerbation DuoNeb when necessary Splenic lesion Incidental finding found on CT of abdomen/pelvis from September 2016 Outpatient PET scan to rule out metastases Oncology monitoring Status post excision of skin cancer back of head Bacitracin ointment twice a day Hypertension/hyperlipidemia Continue home medications DVT prophylaxis Coumadin Wali Anaya MD Jan 10, 2017 13:34
--- NOTE | 2017-01-10 16:16 | HHI.PR ---
Subjective Remarks alert no sob minor hemoptysis right chest tube in place , drained 150 cc this shift Objective Vital Signs Date Time Temp Pulse Resp B/P (MAP) Pulse Ox O2 Delivery O2 Flow Rate FiO2 01/10/17 12:02 97.7 81 18 109/62 (78) 96 01/10/17 08:19 98.3 87 20 116/51 (72) 94 01/10/17 08:01 78 01/10/17 07:52 95 21 01/10/17 04:20 16 01/10/17 04:00 76 01/10/17 04:00 98.1 79 16 102/52 (69) 93 01/10/17 00:00 78 01/10/17 00:00 98.5 79 18 96/55 (69) 96 01/09/17 20:00 98.4 94 18 92/50 (64) 94 01/09/17 20:00 93 01/09/17 19:50 96 21 01/09/17 17:48 98.3 78 20 96/51 (66) 95 I/O 01/09/17 01/09/17 01/09/17 01/10/17 01/10/17 01/10/17 07:00 15:00 23:00 07:00 15:00 23:00 Intake Total 440 ml Output Total 450 ml 80 ml 250 ml Balance -450 ml 360 ml -250 ml Intake Oral 340 ml IV Total 100 ml Output Urine Total 250 ml Chest Tube Drainage Total 200 ml 80 ml 250 ml # Voids 4 Result Diagram: 01/10/17 0609 Objective Remarks GENERAL: SKIN: Warm and dry. HEAD: Atraumatic. Normocephalic. EYES: Pupils equal and round. No scleral icterus. No injection or drainage. ENT: No nasal bleeding or discharge. Mucous membranes pink and moist. NECK: Trachea midline. No JVD. CARDIOVASCULAR: Regular rate and rhythm. RESPIRATORY: No accessory muscle use. Clear to auscultation. Breath sounds equal bilaterally. GASTROINTESTINAL: Abdomen soft, non-tender, nondistended. Hepatic and splenic margins not palpable. MUSCULOSKELETAL: Extremities without clubbing, cyanosis, or edema. No obvious deformities. NEUROLOGICAL: Awake and alert. No obvious cranial nerve deficits. Motor grossly within normal limits. Five out of 5 muscle strength in the arms and legs. Normal speech. PSYCHIATRIC: Appropriate mood and affect; insight and judgment normal. Assessment and Plan Assessment and Plan IMP: stable post bronchoscopy and CT placement Minor hemoptysis no distress lung CA ONCOLOGY NOTE APPRECIATED PLAN pleurodesis when fluid drainage reduced still significant drainage Jemma Easton MD Jan 10, 2017 16:16
[2017-01-10] MEDS: WARFARIN SOD 6 MG TAB PO SCH (17:24)
[2017-01-10] MEDS: WARFARIN SOD 1 MG TAB PO SCH (17:24)
[2017-01-10] MEDS: ONDANSETRON HCL 4 MG/2 ML VIAL IVP PRN (17:25)
[2017-01-10] MEDS: cefTRIAXone INJ 1,000 MG in SODIUM CHLORIDE 0.9% INJ 100 ML IV SCH (17:25)
[2017-01-10] MEDS: ATORVASTATIN 20 MG TAB PO SCH (21:08)
--- NOTE | 2017-01-10 21:10 | RADRPT ---
EXAM DATE/TIME: 01/10/2017 20:42 [facility] COMPARISON: CHEST EXPIRATION ONLY, January 07, 2017, 8:43. INDICATIONS : Post chest tube placement. Audible air leak right chest tube. MEDICAL HISTORY : Hypercholesterolemia. Arthritis. Carcinoma, lung. CVA. COPD. Dyspnea. GERD. HTN. Superior vena cava s yndrome. Anticoagulant therapy. SURGICAL HISTORY : Thoracentesis. Hernia repair. Chemotherapy. ENCOUNTER: Subsequent ACUITY: 2 weeks PAIN SCORE: 0/10 LOCATION: Bilateral chest FINDINGS: There is a small caliber right chest tube which has been partially withdrawn since the prior chest ra diograph from January 07 and is probably kinked. There is a small right pneumothorax that has develo ped. Chest tube should be repositioned. Right-sided paramediastinal consolidation is stable. No effusion. CONCLUSION: 1. Right chest tube has been partially withdrawn and is probably kinked. This should be repositioned. There is development of a small right apical pneumothorax. Jonathan Michel MD on January 10, 2017 at 21:00 Board Certified Radiologist. This report was verified electronically.
[2017-01-11] VITALS (13 sets, daily range): BP systolic 92–116; BP diastolic 53–68; PULSE 68–85; RESP 16–20; TEMP 97.3–98.6; O2SAT 92–99
[2017-01-11 06:59] LABS: INTERNATIONAL NORMALIZED RATIO 2.3 RATIO; PROTHROMBIN TIME - PATIENT 26.5 SEC (9.8-11.6)
[2017-01-11] MEDS: RESP: ALBUTEROL 2.5 MG/IPRATROPIUM 0.5 MG NEB (SCH) INH (07:55)
[2017-01-11] MEDS: SODIUM CHLORIDE 0.9% FLUSH 10 ML FLUSH IV FLUSH SCH ×2 (08:44→22:31)
[2017-01-11] MEDS: POTASSIUM CHLORIDE 10 MEQ CAP PO SCH (08:45)
[2017-01-11] MEDS: GABAPENTIN 300 MG CAP PO SCH ×2 (08:45→22:26)
[2017-01-11] MEDS: ATENOLOL 50 MG TAB PO SCH (08:45)
[2017-01-11] MEDS: FUROSEMIDE 40 MG TAB PO SCH (08:45)
[2017-01-11] MEDS: BACITRACIN TOP OINT 15 GM TUBE TOPICAL SCH ×2 (08:45→22:31)
[2017-01-11] MEDS: PANTOPRAZOLE SOD 40 MG DELAYED RELEASE TAB PO SCH (08:45)
--- NOTE | 2017-01-11 09:16 | PD.ONC.PN ---
Subjective Subjective Remarks Afebrile overnight. CT became dislodged yesterday. Denies pain at present. Waiting to go down to invasive radiology to have CT repositioned. Objective Data Date Time Temp Pulse Resp B/P (MAP) Pulse Ox O2 Delivery O2 Flow Rate FiO2 01/11/17 08:00 97.3 84 18 110/60 (77) 99 01/11/17 07:59 92 Nasal Cannula 2.00 01/11/17 04:00 98.3 80 20 100/56 (71) 96 01/11/17 00:00 98.0 83 18 93/53 (66) 94 01/10/17 21:59 96 01/10/17 20:00 97.9 80 20 105/57 (73) 96 01/10/17 20:00 85 01/10/17 17:36 98.3 83 20 103/52 (69) 96 01/10/17 12:02 97.7 81 18 109/62 (78) 96 01/11/17 01/11/17 01/11/17 07:00 15:00 23:00 Output Total 0 ml Balance 0 ml Result Diagram: 01/10/17 0609 Laboratory Results Laboratory Tests Test 01/11/17 06:16 Prothrombin Time 26.5 SEC Prothromb Time International Ratio 2.3 RATIO Administered Medications Medications (Trade) Dose Ordered Sig/Hilaria Route PRN Reason Start Time Stop Time Status Last Admin Dose Admin Sodium Chloride (NS Flush) 2 ml BID IV FLUSH 01/02/17 21:00 01/11/17 08:44 Acetaminophen (Tylenol) 650 mg Q4H PRN PO headache/fever/pain1-4 01/02/17 17:15 01/07/17 02:34 Ondansetron HCl (Zofran Inj) 4 mg Q6H PRN IVP NAUSEA OR VOMITING 01/02/17 17:15 01/10/17 17:25 Bacitracin (Baciguent Oint) 1 applic Q12HR TOPICAL 01/02/17 21:00 01/11/17 08:45 Atenolol (Tenormin) 50 mg DAILY PO 01/03/17 09:00 01/11/17 08:45 Atorvastatin Calcium (Lipitor) 20 mg HS PO 01/02/17 21:00 01/10/17 21:08 Furosemide (Lasix) 40 mg DAILY PO 01/03/17 09:00 01/11/17 08:45 Gabapentin (Neurontin) 300 mg BID PO 01/02/17 21:00 01/11/17 08:45 Potassium Chloride (KCl) 20 meq DAILY PO 01/03/17 09:00 01/11/17 08:45 Clonazepam (KlonoPIN) 0.5 mg Q8H PRN PO ANXIETY 01/03/17 15:30 01/08/17 21:08 Ceftriaxone Sodium 1000 mg/ Sodium Chloride 100 ml @ 200 mls/hr Q24H IV 01/03/17 17:00 01/10/17 17:25 Pantoprazole Sodium (Protonix) 40 mg DAILY PO 01/06/17 09:00 01/11/17 08:45 Albuterol/ Ipratropium (Duoneb Neb) 1 ampule TID NEB INH 01/07/17 14:00 01/11/17 07:55 Acetaminophen/ Hydrocodone Bitart ([place] 7.5-325 Mg) 1 tab Q4H PRN PO pain scale 5-10 01/08/17 23:15 01/10/17 21:47 Warfarin Sodium (Coumadin) 6 mg DAILY@1600 PO 01/09/17 16:00 01/10/17 17:24 Warfarin Sodium (Coumadin) 1 mg DAILY@1600 PO 01/09/17 16:00 01/10/17 17:24 Objective Remarks GENERAL: Elderly male sitting up in bed in [facility]. SKIN: Warm and dry. HEAD: Normocephalic. EYES: No injection or drainage. NECK: Supple, trachea midline. CARDIOVASCULAR: Regular rate and rhythm. RESPIRATORY: diminished at right base. anterior shields clear. On 2L O2 via [place] GASTROINTESTINAL: Abdomen soft, non-tender, nondistended. EXTREMITIES: No cyanosis NEUROLOGICAL: awake and alert, normal speech. moving all extremities. Assessment/Plan Problem List: (1) Pleural effusion ICD Codes: J90 - Pleural effusion, not elsewhere classified Status: Acute Plan: --had thoracentesis done last week with removal of 2100 mL fluid. Cytology again did not show any malignancy. --has CT in place, still draining fluid. --invasive radiology consulted for pleurodesis. they are awaiting drainage to lessen to less than 150cc/24hrs (2) Adenocarcinoma of lung ICD Codes: C34.90 - Malignant neoplasm of unspecified part of unspecified bronchus or lung Status: Chronic Plan: --[id number] lung cancer stage III. 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 had a large mass in the right lower lobe with significant right paratracheal adenopathy causing occlusion of superior vena cava. also had subcarinal adenopathy. --Biopsy showed moderately differentiated to poorly differentiated adenocarcinoma. EGFR wild type, ALK negative and PDL1 5%. --completed radiation with concurrent chemotherapy in March of 2016. --CT angiogram done last week when he was admitted to the hospital which showed reaccumulation of right pleural effusion but no obvious mass or adenopathy. --CT abdomen and pelvis, however, showed splenic lesion that had enlarged and worrisome for metastatic disease. -->this lesion is too risky for biopsy. would recommend getting a PET scan as outpatient, and if it is hypermetabolic can consider giving him radiation. (3) Hemoptysis ICD Codes: R04.2 - Hemoptysis Status: Resolved Plan: --currently resolved --started after the thoracentesis. Etiology unclear. -- CT scan of the chest did not show clear recurrent malignancy at this time. --on antibiotics for possible superimposed infection. (4) COPD (chronic obstructive pulmonary disease) ICD Codes: J44.9 - Chronic obstructive pulmonary disease, unspecified Status: Chronic (5) Skin cancer ICD Codes: C44.90 - Unspecified malignant neoplasm of skin, unspecified Plan: --had a lesion excised from the scalp. wound is healing well. He still complains of pain around the excision site. No erythema noted. 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 h/o Severe vena cava syndrome. Chronic obstructive pulmonary disease. Gastroesophageal reflux disease.Hyperlipidemia. Hypertension.Neuropathy. Right pleural effusion. Lung cancer. Plan 1. await pleurodesis, reconsult IR for dislodged chest tube. 2. monitor CBC Attending Statement The exam, history, and the medical decision-making described in the above note were completed with the assistance of the mid-level provider. I reviewed and agree with the findings presented. I attest that I had a [id number] encounter with the patient on the same day, and personally performed and documented my assessment and findings in the medical record. Chest tube was dislodged. No SOB. Consult IR to replace chest tube. Await pleurodesis once pleural fluid decreased. Charla Bangura Jan 11, 2017 09:16 Toro Saba MD Jan 11, 2017 09:39
--- NOTE | 2017-01-11 12:06 | HHI.PR ---
Subjective Remarks Follow-up right large pleural effusion/hemoptysis 01/10/17-patient seen and examined, some shortness of breath. Chest tube with high output. Currently afebrile 01/11/17-patient seen and examined, chest tube was dislodged yesterday, now awaiting IR to reposition it. Some shortness of breath Objective Vitals Vital Signs Date Time Temp Pulse Resp B/P (MAP) Pulse Ox O2 Delivery O2 Flow Rate FiO2 01/11/17 08:00 97.3 84 18 110/60 (77) 99 01/11/17 07:59 92 Nasal Cannula 2.00 01/11/17 07:00 80 01/11/17 04:00 98.3 80 20 100/56 (71) 96 01/11/17 00:00 98.0 83 18 93/53 (66) 94 01/10/17 21:59 96 01/10/17 20:00 97.9 80 20 105/57 (73) 96 01/10/17 20:00 85 01/10/17 17:36 98.3 83 20 103/52 (69) 96 I/O 01/10/17 01/10/17 01/10/17 01/11/17 01/11/17 01/11/17 07:00 15:00 23:00 07:00 15:00 23:00 Intake Total 440 ml Output Total 250 ml 200 ml 0 ml Balance -250 ml 240 ml 0 ml Intake Oral 440 ml Chest Tube Drainage Total 250 ml 200 ml 0 ml # Voids 5 Result Diagram: 01/10/17 0609 Imaging Last Impressions Chest X-Ray 01/10/17 0000 Signed Impressions: Service Date/Time: Tuesday, January 10, 2017 20:42 - CONCLUSION: 1. Right chest tube has been partially withdrawn and is probably kinked. This should be repositioned. There is development of a small right apical pneumothorax. Jonathan Michel MD Chest Tube Insertion 01/06/17 1334 Signed Impressions: Service Date/Time: Friday, January 06, 2017 14:18 - CONCLUSION: Uncomplicated chest tube placement as above. Sammy Duval MD Chest CT 01/05/17 0000 Signed Impressions: Service Date/Time: December 12:37 - CONCLUSION: 1. 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 2. Large right pleural effusion. 3. Localized pneumothoraces are seen in the medial right apex and medial right lower lung 4. Probable pericardial effusion. Dustin Francois MD Objective Remarks GENERAL: NAD SKIN: Warm and dry. HEAD: Normocephalic. EYES: No scleral icterus. No injection or drainage. NECK: Supple, trachea midline. No JVD or lymphadenopathy. CARDIOVASCULAR: Regular rate and rhythm without murmurs, gallops, or rubs. RESPIRATORY: Breath sounds equal bilaterally. No accessory muscle use.Chest tube in Right lung GASTROINTESTINAL: Abdomen soft, non-tender, nondistended. MUSCULOSKELETAL: No cyanosis, or edema. BACK: Nontender without obvious deformity. No CVA tenderness. 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
[2017-01-11] MEDS ORDERED: MIDAZOLAM HCL 2 MG/2 ML VIAL ONE ×2 (15:39→16:55)
--- NOTE | 2017-01-11 15:55 | HHI.PR ---
Subjective Remarks alert no sob minor hemoptysis right chest tube in place , drained [address] kinked Objective Vital Signs Date Time Temp Pulse Resp B/P (MAP) Pulse Ox O2 Delivery O2 Flow Rate FiO2 01/11/17 12:05 98.6 76 18 92/55 (67) 95 01/11/17 08:00 97.3 84 18 110/60 (77) 99 01/11/17 07:59 92 Nasal Cannula 2.00 01/11/17 07:00 80 01/11/17 04:00 98.3 80 20 100/56 (71) 96 01/11/17 00:00 98.0 83 18 93/53 (66) 94 01/10/17 21:59 96 01/10/17 20:00 97.9 80 20 105/57 (73) 96 01/10/17 20:00 85 01/10/17 17:36 98.3 83 20 103/52 (69) 96 I/O 01/10/17 01/10/17 01/10/17 01/11/17 01/11/17 01/11/17 07:00 15:00 23:00 07:00 15:00 23:00 Intake Total 440 ml Output Total 250 ml 200 ml 0 ml Balance -250 ml 240 ml 0 ml Intake Oral 440 ml Chest Tube Drainage Total 250 ml 200 ml 0 ml # Voids 5 Result Diagram: 01/10/17 0609 Objective Remarks GENERAL: SKIN: Warm and dry. HEAD: Atraumatic. Normocephalic. EYES: Pupils equal and round. No scleral icterus. No injection or drainage. ENT: No nasal bleeding or discharge. Mucous membranes pink and moist. NECK: Trachea midline. No JVD. CARDIOVASCULAR: Regular rate and rhythm. RESPIRATORY: No accessory muscle use. Clear to auscultation. Breath sounds equal bilaterally. GASTROINTESTINAL: Abdomen soft, non-tender, nondistended. Hepatic and splenic margins not palpable. MUSCULOSKELETAL: Extremities without clubbing, cyanosis, or edema. No obvious deformities. NEUROLOGICAL: Awake and alert. No obvious cranial nerve deficits. Motor grossly within normal limits. Five out of 5 muscle strength in the arms and legs. Normal speech. PSYCHIATRIC: Appropriate mood and affect; insight and judgment normal. Assessment and Plan Assessment and Plan IMP: stable post bronchoscopy and CT placement Minor hemoptysis no distress lung CA ONCOLOGY NOTE APPRECIATED PLAN pleurodesis when fluid drainage reduced still significant drainage IR to adjust tube Jemam Easton MD Jan 11, 2017 15:55
--- NOTE | 2017-01-11 16:49 | RADRPT ---
EXAM DATE/TIME: 01/11/2017 16:16 [facility] COMPARISON: CHEST SINGLE AP, January 10, 2017, 20:42. INDICATIONS : Right side chest tube removal. MEDICAL HISTORY : Hypercholesterolemia. Arthritis. Carcinoma, lung. CVA. COPD. Dyspnea. GERD. HTN. Superior vena cava s yndrome. Anticoagulant therapy. SURGICAL HISTORY : Thoracentesis. Hernia repair. Chemotherapy. ENCOUNTER: Initial ACUITY: 1 day PAIN SCORE: 0/10 LOCATION: Right chest FINDINGS: There is a slightly greater than 4 cm right apical pneumothorax present. There is persistent perihila r infiltrate. There is slight wedging of the costophrenic angle and flattening of the diaphragmatic c ontour on the right indicating persistent effusion. Left lung is stable clear and well-inflated. Card iac contours are unchanged. CONCLUSION: Moderate right apical pneumothorax. Vikas Sandoval MD on January 11, 2017 at 16:42 Board Certified Radiologist. This report was verified electronically.
--- NOTE | 2017-01-11 17:02 | RADRPT ---
EXAM DATE/TIME: 01/11/2017 15:33 [facility] COMPARISON: No previous studies available for comparison. INDICATIONS : Patient with pleural effusion.right chest tube pulled back. DEVICE(S): 1.) Vaseline occlusive dressingsmall [place] PROCEDURE : Chest tube removal. Using aseptic technique the previously placed chest tube was easily removed in one piece and Vaseline gauze and sterile dressing was applied. Chest radiograph is to be obtained. Under direct fluoroscopic visualization, the tube was obviously out of the pleural space and into the subcutaneous tissues of the right lateral chest wall. CONCLUSION: Uncomplicated chest tube removal. Vikas Sandoval MD on January 11, 2017 at 16:59 Board Certified Radiologist. This report was verified electronically.
[2017-01-11] MEDS: WARFARIN SOD 6 MG TAB PO SCH (18:29)
[2017-01-11] MEDS: cefTRIAXone INJ 1,000 MG in SODIUM CHLORIDE 0.9% INJ 100 ML IV SCH (18:29)
[2017-01-11] MEDS: WARFARIN SOD 1 MG TAB PO SCH (18:29)
[2017-01-11] MEDS: ACETAMINOPHEN/HYDROcodone 325 MG/7.5 MG TAB PO PRN ×2 (18:30→22:26)
--- NOTE | 2017-01-11 19:13 | PD.RAD ---
Post Procedure Progress Note Pre Procedure Diagnosis: (1) Pneumothorax Post Procedure Diagnosis: (1) Pneumothorax Procedure Date: Jan 11, 2017 Supervising Radiologist: Vikas Sandoval Proceduralist/Assist: RT Lopez(R)(CV) Anesthesia: Local, Conscious Sedation Plan of Activity Patient to Unit: ROPU Patient Condition: Good See PACS Report for procedural detail/treatment Drainage Procedure Procedure 1 Imaging Guidance: Fluoroscopy Side: Right Procedure Type: Chest Tube Non-Tunneled Procedure: Placement [place]: 10 Drainage: Pleurovac Vikas Sandoval MD Jan 11, 2017 19:13
[2017-01-11] MEDS: ATORVASTATIN 20 MG TAB PO SCH (22:26)
[2017-01-12] VITALS (9 sets, daily range): BP systolic 106–113; BP diastolic 58–60; PULSE 70–86; RESP 16–20; TEMP 98.2–98.4; O2SAT 95–98
[2017-01-12] MEDS: ACETAMINOPHEN/HYDROcodone 325 MG/7.5 MG TAB PO PRN ×3 (02:46→21:36)
--- NOTE | 2017-01-12 05:51 | RADRPT ---
EXAM DATE/TIME: 01/12/2017 04:50 [facility] COMPARISON: CHEST PA & LAT, January 03, 2017, 8:33. CHEST SINGLE AP, January 10, 2017, 20:42. CHEST EXPIRATIO N ONLY, January 11, 2017, 16:16. INDICATIONS : Shortness of breath, possible pneumothorax. MEDICAL HISTORY : Hypercholesterolemia. Arthritis. Carcinoma, lung. CVA COPD GERD HTN SURGICAL HISTORY : Thoracentesis Hernia repair Chemotherapy ENCOUNTER: Subsequent ACUITY: 1 week PAIN SCORE: 0/10 LOCATION: Bilateral chest FINDINGS: There is a right chest pigtail catheter in place. A pneumothorax is not seen. There is persistent inc reased density in the superior medial right upper lung. There is a calcified granuloma in the lateral right midlung. The left lung is clear. No effusion is seen. CONCLUSION: Right chest tube without a pneumothorax seen. Vikas Burden MD on January 12, 2017 at 5:47 Board Certified Radiologist. This report was verified electronically.
[2017-01-12 08:40] LABS: INTERNATIONAL NORMALIZED RATIO 2.6 RATIO; PROTHROMBIN TIME - PATIENT 30.1 SEC (9.8-11.6)
[2017-01-12] MEDS: BACITRACIN TOP OINT 15 GM TUBE TOPICAL SCH ×2 (09:00→20:52)
[2017-01-12] MEDS: SODIUM CHLORIDE 0.9% FLUSH 10 ML FLUSH IV FLUSH SCH ×2 (09:00→20:52)
--- NOTE | 2017-01-12 09:32 | RADRPT ---
EXAM DATE/TIME: 01/11/2017 18:22 [facility] COMPARISON: CHEST EXPIRATION ONLY, January 12, 2017, 4:50. INDICATIONS : Patient with pnuemothorax needs chest tube. MEDICAL HISTORY : 1.non small cell lung cancer 2. SVC syndrome 3. HTN 4. COPD 5. right plueral effusion 6. GERD SURGICAL HISTORY : 1. Hernia repair port placment 3. chest tube x2 ENCOUNTER: Subsequent ACUITY: 1 day PAIN SCORE: 3/10 LOCATION: back FLUORO TIME: 2.1 minutes IMAGE SERIES: 1 SEDATION TIME: 15 minutes MEDICATION(S): 1.) 1 mg midazolam (Versed) IV 2.) 50 mcg fentanyl (Sublimaze) IV DEVICE(S): 1.) 10 [place] non-locking catheter lacey PROCEDURE : 1. Fluoroscopically guided chest tube placement. 2. Conscious sedation with continuous EKG and oximetry monitoring. The risks, benefits and alternatives to the procedure were explained and verbal and written consent w as obtained. The site was prepped in sterile fashion. Full sterile technique was used, including ca p, mask, sterile gloves and gown and a large sterile sheet. Hand hygiene and 2% chlorhexidine and/or betadine/alcohol prep was utilized per protocol for cutaneous antisepsis. The skin and subcutaneous tissues were infiltrated with local anesthetic solution. With fluoroscopic guidance the chest was punctured between the first and second interspace and the pr escribed catheter was placed in the lung apex. Wall suction was applied. Post procedure images demon strate satisfactory position of the tube. The catheter was sutured in place and a Percu-Stay was vinh lied. Conscious sedation was performed with the prescribed dosages and duration as above in the presence of an independent trained radiology nurse to assist in the monitoring of the patient. EKG and oximetry remained stable throughout the procedure. The patient tolerated the procedure well and there were n o complications. The patient was sent to post anesthesia recovery in stable condition. CONCLUSION: Uncomplicated chest tube placement as above. Vikas Sandoval MD on January 12, 2017 at 9:29 Board Certified Radiologist. This report was verified electronically.
[2017-01-12] MEDS: ATENOLOL 50 MG TAB PO SCH (09:47)
[2017-01-12] MEDS: POTASSIUM CHLORIDE 10 MEQ CAP PO SCH (09:48)
[2017-01-12] MEDS: FUROSEMIDE 40 MG TAB PO SCH (09:48)
[2017-01-12] MEDS: PANTOPRAZOLE SOD 40 MG DELAYED RELEASE TAB PO SCH (09:48)
[2017-01-12] MEDS: GABAPENTIN 300 MG CAP PO SCH ×2 (09:48→20:51)
--- NOTE | 2017-01-12 09:57 | PD.ONC.PN ---
Subjective Subjective Remarks Afebrile Still having pain at the R upper chest wall site where new chest tube was placed Walked with PT without walker around the unit this am No other acute complaints Objective Data Date Time Temp Pulse Resp B/P (MAP) Pulse Ox O2 Delivery O2 Flow Rate FiO2 01/12/17 04:30 18 01/12/17 04:25 74 01/12/17 00:04 70 01/11/17 23:00 97.5 85 20 116/60 (78) 96 01/11/17 21:48 98 Nasal Cannula 2.00 01/11/17 20:13 77 01/11/17 18:34 97.5 75 18 115/68 (84) 98 01/11/17 18:00 68 16 110/56 (74) 99 01/11/17 17:45 97.8 77 16 107/59 (75) 99 01/11/17 16:35 72 18 105/60 (75) 95 01/11/17 12:05 98.6 76 18 92/55 (67) 95 Result Diagram: 01/10/17 0609 Laboratory Results Laboratory Tests Test 01/12/17 08:03 Prothrombin Time 30.1 SEC Prothromb Time International Ratio 2.6 RATIO Imaging Studies Last 24 hours Impressions Chest X-Ray 01/12/17 0000 Signed Impressions: Service Date/Time: December 04:50 - CONCLUSION: Right chest tube without a pneumothorax seen. Vikas Burden MD Administered Medications Medications (Trade) Dose Ordered Sig/Hilaria Route PRN Reason Start Time Stop Time Status Last Admin Dose Admin Sodium Chloride (NS Flush) 2 ml BID IV FLUSH 01/02/17 21:00 01/12/17 09:00 Acetaminophen (Tylenol) 650 mg Q4H PRN PO headache/fever/pain1-4 01/02/17 17:15 01/07/17 02:34 Ondansetron HCl (Zofran Inj) 4 mg Q6H PRN IVP NAUSEA OR VOMITING 01/02/17 17:15 01/10/17 17:25 Bacitracin (Baciguent Oint) 1 applic Q12HR TOPICAL 01/02/17 21:00 01/12/17 09:00 Atenolol (Tenormin) 50 mg DAILY PO 01/03/17 09:00 01/12/17 09:47 Atorvastatin Calcium (Lipitor) 20 mg HS PO 01/02/17 21:00 01/11/17 22:26 Furosemide (Lasix) 40 mg DAILY PO 01/03/17 09:00 01/12/17 09:48 Gabapentin (Neurontin) 300 mg BID PO 01/02/17 21:00 01/12/17 09:48 Potassium Chloride (KCl) 20 meq DAILY PO 01/03/17 09:00 01/12/17 09:48 Clonazepam (KlonoPIN) 0.5 mg Q8H PRN PO ANXIETY 01/03/17 15:30 01/08/17 21:08 Ceftriaxone Sodium 1000 mg/ Sodium Chloride 100 ml @ 200 mls/hr Q24H IV 01/03/17 17:00 01/11/17 18:29 Pantoprazole Sodium (Protonix) 40 mg DAILY PO 01/06/17 09:00 01/12/17 09:48 Acetaminophen/ Hydrocodone Bitart (Freedom 7.5-325 Mg) 1 tab Q4H PRN PO PAIN SCALE 1 TO 5 01/08/17 23:15 01/12/17 02:46 Objective Remarks GENERAL: Elderly male resting in bed watching TV in no obvious distress. SKIN: Warm and dry. HEAD: Normocephalic. EYES: No injection or drainage. NECK: Supple, trachea midline. CARDIOVASCULAR: Regular rate and rhythm. RESPIRATORY: Diminished throughout. On 2L O2 via NC. Chest tube inserted to R upper chest wall. GASTROINTESTINAL: Abdomen soft, non-tender, nondistended. EXTREMITIES: No cyanosis. No edema. NEUROLOGICAL: Awake and alert, normal speech. Moving all extremities. Assessment/Plan Problem List: (1) Pleural effusion ICD Codes: J90 - Pleural effusion, not elsewhere classified Status: Acute Plan: --had thoracentesis done last week with removal of 2100 mL fluid. Cytology again did not show any malignancy. --has CT in place, still draining fluid. --invasive radiology consulted for pleurodesis. they are awaiting drainage to lessen to less than 150cc/24hrs (2) Adenocarcinoma of lung ICD Codes: C34.90 - Malignant neoplasm of unspecified part of unspecified bronchus or lung Status: Chronic Plan: --[id number] lung cancer stage III. 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 had a large mass in the right lower lobe with significant right paratracheal adenopathy causing occlusion of superior vena cava. also had subcarinal adenopathy. --Biopsy showed moderately differentiated to poorly differentiated adenocarcinoma. EGFR wild type, ALK negative and PDL1 5%. --completed radiation with concurrent chemotherapy in March of 2016. --CT angiogram done last week when he was admitted to the hospital which showed reaccumulation of right pleural effusion but no obvious mass or adenopathy. --CT abdomen and pelvis, however, showed splenic lesion that had enlarged and worrisome for metastatic disease. -->this lesion is too risky for biopsy. would recommend getting a PET scan as outpatient, and if it is hypermetabolic can consider giving him radiation. (3) Hemoptysis ICD Codes: R04.2 - Hemoptysis Status: Resolved Plan: --currently resolved --started after the thoracentesis. Etiology unclear. -- CT scan of the chest did not show clear recurrent malignancy at this time. --on antibiotics for possible superimposed infection. (4) COPD (chronic obstructive pulmonary disease) ICD Codes: J44.9 - Chronic obstructive pulmonary disease, unspecified Status: Chronic (5) Skin cancer ICD Codes: C44.90 - Unspecified malignant neoplasm of skin, unspecified Plan: --had a lesion excised from the scalp. wound is healing well. He still complains of pain around the excision site. No erythema noted. 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 h/o Severe vena cava syndrome. Chronic obstructive pulmonary disease. Gastroesophageal reflux disease.Hyperlipidemia. Hypertension.Neuropathy. Right pleural effusion. Lung cancer. Plan 1. Chest tube replaced; 300ml's out over last 24 hours 2. Will add small dose of prn Dilaudid for pain associated with chest tube insertion site. 3. Pt requesting something to help him sleep at night; will order Melatonin for now. 4. CBC, BMP in am. Attending Statement The exam, history, and the medical decision-making described in the above note were completed with the assistance of the mid-level provider. I reviewed and agree with the findings presented. I attest that I had a [id number] encounter with the patient on the same day, and personally performed and documented my assessment and findings in the medical record. C/o pain at chest tube site not controlled with hydrocodone. Will add small dose of IV dilaudid. Still has significant chest tube drainage. Await pleurodesis. Traci Merritt Jan 12, 2017 09:57 Toro Saba MD Jan 12, 2017 18:50
[2017-01-12] MEDS ORDERED: HYDROmorphone HCL PF 0.5 MG/0.5 ML SYRINGE IV PUSH PRN (10:00)
--- NOTE | 2017-01-12 10:04 | HHI.PR ---
Subjective Remarks Follow-up right large pleural effusion/hemoptysis 01/10/17-patient seen and examined, some shortness of breath. Chest tube with high output. Currently afebrile 01/11/17-patient seen and examined, chest tube was dislodged yesterday, now awaiting IR to reposition it. Some shortness of breath 01/12/17-patient seen and examined, complains of right upper anterior chest pain at insertion of chest tube. Currently afebrile. Chest tube output 300+ Objective Vitals Vital Signs Date Time Temp Pulse Resp B/P (MAP) Pulse Ox O2 Delivery O2 Flow Rate FiO2 01/12/17 04:30 18 01/12/17 04:25 74 01/12/17 00:04 70 01/11/17 23:00 97.5 85 20 116/60 (78) 96 01/11/17 21:48 98 Nasal Cannula 2.00 01/11/17 20:13 77 01/11/17 18:34 97.5 75 18 115/68 (84) 98 01/11/17 18:00 68 16 110/56 (74) 99 01/11/17 17:45 97.8 77 16 107/59 (75) 99 01/11/17 16:35 72 18 105/60 (75) 95 01/11/17 12:05 98.6 76 18 92/55 (67) 95 I/O 01/11/17 01/11/17 01/11/17 01/12/17 01/12/17 01/12/17 07:00 15:00 23:00 07:00 15:00 23:00 Intake Total 240 ml Output Total 0 ml 400 ml Balance 0 ml -160 ml Intake Oral 240 ml Output Urine Total 100 ml Chest Tube Drainage Total 0 ml 300 ml # Voids 3 Result Diagram: 01/10/17 0609 Imaging Last Impressions Chest X-Ray 01/12/17 0000 Signed Impressions: Service Date/Time: December 04:50 - CONCLUSION: Right chest tube without a pneumothorax seen. Vikas Burden MD Tunnelled Chest Tube Removal 01/11/17 0000 Signed Impressions: Service Date/Time: Wednesday, January 11, 2017 15:33 - CONCLUSION: Uncomplicated chest tube removal. Vikas Sandoval MD Chest Tube Insertion 01/11/17 0000 Signed Impressions: Service Date/Time: Wednesday, January 11, 2017 18:22 - CONCLUSION: Uncomplicated chest tube placement as above. Vikas Sandoval MD Chest CT 01/05/17 0000 Signed Impressions: Service Date/Time: December 12:37 - CONCLUSION: 1. 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 2. Large right pleural effusion. 3. Localized pneumothoraces are seen in the medial right apex and medial right lower lung 4. Probable pericardial effusion. Dustin Francois MD Objective Remarks GENERAL: NAD SKIN: Warm and dry. HEAD: Normocephalic. EYES: No scleral icterus. No injection or drainage. NECK: Supple, trachea midline. No JVD or lymphadenopathy. CARDIOVASCULAR: Regular rate and rhythm without murmurs, gallops, or rubs. RESPIRATORY: Breath sounds equal bilaterally. No accessory muscle use.Chest tube in Right lung GASTROINTESTINAL: Abdomen soft, non-tender, nondistended. MUSCULOSKELETAL: No cyanosis, or edema. BACK: Nontender without obvious deformity. No CVA tenderness. 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
--- NOTE | 2017-01-12 14:49 | HHI.PR ---
Subjective Remarks alert no sob minor hemoptysis Chest tube adjusted , drainage improved Objective Vital Signs Date Time Temp Pulse Resp B/P (MAP) Pulse Ox O2 Delivery O2 Flow Rate FiO2 01/12/17 13:24 20 01/12/17 12:00 98.2 86 20 106/58 (74) 97 01/12/17 10:45 95 21 01/12/17 08:00 98.4 84 20 113/60 (77) 98 01/12/17 08:00 84 01/12/17 04:25 74 01/12/17 00:04 70 01/11/17 23:00 97.5 85 20 116/60 (78) 96 01/11/17 21:48 98 Nasal Cannula 2.00 01/11/17 20:13 77 01/11/17 18:34 97.5 75 18 115/68 (84) 98 01/11/17 18:00 68 16 110/56 (74) 99 01/11/17 17:45 97.8 77 16 107/59 (75) 99 01/11/17 16:35 72 18 105/60 (75) 95 I/O 01/11/17 01/11/17 01/11/17 01/12/17 01/12/17 01/12/17 07:00 15:00 23:00 07:00 15:00 23:00 Intake Total 240 ml Output Total 0 ml 400 ml Balance 0 ml -160 ml Intake Oral 240 ml Output Urine Total 100 ml Chest Tube Drainage Total 0 ml 300 ml # Voids 3 Result Diagram: 01/10/17 0609 Objective Remarks GENERAL: SKIN: Warm and dry. HEAD: Atraumatic. Normocephalic. EYES: Pupils equal and round. No scleral icterus. No injection or drainage. ENT: No nasal bleeding or discharge. Mucous membranes pink and moist. NECK: Trachea midline. No JVD. CARDIOVASCULAR: Regular rate and rhythm. RESPIRATORY: No accessory muscle use. Clear to auscultation. Breath sounds equal bilaterally. GASTROINTESTINAL: Abdomen soft, non-tender, nondistended. Hepatic and splenic margins not palpable. MUSCULOSKELETAL: Extremities without clubbing, cyanosis, or edema. No obvious deformities. NEUROLOGICAL: Awake and alert. No obvious cranial nerve deficits. Motor grossly within normal limits. Five out of 5 muscle strength in the arms and legs. Normal speech. PSYCHIATRIC: Appropriate mood and affect; insight and judgment normal. Assessment and Plan Assessment and Plan IMP: stable post bronchoscopy and CT placement Minor hemoptysis no distress lung CA PLAN pleurodesis when fluid drainage reduced still significant drainage I Jemma Easton MD Jan 12, 2017 14:49
[2017-01-12] MEDS: WARFARIN SOD 5 MG TAB PO SCH (16:07)
[2017-01-12] MEDS: cefTRIAXone INJ 1,000 MG in SODIUM CHLORIDE 0.9% INJ 100 ML IV SCH (16:07)
[2017-01-12] MEDS: ATORVASTATIN 20 MG TAB PO SCH (20:51)
[2017-01-12] MEDS: ONDANSETRON HCL 4 MG/2 ML VIAL IVP PRN (21:35)
[2017-01-13] VITALS (9 sets, daily range): BP systolic 94–110; BP diastolic 55–58; PULSE 71–88; RESP 14–20; TEMP 97.3–98.6; O2SAT 95–97
[2017-01-13 06:21] LABS: INTERNATIONAL NORMALIZED RATIO 2.9 RATIO; PROTHROMBIN TIME - PATIENT 29.5 SEC (9.8-11.6)
[2017-01-13 06:31] LABS: AUTOMATED NEUTROPHIL # 2.7 TH/MM3 (1.8-7.7); BASOPHIL % 0.7 % (0.0-2.0); EOSINOPHIL # 0.1 TH/MM3 (0-0.4); EOSINOPHIL % 3.1 % (0.0-4.0); HEMATOCRIT 37.7 % (39.0-51.0); HEMO FLAGS DIFF FINAL; LYMPH % 19.8 % (9.0-44.0); LYMPHOCYTE # 0.8 TH/MM3 (1.0-4.8); MEAN CELL VOLUME 91.8 FL (80.0-100.0); MEAN CORPUSCULAR HEMOGLOBIN 31.9 PG (27.0-34.0); MEAN CORPUSCULAR HGB CONC 34.7 % (32.0-36.0); MONO % 12.5 % (0.0-8.0); NEUT % 63.9 % (16.0-70.0); PLATELET COUNT 189 TH/MM3 (150-450); RED BLOOD COUNT 4.11 MIL/MM3 (4.50-5.90); RED CELL DISTRIBUTION WIDTH 13.2 % (11.6-17.2); WHITE BLOOD COUNT 4.3 TH/MM3 (4.0-11.0)
[2017-01-13 06:40] LABS: BICARBONATE 29.7 MEQ/L (21.0-32.0); POTASSIUM 3.8 MEQ/L (3.5-5.1)
[2017-01-13] MEDS: ATENOLOL 50 MG TAB PO SCH (09:00)
[2017-01-13] MEDS: SODIUM CHLORIDE 0.9% FLUSH 10 ML FLUSH IV FLUSH SCH ×2 (09:00→21:43)
[2017-01-13] MEDS: GABAPENTIN 300 MG CAP PO SCH ×2 (09:10→21:44)
[2017-01-13] MEDS: POTASSIUM CHLORIDE 10 MEQ CAP PO SCH (09:11)
[2017-01-13] MEDS: PANTOPRAZOLE SOD 40 MG DELAYED RELEASE TAB PO SCH (09:11)
[2017-01-13] MEDS: FUROSEMIDE 40 MG TAB PO SCH (09:12)
[2017-01-13] MEDS: BACITRACIN TOP OINT 15 GM TUBE TOPICAL SCH ×2 (09:12→21:45)
--- NOTE | 2017-01-13 10:42 | PD.ONC.PN ---
Subjective Subjective Remarks Afebrile Breathing improved Less painful with the prn Dilaudid Objective Data Date Time Temp Pulse Resp B/P (MAP) Pulse Ox O2 Delivery O2 Flow Rate FiO2 01/13/17 10:28 96 01/13/17 08:00 98.6 76 20 94/56 (69) 95 01/13/17 07:15 76 01/13/17 03:30 97.5 71 14 100/57 (71) 95 01/12/17 23:19 98.4 74 16 112/60 (77) 96 01/12/17 21:30 77 01/12/17 17:28 97 21 01/12/17 16:00 98.2 86 20 108/58 (75) 97 01/12/17 13:24 20 01/12/17 12:00 98.2 86 20 106/58 (74) 97 01/12/17 10:45 95 21 01/13/17 01/13/17 01/13/17 07:00 15:00 23:00 Output Total 260 ml Balance -260 ml Result Diagram: 01/13/17 0531 01/13/17 0531 Laboratory Results Laboratory Tests Test 01/13/17 05:31 White Blood Count 4.3 TH/MM3 Red Blood Count 4.11 MIL/MM3 Hemoglobin 13.1 GM/DL Hematocrit 37.7 % Mean Corpuscular Volume 91.8 FL Mean Corpuscular Hemoglobin 31.9 PG Mean Corpuscular Hemoglobin Concent 34.7 % Red Cell Distribution Width 13.2 % Platelet Count 189 TH/MM3 Mean Platelet Volume 8.5 FL Neutrophils (%) (Auto) 63.9 % Lymphocytes (%) (Auto) 19.8 % Monocytes (%) (Auto) 12.5 % Eosinophils (%) (Auto) 3.1 % Basophils (%) (Auto) 0.7 % Neutrophils # (Auto) 2.7 TH/MM3 Lymphocytes # (Auto) 0.8 TH/MM3 Monocytes # (Auto) 0.5 TH/MM3 Eosinophils # (Auto) 0.1 TH/MM3 Basophils # (Auto) 0.0 TH/MM3 CBC Comment DIFF FINAL Differential Comment Prothrombin Time 29.5 SEC Prothromb Time International Ratio 2.9 RATIO Blood Urea Nitrogen 16 MG/DL Creatinine 0.75 MG/DL Random Glucose 90 MG/DL Calcium Level 8.5 MG/DL Sodium Level 138 MEQ/L Potassium Level 3.8 MEQ/L Chloride Level 103 MEQ/L Carbon Dioxide Level 29.7 MEQ/L Anion Gap 5 MEQ/L Estimat Glomerular Filtration Rate 102 ML/MIN Administered Medications Medications (Trade) Dose Ordered Sig/Hilaria Route PRN Reason Start Time Stop Time Status Last Admin Dose Admin Sodium Chloride (NS Flush) 2 ml BID IV FLUSH 01/02/17 21:00 01/13/17 09:00 Acetaminophen (Tylenol) 650 mg Q4H PRN PO headache/fever 01/02/17 17:15 01/07/17 02:34 Ondansetron HCl (Zofran Inj) 4 mg Q6H PRN IVP NAUSEA OR VOMITING 01/02/17 17:15 01/12/17 21:35 Bacitracin (Baciguent Oint) 1 applic Q12HR TOPICAL 01/02/17 21:00 01/13/17 09:12 Atenolol (Tenormin) 50 mg DAILY PO 01/03/17 09:00 01/12/17 09:47 Atorvastatin Calcium (Lipitor) 20 mg HS PO 01/02/17 21:00 01/12/17 20:51 Furosemide (Lasix) 40 mg DAILY PO 01/03/17 09:00 01/13/17 09:12 Gabapentin (Neurontin) 300 mg BID PO 01/02/17 21:00 01/13/17 09:10 Potassium Chloride (KCl) 20 meq DAILY PO 01/03/17 09:00 01/13/17 09:11 Clonazepam (KlonoPIN) 0.5 mg Q8H PRN PO ANXIETY 01/03/17 15:30 01/08/17 21:08 Ceftriaxone Sodium 1000 mg/ Sodium Chloride 100 ml @ 200 mls/hr Q24H IV 01/03/17 17:00 01/12/17 16:07 Pantoprazole Sodium (Protonix) 40 mg DAILY PO 01/06/17 09:00 01/13/17 09:11 Acetaminophen/ Hydrocodone Bitart ([place] 7.5-325 Mg) 1 tab Q4H PRN PO PAIN SCALE 1 TO 5 01/08/17 23:15 01/12/17 21:36 Warfarin Sodium (Coumadin) 5 mg DAILY@1600 PO 01/12/17 16:00 Future hold 11/30/17 16:07 Hydromorphone HCl (Dilaudid Pf Inj) 0.5 mg Q4H PRN IV PUSH PAIN SCALE 6 TO 10 01/12/17 10:00 01/12/17 23:23 Objective Remarks GENERAL: Elderly male resting in bed watching TV in no obvious distress. SKIN: Warm and dry. HEAD: Normocephalic. EYES: No injection or drainage. NECK: Supple, trachea midline. CARDIOVASCULAR: Regular rate and rhythm. RESPIRATORY: Diminished throughout. On 2L O2 via NC. Chest tube inserted to R upper chest wall. GASTROINTESTINAL: Abdomen soft, non-tender, nondistended. EXTREMITIES: No cyanosis. No edema. NEUROLOGICAL: Awake and alert, normal speech. Moving all extremities. Assessment/Plan Problem List: (1) Pleural effusion ICD Codes: J90 - Pleural effusion, not elsewhere classified Status: Acute Plan: --had thoracentesis done last week with removal of 2100 mL fluid. Cytology again did not show any malignancy. --has CT in place, still draining fluid. --invasive radiology consulted for pleurodesis. they are awaiting drainage to lessen to less than 150cc/24hrs (2) Adenocarcinoma of lung ICD Codes: C34.90 - Malignant neoplasm of unspecified part of unspecified bronchus or lung Status: Chronic Plan: --Yia-ocaae-tcxe lung cancer stage III. 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 had a large mass in the right lower lobe with significant right paratracheal adenopathy causing occlusion of superior vena cava. also had subcarinal adenopathy. --Biopsy showed moderately differentiated to poorly differentiated adenocarcinoma. EGFR wild type, ALK negative and PDL1 5%. --completed radiation with concurrent chemotherapy in March of 2016. --CT angiogram done last week when he was admitted to the hospital which showed reaccumulation of right pleural effusion but no obvious mass or adenopathy. --CT abdomen and pelvis, however, showed splenic lesion that had enlarged and worrisome for metastatic disease. -->this lesion is too risky for biopsy. would recommend getting a PET scan as outpatient, and if it is hypermetabolic can consider giving him radiation. (3) Hemoptysis ICD Codes: R04.2 - Hemoptysis Status: Resolved Plan: --currently resolved --started after the thoracentesis. Etiology unclear. -- CT scan of the chest did not show clear recurrent malignancy at this time. --on antibiotics for possible superimposed infection. (4) COPD (chronic obstructive pulmonary disease) ICD Codes: J44.9 - Chronic obstructive pulmonary disease, unspecified Status: Chronic (5) Skin cancer ICD Codes: C44.90 - Unspecified malignant neoplasm of skin, unspecified Plan: --had a lesion excised from the scalp. wound is healing well. He still complains of pain around the excision site. No erythema noted. 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 h/o Severe vena cava syndrome. Chronic obstructive pulmonary disease. Gastroesophageal reflux disease.Hyperlipidemia. Hypertension.Neuropathy. Right pleural effusion. Lung cancer. Plan 1. Cardiothoracics consulted for continued significant drainage from chest tube insertion (310ml's over last 24 hours) 2. Would be unable to do pleurodesis with that much drainage. 3. Coumadin held today as INR has been slowly increasing. (2.9 today) 4. Continue supportive care. Attending Statement The exam, history, and the medical decision-making described in the above note were completed with the assistance of the mid-level provider. I reviewed and agree with the findings presented. I attest that I had a [id number] encounter with the patient on the same day, and personally performed and documented my assessment and findings in the medical record. Pain at chest tube site controlled with dilaudid. Still has significant drainage. Multiple fluid cytology was negative for malignancy but suspicious for malignancy due to significant pleural effusion. Will consult CT surgery to consider VATS/biopsy and pleurodesis. Traci Merritt Jan 13, 2017 10:42 Toro Saba MD Jan 13, 2017 18:02
[2017-01-13] MEDS: ACETAMINOPHEN/HYDROcodone 325 MG/7.5 MG TAB PO PRN ×2 (13:34→21:44)
--- NOTE | 2017-01-13 16:11 | HHI.PR ---
Subjective Remarks alert no sob fluid drainage significantly reduced Objective Vital Signs Date Time Temp Pulse Resp B/P (MAP) Pulse Ox O2 Delivery O2 Flow Rate FiO2 01/13/17 12:00 97.8 88 20 103/55 (71) 97 01/13/17 10:28 96 01/13/17 08:00 98.6 76 20 94/56 (69) 95 01/13/17 07:15 76 01/13/17 03:30 97.5 71 14 100/57 (71) 95 01/12/17 23:19 98.4 74 16 112/60 (77) 96 01/12/17 21:30 77 01/12/17 17:28 97 21 I/O 01/12/17 01/12/17 01/12/17 01/13/17 01/13/17 01/13/17 07:00 15:00 23:00 07:00 15:00 23:00 Intake Total 335 ml Output Total 300 ml 260 ml Balance 35 ml -260 ml Intake Oral 240 ml IV Total 95 ml Output Urine Total 250 ml Chest Tube Drainage Total 300 ml 10 ml # Voids 4 Result Diagram: 01/13/1731 01/13/17 0531 Objective Remarks GENERAL: SKIN: Warm and dry. HEAD: Atraumatic. Normocephalic. EYES: Pupils equal and round. No scleral icterus. No injection or drainage. ENT: No nasal bleeding or discharge. Mucous membranes pink and moist. NECK: Trachea midline. No JVD. CARDIOVASCULAR: Regular rate and rhythm. RESPIRATORY: No accessory muscle use. Clear to auscultation. Breath sounds equal bilaterally. GASTROINTESTINAL: Abdomen soft, non-tender, nondistended. Hepatic and splenic margins not palpable. MUSCULOSKELETAL: Extremities without clubbing, cyanosis, or edema. No obvious deformities. NEUROLOGICAL: Awake and alert. No obvious cranial nerve deficits. Motor grossly within normal limits. Five out of 5 muscle strength in the arms and legs. Normal speech. PSYCHIATRIC: Appropriate mood and affect; insight and judgment normal. Assessment and Plan Assessment and Plan IMP: stable post bronchoscopy and CT placement no distress lung CA PLAN pleurodesis Jemma Easton MD Jan 13, 2017 16:11
[2017-01-13] MEDS ORDERED: DOCUSATE SODIUM 50 MG/SENNA 8.6 MG TAB PO ONE (16:30)
--- NOTE | 2017-01-13 16:31 | HHI.PR ---
Subjective Remarks Patient denies dyspnea. Did have some mild right sided shoulder pain when he got up and walked around earlier which resolved on its own. 300 mL output from the chest tube. Patient states no bowel movement in 2 days. Objective Vitals Vital Signs Date Time Temp Pulse Resp B/P (MAP) Pulse Ox O2 Delivery O2 Flow Rate FiO2 01/13/17 12:00 97.8 88 20 103/55 (71) 97 01/13/17 10:28 96 01/13/17 08:00 98.6 76 20 94/56 (69) 95 01/13/17 07:15 76 01/13/17 03:30 97.5 71 14 100/57 (71) 95 01/12/17 23:19 98.4 74 16 112/60 (77) 96 01/12/17 21:30 77 01/12/17 17:28 97 21 I/O 01/12/17 01/12/17 01/12/17 01/13/17 01/13/17 01/13/17 06:59 14:59 22:59 06:59 14:59 22:59 Intake Total 335 ml Output Total 300 ml 260 ml Balance 35 ml -260 ml Intake Oral 240 ml IV Total 95 ml Output Urine Total 250 ml Chest Tube Drainage Total 300 ml 10 ml # Voids 4 Result Diagram: 01/13/1753001/13/17 0531 Objective Remarks GENERAL: Well-nourished, well-developed pleasant lean male patient. SKIN: Warm and dry. HEAD: Normocephalic. EYES: No scleral icterus. No injection or drainage. NECK: Supple, trachea midline. No JVD or lymphadenopathy. CARDIOVASCULAR: Regular rate and rhythm without murmurs, gallops, or rubs. RESPIRATORY: Breath sounds diminished in the right lung base. Chest tube at right chest. No accessory muscle use on room air. GASTROINTESTINAL: Abdomen soft, non-tender, nondistended. EXTREMITIES: No cyanosis, or edema. NEUROLOGICAL: Awake, alert, and oriented x 3. Non-focal. 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 (4) Adenocarcinoma of lung ICD Code: C34.90 - Malignant neoplasm of unspecified part of unspecified bronchus or lung Status: Chronic Assessment and Plan 76-year-old man with Right large pleural effusion - cytology negative s/p reposition chest tube 01/11/17 Plan for pleurodesis when output less than 150cc - interventional radiology consulted for pleurodesis but cannot do it due to too high of urine output Pulmonology and CT surgery following Hemoptysis Resolved s/p bronchoscopy with finding of mild tracheobronchitis. Cytology pending Management per pulmonary medicine Small right sided apical pneumothorax status post recent therapeutic thoracentesis for right-sided pleural effusion -resolved Stage III Non-small cell lung carcinoma Completed radiation with concurrent chemotherapy March 2016 Management per oncology following Thrombosis of SVC Currently on Coumadin Monitor INR/PT COPD No exacerbation DuoNeb when necessary Splenic lesion Incidental finding found on CT of abdomen/pelvis from September 2016 - of concern for metastasis Outpatient PET scan to rule out metastases Oncology monitoring Status post excision of skin cancer back of head Bacitracin ointment twice a day Hypertension/hyperlipidemia Continue home medications DVT prophylaxis Coumadin Steph Melton MD Jan 13, 2017 16:31
[2017-01-13] MEDS: cefTRIAXone INJ 1,000 MG in SODIUM CHLORIDE 0.9% INJ 100 ML IV SCH (17:00)
[2017-01-13] MEDS: ATORVASTATIN 20 MG TAB PO SCH (21:44)
[2017-01-13] MEDS: DOCUSATE SODIUM 100 MG CAP PO SCH (21:44)
[2017-01-14] VITALS (7 sets, daily range): BP systolic 97–108; BP diastolic 58–60; PULSE 72–87; RESP 16–18; TEMP 97.8–98.4; O2SAT 96–97
[2017-01-14] MEDS: clonazePAM 0.5 MG TAB PO PRN ×2 (01:55→20:58)
[2017-01-14 07:13] LABS: INTERNATIONAL NORMALIZED RATIO 2.4 RATIO; PROTHROMBIN TIME - PATIENT 24.5 SEC (9.8-11.6)
--- NOTE | 2017-01-14 08:55 | PD.ONC.PN ---
Subjective Subjective Remarks Afebrile Pain is much improved "Is about a 1 or 2" Per RN his chest tube drainage has decreased significantly Objective Data Date Time Temp Pulse Resp B/P (MAP) Pulse Ox O2 Delivery O2 Flow Rate FiO2 01/14/17 07:42 97 21 01/14/17 04:06 74 01/14/17 00:02 75 01/13/17 22:44 16 01/13/17 21:00 97.3 80 16 99/55 (70) 97 01/13/17 20:18 85 01/13/17 17:50 97 21 01/13/17 16:00 97.8 79 20 110/58 (75) 97 01/13/17 12:00 97.8 88 20 103/55 (71) 97 01/13/17 10:28 96 01/14/17 01/14/17 01/14/17 07:00 15:00 23:00 Output Total 100 ml Balance -100 ml Result Diagram: 01/13/17 0531 01/13/17 0531 Laboratory Results Laboratory Tests Test 01/14/17 05:40 Prothrombin Time 24.5 SEC Prothromb Time International Ratio 2.4 RATIO Administered Medications Medications (Trade) Dose Ordered Sig/Hilaria Route PRN Reason Start Time Stop Time Status Last Admin Dose Admin Sodium Chloride (NS Flush) 2 ml BID IV FLUSH 01/02/17 21:00 01/13/17 21:43 Acetaminophen (Tylenol) 650 mg Q4H PRN PO headache/fever 01/02/17 17:15 01/07/17 02:34 Ondansetron HCl (Zofran Inj) 4 mg Q6H PRN IVP NAUSEA OR VOMITING 01/02/17 17:15 01/12/17 21:35 Bacitracin (Baciguent Oint) 1 applic Q12HR TOPICAL 01/02/17 21:00 01/13/17 21:45 Atenolol (Tenormin) 50 mg DAILY PO 01/03/17 09:00 01/12/17 09:47 Atorvastatin Calcium (Lipitor) 20 mg HS PO 01/02/17 21:00 01/13/17 21:44 Furosemide (Lasix) 40 mg DAILY PO 01/03/17 09:00 01/13/17 09:12 Gabapentin (Neurontin) 300 mg BID PO 01/02/17 21:00 01/13/17 21:44 Potassium Chloride (KCl) 20 meq DAILY PO 01/03/17 09:00 01/13/17 09:11 Clonazepam (KlonoPIN) 0.5 mg Q8H PRN PO ANXIETY 01/03/17 15:30 01/14/17 01:55 Ceftriaxone Sodium 1000 mg/ Sodium Chloride 100 ml @ 200 mls/hr Q24H IV 01/03/17 17:00 01/13/17 17:00 Pantoprazole Sodium (Protonix) 40 mg DAILY PO 01/06/17 09:00 01/13/17 09:11 Acetaminophen/ Hydrocodone Bitart ([place] 7.5-325 Mg) 1 tab Q4H PRN PO PAIN SCALE 1 TO 5 01/08/17 23:15 01/13/17 21:44 Warfarin Sodium (Coumadin) 5 mg DAILY@1600 PO 01/12/17 16:00 Future hold 01/12/17 16:07 Hydromorphone HCl (Dilaudid Pf Inj) 0.5 mg Q4H PRN IV PUSH PAIN SCALE 6 TO 10 01/12/17 10:00 01/12/17 23:23 Docusate Sodium (Colace) 100 mg BID PO 01/13/17 21:00 01/13/17 21:44 Objective Remarks GENERAL: Elderly male asleep in bed in no acute distress. He awakens to verbal stimuli SKIN: Warm and dry. HEAD: Normocephalic. EYES: No injection or drainage. NECK: Supple, trachea midline. CARDIOVASCULAR: Regular rate and rhythm. RESPIRATORY: Diminished throughout. Chest tube inserted to R upper chest wall. Serous drainage noted in collection device GASTROINTESTINAL: Abdomen soft, non-tender, nondistended. EXTREMITIES: No cyanosis. No edema. NEUROLOGICAL: Awake and alert, normal speech. Moving all extremities. Assessment/Plan Problem List: (1) Pleural effusion ICD Codes: J90 - Pleural effusion, not elsewhere classified Status: Acute Plan: --had thoracentesis done the week before this admission with removal of 2100 mL fluid. Cytology again did not show any malignancy. --has CT in place, still draining fluid. --invasive radiology consulted for pleurodesis. they are awaiting drainage to lessen to less than 150cc/24hrs (2) Adenocarcinoma of lung ICD Codes: C34.90 - Malignant neoplasm of unspecified part of unspecified bronchus or lung Status: Chronic Plan: --Ips-lexwp-jrxn lung cancer stage III. 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 had a large mass in the right lower lobe with significant right paratracheal adenopathy causing occlusion of superior vena cava. also had subcarinal adenopathy. --Biopsy showed moderately differentiated to poorly differentiated adenocarcinoma. EGFR wild type, ALK negative and PDL1 5%. --completed radiation with concurrent chemotherapy in March of 2016. --CT angiogram done last week when he was admitted to the hospital which showed reaccumulation of right pleural effusion but no obvious mass or adenopathy. --CT abdomen and pelvis, however, showed splenic lesion that had enlarged and worrisome for metastatic disease. -->this lesion is too risky for biopsy. would recommend getting a PET scan as outpatient, and if it is hypermetabolic can consider giving him radiation. (3) Hemoptysis ICD Codes: R04.2 - Hemoptysis Status: Resolved Plan: --currently resolved --started after the thoracentesis. Etiology unclear. -- CT scan of the chest did not show clear recurrent malignancy at this time. --on antibiotics for possible superimposed infection. (4) COPD (chronic obstructive pulmonary disease) ICD Codes: J44.9 - Chronic obstructive pulmonary disease, unspecified Status: Chronic (5) Skin cancer ICD Codes: C44.90 - Unspecified malignant neoplasm of skin, unspecified Plan: --had a lesion excised from the scalp. wound is healing well. He still complains of pain around the excision site. No erythema noted. 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 h/o Severe vena cava syndrome. Chronic obstructive pulmonary disease. Gastroesophageal reflux disease.Hyperlipidemia. Hypertension.Neuropathy. Right pleural effusion. Lung cancer. Plan 1. Cardiothoracics has seen patient yesterday; they are planning to defer to IR to see if he can have pleurodesis 2. Once his chest tube has been removed he will likely be able to go home soon 3. INR 2.4. Will resume Coumadin today at 5 mg daily 4. Continue supportive care Attending Statement The exam, history, and the medical decision-making described in the above note were completed with the assistance of the mid-level provider. I reviewed and agree with the findings presented. I attest that I had a [id number] encounter with the patient on the same day, and personally performed and documented my assessment and findings in the medical record. Pain better controlled. Evaluated by CT surgery but notes not available yet. CT surgery recommend pleurodesis. CT drainage decreased. Await pelurodesis by pulmonology. Titrate pain meds. Traci Merritt Jan 14, 2017 08:55 Toro Saba MD Jan 14, 2017 15:12
[2017-01-14] MEDS: ATENOLOL 50 MG TAB PO SCH (09:00)
[2017-01-14] MEDS: GABAPENTIN 300 MG CAP PO SCH ×2 (10:12→20:57)
[2017-01-14] MEDS: FUROSEMIDE 40 MG TAB PO SCH (10:12)
[2017-01-14] MEDS: PANTOPRAZOLE SOD 40 MG DELAYED RELEASE TAB PO SCH (10:12)
[2017-01-14] MEDS: SODIUM CHLORIDE 0.9% FLUSH 10 ML FLUSH IV FLUSH SCH ×2 (10:13→20:58)
[2017-01-14] MEDS: DOCUSATE SODIUM 100 MG CAP PO SCH ×2 (10:13→20:58)
[2017-01-14] MEDS: BACITRACIN TOP OINT 15 GM TUBE TOPICAL SCH ×2 (10:13→21:00)
[2017-01-14] MEDS: POTASSIUM CHLORIDE 10 MEQ CAP PO SCH (10:13)
--- NOTE | 2017-01-14 13:11 | HHI.PR ---
Subjective Remarks Discussed with RN, overnight chest tube output was not recorded by the nurse. Patient states that he is feeling fine, no dyspnea. He states he did not get to sleep until late last night and then slept in late this morning. Objective Vitals Vital Signs Date Time Temp Pulse Resp B/P (MAP) Pulse Ox O2 Delivery O2 Flow Rate FiO2 01/14/17 08:48 97.8 81 16 97/59 (72) 96 01/14/17 07:42 97 21 01/14/17 04:06 74 01/14/17 00:02 75 01/13/17 22:44 16 01/13/17 21:00 97.3 80 16 99/55 (70) 97 01/13/17 20:18 85 01/13/17 17:50 97 21 01/13/17 16:00 97.8 79 20 110/58 (75) 97 I/O 01/13/17 01/13/17 01/13/17 01/14/17 01/14/17 01/14/17 07:00 15:00 23:00 07:00 15:00 23:00 Intake Total 400 ml Output Total 260 ml 100 ml Balance -260 ml 400 ml -100 ml Intake Oral 400 ml Output Urine Total 250 ml 100 ml Chest Tube Drainage Total 10 ml # Voids 3 2 # Bowel Movements 0 Result Diagram: 01/13/1753001/13/17530 Objective Remarks GENERAL: Well-nourished, well-developed pleasant lean male patient. SKIN: Warm and dry. HEAD: Normocephalic. EYES: No scleral icterus. No injection or drainage. NECK: Supple, trachea midline. No JVD or lymphadenopathy. CARDIOVASCULAR: Regular rate and rhythm without murmurs, gallops, or rubs. RESPIRATORY: Breath sounds diminished in the right lung base. Chest tube at right chest. No accessory muscle use on room air. GASTROINTESTINAL: Abdomen soft, non-tender, nondistended. EXTREMITIES: No cyanosis, or edema. NEUROLOGICAL: Awake, alert, and oriented x 3. Non-focal. 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 (4) Adenocarcinoma of lung ICD Code: C34.90 - Malignant neoplasm of unspecified part of unspecified bronchus or lung Status: Chronic Assessment and Plan 76-year-old man with Right large pleural effusion - cytology negative s/p reposition chest tube 01/11/17 Plan for pleurodesis when output less than 150cc - interventional radiology consulted for pleurodesis but cannot do it due to too high output Pulmonology and CT surgery following On Rocephin empirically Hemoptysis Resolved s/p bronchoscopy with finding of mild tracheobronchitis. Cytology negative Management per pulmonary medicine Small right sided apical pneumothorax status post recent therapeutic thoracentesis for right-sided pleural effusion -resolved Stage III Non-small cell lung carcinoma Completed radiation with concurrent chemotherapy March 2016 Management per oncology following Thrombosis of SVC Currently on Coumadin Monitor INR/PT COPD No exacerbation DuoNeb when necessary Splenic lesion Incidental finding found on CT of abdomen/pelvis from September 2016 - of concern for metastasis Outpatient PET scan to rule out metastases Oncology monitoring Status post excision of skin cancer back of head Bacitracin ointment twice a day Hypertension/hyperlipidemia Blood pressure is running low, will hold atenolol for systolic blood pressure less than 100 DVT prophylaxis Coumadin Steph Melton MD Jan 14, 2017 13:10
[2017-01-14] MEDS: ACETAMINOPHEN/HYDROcodone 325 MG/7.5 MG TAB PO PRN (14:41)
--- NOTE | 2017-01-14 15:27 | HHI.PR ---
Subjective Remarks alert no sob fluid drainage significantly reduced Objective Vital Signs Date Time Temp Pulse Resp B/P (MAP) Pulse Ox O2 Delivery O2 Flow Rate FiO2 01/14/17 13:17 98.4 72 18 108/60 (76) 97 01/14/17 08:48 97.8 81 16 97/59 (72) 96 01/14/17 07:42 97 21 01/14/17 04:06 74 01/14/17 00:02 75 01/13/17 22:44 16 01/13/17 21:00 97.3 80 16 99/55 (70) 97 01/13/17 20:18 85 01/13/17 17:50 97 21 01/13/17 16:00 97.8 79 20 110/58 (75) 97 I/O 01/13/17 01/13/17 01/13/17 01/14/17 01/14/17 01/14/17 07:00 15:00 23:00 07:00 15:00 23:00 Intake Total 400 ml Output Total 260 ml 100 ml Balance -260 ml 400 ml -100 ml Intake Oral 400 ml Output Urine Total 250 ml 100 ml Chest Tube Drainage Total 10 ml # Voids 3 2 # Bowel Movements 0 Result Diagram: 01/13/17 0531 01/13/17 0531 Objective Remarks GENERAL: SKIN: Warm and dry. HEAD: Atraumatic. Normocephalic. EYES: Pupils equal and round. No scleral icterus. No injection or drainage. ENT: No nasal bleeding or discharge. Mucous membranes pink and moist. NECK: Trachea midline. No JVD. CARDIOVASCULAR: Regular rate and rhythm. RESPIRATORY: No accessory muscle use. Clear to auscultation. Breath sounds equal bilaterally. GASTROINTESTINAL: Abdomen soft, non-tender, nondistended. Hepatic and splenic margins not palpable. MUSCULOSKELETAL: Extremities without clubbing, cyanosis, or edema. No obvious deformities. NEUROLOGICAL: Awake and alert. No obvious cranial nerve deficits. Motor grossly within normal limits. Five out of 5 muscle strength in the arms and legs. Normal speech. PSYCHIATRIC: Appropriate mood and affect; insight and judgment normal. Assessment and Plan Assessment and Plan IMP: stable post bronchoscopy and CT placement no distress lung CA PLAN For pleurodesis Jemma Easton MD Jan 14, 2017 15:27
[2017-01-14] MEDS: cefTRIAXone INJ 1,000 MG in SODIUM CHLORIDE 0.9% INJ 100 ML IV SCH (17:10)
[2017-01-14] MEDS: WARFARIN SOD 5 MG TAB PO SCH (17:11)
[2017-01-14] MEDS: ATORVASTATIN 20 MG TAB PO SCH (20:58)
[2017-01-15 00:03] VITALS: PULSE 75
[2017-01-15 08:00] VITALS: BP 102/56; PULSE 82; RESP 18; TEMP 97.9; O2SAT 96
--- NOTE | 2017-01-15 08:25 | PD.ONC.PN ---
Subjective Subjective Remarks Afebrile Patient reports he slept well last night Complaining of pain at the site of his IV No other acute complaints Objective Data Date Time Temp Pulse Resp B/P (MAP) Pulse Ox O2 Delivery O2 Flow Rate FiO2 01/15/17 00:03 75 01/14/17 20:22 21 01/14/17 20:12 87 01/14/17 15:00 98.0 80 16 100/58 (72) 96 01/14/17 13:17 98.4 72 18 108/60 (76) 97 01/14/17 08:48 97.8 81 16 97/59 (72) 96 Result Diagram: 01/13/1753001/13/17 0531 Administered Medications Medications (Trade) Dose Ordered Sig/Hilaria Route PRN Reason Start Time Stop Time Status Last Admin Dose Admin Sodium Chloride (NS Flush) 2 ml BID IV FLUSH 01/02/17 21:00 01/14/17 20:58 Acetaminophen (Tylenol) 650 mg Q4H PRN PO headache/fever 01/02/17 17:15 01/07/17 02:34 Ondansetron HCl (Zofran Inj) 4 mg Q6H PRN IVP NAUSEA OR VOMITING 01/02/17 17:15 01/12/17 21:35 Bacitracin (Baciguent Oint) 1 applic Q12HR TOPICAL 01/02/17 21:00 01/14/17 21:00 Atenolol (Tenormin) 50 mg DAILY PO 01/03/17 09:00 01/12/17 09:47 Atorvastatin Calcium (Lipitor) 20 mg HS PO 01/02/17 21:00 01/14/17 20:58 Furosemide (Lasix) 40 mg DAILY PO 01/03/17 09:00 01/14/17 10:12 Gabapentin (Neurontin) 300 mg BID PO 01/02/17 21:00 01/14/17 20:57 Potassium Chloride (KCl) 20 meq DAILY PO 01/03/17 09:00 01/14/17 10:13 Clonazepam (KlonoPIN) 0.5 mg Q8H PRN PO ANXIETY 01/03/17 15:30 01/14/17 20:58 Ceftriaxone Sodium 1000 mg/ Sodium Chloride 100 ml @ 200 mls/hr Q24H IV 01/03/17 17:00 01/14/17 17:10 Pantoprazole Sodium (Protonix) 40 mg DAILY PO 01/06/17 09:00 01/14/17 10:12 Acetaminophen/ Hydrocodone Bitart ([place] 7.5-325 Mg) 1 tab Q4H PRN PO PAIN SCALE 1 TO 5 01/08/17 23:15 01/14/17 14:41 Warfarin Sodium (Coumadin) 5 mg DAILY@1600 PO 01/12/17 16:00 Future hold 01/14/17 17:11 Hydromorphone HCl (Dilaudid Pf Inj) 0.5 mg Q4H PRN IV PUSH PAIN SCALE 6 TO 10 01/12/17 10:00 01/12/17 23:23 Docusate Sodium (Colace) 100 mg BID PO 01/13/17 21:00 01/14/17 20:58 Objective Remarks GENERAL: Elderly male asleep in bed in no acute distress. He awakens to verbal stimuli SKIN: Warm and dry. HEAD: Normocephalic. EYES: No injection or drainage. NECK: Supple, trachea midline. CARDIOVASCULAR: Regular rate and rhythm. RESPIRATORY: Diminished throughout. Chest tube inserted to R upper chest wall. Serous drainage noted in collection device GASTROINTESTINAL: Abdomen soft, non-tender, nondistended. EXTREMITIES: No cyanosis. No edema. NEUROLOGICAL: Awake and alert, normal speech. Moving all extremities. Assessment/Plan Problem List: (1) Pleural effusion ICD Codes: J90 - Pleural effusion, not elsewhere classified Status: Acute Plan: --had thoracentesis done the week before this admission with removal of 2100 mL fluid. Cytology again did not show any malignancy. --has CT in place, still draining fluid. --invasive radiology consulted for pleurodesis. they are awaiting drainage to lessen to less than 150cc/24hrs (2) Adenocarcinoma of lung ICD Codes: C34.90 - Malignant neoplasm of unspecified part of unspecified bronchus or lung Status: Chronic Plan: --Jua-zjyqx-bqyj lung cancer stage III. 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 had a large mass in the right lower lobe with significant right paratracheal adenopathy causing occlusion of superior vena cava. also had subcarinal adenopathy. --Biopsy showed moderately differentiated to poorly differentiated adenocarcinoma. EGFR wild type, ALK negative and PDL1 5%. --completed radiation with concurrent chemotherapy in March of 2016. --CT angiogram done last week when he was admitted to the hospital which showed reaccumulation of right pleural effusion but no obvious mass or adenopathy. --CT abdomen and pelvis, however, showed splenic lesion that had enlarged and worrisome for metastatic disease. -->this lesion is too risky for biopsy. would recommend getting a PET scan as outpatient, and if it is hypermetabolic can consider giving him radiation. (3) Hemoptysis ICD Codes: R04.2 - Hemoptysis Status: Resolved Plan: --currently resolved --started after the thoracentesis. Etiology unclear. -- CT scan of the chest did not show clear recurrent malignancy at this time. --on antibiotics for possible superimposed infection. (4) COPD (chronic obstructive pulmonary disease) ICD Codes: J44.9 - Chronic obstructive pulmonary disease, unspecified Status: Chronic (5) Skin cancer ICD Codes: C44.90 - Unspecified malignant neoplasm of skin, unspecified Plan: --had a lesion excised from the scalp. wound is healing well. He still complains of pain around the excision site. No erythema noted. 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 h/o Severe vena cava syndrome. Chronic obstructive pulmonary disease. Gastroesophageal reflux disease.Hyperlipidemia. Hypertension.Neuropathy. Right pleural effusion. Lung cancer. Plan 1. Output has significantly decreased to only 10 ML's over the last 24 hours 2. He will likely have pleurodesis done tomorrow by IR 3. Hold Coumadin today for possible procedure tomorrow 4. Continue supportive care Attending Statement The exam, history, and the medical decision-making described in the above note were completed with the assistance of the mid-level provider. I reviewed and agree with the findings presented. I attest that I had a [id number] encounter with the patient on the same day, and personally performed and documented my assessment and findings in the medical record. Pain at chest tube site controlled. Chest tube drainage decreased <50mL. Consult IR for pleurodesis. Discussed withpt and his . His has many questions which I answered to her satisfaction. Traci Merritt Jan 15, 2017 08:25 Toro Saba MD Jan 15, 2017 13:24
[2017-01-15] MEDS: SODIUM CHLORIDE 0.9% FLUSH 10 ML FLUSH IV FLUSH SCH ×2 (09:34→20:38)
[2017-01-15] MEDS: FUROSEMIDE 40 MG TAB PO SCH (09:34)
[2017-01-15] MEDS: DOCUSATE SODIUM 100 MG CAP PO SCH ×2 (09:34→20:39)
[2017-01-15] MEDS: GABAPENTIN 300 MG CAP PO SCH ×2 (09:34→20:39)
[2017-01-15] MEDS: ATENOLOL 50 MG TAB PO SCH (09:34)
[2017-01-15] MEDS: POTASSIUM CHLORIDE 10 MEQ CAP PO SCH (09:34)
[2017-01-15] MEDS: PANTOPRAZOLE SOD 40 MG DELAYED RELEASE TAB PO SCH (09:35)
[2017-01-15] MEDS: BACITRACIN TOP OINT 15 GM TUBE TOPICAL SCH ×2 (09:35→20:40)
[2017-01-15 09:50] LABS: INTERNATIONAL NORMALIZED RATIO 1.9 RATIO; PROTHROMBIN TIME - PATIENT 19.5 SEC (9.8-11.6)
[2017-01-15 11:05] VITALS: O2SAT 97
--- NOTE | 2017-01-15 11:06 | RADRPT ---
EXAM DATE/TIME: 01/15/2017 10:42 [facility] COMPARISON: CHEST EXPIRATION ONLY, January 12, 2017, 4:50. INDICATIONS : Shortness of breath, evaluate status of pleural effusion. MEDICAL HISTORY : Hypercholesterolemia. Arthritis. Carcinoma, lung. CVA. COPD. GERD. HTN. SURGICAL HISTORY : Thoracentesis. Hernia repair. Chemotherapy. ENCOUNTER: Initial ACUITY: 1 day PAIN SCORE: 0/10 LOCATION: Bilateral chest FINDINGS: A single view of the chest demonstrates right-sided chest tube. No pneumothorax. Paramediastinal dens ity/mass again seen. Associated volume loss. Pleural effusion not seen. Osseous structures are intac t. CONCLUSION: No pneumothorax. Wali Coffman MD on January 15, 2017 at 11:02 Board Certified Radiologist. This report was verified electronically.
[2017-01-15 12:45] VITALS: BP 98/52; PULSE 73; RESP 18; TEMP 98; O2SAT 96
--- NOTE | 2017-01-15 13:22 | HHI.PR ---
Subjective Remarks alert no sob fluid drainage significantly reduced Objective Vital Signs Date Time Temp Pulse Resp B/P (MAP) Pulse Ox O2 Delivery O2 Flow Rate FiO2 01/15/17 11:05 97 01/15/17 08:00 97.9 82 18 102/56 (71) 96 01/15/17 00:03 75 01/14/17 20:22 21 01/14/17 20:12 87 01/14/17 15:00 98.0 80 16 100/58 (72) 96 I/O 01/14/17 01/14/17 01/14/17 01/15/17 01/15/17 01/15/17 07:00 15:00 23:00 07:00 15:00 23:00 Intake Total 100 ml Output Total 100 ml 10 ml Balance -100 ml 90 ml IV Total 100 ml Output Urine Total 100 ml Chest Tube Drainage Total 10 ml # Voids 2 # Bowel Movements 0 Result Diagram: 01/13/1731 01/13/17 0531 Objective Remarks GENERAL: SKIN: Warm and dry. HEAD: Atraumatic. Normocephalic. EYES: Pupils equal and round. No scleral icterus. No injection or drainage. ENT: No nasal bleeding or discharge. Mucous membranes pink and moist. NECK: Trachea midline. No JVD. CARDIOVASCULAR: Regular rate and rhythm. RESPIRATORY: No accessory muscle use. Clear to auscultation. Breath sounds equal bilaterally. GASTROINTESTINAL: Abdomen soft, non-tender, nondistended. Hepatic and splenic margins not palpable. MUSCULOSKELETAL: Extremities without clubbing, cyanosis, or edema. No obvious deformities. NEUROLOGICAL: Awake and alert. No obvious cranial nerve deficits. Motor grossly within normal limits. Five out of 5 muscle strength in the arms and legs. Normal speech. PSYCHIATRIC: Appropriate mood and affect; insight and judgment normal. Assessment and Plan Assessment and Plan IMP: stable post bronchoscopy and CT placement no distress lung CA PLAN IR consulted For pleurodesis Jemma Easton MD Jan 15, 2017 13:21
--- NOTE | 2017-01-15 13:23 | HHI.PR ---
Subjective Remarks Discussed with RN, chest tube drainage only 10 mL over the past 24 hours. Patient feels well denies dyspnea he slept well. I ordered a chest x-ray which showed no pneumothorax and no effusion and reviewed the images myself. Objective Vitals Vital Signs Date Time Temp Pulse Resp B/P (MAP) Pulse Ox O2 Delivery O2 Flow Rate FiO2 01/15/17 11:05 97 01/15/17 08:00 97.9 82 18 102/56 (71) 96 01/15/17 00:03 75 01/14/17 20:22 21 01/14/17 20:12 87 01/14/17 15:00 98.0 80 16 100/58 (72) 96 I/O 01/14/17 01/14/17 01/14/17 01/15/17 01/15/17 01/15/17 07:00 15:00 23:00 07:00 15:00 23:00 Intake Total 100 ml Output Total 100 ml 10 ml Balance -100 ml 90 ml IV Total 100 ml Output Urine Total 100 ml Chest Tube Drainage Total 10 ml # Voids 2 # Bowel Movements 0 Result Diagram: 01/13/1753001/13/17530 Objective Remarks GENERAL: Well-nourished, well-developed pleasant lean male patient. SKIN: Warm and dry. HEAD: Normocephalic. EYES: No scleral icterus. No injection or drainage. NECK: Supple, trachea midline. No JVD or lymphadenopathy. CARDIOVASCULAR: Regular rate and rhythm without murmurs, gallops, or rubs. RESPIRATORY: Breath sounds diminished in the right lung base. Chest tube at right chest. No accessory muscle use on room air. GASTROINTESTINAL: Abdomen soft, non-tender, nondistended. EXTREMITIES: No cyanosis, or edema. NEUROLOGICAL: Awake, alert, and oriented x 3. Non-focal. 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 (4) Adenocarcinoma of lung ICD Code: C34.90 - Malignant neoplasm of unspecified part of unspecified bronchus or lung Status: Chronic Assessment and Plan 76-year-old man with Right large pleural effusion - cytology negative s/p reposition chest tube 01/11/17 pleurodesis tomorrow (OUtput 10 cc over past 24 hrs) Pulmonology and CT surgery following On Rocephin empirically - however cultures negative, fluid not indicative of infection will DC abx cxr ordered today i reviewed images - no ptx, no effusion Hemoptysis Resolved s/p bronchoscopy with finding of mild tracheobronchitis. Cytology negative Management per pulmonary medicine Small right sided apical pneumothorax status post recent therapeutic thoracentesis for right-sided pleural effusion -resolved Stage III Non-small cell lung carcinoma Completed radiation with concurrent chemotherapy March 2016 Management per oncology following Thrombosis of SVC Currently on Coumadin Monitor INR/PT COPD No exacerbation DuoNeb when necessary Splenic lesion Incidental finding found on CT of abdomen/pelvis from September 2016 - of concern for metastasis Outpatient PET scan to rule out metastases Oncology monitoring Status post excision of skin cancer back of head Bacitracin ointment twice a day Hypertension/hyperlipidemia Blood pressure is running low, will hold atenolol for systolic blood pressure less than 100 DVT prophylaxis Coumadin Steph Melton MD Jan 15, 2017 13:23
[2017-01-15 16:50] VITALS: BP 100/57; PULSE 85; RESP 18; TEMP 98.6; O2SAT 97
[2017-01-15] MEDS: cefTRIAXone INJ 1,000 MG in SODIUM CHLORIDE 0.9% INJ 100 ML IV SCH (17:02)
[2017-01-15 20:00] VITALS: BP 95/50; PULSE 74; PULSE 88; RESP 18; TEMP 98.2; O2SAT 94
[2017-01-15] MEDS: ATORVASTATIN 20 MG TAB PO SCH (20:39)
[2017-01-15] MEDS: MELATONIN 5 MG TAB PO PRN (22:25)
[2017-01-15] MEDS: ACETAMINOPHEN/HYDROcodone 325 MG/7.5 MG TAB PO PRN (22:26)
[2017-01-16] VITALS (12 sets, daily range): BP systolic 94–110; BP diastolic 50–58; PULSE 65–78; RESP 15–18; TEMP 97.5–98.6; O2SAT 93–96
[2017-01-16] MEDS ORDERED: MAGNESIUM HYDROXIDE SUSP 30 ML CUP PO PRN (01:15)
[2017-01-16 06:33] LABS: EOSINOPHIL # 0.1 TH/MM3 (0-0.4); EOSINOPHIL % 2.4 % (0.0-4.0); HEMATOCRIT 36.1 % (39.0-51.0); HEMO FLAGS DIFF FINAL; LYMPH % 18.6 % (9.0-44.0); LYMPHOCYTE # 0.8 TH/MM3 (1.0-4.8); MEAN CELL VOLUME 92.2 FL (80.0-100.0); MEAN CORPUSCULAR HEMOGLOBIN 32.1 PG (27.0-34.0); MEAN CORPUSCULAR HGB CONC 34.8 % (32.0-36.0); MONO % 11.1 % (0.0-8.0); NEUT % 66.9 % (16.0-70.0); PLATELET COUNT 177 TH/MM3 (150-450); RED BLOOD COUNT 3.91 MIL/MM3 (4.50-5.90); RED CELL DISTRIBUTION WIDTH 12.9 % (11.6-17.2); WHITE BLOOD COUNT 4.4 TH/MM3 (4.0-11.0)
[2017-01-16 06:36] LABS: INTERNATIONAL NORMALIZED RATIO 1.7 RATIO; PROTHROMBIN TIME - PATIENT 16.9 SEC (9.8-11.6)
[2017-01-16 06:50] LABS: BICARBONATE 27.7 MEQ/L (21.0-32.0); POTASSIUM 3.5 MEQ/L (3.5-5.1)
--- NOTE | 2017-01-16 08:09 | MB ---
cc: GAGANDEEP DUNBAR DATE OF CONSULTATION: 01/13/2017 HISTORY OF PRESENT ILLNESS A 76-year-old male, patient of Dr. Toro Saba, with a history of stage III non-small cell lung CA treated with concurrent chemo and radiation completed March 2016. He apparently had a good response to his treatment. The patient was admitted on the with shortness of breath and was found to have a large right pleural effusion. He underwent placement of a chest tube CT-guided which drained initially 1300 cc of fluid. The chest tube was adjusted on the and then reinserted again the same day. We were asked to see the patient regarding pleurodesis, however, at this time the patient's drainage had been over 300. Interventional radiology recommends less than 150 for pleurodesis. He says he has had chest tubes x4. He has a history of a PleurX catheter in the past. PAST MEDICAL HISTORY 1. Non-small cell lung CA. 2. Severe vena cava syndrome. 3. COPD. 4. Gastroesophageal reflux disease. 5. Hyperlipidemia. 6. Hypertension. 7. Neuropathy. 8. Recurrent right pleural effusion. 9. Lung cancer with chemo and radiation. PAST SURGICAL HISTORY 1. Colonoscopy. 2. Port placement. 3. Hernia repair. 4. Multiple thoracentesis. 5. Excisional scalp lesion. FAMILY HISTORY Noncontributory. ALLERGIES The patient has no known allergies. MEDICATIONS Home meds include: 1. Coumadin. 2. Lopid. 3. Atorvastatin. 4. Atenolol. 5. Hydrocodone. 6. Klonopin. 7. Gabapentin. 8. Lasix. 9. Potassium. SOCIAL HISTORY Quit smoking 9 years ago. Lives with his . REVIEW OF SYSTEMS Negative as above other then shortness of breath which is chronic and worsening recently. PHYSICAL EXAMINATION VITAL SIGNS: Blood pressure 103/60, heart rate 88, afebrile on room air. GENERAL: Patient is alert and oriented, in no acute distress. HEENT: Head is normocephalic, atraumatic. Pupils equal and reactive. Oral mucosa pink and moist. NECK: Supple. No JVD. HEART: Heart sounds S1, S2. No audible rubs, murmurs or gallops. There is a chest tube on the right. No air leak noted. Decreased breath sounds also on the right. ABDOMEN: Soft, nontender. No masses or organomegaly. EXTREMITIES: No cyanosis, clubbing or edema. LABORATORY Hemoglobin 13, hematocrit 37, white cell count 4.3, platelet count 189. Sodium 138, potassium 3.8, BUN 16, creatinine 0.75. Troponins are negative. INR last is 2.9. Pleural fluid showed rbc's 3900, wbc's 464, glucose 97. Micro showed no growth in the Gram stain or the culture. No AFB. No fungal element seen. IMAGING Chest x-ray on the showed right chest tube without pneumothorax. IMPRESSION A 76-year-old male with non-small cell lung cancer, stage III, superior vena cava syndrome, status post chemo and radiation and recurrent pleural effusions. He has had multiple thoracentesis, also chest tube placement. PLAN/RECOMMENDATIONS At this time recommend allowing the chest tube drainage to decrease and recommend that IR do the pleurodesis if possible. If this is not able to be done by interventional radiology, please reconsult us at that time. No further intervention. Dictated by: GEOVANNY Kirkpatrick MD WOJCIECH Obando/JERSON /2:35 PM /8:05 AM
[2017-01-16] MEDS: SODIUM CHLORIDE 0.9% FLUSH 10 ML FLUSH IV FLUSH SCH ×2 (08:28→20:40)
[2017-01-16] MEDS: DOCUSATE SODIUM 100 MG CAP PO SCH ×2 (09:41→20:39)
[2017-01-16] MEDS: GABAPENTIN 300 MG CAP PO SCH ×2 (09:41→20:39)
[2017-01-16] MEDS: BACITRACIN TOP OINT 15 GM TUBE TOPICAL SCH ×2 (09:41→20:40)
[2017-01-16] MEDS: FUROSEMIDE 40 MG TAB PO SCH (09:41)
[2017-01-16] MEDS: PANTOPRAZOLE SOD 40 MG DELAYED RELEASE TAB PO SCH (09:41)
[2017-01-16] MEDS: ATENOLOL 50 MG TAB PO SCH (09:41)
--- NOTE | 2017-01-16 11:12 | PD.ONC.PN ---
Subjective Subjective Remarks Afebrile overnight. Patient denying pain at chest tube site today. Waiting to go down for pleurodesis. Objective Data Date Time Temp Pulse Resp B/P (MAP) Pulse Ox O2 Delivery O2 Flow Rate FiO2 01/16/17 08:25 98.6 77 18 110/58 (75) 94 01/16/17 07:00 65 01/16/17 04:00 98.0 75 18 104/58 (73) 93 01/16/17 00:00 97.5 69 18 98/52 (67) 96 01/15/17 20:00 98.2 74 18 95/50 (65) 94 01/15/17 20:00 88 01/15/17 16:50 98.6 85 18 100/57 (71) 97 01/15/17 12:45 98.0 73 18 98/52 (67) 96 01/16/17 01/16/17 01/16/17 07:00 15:00 23:00 Intake Total 240 ml Output Total 120 ml Balance 120 ml Result Diagram: 01/16/17 0533 01/16/17 0535 Laboratory Results Laboratory Tests Test 01/16/17 05:33 01/16/17 05:35 White Blood Count 4.4 TH/MM3 Red Blood Count 3.91 MIL/MM3 Hemoglobin 12.6 GM/DL Hematocrit 36.1 % Mean Corpuscular Volume 92.2 FL Mean Corpuscular Hemoglobin 32.1 PG Mean Corpuscular Hemoglobin Concent 34.8 % Red Cell Distribution Width 12.9 % Platelet Count 177 TH/MM3 Mean Platelet Volume 8.9 FL Neutrophils (%) (Auto) 66.9 % Lymphocytes (%) (Auto) 18.6 % Monocytes (%) (Auto) 11.1 % Eosinophils (%) (Auto) 2.4 % Basophils (%) (Auto) 1.0 % Neutrophils # (Auto) 3.0 TH/MM3 Lymphocytes # (Auto) 0.8 TH/MM3 Monocytes # (Auto) 0.5 TH/MM3 Eosinophils # (Auto) 0.1 TH/MM3 Basophils # (Auto) 0.0 TH/MM3 CBC Comment DIFF FINAL Differential Comment Prothrombin Time 16.9 SEC Prothromb Time International Ratio 1.7 RATIO Blood Urea Nitrogen 12 MG/DL Creatinine 0.68 MG/DL Random Glucose 89 MG/DL Calcium Level 8.3 MG/DL Sodium Level 140 MEQ/L Potassium Level 3.5 MEQ/L Chloride Level 105 MEQ/L Carbon Dioxide Level 27.7 MEQ/L Anion Gap 7 MEQ/L Estimat Glomerular Filtration Rate 114 ML/MIN Administered Medications Medications (Trade) Dose Ordered Sig/Hilaria Route PRN Reason Start Time Stop Time Status Last Admin Dose Admin Sodium Chloride (NS Flush) 2 ml BID IV FLUSH 01/02/17 21:00 01/16/17 08:28 Acetaminophen (Tylenol) 650 mg Q4H PRN PO headache/fever 01/02/17 17:15 01/07/17 02:34 Ondansetron HCl (Zofran Inj) 4 mg Q6H PRN IVP NAUSEA OR VOMITING 01/02/17 17:15 01/12/17 21:35 Bacitracin (Baciguent Oint) 1 applic Q12HR TOPICAL 01/02/17 21:00 01/16/17 09:41 Atenolol (Tenormin) 50 mg DAILY PO 01/03/17 09:00 01/16/17 09:41 Atorvastatin Calcium (Lipitor) 20 mg HS PO 01/02/17 21:00 01/15/17 20:39 Furosemide (Lasix) 40 mg DAILY PO 01/03/17 09:00 01/16/17 09:41 Gabapentin (Neurontin) 300 mg BID PO 01/02/17 21:00 01/16/17 09:41 Potassium Chloride (KCl) 20 meq DAILY PO 01/03/17 09:00 01/15/17 09:34 Clonazepam (KlonoPIN) 0.5 mg Q8H PRN PO ANXIETY 01/03/17 15:30 01/14/17 20:58 Ceftriaxone Sodium 1000 mg/ Sodium Chloride 100 ml @ 200 mls/hr Q24H IV 01/03/17 17:00 01/15/17 17:02 Pantoprazole Sodium (Protonix) 40 mg DAILY PO 01/06/17 09:00 01/16/17 09:41 Acetaminophen/ Hydrocodone Bitart ([place] 7.5-325 Mg) 1 tab Q4H PRN PO PAIN SCALE 1 TO 5 01/08/17 23:15 01/15/17 22:26 Warfarin Sodium (Coumadin) 5 mg DAILY@1600 PO 01/12/17 16:00 Future Hold 01/14/17 17:11 Hydromorphone HCl (Dilaudid Pf Inj) 0.5 mg Q4H PRN IV PUSH PAIN SCALE 6 TO 10 01/12/17 10:00 01/12/17 23:23 Melatonin (Melatonin) 5 mg HS PRN PO INSOMNIA 01/12/17 21:00 01/15/17 22:25 Docusate Sodium (Colace) 100 mg BID PO 01/13/17 21:00 01/16/17 09:41 Objective Remarks GENERAL: Elderly male upright in bed in nad. SKIN: Warm and dry. HEAD: Normocephalic. EYES: No injection or drainage. NECK: Supple, trachea midline. CARDIOVASCULAR: Regular rate and rhythm. RESPIRATORY: diminished in right lower lung shields. anterior shields clear. CT in place. GASTROINTESTINAL: Abdomen soft, non-tender, nondistended. EXTREMITIES: No cyanosis NEUROLOGICAL: awake and alert, normal speech. moving all extremities. Assessment/Plan Problem List: (1) Pleural effusion ICD Codes: J90 - Pleural effusion, not elsewhere classified Status: Acute Plan: --had thoracentesis done the week before this admission with removal of 2100 mL fluid. Cytology again did not show any malignancy. --has CT in place, still draining fluid. --invasive radiology plans for pleurodesis, 01/16 (2) Adenocarcinoma of lung ICD Codes: C34.90 - Malignant neoplasm of unspecified part of unspecified bronchus or lung Status: Chronic Plan: --[id number]-mvvo lung cancer stage III. 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 had a large mass in the right lower lobe with significant right paratracheal adenopathy causing occlusion of superior vena cava. also had subcarinal adenopathy. --Biopsy showed moderately differentiated to poorly differentiated adenocarcinoma. EGFR wild type, ALK negative and PDL1 5%. --completed radiation with concurrent chemotherapy in March of 2016. --CT angiogram done last week when he was admitted to the hospital which showed reaccumulation of right pleural effusion but no obvious mass or adenopathy. --CT abdomen and pelvis, however, showed splenic lesion that had enlarged and worrisome for metastatic disease. -->this lesion is too risky for biopsy. would recommend getting a PET scan as outpatient, and if it is hypermetabolic can consider giving him radiation. (3) Hemoptysis ICD Codes: R04.2 - Hemoptysis Status: Resolved Plan: --currently resolved --started after the thoracentesis. Etiology unclear. -- CT scan of the chest did not show clear recurrent malignancy at this time. --on antibiotics for possible superimposed infection. (4) COPD (chronic obstructive pulmonary disease) ICD Codes: J44.9 - Chronic obstructive pulmonary disease, unspecified Status: Chronic (5) Skin cancer ICD Codes: C44.90 - Unspecified malignant neoplasm of skin, unspecified Plan: --had a lesion excised from the scalp. wound is healing well. He still complains of pain around the excision site. No erythema noted. 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 h/o Severe vena cava syndrome. Chronic obstructive pulmonary disease. Gastroesophageal reflux disease.Hyperlipidemia. Hypertension.Neuropathy. Right pleural effusion. Lung cancer. Plan 1. pleurodesis today 2. after pleurodesis resume coumadin 3. continue supportive care Attending Statement The exam, history, and the medical decision-making described in the above note were completed with the assistance of the mid-level provider. I reviewed and agree with the findings presented. I attest that I had a [id number] encounter with the patient on the same day, and personally performed and documented my assessment and findings in the medical record. CP controlled. Minimal chest tube drainage. Await pleurodesis at IR today. Resume coumadin after the procedure. Charla Bangura Jan 16, 2017 11:12 Toro Saba MD Jan 16, 2017 19:09
--- NOTE | 2017-01-16 11:24 | HHI.PR ---
Subjective Remarks C/o feeling tired, no dyspnea. Objective Vitals Vital Signs Date Time Temp Pulse Resp B/P (MAP) Pulse Ox O2 Delivery O2 Flow Rate FiO2 01/16/17 11:17 98.4 65 18 98/52 (67) 96 01/16/17 08:25 98.6 77 18 110/58 (75) 94 01/16/17 07:00 65 01/16/17 04:00 98.0 75 18 104/58 (73) 93 01/16/17 00:00 97.5 69 18 98/52 (67) 96 01/15/17 20:00 98.2 74 18 95/50 (65) 94 01/15/17 20:00 88 01/15/17 16:50 98.6 85 18 100/57 (71) 97 01/15/17 12:45 98.0 73 18 98/52 (67) 96 I/O 01/15/17 01/15/17 01/15/17 01/16/17 01/16/17 01/16/17 07:00 15:00 23:00 07:00 15:00 23:00 Intake Total 480 ml 800 ml 240 ml Output Total 0 ml 120 ml Balance 480 ml 800 ml 120 ml Intake Oral 480 ml 700 ml 240 ml IV Total 100 ml Output Urine Total 100 ml Chest Tube Drainage Total 0 ml 20 ml # Voids 2 4 3 # Bowel Movements 0 0 Result Diagram: 01/16/17 0533 01/16/17 0535 Objective Remarks GENERAL: Well-nourished, well-developed pleasant lean male patient. SKIN: Warm and dry. HEAD: Normocephalic. EYES: No scleral icterus. No injection or drainage. NECK: Supple, trachea midline. No JVD or lymphadenopathy. CARDIOVASCULAR: Regular rate and rhythm without murmurs, gallops, or rubs. RESPIRATORY: Breath sounds diminished at bases. Chest tube at right chest. No accessory muscle use on room air. GASTROINTESTINAL: Abdomen soft, non-tender, nondistended. EXTREMITIES: No cyanosis, or edema. NEUROLOGICAL: Awake, alert, and oriented x 3. Non-focal. 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
[2017-01-16] MEDS ORDERED: SODIUM CHLORIDE 0.9% ONE (12:15)
[2017-01-16] MEDS ORDERED: LIDOCAINE 2% ONE (12:15)
[2017-01-16] MEDS ORDERED: DOXYCYCLINE ONE (12:15)
[2017-01-16] MEDS ORDERED: IODIXANOL 320 MG/ML 50 ML VIAL (for Cath Lab) OTHER ONE (13:51)
--- NOTE | 2017-01-16 14:50 | PD.RAD ---
Post Procedure Progress Note Procedure Date: Jan 16, 2017 Supervising Radiologist: Darren Gore Plan of Activity See PACS Report for procedural detail/treatment Imaging Evaluation Other Findings: free flow of contrast in pleural space doxycycline placed Darren Gore MD Jan 16, 2017 14:50
--- NOTE | 2017-01-16 15:22 | RADRPT ---
EXAM DATE/TIME: 01/16/2017 14:37 [facility] COMPARISON: No previous studies available for comparison. INDICATIONS : Patient with a history of right pneumothorax. MEDICAL HISTORY : 1.non small cell lung cancer 2. SVC syndrome 3. HTN 4. COPD 5. right plueral effusion 6. GERD SURGICAL HISTORY : 1. Hernia repair port placment 3. chest tube x2 ENCOUNTER: Subsequent ACUITY: 1 week PAIN SCORE: 3/10 LOCATION: right chest FLUORO TIME: 0.2 minutes IMAGE SERIES: 1 MEDICATION(S): 1.) 500 mg doxycycline 2.) 10 cc Lidocaine PROCEDURE : 1. Chemical pleurodesis. 2. Fluoroscopic guidance. The risks, benefits, and alternatives to paracentesis were explained to the patient in detail, lay te mary anne including the risk of bleeding and infection. Oral and written informed consent was obtained. The site was prepped in sterile fashion. Full sterile technique was used, including cap, mask, steri le gloves and gown and a large sterile sheet. Hand hygiene and 2% chlorhexidine and/or betadine/alco hol prep was utilized per protocol for cutaneous antisepsis. The skin and subcutaneous tissues were infiltrated with local anesthetic solution. There is free flow of contrast throughout the right pleural space. The prescribed dose was instilled through the previously placed chest tube and the chest tube was cl amped. The patient was rotated into the anterior, posterior, right lateral and left lateral at 30 mi nute increments for a total of 2 hours. Upon completion of this the chest tube was unclamped and aga in placed to Pleur-evac suction. CONCLUSION: Uncomplicated chemical pleurodesis as above. Darren Gore MD on January 16, 2017 at 15:19 Board Certified Radiologist. This report was verified electronically.
[2017-01-16] MEDS: ACETAMINOPHEN/HYDROcodone 325 MG/7.5 MG TAB PO PRN ×2 (16:27→20:39)
[2017-01-16] MEDS: POTASSIUM CHLORIDE 10 MEQ CAP PO SCH (16:27)
--- NOTE | 2017-01-16 17:17 | HHI.PR ---
Subjective Remarks alert no sob pleurodesis done well tolerated Objective Vital Signs Date Time Temp Pulse Resp B/P (MAP) Pulse Ox O2 Delivery O2 Flow Rate FiO2 01/16/17 16:14 97.7 77 18 94/50 (65) 95 01/16/17 14:45 75 94 01/16/17 14:15 75 94/ 01/16/17 13:45 75 94/ 01/16/17 11:44 96 21 01/16/17 11:17 98.4 65 18 98/52 (67) 96 01/16/17 08:25 98.6 77 18 110/58 (75) 94 01/16/17 07:00 65 01/16/17 04:00 98.0 75 18 104/58 (73) 93 01/16/17 00:00 97.5 69 18 98/52 (67) 96 01/15/17 20:00 98.2 74 18 95/50 (65) 94 01/15/17 20:00 88 I/O 01/15/17 01/15/17 01/15/17 01/16/17 01/16/17 01/16/17 06:59 14:59 22:59 06:59 14:59 22:59 Intake Total 480 ml 800 ml 240 ml 240 ml Output Total 0 ml 120 ml 800 ml Balance 480 ml 800 ml 120 ml -560 ml Intake Oral 480 ml 700 ml 240 ml 240 ml IV Total 100 ml Output Urine Total 100 ml Chest Tube Drainage Total 0 ml 20 ml 800 ml # Voids 2 4 3 4 # Bowel Movements 0 0 1 Result Diagram: 01/16/17 0533 01/16/17 0535 Objective Remarks GENERAL: SKIN: Warm and dry. HEAD: Atraumatic. Normocephalic. EYES: Pupils equal and round. No scleral icterus. No injection or drainage. ENT: No nasal bleeding or discharge. Mucous membranes pink and moist. NECK: Trachea midline. No JVD. CARDIOVASCULAR: Regular rate and rhythm. RESPIRATORY: No accessory muscle use. Clear to auscultation. Breath sounds equal bilaterally. GASTROINTESTINAL: Abdomen soft, non-tender, nondistended. Hepatic and splenic margins not palpable. MUSCULOSKELETAL: Extremities without clubbing, cyanosis, or edema. No obvious deformities. NEUROLOGICAL: Awake and alert. No obvious cranial nerve deficits. Motor grossly within normal limits. Five out of 5 muscle strength in the arms and legs. Normal speech. PSYCHIATRIC: Appropriate mood and affect; insight and judgment normal. Assessment and Plan Assessment and Plan IMP: stable post bronchoscopy and CT placement no distress lung CA PLAN remove CT when possible Jemma Easton MD Jan 16, 2017 17:17
[2017-01-16] MEDS: ATORVASTATIN 20 MG TAB PO SCH (20:39)
[2017-01-16] MEDS: MELATONIN 5 MG TAB PO PRN (21:31)
[2017-01-17] VITALS (10 sets, daily range): BP systolic 88–101; BP diastolic 40–58; PULSE 74–83; RESP 16–18; TEMP 97.9–98.8; O2SAT 93–98
[2017-01-17] MEDS: ACETAMINOPHEN/HYDROcodone 325 MG/7.5 MG TAB PO PRN ×3 (01:05→20:17)
[2017-01-17] MEDS: clonazePAM 0.5 MG TAB PO PRN ×2 (05:14→21:25)
--- NOTE | 2017-01-17 05:55 | RADRPT ---
EXAM DATE/TIME: 01/17/2017 05:04 [facility] COMPARISON: CHEST SINGLE AP, January 15, 2017, 10:42. INDICATIONS : Shortness of breath, respiratory disease. MEDICAL HISTORY : Hypercholesterolemia. Arthritis. Carcinoma, lung. CVA. COPD. GERD. SURGICAL HISTORY : Thoracentesis. Hernia repair. Chemotherapy. ENCOUNTER: Subsequent ACUITY: 3 weeks PAIN SCORE: 0/10 LOCATION: Bilateral chest FINDINGS: A single AP semierect view of the chest was obtained and again demonstrates the small bore right-side d chest tube in place with no pneumothorax. The right suprahilar masslike area is unchanged in appear ance. The left lung is clear. The heart size remains within normal limits. Bony thorax is intact. The re are multiple overlying electrocardiogram leads. CONCLUSION: No significant change. Right-sided chest tube in place with no pneumothorax. Paramjit Farr MD on January 17, 2017 at 5:52 Board Certified Radiologist. This report was verified electronically.
[2017-01-17 06:38] LABS: INTERNATIONAL NORMALIZED RATIO 1.4 RATIO; PROTHROMBIN TIME - PATIENT 14.1 SEC (9.8-11.6)
--- NOTE | 2017-01-17 08:56 | HHI.PR ---
Subjective Remarks alert no sob pleurodesis done well tolerated fluid decreased today 80 cc last 12 hours Objective Vital Signs Date Time Temp Pulse Resp B/P (MAP) Pulse Ox O2 Delivery O2 Flow Rate FiO2 01/17/17 07:39 98.8 77 18 94/40 (58) 95 01/17/17 07:00 76 01/17/17 05:11 97.9 74 16 93/53 (66) 94 01/17/17 01:00 98.4 78 16 91/47 (62) 93 01/16/17 20:30 97.8 78 15 96/56 (69) 96 01/16/17 20:30 74 01/16/17 17:36 95 21 01/16/17 16:14 97.7 77 18 94/50 (65) 95 01/16/17 14:45 75 94 01/16/17 14:15 75 94/ 01/16/17 13:45 75 94/ 01/16/17 11:44 96 21 01/16/17 11:17 98.4 65 18 98/52 (67) 96 I/O 01/16/17 01/16/17 01/16/17 01/17/17 01/17/17 01/17/17 07:00 15:00 23:00 07:00 15:00 23:00 Intake Total 240 ml 240 ml Output Total 120 ml 800 ml 180 ml Balance 120 ml -560 ml -180 ml Intake Oral 240 ml 240 ml Output Urine Total 100 ml 100 ml Chest Tube Drainage Total 20 ml 800 ml 80 ml # Voids 3 4 # Bowel Movements 0 1 Result Diagram: 01/16/17 0533 01/16/17 0535 Objective Remarks GENERAL: SKIN: Warm and dry. HEAD: Atraumatic. Normocephalic. EYES: Pupils equal and round. No scleral icterus. No injection or drainage. ENT: No nasal bleeding or discharge. Mucous membranes pink and moist. NECK: Trachea midline. No JVD. CARDIOVASCULAR: Regular rate and rhythm. RESPIRATORY: No accessory muscle use. Clear to auscultation. Breath sounds equal bilaterally. GASTROINTESTINAL: Abdomen soft, non-tender, nondistended. Hepatic and splenic margins not palpable. MUSCULOSKELETAL: Extremities without clubbing, cyanosis, or edema. No obvious deformities. NEUROLOGICAL: Awake and alert. No obvious cranial nerve deficits. Motor grossly within normal limits. Five out of 5 muscle strength in the arms and legs. Normal speech. PSYCHIATRIC: Appropriate mood and affect; insight and judgment normal. Assessment and Plan Assessment and Plan IMP: stable post CT placement no distress lung CA PLAN remove CT when possible Jemma Easton MD Jan 17, 2017 08:56
[2017-01-17] MEDS: ATENOLOL 50 MG TAB PO SCH (09:45)
[2017-01-17] MEDS: SODIUM CHLORIDE 0.9% FLUSH 10 ML FLUSH IV FLUSH SCH ×2 (09:45→20:17)
[2017-01-17] MEDS: DOCUSATE SODIUM 100 MG CAP PO SCH ×2 (09:45→20:17)
[2017-01-17] MEDS: GABAPENTIN 300 MG CAP PO SCH ×2 (09:45→20:17)
[2017-01-17] MEDS: POTASSIUM CHLORIDE 10 MEQ CAP PO SCH (09:45)
[2017-01-17] MEDS: BACITRACIN TOP OINT 15 GM TUBE TOPICAL SCH ×2 (09:46→20:17)
[2017-01-17] MEDS: FUROSEMIDE 40 MG TAB PO SCH (09:46)
[2017-01-17] MEDS: PANTOPRAZOLE SOD 40 MG DELAYED RELEASE TAB PO SCH (09:46)
--- NOTE | 2017-01-17 10:42 | PD.ONC.PN ---
Subjective Subjective Remarks Afebrile overnight. s/p pleurodesis yesterday. Resting comfortably in room in nad. Objective Data Date Time Temp Pulse Resp B/P (MAP) Pulse Ox O2 Delivery O2 Flow Rate FiO2 01/17/17 07:39 98.8 77 18 94/40 (58) 95 01/17/17 07:00 76 01/17/17 05:11 97.9 74 16 93/53 (66) 94 01/17/17 01:00 98.4 78 16 91/47 (62) 93 01/16/17 20:30 97.8 78 15 96/56 (69) 96 01/16/17 20:30 74 01/16/17 17:36 95 21 01/16/17 16:14 97.7 77 18 94/50 (65) 95 01/16/17 14:45 75 94 01/16/17 14:15 75 94/ 01/16/17 13:45 75 94/ 01/16/17 11:44 96 21 01/16/17 11:17 98.4 65 18 98/52 (67) 96 01/17/17 01/17/17 01/17/17 07:00 15:00 23:00 Output Total 180 ml Balance -180 ml Result Diagram: 01/16/17 0533 01/16/17 0535 Laboratory Results Laboratory Tests Test 01/17/17 05:48 Prothrombin Time 14.1 SEC Prothromb Time International Ratio 1.4 RATIO Imaging Studies Last 24 hours Impressions Chest X-Ray 01/17/17 0600 Signed Impressions: Service Date/Time: Tuesday, January 17, 2017 05:04 - CONCLUSION: No significant change. Right-sided chest tube in place with no pneumothorax. Paramjit Farr MD Administered Medications Medications (Trade) Dose Ordered Sig/Hilaria Route PRN Reason Start Time Stop Time Status Last Admin Dose Admin Sodium Chloride (NS Flush) 2 ml BID IV FLUSH 01/02/17 21:00 01/17/17 09:45 Acetaminophen (Tylenol) 650 mg Q4H PRN PO headache/fever 01/02/17 17:15 01/07/17 02:34 Ondansetron HCl (Zofran Inj) 4 mg Q6H PRN IVP NAUSEA OR VOMITING 01/02/17 17:15 01/12/17 21:35 Bacitracin (Baciguent Oint) 1 applic Q12HR TOPICAL 01/02/17 21:00 01/17/17 09:46 Atenolol (Tenormin) 50 mg DAILY PO 01/03/17 09:00 01/17/17 09:45 Atorvastatin Calcium (Lipitor) 20 mg HS PO 01/02/17 21:00 01/16/17 20:39 Furosemide (Lasix) 40 mg DAILY PO 01/03/17 09:00 01/17/17 09:46 Gabapentin (Neurontin) 300 mg BID PO 01/02/17 21:00 01/17/17 09:45 Potassium Chloride (KCl) 20 meq DAILY PO 01/03/17 09:00 01/17/17 09:45 Clonazepam (KlonoPIN) 0.5 mg Q8H PRN PO ANXIETY 01/03/17 15:30 01/17/17 05:14 Pantoprazole Sodium (Protonix) 40 mg DAILY PO 01/06/17 09:00 01/17/17 09:46 Acetaminophen/ Hydrocodone Bitart ([place] 7.5-325 Mg) 1 tab Q4H PRN PO PAIN SCALE 1 TO 5 01/08/17 23:15 01/17/17 01:05 Warfarin Sodium (Coumadin) 5 mg DAILY@1600 PO 01/12/17 16:00 Future Hold 01/14/17 17:11 Hydromorphone HCl (Dilaudid Pf Inj) 0.5 mg Q4H PRN IV PUSH PAIN SCALE 6 TO 10 01/12/17 10:00 01/12/17 23:23 Melatonin (Melatonin) 5 mg HS PRN PO INSOMNIA 01/12/17 21:00 01/16/17 21:31 Docusate Sodium (Colace) 100 mg BID PO 01/13/17 21:00 01/17/17 09:45 Objective Remarks GENERAL: Elderly male lying in bed in nad. SKIN: Warm and dry. HEAD: Normocephalic. EYES: No injection or drainage. NECK: Supple, trachea midline. CARDIOVASCULAR: Regular rate and rhythm. RESPIRATORY: right lung shields diminished. CT in place, right chest wall. GASTROINTESTINAL: Abdomen soft, non-tender, nondistended. EXTREMITIES: No cyanosis Assessment/Plan Problem List: (1) Pleural effusion ICD Codes: J90 - Pleural effusion, not elsewhere classified Status: Acute Plan: --had thoracentesis done the week before this admission with removal of 2100 mL fluid. Cytology again did not show any malignancy. --has CT in place, still draining fluid. --underwent pleurodesis, 01/16 (2) Adenocarcinoma of lung ICD Codes: C34.90 - Malignant neoplasm of unspecified part of unspecified bronchus or lung Status: Chronic Plan: --[id number] lung cancer stage III. 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 had a large mass in the right lower lobe with significant right paratracheal adenopathy causing occlusion of superior vena cava. also had subcarinal adenopathy. --Biopsy showed moderately differentiated to poorly differentiated adenocarcinoma. EGFR wild type, ALK negative and PDL1 5%. --completed radiation with concurrent chemotherapy in March of 2016. --CT angiogram done last week when he was admitted to the hospital which showed reaccumulation of right pleural effusion but no obvious mass or adenopathy. --CT abdomen and pelvis, however, showed splenic lesion that had enlarged and worrisome for metastatic disease. -->this lesion is too risky for biopsy. would recommend getting a PET scan as outpatient, and if it is hypermetabolic can consider giving him radiation. (3) COPD (chronic obstructive pulmonary disease) ICD Codes: J44.9 - Chronic obstructive pulmonary disease, unspecified Status: Chronic (4) Skin cancer ICD Codes: C44.90 - Unspecified malignant neoplasm of skin, unspecified Plan: --had a lesion excised from the scalp. wound is healing well. He still complains of pain around the excision site. No erythema noted. 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 h/o Severe vena cava syndrome. Chronic obstructive pulmonary disease. Gastroesophageal reflux disease.Hyperlipidemia. Hypertension.Neuropathy. Right pleural effusion. Lung cancer. Plan 1. resume coumadin once cleared by invasive radiology/no more procedures planned 2. monitor CBC 3. continue supportive care Attending Statement The exam, history, and the medical decision-making described in the above note were completed with the assistance of the mid-level provider. I reviewed and agree with the findings presented. I attest that I had a [id number] encounter with the patient on the same day, and personally performed and documented my assessment and findings in the medical record. Chest pain controlled. No SOB. Has pleurodesis 01/16. Chest tube is still draining. Continue supportive care. Charla Bangura Jan 17, 2017 10:42 Toro Saba MD Jan 17, 2017 11:41
--- NOTE | 2017-01-17 14:07 | HHI.PR ---
Subjective Remarks Patient had a significant amount of chest tube drainage after undergoing pleurodesis yesterday. Patient denies dyspnea or pain. Objective Vitals Vital Signs Date Time Temp Pulse Resp B/P (MAP) Pulse Ox O2 Delivery O2 Flow Rate FiO2 01/17/17 11:32 98.8 83 18 101/52 (68) 96 01/17/17 07:39 98.8 77 18 94/40 (58) 95 01/17/17 07:00 76 01/17/17 05:11 97.9 74 16 93/53 (66) 94 01/17/17 01:00 98.4 78 16 91/47 (62) 93 01/16/17 20:30 97.8 78 15 96/56 (69) 96 01/16/17 20:30 74 01/16/17 17:36 95 21 01/16/17 16:14 97.7 77 18 94/50 (65) 95 01/16/17 14:45 75 94 01/16/17 14:15 75 94/ I/O 01/16/17 01/16/17 01/16/17 01/17/17 01/17/17 01/17/17 07:00 15:00 23:00 07:00 15:00 23:00 Intake Total 240 ml 240 ml Output Total 120 ml 800 ml 180 ml Balance 120 ml -560 ml -180 ml Intake Oral 240 ml 240 ml Output Urine Total 100 ml 100 ml Chest Tube Drainage Total 20 ml 800 ml 80 ml # Voids 3 4 # Bowel Movements 0 1 Result Diagram: 01/16/17 0533 01/16/17 0535 Objective Remarks GENERAL: Well-nourished, well-developed pleasant lean male patient. SKIN: Warm and dry. HEAD: Normocephalic. EYES: No scleral icterus. No injection or drainage. NECK: Supple, trachea midline. No JVD or lymphadenopathy. CARDIOVASCULAR: Regular rate and rhythm without murmurs, gallops, or rubs. RESPIRATORY: Breath sounds diminished at bases. Chest tube at right chest. No accessory muscle use on room air. GASTROINTESTINAL: Abdomen soft, non-tender, nondistended. EXTREMITIES: No cyanosis, or edema. NEUROLOGICAL: Awake, alert, and oriented x 3. Non-focal. 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
[2017-01-17] MEDS: ATORVASTATIN 20 MG TAB PO SCH (20:17)
[2017-01-17] MEDS: MELATONIN 5 MG TAB PO PRN (21:25)
[2017-01-18] VITALS (8 sets, daily range): BP systolic 88–112; BP diastolic 49–58; PULSE 74–87; RESP 14–20; TEMP 97.6–98.3; O2SAT 94–96
[2017-01-18 05:22] LABS: INTERNATIONAL NORMALIZED RATIO 1.2 RATIO; PROTHROMBIN TIME - PATIENT 12.3 SEC (9.8-11.6)
[2017-01-18] MEDS: ATENOLOL 50 MG TAB PO SCH (09:00)
[2017-01-18] MEDS: PANTOPRAZOLE SOD 40 MG DELAYED RELEASE TAB PO SCH (09:26)
[2017-01-18] MEDS: BACITRACIN TOP OINT 15 GM TUBE TOPICAL SCH ×2 (09:26→20:47)
[2017-01-18] MEDS: DOCUSATE SODIUM 100 MG CAP PO SCH ×2 (09:27→20:45)
[2017-01-18] MEDS: POTASSIUM CHLORIDE 10 MEQ CAP PO SCH (09:27)
[2017-01-18] MEDS: GABAPENTIN 300 MG CAP PO SCH ×2 (09:28→20:45)
[2017-01-18] MEDS: SODIUM CHLORIDE 0.9% FLUSH 10 ML FLUSH IV FLUSH SCH ×2 (09:33→20:46)
[2017-01-18] MEDS: FUROSEMIDE 40 MG TAB PO SCH (09:33)
[2017-01-18] MEDS: ACETAMINOPHEN/HYDROcodone 325 MG/7.5 MG TAB PO PRN ×3 (09:33→20:46)
--- NOTE | 2017-01-18 12:25 | HHI.PR ---
Subjective Remarks Tired and sleepy today. No shortness of breath. Discussed with nurse and he has had serial chest tube output over the past 24 hours. Objective Vitals Vital Signs Date Time Temp Pulse Resp B/P (MAP) Pulse Ox O2 Delivery O2 Flow Rate FiO2 01/18/17 10:48 96 01/18/17 08:08 98.3 79 18 102/49 (66) 95 01/18/17 05:43 97.9 74 16 96/52 (67) 94 01/17/17 22:44 98.5 78 16 95/51 (66) 95 01/17/17 22:00 98 Nasal Cannula 2.00 01/17/17 20:25 79 01/17/17 19:45 98.0 79 16 101/58 (72) 95 01/17/17 16:12 98.7 78 18 88/50 (63) 95 I/O 01/17/17 01/17/17 01/17/17 01/18/17 01/18/17 01/18/17 07:00 15:00 23:00 07:00 15:00 23:00 Intake Total 600 ml Output Total 180 ml 200 ml Balance -180 ml 600 ml -200 ml Intake Oral 600 ml Output Urine Total 100 ml 200 ml Chest Tube Drainage Total 80 ml # Voids 3 # Bowel Movements 0 Result Diagram: 01/16/17 0533 01/16/17 0535 Objective Remarks GENERAL: Well-nourished, well-developed pleasant lean male patient. SKIN: Warm and dry. HEAD: Normocephalic. EYES: No scleral icterus. No injection or drainage. NECK: Supple, trachea midline. No JVD or lymphadenopathy. CARDIOVASCULAR: Regular rate and rhythm without murmurs, gallops, or rubs. RESPIRATORY: Breath sounds diminished at bases. Chest tube at right chest. No accessory muscle use on room air. GASTROINTESTINAL: Abdomen soft, non-tender, nondistended. EXTREMITIES: No cyanosis, or edema. NEUROLOGICAL: Awake, alert, and oriented x 3. Non-focal. 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 (4) Adenocarcinoma of lung ICD Code: C34.90 - Malignant neoplasm of unspecified part of unspecified bronchus or lung Status: Chronic Assessment and Plan 76-year-old man with Right large pleural effusion - cytology negative s/p reposition chest tube 01/11/17 pleurodesis 01/16 after which she had significant output from the chest tube likely due to repositioning - however 0 output over past [address] surgery following cultures negative, fluid not indicative of infection abx DCed cxr 01/15 - no ptx or effusion Hemoptysis Resolved s/p bronchoscopy with finding of mild tracheobronchitis. 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 Steph Melton MD Jan 18, 2017 12:25
--- NOTE | 2017-01-18 14:39 | PD.ONC.PN ---
Subjective Subjective Remarks Afebrile Denies shortness of breath at rest or with activity No other acute complaints Per RN there has been no drainage over the last 24 hours from the chest tube Objective Data Date Time Temp Pulse Resp B/P (MAP) Pulse Ox O2 Delivery O2 Flow Rate FiO2 01/18/17 10:48 96 01/18/17 10:33 18 01/18/17 08:08 98.3 79 18 102/49 (66) 95 01/18/17 05:43 97.9 74 16 96/52 (67) 94 01/17/17 22:44 98.5 78 16 95/51 (66) 95 01/17/17 22:00 98 Nasal Cannula 2.00 01/17/17 20:25 79 01/17/17 19:45 98.0 79 16 101/58 (72) 95 01/17/17 16:12 98.7 78 18 88/50 (63) 95 01/18/17 01/18/17 01/18/17 07:00 15:00 23:00 Output Total 200 ml Balance -200 ml Result Diagram: 01/16/17 0533 01/16/17 0535 Laboratory Results Laboratory Tests Test 01/18/17 04:10 Prothrombin Time 12.3 SEC Prothromb Time International Ratio 1.2 RATIO Administered Medications Medications (Trade) Dose Ordered Sig/Hilaria Route PRN Reason Start Time Stop Time Status Last Admin Dose Admin Sodium Chloride (NS Flush) 2 ml BID IV FLUSH 01/02/17 21:00 01/18/17 09:33 Acetaminophen (Tylenol) 650 mg Q4H PRN PO headache/fever 01/02/17 17:15 01/07/17 02:34 Ondansetron HCl (Zofran Inj) 4 mg Q6H PRN IVP NAUSEA OR VOMITING 01/02/17 17:15 01/12/17 21:35 Bacitracin (Baciguent Oint) 1 applic Q12HR TOPICAL 01/02/17 21:00 01/18/17 09:26 Atenolol (Tenormin) 50 mg DAILY PO 01/03/17 09:00 01/17/17 09:45 Atorvastatin Calcium (Lipitor) 20 mg HS PO 01/02/17 21:00 01/17/17 20:17 Furosemide (Lasix) 40 mg DAILY PO 01/03/17 09:00 01/18/17 09:33 Gabapentin (Neurontin) 300 mg BID PO 01/02/17 21:00 01/18/17 09:28 Potassium Chloride (KCl) 20 meq DAILY PO 01/03/17 09:00 01/18/17 09:27 Clonazepam (KlonoPIN) 0.5 mg Q8H PRN PO ANXIETY 01/03/17 15:30 01/17/17 21:25 Pantoprazole Sodium (Protonix) 40 mg DAILY PO 01/06/17 09:00 01/18/17 09:26 Acetaminophen/ Hydrocodone Bitart ([place] 7.5-325 Mg) 1 tab Q4H PRN PO PAIN SCALE 1 TO 5 01/08/17 23:15 01/18/17 09:33 Warfarin Sodium (Coumadin) 5 mg DAILY@1600 PO 01/12/17 16:00 Future hold 01/14/17 17:11 Hydromorphone HCl (Dilaudid Pf Inj) 0.5 mg Q4H PRN IV PUSH PAIN SCALE 6 TO 10 01/12/17 10:00 01/12/17 23:23 Melatonin (Melatonin) 5 mg HS PRN PO INSOMNIA 01/12/17 21:00 01/17/17 21:25 Docusate Sodium (Colace) 100 mg BID PO 01/13/17 21:00 01/18/17 09:27 Objective Remarks GENERAL: Elderly male lying in bed in no acute distress SKIN: Warm and dry. HEAD: Normocephalic. EYES: No injection or drainage. NECK: Supple, trachea midline. CARDIOVASCULAR: Regular rate and rhythm. RESPIRATORY: Clear anteriorly. CT in place, right chest wall. GASTROINTESTINAL: Abdomen soft, non-tender, nondistended. EXTREMITIES: No cyanosis. No edema Assessment/Plan Problem List: (1) Pleural effusion ICD Codes: J90 - Pleural effusion, not elsewhere classified Status: Acute Plan: --had thoracentesis done the week before this admission with removal of 2100 mL fluid. Cytology again did not show any malignancy. --has CT in place, still draining fluid. --underwent pleurodesis, 01/16 (2) Adenocarcinoma of lung ICD Codes: C34.90 - Malignant neoplasm of unspecified part of unspecified bronchus or lung Status: Chronic Plan: --Jek-[id number] lung cancer stage III. 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 had a large mass in the right lower lobe with significant right paratracheal adenopathy causing occlusion of superior vena cava. also had subcarinal adenopathy. --Biopsy showed moderately differentiated to poorly differentiated adenocarcinoma. EGFR wild type, ALK negative and PDL1 5%. --completed radiation with concurrent chemotherapy in March of 2016. --CT angiogram done last week when he was admitted to the hospital which showed reaccumulation of right pleural effusion but no obvious mass or adenopathy. --CT abdomen and pelvis, however, showed splenic lesion that had enlarged and worrisome for metastatic disease. -->this lesion is too risky for biopsy. would recommend getting a PET scan as outpatient, and if it is hypermetabolic can consider giving him radiation. (3) COPD (chronic obstructive pulmonary disease) ICD Codes: J44.9 - Chronic obstructive pulmonary disease, unspecified Status: Chronic (4) Skin cancer ICD Codes: C44.90 - Unspecified malignant neoplasm of skin, unspecified Plan: --had a lesion excised from the scalp. wound is healing well. He still complains of pain around the excision site. No erythema noted. 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 h/o Severe vena cava syndrome. Chronic obstructive pulmonary disease. Gastroesophageal reflux disease.Hyperlipidemia. Hypertension.Neuropathy. Right pleural effusion. Lung cancer. Plan 1. Cleared for discharge from oncology standpoint after chest tube can be removed 2. Discussed with IR today; they will evaluate pt for removal. 2. Start Lovenox until INR therapeutic. 4. Monitor CBC, PT/INR. Attending Statement The exam, history, and the medical decision-making described in the above note were completed with the assistance of the mid-level provider. I reviewed and agree with the findings presented. I attest that I had a [id number] encounter with the patient on the same day, and personally performed and documented my assessment and findings in the medical record. No CP/SOB. No drainage from chest tube. Have IR evaluate pt for removal of chest tube. Restart lovenox and bridge to coumadin. Traci Merritt Jan 18, 2017 14:38 Toro Saba MD Jan 18, 2017 16:13
[2017-01-18] MEDS: WARFARIN SOD 5 MG TAB PO SCH (15:10)
[2017-01-18] MEDS: ENOXAPARIN SODIUM 60 MG/0.6 ML SYRINGE SQ SCH (15:10)
--- NOTE | 2017-01-18 16:50 | HHI.PR ---
Subjective Remarks alert no sob pleurodesis done well tolerated fluid decreased today 80 cc last 12 hours Objective Vital Signs Date Time Temp Pulse Resp B/P (MAP) Pulse Ox O2 Delivery O2 Flow Rate FiO2 01/18/17 16:31 97.6 82 20 88/53 (65) 94 01/18/17 10:48 96 01/18/17 10:33 18 01/18/17 08:08 98.3 79 18 102/49 (66) 95 01/18/17 05:43 97.9 74 16 96/52 (67) 94 01/17/17 22:44 98.5 78 16 95/51 (66) 95 01/17/17 22:00 98 Nasal Cannula 2.00 01/17/17 20:25 79 01/17/17 19:45 98.0 79 16 101/58 (72) 95 I/O 01/17/17 01/17/17 01/17/17 01/18/17 01/18/17 01/18/17 07:00 15:00 23:00 07:00 15:00 23:00 Intake Total 600 ml Output Total 180 ml 200 ml Balance -180 ml 600 ml -200 ml Intake Oral 600 ml Output Urine Total 100 ml 200 ml Chest Tube Drainage Total 80 ml # Voids 3 # Bowel Movements 0 Result Diagram: 01/16/17 0533 01/16/17 0535 Objective Remarks GENERAL: SKIN: Warm and dry. HEAD: Atraumatic. Normocephalic. EYES: Pupils equal and round. No scleral icterus. No injection or drainage. ENT: No nasal bleeding or discharge. Mucous membranes pink and moist. NECK: Trachea midline. No JVD. CARDIOVASCULAR: Regular rate and rhythm. RESPIRATORY: No accessory muscle use. Clear to auscultation. Breath sounds equal bilaterally. GASTROINTESTINAL: Abdomen soft, non-tender, nondistended. Hepatic and splenic margins not palpable. MUSCULOSKELETAL: Extremities without clubbing, cyanosis, or edema. No obvious deformities. NEUROLOGICAL: Awake and alert. No obvious cranial nerve deficits. Motor grossly within normal limits. Five out of 5 muscle strength in the arms and legs. Normal speech. PSYCHIATRIC: Appropriate mood and affect; insight and judgment normal. Assessment and Plan Assessment and Plan IMP: stable ,minimal ct draibage no distress lung CA PLAN remove CT Jemma Easton MD Jan 18, 2017 16:50
--- NOTE | 2017-01-18 17:05 | RADRPT ---
EXAM DATE/TIME: 01/18/2017 16:41 [facility] COMPARISON: CHEST TUBE REMOVAL, RIGHT, January 11, 2017, 15:33. INDICATIONS : CHEST TUBE REMOVAL POST PLEURODESIS TREATMENT DEVICE(S): 1.) PROCEDURE : Chest tube removal. Using aseptic technique the previously placed chest tube was easily removed in one piece and Vaseline gauze and sterile dressing was applied CONCLUSION: Uncomplicated chest tube removal. Darren Gore MD on January 18, 2017 at 17:03 Board Certified Radiologist. This report was verified electronically.
--- NOTE | 2017-01-18 17:17 | RADRPT ---
EXAM DATE/TIME: 01/18/2017 16:39 [facility] COMPARISON: CT THORAX W/O CONTRAST, January 05, 2017, 12:37. CHEST SINGLE AP, January 17, 2017, 5:04. INDICATIONS : Status post chest tube removal. Chest soreness. Small right apical pneumonia. MEDICAL HISTORY : Hypercholesterolemia. Arthritis. Carcinoma, lung. CVA. COPD. GERD SURGICAL HISTORY : Thoracentesis. Hernia repair. Chemotherapy. ENCOUNTER: Subsequent ACUITY: 1 day PAIN SCORE: 3/10 LOCATION: Bilateral chest FINDINGS: Right chest tube has been removed. There is no evidence of recurrent pneumothorax. Increased density is identified in the mid and lower lung field on the right. Left lung is clear. Cardiomediastinal structures are stable. CONCLUSION: No evidence of pneumothorax following right chest tube removal Persistent increased density in the right midlung characteristic of persistent fluid accumulation pos sibly pleural thickening. Colni Waddell MD on January 18, 2017 at 17:14 Board Certified Radiologist. This report was verified electronically.
[2017-01-18] MEDS: ATORVASTATIN 20 MG TAB PO SCH (20:45)
[2017-01-18] MEDS: MELATONIN 5 MG TAB PO PRN (21:38)
[2017-01-18] MEDS: clonazePAM 0.5 MG TAB PO PRN (21:38)
[2017-01-19 05:07] VITALS: BP 95/58; PULSE 82; RESP 14; TEMP 98; O2SAT 94
[2017-01-19] MEDS: ENOXAPARIN SODIUM 60 MG/0.6 ML SYRINGE SQ SCH ×2 (05:11→15:00)
[2017-01-19 06:54] LABS: INTERNATIONAL NORMALIZED RATIO 1.2 RATIO; PROTHROMBIN TIME - PATIENT 12.2 SEC (9.8-11.6)
[2017-01-19 09:05] VITALS: O2SAT 96
[2017-01-19] MEDS ORDERED: ENOX60P SQ (09:42)
--- NOTE | 2017-01-19 09:43 | HHI.FF ---
Face to Face Verification Diagnosis: (1) COPD (chronic obstructive pulmonary disease) (2) Adenocarcinoma of lung (3) Thrombosis of superior vena cava Home Health Nursing Order: Nursing assessment with vital signs Instructions: polina rios I have seen patient Robertbev Luna on 01/19/17. My clinical findings support the need for the requested home health care services because: Deconditioned w/ increased weakness Need for psychosocial assistance I certify that my clinical findings support that this patient is homebound because: Hx COPD- exertion dyspnea/weakness Need for psychosocial assistance Steph Melton MD Jan 19, 2017 09:43
[2017-01-19 09:51] VITALS: BP 106/64; PULSE 87; RESP 16; TEMP 97.8; O2SAT 97
[2017-01-19] MEDS: PANTOPRAZOLE SOD 40 MG DELAYED RELEASE TAB PO SCH (09:54)
[2017-01-19] MEDS: ATENOLOL 50 MG TAB PO SCH (09:54)
[2017-01-19] MEDS: DOCUSATE SODIUM 100 MG CAP PO SCH (09:54)
[2017-01-19] MEDS: GABAPENTIN 300 MG CAP PO SCH (09:54)
[2017-01-19] MEDS: FUROSEMIDE 40 MG TAB PO SCH (09:54)
[2017-01-19] MEDS: BACITRACIN TOP OINT 15 GM TUBE TOPICAL SCH (09:54)
[2017-01-19] MEDS: POTASSIUM CHLORIDE 10 MEQ CAP PO SCH (09:54)
[2017-01-19] MEDS: SODIUM CHLORIDE 0.9% FLUSH 10 ML FLUSH IV FLUSH SCH (09:55)
--- NOTE | 2017-01-19 10:23 | HHI.PR ---
Subjective Remarks Patient states he feels fine. CT removed yesterday. Patient states he is being evicted from his house and needs to find somewhere to stay. Objective Vitals Vital Signs Date Time Temp Pulse Resp B/P (MAP) Pulse Ox O2 Delivery O2 Flow Rate FiO2 01/19/17 09:51 97.8 87 16 106/64 (78) 97 01/19/17 09:05 96 21 01/19/17 05:07 98.0 82 14 95/58 (70) 94 01/18/17 23:00 97.9 85 16 107/58 (74) 95 01/18/17 22:22 21 01/18/17 20:15 87 01/18/17 20:00 97.9 78 16 112/51 (71) 96 01/18/17 16:31 97.6 82 20 88/53 (65) 94 01/18/17 16:13 18 01/18/17 10:48 96 I/O 01/18/17 01/18/17 01/18/17 01/19/17 01/19/17 01/19/17 07:00 15:00 23:00 07:00 15:00 23:00 Output Total 200 ml 950 ml Balance -200 ml -950 ml Output Urine Total 200 ml 950 ml Result Diagram: 01/16/17 0533 01/16/17 0535 Objective Remarks GENERAL: Well-nourished, well-developed pleasant lean male patient. SKIN: Warm and dry. HEAD: Normocephalic. EYES: No scleral icterus. No injection or drainage. NECK: Supple, trachea midline. No JVD or lymphadenopathy. CARDIOVASCULAR: Regular rate and rhythm without murmurs, gallops, or rubs. RESPIRATORY: Breath sounds diminished at bases. No accessory muscle use on room air. GASTROINTESTINAL: Abdomen soft, non-tender, nondistended. EXTREMITIES: No cyanosis, or edema. NEUROLOGICAL: Awake, alert, and oriented x 3. Non-focal. 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 (4) Adenocarcinoma of lung ICD Code: C34.90 - Malignant neoplasm of unspecified part of unspecified bronchus or lung Status: Chronic Assessment and Plan 76-year-old man with Right large pleural effusion - cytology negative s/p reposition chest tube 01/11/17 pleurodesis 01/16 after which she had significant output from the chest tube likely due to repositioning - however 0 output over past [address] surgery following cultures negative, fluid not indicative of infection abx DCed cxr 01/15 - no ptx or effusion CT removed 01/18 Hemoptysis Resolved s/p bronchoscopy with finding of mild tracheobronchitis. Cytology negative Management per pulmonary medicine Small right sided apical pneumothorax status post recent therapeutic thoracentesis for right-sided pleural effusion -resolved Stage III Non-small cell lung carcinoma Completed radiation with concurrent chemotherapy March 2016 Management per oncology following Thrombosis of SVC Currently on Coumadin Monitor INR/PT COPD No exacerbation DuoNeb when necessary Splenic lesion Incidental finding found on CT of abdomen/pelvis from September 2016 - of concern for metastasis Outpatient PET scan to rule out metastases Oncology monitoring - f/u outpatient with Dr. Saba in 3 weeks Status post excision of skin cancer back of head Bacitracin ointment twice a day Hypertension/hyperlipidemia Blood pressure is running low, will hold atenolol for systolic blood pressure less than 100 DVT prophylaxis Coumadin, lovenox bridge Discharge Planning Discharge home [facility] ordered Needs lovenox bridge and f/u with oncology Patient being evicted - CM consulted for assistance Steph Melton MD Jan 19, 2017 10:23
--- NOTE | 2017-01-19 10:35 | PD.ONC.PN ---
Subjective Subjective Remarks Afebrile No acute complaints Ready to go home Discussed he needs to make a follow-up appointment with Dr. Saba Objective Data Date Time Temp Pulse Resp B/P (MAP) Pulse Ox O2 Delivery O2 Flow Rate FiO2 01/19/17 09:51 97.8 87 16 106/64 (78) 97 01/19/17 09:05 96 21 01/19/17 05:07 98.0 82 14 95/58 (70) 94 01/18/17 23:00 97.9 85 16 107/58 (74) 95 01/18/17 22:22 21 01/18/17 20:15 87 01/18/17 20:00 97.9 78 16 112/51 (71) 96 01/18/17 16:31 97.6 82 20 88/53 (65) 94 01/18/17 16:13 18 01/18/17 10:48 96 01/19/17 01/19/17 01/19/17 07:00 15:00 23:00 Output Total 950 ml Balance -950 ml Result Diagram: 01/16/17 0533 01/16/17 0535 Laboratory Results Laboratory Tests Test 01/19/17 05:57 Prothrombin Time 12.2 SEC Prothromb Time International Ratio 1.2 RATIO Imaging Studies Last 24 hours Impressions Tunnelled Chest Tube Removal 01/18/17 1641 Signed Impressions: Service Date/Time: Wednesday, January 18, 2017 16:41 - CONCLUSION: Uncomplicated chest tube removal. Darren Gore MD Administered Medications Medications (Trade) Dose Ordered Sig/Hilaria Route PRN Reason Start Time Stop Time Status Last Admin Dose Admin Sodium Chloride (NS Flush) 2 ml BID IV FLUSH 01/02/17 21:00 01/19/17 09:55 Acetaminophen (Tylenol) 650 mg Q4H PRN PO headache/fever 01/02/17 17:15 01/07/17 02:34 Ondansetron HCl (Zofran Inj) 4 mg Q6H PRN IVP NAUSEA OR VOMITING 01/02/17 17:15 01/12/17 21:35 Bacitracin (Baciguent Oint) 1 applic Q12HR TOPICAL 01/02/17 21:00 01/19/17 09:54 Atenolol (Tenormin) 50 mg DAILY PO 01/03/17 09:00 01/19/17 09:54 Atorvastatin Calcium (Lipitor) 20 mg HS PO 01/02/17 21:00 01/18/17 20:45 Furosemide (Lasix) 40 mg DAILY PO 01/03/17 09:00 01/19/17 09:54 Gabapentin (Neurontin) 300 mg BID PO 01/02/17 21:00 01/19/17 09:54 Potassium Chloride (KCl) 20 meq DAILY PO 01/03/17 09:00 01/19/17 09:54 Clonazepam (KlonoPIN) 0.5 mg Q8H PRN PO ANXIETY 01/03/17 15:30 01/18/17 21:38 Pantoprazole Sodium (Protonix) 40 mg DAILY PO 01/06/17 09:00 01/19/17 09:54 Acetaminophen/ Hydrocodone Bitart ([place] 7.5-325 Mg) 1 tab Q4H PRN PO PAIN SCALE 1 TO 5 01/08/17 23:15 01/18/17 20:46 Warfarin Sodium (Coumadin) 5 mg DAILY@1600 PO 01/12/17 16:00 Future hold 01/18/17 15:10 Hydromorphone HCl (Dilaudid Pf Inj) 0.5 mg Q4H PRN IV PUSH PAIN SCALE 6 TO 10 01/12/17 10:00 01/12/17 23:23 Melatonin (Melatonin) 5 mg HS PRN PO INSOMNIA 01/12/17 21:00 01/18/17 21:38 Docusate Sodium (Colace) 100 mg BID PO 01/13/17 21:00 01/19/17 09:54 Enoxaparin Sodium (Lovenox Inj) 50 mg Q12H SQ 01/18/17 15:00 01/19/17 05:11 Objective Remarks GENERAL: Elderly male sitting up on side of bed eating breakfast in no acute distress SKIN: Warm and dry. Clean dressing to right upper chest wall. HEAD: Normocephalic. EYES: No injection or drainage. NECK: Supple, trachea midline. CARDIOVASCULAR: Regular rate and rhythm. RESPIRATORY: Clear posteriorly. Diminished bilateral bases. GASTROINTESTINAL: Abdomen soft, non-tender, nondistended. EXTREMITIES: No cyanosis. No edema Assessment/Plan Problem List: (1) Pleural effusion ICD Codes: J90 - Pleural effusion, not elsewhere classified Status: Acute Plan: --had thoracentesis done the week before this admission with removal of 2100 mL fluid. Cytology again did not show any malignancy. --has CT in place, still draining fluid. --underwent pleurodesis, 01/16 (2) Adenocarcinoma of lung ICD Codes: C34.90 - Malignant neoplasm of unspecified part of unspecified bronchus or lung Status: Chronic Plan: --Bkr-bhzom-wduh lung cancer stage III. 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 had a large mass in the right lower lobe with significant right paratracheal adenopathy causing occlusion of superior vena cava. also had subcarinal adenopathy. --Biopsy showed moderately differentiated to poorly differentiated adenocarcinoma. EGFR wild type, ALK negative and PDL1 5%. --completed radiation with concurrent chemotherapy in March of 2016. --CT angiogram done last week when he was admitted to the hospital which showed reaccumulation of right pleural effusion but no obvious mass or adenopathy. --CT abdomen and pelvis, however, showed splenic lesion that had enlarged and worrisome for metastatic disease. -->this lesion is too risky for biopsy. would recommend getting a PET scan as outpatient, and if it is hypermetabolic can consider giving him radiation. (3) COPD (chronic obstructive pulmonary disease) ICD Codes: J44.9 - Chronic obstructive pulmonary disease, unspecified Status: Chronic Plan: -- Pulmonology following (4) Skin cancer ICD Codes: C44.90 - Unspecified malignant neoplasm of skin, unspecified Plan: --had a lesion excised from the scalp. wound is healing well. He still complains of pain around the excision site. No erythema noted. 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 h/o Severe vena cava syndrome. Chronic obstructive pulmonary disease. Gastroesophageal reflux disease.Hyperlipidemia. Hypertension.Neuropathy. Right pleural effusion. Lung cancer. Plan 1. Okay for discharge from oncology standpoint 2. We will have patient follow-up in clinic on Monday for PT/INR and CBC 3. Continue Lovenox to Coumadin Bridge Attending Statement The exam, history, and the medical decision-making described in the above note were completed with the assistance of the mid-level provider. I reviewed and agree with the findings presented. I attest that I had a [id number] encounter with the patient on the same day, and personally performed and documented my assessment and findings in the medical record. No CP/SOB. Chest tube pulled. Continue anticoagulation. F/u oncology clinic. Traci Merritt Jan 19, 2017 10:34 Toro Saba MD Jan 19, 2017 11:13
--- NOTE | 2017-01-19 10:41 | HHI.DS ---
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 Saba, anticoagulated on Coumadin , COPD, dyslipidemia and hypertension who was recently admitted to our facility on 12/27/16 to 12/30/16 for altered mental status, confusion and dizziness and was found to have moderate right-sided effusion and underwent therapeutic thoracentesis with 2100ml of fluid removed. Patient presents to [facility] ED today with complaints of hemoptysis, left-sided chest pain and excisional pain from recent resection of a cancerous lesion on the back of his head. Patient describes 8 out of 10 left-sided chest pain that would improve with belching but then returns. He reports associated nausea but denies any vomiting. In the ED, chest x-ray was obtained showing a tiny right-sided apical pneumothorax. His O2 saturation is currently 99% on 4 L nasal cannula. Hemoglobin and hematocrit are within normal limits. CBC/BMP: 01/16/17 0533 01/16/17 0535 Significant Findings Laboratory Tests Test 01/17/17 05:48 01/18/17 04:10 01/19/17 05:57 Prothrombin Time 14.1 SEC (9.8-11.6) 12.3 SEC (9.8-11.6) 12.2 SEC (9.8-11.6) Imaging Last Impressions Tunnelled Chest Tube Removal 01/18/17 1641 Signed Impressions: Service Date/Time: Wednesday, January 18, 2017 16:41 - CONCLUSION: Uncomplicated chest tube removal. Darren Gore MD Chest X-Ray 01/18/17 0000 Signed Impressions: Service Date/Time: Wednesday, January 18, 2017 16:39 - CONCLUSION: No evidence of pneumothorax following right chest tube removal Persistent increased density in the right midlung characteristic of persistent fluid accumulation possibly pleural thickening. Colin Waddell MD Pleurodesis 01/16/17 0000 Signed Impressions: Service Date/Time: Monday, January 16, 2017 14:37 - CONCLUSION: Uncomplicated chemical pleurodesis as above. Darren Gore MD Chest Tube Insertion 01/11/17 0000 Signed Impressions: Service Date/Time: Wednesday, January 11, 2017 18:22 - CONCLUSION: Uncomplicated chest tube placement as above. Vikas Sandoval MD Chest CT 01/05/17 0000 Signed Impressions: Service Date/Time: December 12:37 - CONCLUSION: 1. 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 2. Large right pleural effusion. 3. Localized pneumothoraces are seen in the medial right apex and medial right lower lung 4. Probable pericardial effusion. Dustin Francois MD PE at Discharge GENERAL: Well-nourished, well-developed pleasant lean male patient. SKIN: Warm and dry. HEAD: Normocephalic. EYES: No scleral icterus. No injection or drainage. NECK: Supple, trachea midline. No JVD or lymphadenopathy. CARDIOVASCULAR: Regular rate and rhythm without murmurs, gallops, or rubs. RESPIRATORY: Breath sounds diminished at bases. No accessory muscle use on room air. GASTROINTESTINAL: Abdomen soft, non-tender, nondistended. EXTREMITIES: No cyanosis, or edema. NEUROLOGICAL: Awake, alert, and oriented x 3. Non-focal. Hospital Course 76-year-old man with Right large pleural effusion - cytology negative s/p reposition chest tube 01/11/17 pleurodesis 01/16 after which she had significant output from the chest tube likely due to repositioning - however 0 output over past 24 hrs on 01/18 chest tube was finally removed Pulmonology and CT surgery were following - Dr. Campos cultures negative, fluid not indicative of infection abx DCed cxr 01/15 - no ptx or effusion followup with Dr. Campos 3 weeks Hemoptysis Resolved s/p bronchoscopy with finding of mild tracheobronchitis. Cytology negative Management per pulmonary medicine Small right sided apical pneumothorax status post recent therapeutic thoracentesis for right-sided pleural effusion -resolved Stage III Non-small cell lung carcinoma Completed radiation with concurrent chemotherapy March 2016 Management per oncology following - f/u with Dr. Saba in 3 weeks Thrombosis of SVC Currently on Coumadin -76-year-old man with Right large pleural effusion - cytology negative s/p reposition chest tube 01/11/17 pleurodesis 01/16 after which she had significant output from the chest tube likely due to repositioning - however 0 output over past [address] surgery following cultures negative, fluid not indicative of infection abx DCed cxr 01/15 - no ptx or effusion CT removed 01/18 Hemoptysis Resolved s/p bronchoscopy with finding of mild tracheobronchitis. Cytology negative Management per pulmonary medicine Small right sided apical pneumothorax status post recent therapeutic thoracentesis for right-sided pleural effusion -resolved Stage III Non-small cell lung carcinoma Completed radiation with concurrent chemotherapy March 2016 Management per oncology following Thrombosis of SVC Currently on Coumadin Monitor INR/PT COPD No exacerbation DuoNeb when necessary Splenic lesion Incidental finding found on CT of abdomen/pelvis from September 2016 - of concern for metastasis Outpatient PET scan to rule out metastases Oncology monitoring - f/u outpatient with Dr. Saba in 3 weeks Status post excision of skin cancer back of head Bacitracin ointment twice a day Hypertension/hyperlipidemia Blood pressure is running low, will hold atenolol for systolic blood pressure less than 100 DVT prophylaxis Coumadin, lovenox bridge- lovenox bridge until INR therapeutic - INR to be followed by PCP Dr. Osorio - [facility] ordered Monitor INR/PT COPD No exacerbation DuoNeb when necessary Splenic lesion Incidental finding found on CT of abdomen/pelvis from September 2016 - of concern for metastasis Outpatient PET scan to rule out metastases Oncology monitoring - f/u outpatient with Dr. Saba in 3 weeks Status post excision of skin cancer back of head Bacitracin ointment twice a day Hypertension/hyperlipidemia Blood pressure is running low, atenolol has been held for systolic blood pressure less than 100 Will DC atenolol DC home with C anticipate today, when arrangements are made. Pt Condition on Discharge: Stable Discharge Disposition: Disch w/ Home Health Serv Discharge Time: > 30 minutes Discharge Instructions DIET: Follow Instructions for: Heart Healthy Diet Activities you can perform: Regular-No Restrictions Follow up Referrals: Oncology - 2 Weeks with Toro Saab MD PCP Follow-up - 2-3 Days Pulmonology - 3 Weeks with Jemma Easton MD New Medications: Enoxaparin Inj (Lovenox Inj) 60 Mg/0.6 Ml Syr 50 MG SQ Q12H for blood thinner, #14 INJECTION DC when INR>2 Continued Medications: Atorvastatin (Atorvastatin) 20 Mg Tab 20 MG PO HS for tia, #31 TAB Clonazepam (Klonopin) 0.5 Mg Tab 0.5 MG PO TID PRN for ANXIETY, TAB 0 Refills Furosemide (Lasix) 40 Mg Tab 40 MG PO DAILY for diuretic, #30 TAB 0 Refills Gabapentin (Gabapentin) 300 Mg Cap 300 MG PO BID, #60 CAP 0 Refills Gemfibrozil (Lopid) 600 Mg Tab 600 MG PO BIDAC, #60 TAB 0 Refills Take 30 minutes prior to breakfast and dinner Hydrocodone/Acetaminophen (Hydrocodone-Acetamin 7.5-325) 7.5 Mg-325 Mg Tablet PO Q8HR PRN for PAIN SCALE 4 TO 6 Potassium Chloride ER (Potassium Chloride ER) 10 Meq Cap 20 MEQ PO DAILY for electrrepl for 30 Days, #30 CAP Warfarin (Coumadin) 5 Mg Tab 5 MG PO DAILY@1600 for SVC for 30 Days, #30 TAB Discontinued Medications: Atenolol (Atenolol) 50 Mg Tab 50 MG PO DAILY for Blood Pressure Management, #30 TAB 0 Refills Steph Melton MD Jan 19, 2017 10:41
[2017-01-19 13:34] VITALS: BP 100/58; PULSE 76; RESP 16; TEMP 98; O2SAT 95
[2017-01-19] MEDS: WARFARIN SOD 5 MG TAB PO SCH (15:12)
[2017-01-19] MEDS ORDERED: WARFARIN SOD 2 MG TAB PO ONE (16:00)
== END 2017-01-19 15:56 | disposition home health service (06) | DRG 200 ==
LOC: NEPE 12:36 → NEDA 14:57 → NEPFCDU 17:58 → NEDH 01-03 13:27 → NEPFCDU 01-03 13:29 → OBSVTOIN 01-04 10:38 → HCIN 01-04 17:57
PROVIDERS: ADMIT Family Medicine; ATTEND Family Medicine
PROC: 0B938ZZ Drainage of Right Main Bronchus, Via Natural or Artificial Opening Endoscopic (ICD-10-PCS; 2017-01-06)
PROC: 0W9930Z Drainage of Right Pleural Cavity with Drainage Device, Percutaneous Approach (ICD-10-PCS; 2017-01-06)
PROC: 0B978ZZ Drainage of Left Main Bronchus, Via Natural or Artificial Opening Endoscopic (ICD-10-PCS; principal; 2017-01-06 11:01)
PROC: 0W993ZZ Drainage of Right Pleural Cavity, Percutaneous Approach (ICD-10-PCS; 2017-01-11)
PROC: 0WP9X0Z Removal of Drainage Device from Right Pleural Cavity, External Approach (ICD-10-PCS; 2017-01-11)
PROC: 3E0L3GC Introduction of Other Therapeutic Substance into Pleural Cavity, Percutaneous Approach (ICD-10-PCS; 2017-01-16)
DX: J95.811 Postprocedural pneumothorax (principal); J70.0 Acute pulmonary manifestations due to radiation; J96.10 Chronic respiratory failure, unspecified whether with hypoxia or hypercapnia; I82.210 Acute embolism and thrombosis of superior vena cava; I95.9 Hypotension, unspecified; R04.2 Hemoptysis; I87.1 Compression of vein; J90 Pleural effusion, not elsewhere classified; Z99.81 Dependence on supplemental oxygen; G62.9 Polyneuropathy, unspecified; J44.9 Chronic obstructive pulmonary disease, unspecified; E78.5 Hyperlipidemia, unspecified; I10 Essential (primary) hypertension; D73.89 Other diseases of spleen; J40 Bronchitis, not specified as acute or chronic; Y84.2 Radiological procedure and radiotherapy as the cause of abnormal reaction of the patient, or of later complication, without mention of misadventure at the time of the procedure; M19.90 Unspecified osteoarthritis, unspecified site; K21.9 Gastro-esophageal reflux disease without esophagitis; Z79.01 Long term (current) use of anticoagulants; Z85.828 Personal history of other malignant neoplasm of skin; Z85.118 Personal history of other malignant neoplasm of bronchus and lung; Z87.891 Personal history of nicotine dependence; Z92.3 Personal history of irradiation; Z92.21 Personal history of antineoplastic chemotherapy; Z23 Encounter for immunization; Z86.73 Personal history of transient ischemic attack (TIA), and cerebral infarction without residual deficits
CPT/HCPCS: 32551; 32557; 32560; 71010; 71020; 71250; 77002; 80048; 82945; 83615; 84157; 84484; 85025; 85610; 85730; 87015; 87070; 87102; 87116; 87205; 87206; 88305; 89051; 90686; 94640; 94664; 96374; 96375; 99152; J1170; C1729; C1769; G0378; G8987-GP; G8988-GP; G8989-GP; J0171; J0696; J1644; J1650; J2250; J2370; J2405; J3010; J7030; Q2038; Q9967

== ENCOUNTER 2017-02-06 19:30 | Emergency (ER) | payer OTHER ==
[~2017-02-06] VITALS: Ht 167.6 cm; Wt 53.0 kg
[~2017-02-06 19:30] MED LIST changes: -ATEN50TA PO; +CLON.5 PO; +ENOX60P SQ; +HYDR-3580 PO
[2017-02-06 19:34] VITALS: BP 140/67; PULSE 90; RESP 28; TEMP 98.4; O2SAT 96
[2017-02-06] MEDS ORDERED: SODIUM CHLORIDE 0.9% FLUSH 10 ML FLUSH IVF PRN (20:15)
--- NOTE | 2017-02-06 20:30 | PD ---
HPI Chief Complaint: Respiratory Distress Time Seen by Provider: 19:50 Travel History International Travel<30 days: No Contact w/Intl Traveler<30days: No Traveled to known affect area: No History of Present Illness HPI 76-year-old man, presents to the emergency department complaining of some shortness of breath. His a history of non-small cell lung cancer says post chemoradiation who said trouble more recently over current pleural effusions, had a pleurodesis at the beginning of the month. He is also on warfarin. He is here with family reports that he has not felt well for the past several days. They feel like there is some fullness to his anterior chest. He complains of some pain in his chest, worsening trouble breathing. He has some chronic cough, nonproductive. No leg swelling. Does take a diuretic and is been compliant with that. No other complaints. History Past Medical History Narrative Medical History non-small cell lung cancer, says post chemoradiation, recurrent pleural effusions Social History Alcohol Use: Yes (on occasion) Tobacco Use: Yes (quit 8 yrs ago) Allergies-Medications (Allergen,Severity, Reaction): Coded Allergies: No Known Allergies (Verified Allergy, Unknown, 02/06/17) Reported Meds & Prescriptions Reported Meds & Active Scripts Active Lovenox Inj (Enoxaparin Sodium) 60 Mg/0.6 Ml Syr 50 Mg SQ Q12H DC when INR>2 Atorvastatin (Atorvastatin Calcium) 20 Mg Tab 20 Mg PO HS Potassium Chloride ER (Potassium Chloride) 10 Meq Cap 20 Meq PO DAILY 30 Days Coumadin (Warfarin) 5 Mg Tab 5 Mg PO DAILY@1600 30 Days Lasix (Furosemide) 40 Mg Tab 40 Mg PO DAILY Reported Hydrocodone-Acetamin 7.5-325 (Hydrocodone/Acetaminophen) 7.5 Mg-325 Mg Tablet PO Q8HR PRN Klonopin (Clonazepam) 0.5 Mg Tab 0.5 Mg PO TID PRN Lopid (Gemfibrozil) 600 Mg Tab 600 Mg PO BIDAC Take 30 minutes prior to breakfast and dinner Gabapentin 300 Mg Cap 300 Mg PO BID Review of Systems Except as stated in HPI: all other systems reviewed are Neg Physical Exam Narrative GENERAL: 76-year-old man, well-appearing, no acute distress. SKIN: Focused skin assessment warm/dry. HEAD: Atraumatic. Normocephalic. EYES: Pupils equal and round. No scleral icterus. No injection or drainage. ENT: No nasal bleeding or discharge. Mucous membranes pink and moist. NECK: Trachea midline. No JVD. CARDIOVASCULAR: Regular rate and rhythm. No murmur appreciated. RESPIRATORY: Normal rate and effort. Lungs are clear posteriorly. GASTROINTESTINAL: Abdomen soft, non-tender, nondistended. Hepatic and splenic margins not palpable. MUSCULOSKELETAL: No obvious deformities. No edema. Chest wall generally normal. They've noted a little bit of prominence of the sternomanubrial joint. I don't see anything particularly abnormal. NEUROLOGICAL: Awake and alert. No obvious cranial nerve deficits. Motor grossly within normal limits. Normal speech. PSYCHIATRIC: Appropriate mood and affect; insight and judgment normal. Data Data Last Documented VS Vital Signs Date Time Temp Pulse Resp B/P (MAP) Pulse Ox O2 Delivery O2 Flow Rate FiO2 02/06/17 20:40 88 18 98 Nasal Cannula 2.00 02/06/17 19:34 98.4 Orders Orders Complete Blood Count With Diff (02/06/17 20:09) Comprehensive Metabolic Panel (02/06/17 20:09) Act Partial Throm Time (Ptt) (02/06/17 20:09) Prothrombin Time / Inr (Pt) (02/06/17 20:09) Troponin I (02/06/17 20:09) Influenzae A/B Antigen (02/06/17 20:09) Iv Access Insert/Monitor (02/06/17 20:09) Electrocardiogram (02/06/17 20:09) Ecg Monitoring (02/06/17 20:09) Oximetry (02/06/17 20:09) Oxygen Administration (02/06/17 20:09) Chest, Pa & Lat (02/06/17 20:09) Sodium Chloride 0.9% Flush (Ns Flush) (02/06/17 20:15) Oxycodone-Acetamin 5-325 Mg (Percocet (02/06/17 21:30) Labs Laboratory Tests Test 02/06/17 20:10 White Blood Count 3.8 TH/MM3 Red Blood Count 4.00 MIL/MM3 Hemoglobin 12.6 GM/DL Hematocrit 37.0 % Mean Corpuscular Volume 92.6 FL Mean Corpuscular Hemoglobin 31.4 PG Mean Corpuscular Hemoglobin Concent 33.9 % Red Cell Distribution Width 13.4 % Platelet Count 178 TH/MM3 Mean Platelet Volume 8.2 FL CBC Comment AUTO DIFF Differential Total Cells Counted 100 Neutrophils % (Manual) 71 % Lymphocytes % 19 % Monocytes % 8 % Eosinophils % 2 % Neutrophils # (Manual) 2.7 TH/MM3 Differential Comment FINAL DIFF MANUAL Platelet Estimate NORMAL Platelet Morphology Comment NORMAL Red Cell Morphology Comment NORMAL Prothrombin Time 26.0 SEC Prothromb Time International Ratio 2.6 RATIO Activated Partial Thromboplast Time 35.7 SEC Blood Urea Nitrogen 8 MG/DL Creatinine 0.89 MG/DL Random Glucose 106 MG/DL Total Protein 6.3 GM/DL Albumin 3.4 GM/DL Calcium Level 8.1 MG/DL Alkaline Phosphatase 70 U/L Aspartate Amino Transf (AST/SGOT) 31 U/L Alanine Aminotransferase (ALT/SGPT) 27 U/L Total Bilirubin 0.4 MG/DL Sodium Level 142 MEQ/L Potassium Level 3.4 MEQ/L Chloride Level 106 MEQ/L Carbon Dioxide Level 29.2 MEQ/L Anion Gap 7 MEQ/L Estimat Glomerular Filtration Rate 84 ML/MIN Troponin I LESS THAN 0.02 NG/ML MDM Medical Decision Making Medical Screen Exam Complete: Yes Emergency Medical Condition: Yes Interpretation(s) My review of EKG: Right bundle branch block, sinus rhythm at a rate of 78, no definite evidence of acute ischemia. LABS: CBC remarkable for mild anemia CMP unremarkable Troponin negative INR 2.6 My personal interpretation of chest x-ray: Unchanged from previous. Increased opacity in the right lung. Differential Diagnosis Pleural effusions, PE, pneumonia, pneumothorax, anemia, weakness, other Narrative Course Medical decision making INITIAL: 76 old woman who presents emergency Department with shortness of breath , chest pain, some fullness to the anterior chest, ongoing for the past several days. Looks chronically ill but not acutely sick. We'll check x-ray, labs, flu swab, reassess. FINAL: Reviewed x-rays labs EKG, previous studies including previous echo, I'm not sure why the patient's feeling worse and he typically does. My impression is is been a little bit more subacute. Family is anxious about: Home. However , I don't find any heart indications for admission to the hospital worry about exposing him to the risk of possible cardiac infections. Reviewed x-ray read a possible fluid in the right lung, appears similar to previous to me, I think the patient is safe for outpatient follow-up. Discussed with patient is agreeable to discharge home and close outpatient follow-up. I think this is the best for this patient. Diagnosis Primary Impression: Chest pain Additional Instructions: Follow-up with your oncologist and primary doctor as planned. Return to the emergency department for any worsening chest pain, worsening trouble breathing, or any other new or worsening symptoms. Med/Other Pt SpecificInfo: No Change to Meds Disposition: 01 DISCHARGE HOME Condition: Stable Jesse Rasmussen MD Feb 06, 2017 20:30
[2017-02-06 20:31] LABS: HEMOGLOBIN 12.6 GM/DL (13.0-17.0); MEAN CELL VOLUME 92.6 FL (80.0-100.0); MEAN CORPUSCULAR HEMOGLOBIN 31.4 PG (27.0-34.0); MEAN CORPUSCULAR HGB CONC 33.9 % (32.0-36.0); MEAN PLATELET VOLUME 8.2 FL (7.0-11.0); PLATELET COUNT 178 TH/MM3 (150-450); RED CELL DISTRIBUTION WIDTH 13.4 % (11.6-17.2); WHITE BLOOD COUNT 3.8 TH/MM3 (4.0-11.0)
[2017-02-06 20:40] VITALS: PULSE 88; RESP 18; O2SAT 98
[2017-02-06 20:44] LABS: INTERNATIONAL NORMALIZED RATIO 2.6 RATIO
[2017-02-06 20:53] LABS: ALKALINE PHOSPHATASE 70 U/L (45-117); ALT (GPT) 27 U/L (12-78); TOTAL BILIRUBIN ADULT 0.4 MG/DL (0.2-1.0); TOTAL PROTEIN 6.3 GM/DL (6.4-8.2); TROPONIN I LESS THAN 0.02 NG/ML (0.02-0.05)
[2017-02-06 21:04] LABS: LYMPHOCYTES 19 % (9-44); MONOCYTES 8 % (0-8); NEUTROPHIL # MANUAL DIFF 2.7 TH/MM3 (1.8-7.7); POLYS (SEG NEUTROPHILS) 71 % (16-70)
[2017-02-06 21:08] LABS: ALBUMIN 3.4 GM/DL (3.4-5.0); AST (GOT) 31 U/L (15-37); BICARBONATE 29.2 MEQ/L (21.0-32.0); BLOOD UREA NITROGEN 8 MG/DL (7-18); CALCIUM 8.1 MG/DL (8.5-10.1); CHLORIDE 106 MEQ/L (98-107); CREATININE 0.89 MG/DL (0.60-1.30); GLOMERULAR FILTRATION RATE 84 ML/MIN (>89); GLUCOSE,RANDOM 106 MG/DL (74-106); SODIUM (NA) 142 MEQ/L (136-145)
[2017-02-06] MEDS ORDERED: oxyCODONE/ACETAMINOPHEN 5 MG/325 MG TAB PO ONE (21:30)
--- NOTE | 2017-02-06 21:34 | RADRPT ---
EXAM DATE/TIME: 02/06/2017 20:40 [facility] COMPARISON: CHEST TUBE REMOVAL, RIGHT, January 18, 2017, 16:41. CHEST SINGLE AP, January 18, 2017, 16:39. CT THORAX W/O CONTRAST, January 05, 2017, 12:37. CHEST PA & LAT, January 03, 2017, 8:33. INDICATIONS : Shortness of breath, dizziness, weakness for 3 days MEDICAL HISTORY : Hypercholesterolemia. Arthritis. Carcinoma, lung. CVA. COPD. GERD SURGICAL HISTORY : Thoracentesis. Hernia repair. Chemotherapy ENCOUNTER: Initial ACUITY: 3 days PAIN SCORE: 0/10 LOCATION: Bilateral chest FINDINGS: PA and lateral views of the chest. Increased confluent opacity of the inferior aspect of the right he mithorax likely are presenting increased size of right pleural effusion. There is persistent right pe rihilar parenchymal opacity unchanged. Left lung clear. Cardiac silhouette within normal limits. No e vidence of pneumothorax. CONCLUSION: Increased inferior right lower hemithorax opacity likely representing increased pleural effusion. Per sistent right perihilar parenchymal opacity. Gus Hogan MD on February 06, 2017 at 21:28 Board Certified Radiologist. This report was verified electronically.
[2017-02-06] MEDS ORDERED: HYDR-3580 PO (22:05)
[2017-02-06 22:16] VITALS: BP 148/67
--- NOTE | 2017-02-07 17:36 | EKG ---
Date Performed: 02/06/2017 Time Performed: 20:15:22 PTAGE: 76 years EKG: Sinus rhythm RIGHT BUNDLE BRANCH BLOCK Since previous tracing, no significant change noted ABNORMAL ECG PREVIOUS TRACING : 12/28/2016 06.04.43 DOCTOR: Corrina Johns Interpretating Date/Time 02/07/2017 17:35:46
== END 2017-02-06 22:21 | disposition home or self-care (01) ==
LOC: NEPE 19:30
DX: R07.9 Chest pain, unspecified (principal); R06.02 Shortness of breath; D64.9 Anemia, unspecified; I45.10 Unspecified right bundle-branch block; R05 Cough; R94.31 Abnormal electrocardiogram [ECG] [EKG]; Z85.118 Personal history of other malignant neoplasm of bronchus and lung; Z87.891 Personal history of nicotine dependence; Z79.899 Other long term (current) drug therapy
CPT/HCPCS: 71020; 80053; 84484; 85007; 85027; 85610; 85730; 87804; 93005; 99285

== ENCOUNTER 2017-02-23 11:21 | Observation (INO) | payer MEDICARE, OTHER ==
[~2017-02-23] VITALS: Ht 167.6 cm; Wt 55.2 kg
[2017-02-23] VITALS (9 sets, daily range): BP systolic 120–143; BP diastolic 57–72; PULSE 84–108; RESP 14–18; TEMP 98.6; O2SAT 94–98
[2017-02-23] MEDS ORDERED: PERC10TA27 PO ×2 (11:53)
--- NOTE | 2017-02-23 12:09 | PD ---
HPI Chief Complaint: Chest Pain Time Seen by Provider: 11:44 Travel History International Travel<30 days: No Contact w/Intl Traveler<30days: No Traveled to known affect area: No History of Present Illness HPI This patient complains of chest pain. He has a left-sided upper chest discomfort. He did have some involvement of the left shoulder and bicep region. No injury. Duration is 3 hours. He is currently pain-free. It resolves spontaneously. No alleviating factors. No exacerbating factors. He denies fever or cough. He does have history of lung cancer he thinks is in remission. He does have history of cardiac stents. He is currently on Coumadin for history of blood clot. PFSH Past Medical History Hx Anticoagulant Therapy: Yes (WARFARIN) Arthritis: Yes Asthma: No Blood Disorders: No Anxiety: No Depression: No Heart Rhythm Problems: No Cancer: Yes (non-small cell lung cancer) Cardiovascular Problems: Yes (AL) High Cholesterol: Yes Chemotherapy: Yes Chest Pain: No Congestive Heart Failure: No COPD: Yes Cerebrovascular Accident: Yes Diabetes: No Diminished Hearing: No Endocrine: No Gastrointestinal Disorders: No GERD: Yes Genitourinary: No Headaches: No Hiatal Hernia: No Heparin Induced Thrombocytopen: No Hypertension: Yes Immune Disorder: No Implanted Vascular Access Dvce: No Kidney Stones: No Musculoskeletal: Yes Neurologic: No Psychiatric: No Reproductive: No Respiratory: Yes (COPD, LUNG CA) Migraines: No Radiation Therapy: No Renal Failure: No Sickle Cell Disease: No Sleep Apnea: No Thyroid Disease: No Ulcer: No Tetanus Vaccination: < 5 Years Influenza Vaccination: Yes Past Surgical History Abdominal Surgery: No AICD: No Arteriovenous Shunt: No Cardiac Surgery: No Ear Surgery: No Endocrine Surgery: No Eye Surgery: No Genitourinary Surgery: No Gynecologic Surgery: No Insulin Pump: No Joint Replacement: No Neurologic Surgery: No Oral Surgery: No Pacemaker: No Thoracic Surgery: No Other Surgery: Yes (HERNIA, thoracentesis) Social History Alcohol Use: No (quit) Tobacco Use: No Substance Use: No Allergies-Medications (Allergen,Severity, Reaction): Coded Allergies: No Known Allergies (Verified Allergy, Unknown, 02/23/17) Reported Meds & Prescriptions Reported Meds & Active Scripts Active Atorvastatin (Atorvastatin Calcium) 20 Mg Tab 20 Mg PO HS Potassium Chloride ER (Potassium Chloride) 10 Meq Cap 20 Meq PO DAILY 30 Days Coumadin (Warfarin) 5 Mg Tab 5 Mg PO DAILY@1600 30 Days Lasix (Furosemide) 40 Mg Tab 40 Mg PO DAILY Reported Percocet (Oxycodone-Acetaminophen) 10-325 mg Tab 1 Tab PO Q4H PRN Klonopin (Clonazepam) 0.5 Mg Tab 0.5 Mg PO TID PRN Lopid (Gemfibrozil) 600 Mg Tab 600 Mg PO BIDAC Take 30 minutes prior to breakfast and dinner Gabapentin 300 Mg Cap 300 Mg PO BID Review of Systems General / Constitutional: No: Fever Eyes: No: Visual changes HENT: No: Headaches Cardiovascular: Positive: Chest Pain or Discomfort Respiratory: No: Shortness of Breath Gastrointestinal: No: Abdominal Pain Genitourinary: No: Dysuria Musculoskeletal: No: Pain Skin: No Rash Neurologic: No: Weakness Psychiatric: No: Depression Endocrine: No: Polydipsia Hematologic/Lymphatic: No: Easy Bruising Physical Exam Narrative GENERAL: Well-nourished, well-developed patient in no apparent distress. SKIN: Focused skin assessment reveals no rash and nodules. Skin is Warm and dry. HEAD: Atraumatic. Normocephalic. EYES: Pupils equal and round. No scleral icterus. No injection or drainage. ENT: No nasal bleeding or discharge. Mucous membranes pink and moist. NECK: Trachea midline. No JVD. CARDIOVASCULAR: Regular rate and rhythm. No murmur appreciated. RESPIRATORY: No accessory muscle use. Clear to auscultation. Breath sounds equal bilaterally. GASTROINTESTINAL: Abdomen soft, non-tender, nondistended. Hepatic and splenic margins not palpable. MUSCULOSKELETAL: No obvious deformities. No clubbing. No cyanosis. No edema. He has pronounced chest wall tenderness. However he says this is very different from the pain is been complaining of. He also has a lot of superficial varicosities across the chest. NEUROLOGICAL: Awake and alert. No obvious cranial nerve deficits. Motor grossly within normal limits. Normal speech. PSYCHIATRIC: Appropriate mood and affect; insight and judgment normal. Data Data Last Documented VS Vital Signs Date Time Temp Pulse Resp B/P (MAP) Pulse Ox O2 Delivery O2 Flow Rate FiO2 02/23/17 12:32 90 16 120/57 (78) 95 Room Air 02/23/17 11:23 98.6 Orders Orders Electrocardiogram (02/23/17 11:28) Complete Blood Count With Diff (02/23/17 11:28) Basic Metabolic Panel (Bmp) (02/23/17 11:28) Ckmb (Isoenzyme) Profile (02/23/17 11:28) Troponin I (02/23/17 11:28) Iv Access Insert/Monitor (02/23/17 11:28) Ecg Monitoring (02/23/17 11:28) Oxygen Administration (02/23/17 11:28) Oximetry (02/23/17 11:28) Prothrombin Time / Inr (Pt) (02/23/17 11:28) Chest, Pa & Lat (02/23/17 11:28) Ct Brain W/O Iv Contrast(Rout) (02/23/17 ) CKMB (02/23/17 11:55) CKMB% (02/23/17 11:55) Diet Heart Healthy (02/23/17 Dinner) Vital Signs (Adult) ROBERTO.Q4H (02/23/17 14:14) Resp Oxygen Avi C Titrat 1-4 L (02/23/17 ) Consult Medical Oncology (02/23/17 ) Consult Pulmonology (02/23/17 ) Troponin I (02/23/17 16:00) Troponin I (02/23/17 20:00) Prothrombin Time / Inr (Pt) (02/24/17 06:00) Acetamin-Hydrocod 325-5 Mg ([place] 5-325 (02/23/17 14:15) Acetamin-Hydrocod 325-5 Mg ([place] 5-325 (02/23/17 14:15) Ondansetron Inj (Zofran Inj) (02/23/17 14:15) Atorvastatin (Lipitor) (02/23/17 21:00) Clonazepam (Klonopin) (02/23/17 14:15) Furosemide (Lasix) (02/24/17 09:00) Gabapentin (Neurontin) (02/23/17 21:00) Gemfibrozil (Lopid) (02/23/17 16:00) Potassium Chloride (Kcl) (02/24/17 09:00) Albuterol-Ipratropium Neb (Duoneb Neb) (02/23/17 14:30) Labs Laboratory Tests Test 02/23/17 11:55 White Blood Count 3.5 TH/MM3 Red Blood Count 4.46 MIL/MM3 Hemoglobin 13.9 GM/DL Hematocrit 41.4 % Mean Corpuscular Volume 92.8 FL Mean Corpuscular Hemoglobin 31.2 PG Mean Corpuscular Hemoglobin Concent 33.6 % Red Cell Distribution Width 13.6 % Platelet Count 192 TH/MM3 Mean Platelet Volume 8.3 FL Neutrophils (%) (Auto) 75.8 % Lymphocytes (%) (Auto) 12.0 % Monocytes (%) (Auto) 10.2 % Eosinophils (%) (Auto) 1.1 % Basophils (%) (Auto) 0.9 % Neutrophils # (Auto) 2.6 TH/MM3 Lymphocytes # (Auto) 0.4 TH/MM3 Monocytes # (Auto) 0.4 TH/MM3 Eosinophils # (Auto) 0.0 TH/MM3 Basophils # (Auto) 0.0 TH/MM3 CBC Comment DIFF FINAL Differential Comment Prothrombin Time 35.8 SEC Prothromb Time International Ratio 3.6 RATIO Blood Urea Nitrogen 8 MG/DL Creatinine 1.00 MG/DL Random Glucose 109 MG/DL Calcium Level 8.8 MG/DL Sodium Level 142 MEQ/L Potassium Level 3.7 MEQ/L Chloride Level 105 MEQ/L Carbon Dioxide Level 28.8 MEQ/L Anion Gap 8 MEQ/L Estimat Glomerular Filtration Rate 73 ML/MIN Total Creatine Kinase 110 U/L Creatine Kinase MB 1.6 NG/ML Troponin I LESS THAN 0.02 NG/ML MDM Medical Decision Making Medical Screen Exam Complete: Yes Emergency Medical Condition: Yes Medical Record Reviewed: Yes Differential Diagnosis Differential diagnosis includes AL, angina, pericarditis, pleurisy, GERD, anxiety. Narrative Course I have reviewed the patient's electronic medical record. IV placed I reviewed the EKG which shows sinus rhythm but no acute ST elevation I reviewed the chest x-ray which shows elevated right hemidiaphragm and rest suspect is a large pleural effusion on the right side Extended cardiac monitoring shows sinus rhythm without ectopy CBC is normal Metabolic profile is normal CK is normal Troponin is normal INR is 3.6 on Coumadin So I have ordered a chest pain workup. However belatedly his says that he does take Coumadin and fell and struck his head 2 days ago and she is worried about him having a bleed. I've added brain CT which is negative Patient will require telemetry hospitalization for chest pain workup. I reviewed with the hospitalist. We discussed his pleural effusion and he will figure out whether that needs to be addressed in this hospital stay or not. It is not a new problem. He's had thoracentesis for malignant pleural effusion in the past. Diagnosis Primary Impression: Chest pain Qualified Codes: R07.9 - Chest pain, unspecified Additional Impression: Pleural effusion Admitting Information Admitting Physician Requests: Admit Sivakumar Haddad MD Feb 23, 2017 12:09
[2017-02-23 12:11] LABS: AUTOMATED NEUTROPHIL # 2.6 TH/MM3 (1.8-7.7); BASOPHIL % 0.9 % (0.0-2.0); EOSINOPHIL % 1.1 % (0.0-4.0); HEMATOCRIT 41.4 % (39.0-51.0); HEMOGLOBIN 13.9 GM/DL (13.0-17.0); LYMPHOCYTE # 0.4 TH/MM3 (1.0-4.8); MEAN CELL VOLUME 92.8 FL (80.0-100.0); MEAN CORPUSCULAR HEMOGLOBIN 31.2 PG (27.0-34.0); MEAN CORPUSCULAR HGB CONC 33.6 % (32.0-36.0); MEAN PLATELET VOLUME 8.3 FL (7.0-11.0); MONO % 10.2 % (0.0-8.0); MONOCYTE # 0.4 TH/MM3 (0-0.9); NEUT % 75.8 % (16.0-70.0); PLATELET COUNT 192 TH/MM3 (150-450); RED BLOOD COUNT 4.46 MIL/MM3 (4.50-5.90); RED CELL DISTRIBUTION WIDTH 13.6 % (11.6-17.2); WHITE BLOOD COUNT 3.5 TH/MM3 (4.0-11.0)
[2017-02-23 12:16] LABS: INTERNATIONAL NORMALIZED RATIO 3.6 RATIO; PROTHROMBIN TIME - PATIENT 35.8 SEC (9.8-11.6)
[2017-02-23 12:23] LABS: BICARBONATE 28.8 MEQ/L (21.0-32.0); BLOOD UREA NITROGEN 8 MG/DL (7-18); CALCIUM 8.8 MG/DL (8.5-10.1); CHLORIDE 105 MEQ/L (98-107); GLOMERULAR FILTRATION RATE 73 ML/MIN (>89); GLUCOSE,RANDOM 109 MG/DL (74-106); SODIUM (NA) 142 MEQ/L (136-145)
[2017-02-23 12:26] LABS: TROPONIN I LESS THAN 0.02 NG/ML (0.02-0.05)
--- NOTE | 2017-02-23 12:56 | RADRPT ---
EXAM DATE/TIME: 02/23/2017 12:31 [facility] COMPARISON: CHEST PA & LAT, February 06, 2017, 20:40. INDICATIONS : Short of breath, chest pain MEDICAL HISTORY : Hypercholesterolemia. Arthritis. Carcinoma, lung. CVA. COPD. GERD SURGICAL HISTORY : Thoracentesis. Hernia repair. Chemotherapy ENCOUNTER: Initial ACUITY: 1 day PAIN SCORE: 5/10 LOCATION: Bilateral chest FINDINGS: PA and lateral views of the chest demonstrate persistent elevation right hemidiaphragm. Combination o f likely consolidation and pleural effusion. There is consolidation medial right upper lobe unchanged . Left lung is clear. The cardiomediastinal contours are unremarkable. Osseous structures are intac t. CONCLUSION: Elevated right hemidiaphragm in part related to pleural effusion. Stable consolidation right upper lo be medially. Jesse Benson MD on February 23, 2017 at 12:52 Board Certified Radiologist. This report was verified electronically.
--- NOTE | 2017-02-23 13:14 | RADRPT ---
EXAM DATE/TIME: 02/23/2017 12:56 [facility] COMPARISON: No previous studies available for comparison. INDICATIONS : Headache. RADIATION DOSE: 35.99 CTDIvol (mGy) MEDICAL HISTORY : Cerebrovascular disease. Hypertension. Carcinoma, lung. SURGICAL HISTORY : None. ENCOUNTER: Initial ACUITY: 1 day PAIN SCALE: 3/10 LOCATION: Bilateral cranial TECHNIQUE: Multiple contiguous axial images were obtained of the head. Using automated exposure control and adj ustment of the mA and/or kV according to patient size, radiation dose was kept as low as reasonably a chievable to obtain optimal diagnostic quality images. DICOM format image data is available electro nically for review and comparison. FINDINGS: CEREBRUM: The ventricles are normal for age. No evidence of midline shift, mass lesion, hemorrhage or acute in farction. No extra-axial fluid collections are seen. POSTERIOR FOSSA: The cerebellum and brainstem are intact. The 4th ventricle is midline. The cerebellopontine angle i s unremarkable. EXTRACRANIAL: The visualized portion of the orbits is intact. SKULL: The calvaria is intact. No evidence of skull fracture. CONCLUSION: Normal examination. Jesse Benson MD on February 23, 2017 at 13:12 Board Certified Radiologist. This report was verified electronically.
--- NOTE | 2017-02-23 14:08 | HHI.HP ---
[facility] Admission Diagnosis Diagnoses: Chief Complaint: chest pain, shortness of breath Travel History International Travel<30 Days: No Contact w/Intl Traveler <30 Da: No Traveled to Known Affected Are: No History of Present Illness Written by Christy Cabral, acting as scribe for Dr. Dowling on 02/23/17 at 13: 57. 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 He reports chest pain started at 9:30am this morning and lasted about an hour. He locates the pain to the left anterior chest pain with radiation down the left arm, described as a dull pain, worse with any exertion and deep inspiration, associated with shortness of breath. Denies any associated diaphoresis, nausea, or vomiting. He did not take anything today to relief the pain. He believes his shortness of breath and dyspnea on exertion is getting much worse recently. He states his in-house nurse recommended he go to the hospital today. He reports a recent cough productive of white sputum. He denies any fevers or chills. He denies any history of heart disease or any prior cardiac catheterization. He had a walking stress test many years ago reportedly unremarkable. He follows with a malt roaster at [facility] but does not know the name. Currently the patient is seen in the ED and the chest pain has mostly resolved. He states he will occasionally feel the pain but he will rub his chest and it will go away. He denies any recent heavy lifting or exercise that could've cause him to injure his chest or shoulder. He reports a long history of pleural effusions, s/p pleurodesis in . He believes the last thoracentesis was just prior to the pleurodesis in . He has recently been told he has a "big spot" on his spleen, recommended to go to [place] for PET scan and has an appointment on Monday02/27/17. He states his last chemo was a long time ago. He sees oncologist Dr. Saba. He is in the process of moving in with his granddaughter. 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 dyslipidemia hypertension Past Surgical History Hernia repair Multiple Thoracentesis Pleurodesis Colonoscopy Port placement Reported Medications Atorvastatin (Atorvastatin Calcium) 20 Mg Tab 20 Mg PO HS Potassium Chloride ER (Potassium Chloride) 10 Meq Cap 20 Meq PO DAILY 30 Days Coumadin (Warfarin) 5 Mg Tab 5 Mg PO DAILY@1600 30 Days Lasix (Furosemide) 40 Mg Tab 40 Mg PO DAILY Percocet (Oxycodone-Acetaminophen) 10-325 mg Tab 1 Tab PO Q4H PRN Klonopin (Clonazepam) 0.5 Mg Tab 0.5 Mg PO TID PRN Lopid (Gemfibrozil) 600 Mg Tab 600 Mg PO BIDAC Take 30 minutes prior to breakfast and dinner Gabapentin 300 Mg Cap 300 Mg PO BID Allergies: Coded Allergies: No Known Allergies (Verified Allergy, Unknown, 02/23/17) Active Ordered Medications Current Medications Medications (Trade) Dose Ordered Sig/Hilaria Route Start Time Stop Time Status Last Admin ([place] 5-325 Mg) 1 tab Q4H PRN PO 02/23/17 14:15 ([place] 5-325 Mg) 2 tab Q4H PRN PO 02/23/17 14:15 (Zofran Inj) 4 mg Q8HR PRN IV PUSH 02/23/17 14:15 (Lipitor) 20 mg HS PO 02/23/17 21:00 (KlonoPIN) 0.5 mg TID PRN PO 02/23/17 14:15 (Lasix) 40 mg DAILY PO 02/24/17 09:00 (Neurontin) 300 mg BID PO 02/23/17 21:00 (Lopid) 600 mg BIDAC PO 02/23/17 16:00 (KCl) 20 meq DAILY PO 02/24/17 09:00 (Duoneb Neb) 1 ampule Q6HR NEB PRN [facility] 02/23/17 14:30 Family History Father and grandfather with heart disease Social History Smoked 1.5PPD for 50+ years, Quit 8years ago Denies any alcohol or illicit drug use Physical Exam Vital Signs Vital Signs Date Time Temp Pulse Resp B/P (MAP) Pulse Ox O2 Delivery O2 Flow Rate FiO2 02/23/17 12:32 90 16 120/57 (78) 95 Room Air 02/23/17 11:53 96 Room Air 02/23/17 11:53 96 Room Air 02/23/17 11:23 98.6 108 18 131/69 (89) 94 Room Air Physical Exam GENERAL: Well-developed, well-nourished pleasant elderly male patient in [facility]. SKIN: Warm and dry. HEAD: Atraumatic. Normocephalic. EYES: Pupils equal and round. No scleral icterus. No injection or drainage. ENT: No nasal bleeding or discharge. Mucous membranes pink and moist. NECK: Trachea midline. No JVD. CARDIOVASCULAR: Regular rate and rhythm. No murmur appreciated. Sternum and left anterior chest wall tender to palpation. RESPIRATORY: No accessory muscle use. Breath sounds diminished at right base, otherwise clear to auscultation. Breath sounds equal bilaterally. GASTROINTESTINAL: Abdomen soft, non-tender, nondistended. Normoactive bowel sounds x4. MUSCULOSKELETAL: Extremities without clubbing, cyanosis, or edema. No obvious deformities. NEUROLOGICAL: Awake and alert. No obvious cranial nerve deficits. Motor grossly within normal limits. Moves all extremities spontaneously. Normal speech. PSYCHIATRIC: Appropriate mood and affect; insight and judgment normal. Laboratory Laboratory Tests Test 02/23/17 11:55 White Blood Count 3.5 Red Blood Count 4.46 Hemoglobin 13.9 Hematocrit 41.4 Mean Corpuscular Volume 92.8 Mean Corpuscular Hemoglobin 31.2 Mean Corpuscular Hemoglobin Concent 33.6 Red Cell Distribution Width 13.6 Platelet Count 192 Mean Platelet Volume 8.3 Neutrophils (%) (Auto) 75.8 Lymphocytes (%) (Auto) 12.0 Monocytes (%) (Auto) 10.2 Eosinophils (%) (Auto) 1.1 Basophils (%) (Auto) 0.9 Neutrophils # (Auto) 2.6 Lymphocytes # (Auto) 0.4 Monocytes # (Auto) 0.4 Eosinophils # (Auto) 0.0 Basophils # (Auto) 0.0 CBC Comment DIFF FINAL Differential Comment Prothrombin Time 35.8 Prothromb Time International Ratio 3.6 Blood Urea Nitrogen 8 Creatinine 1.00 Random Glucose 109 Calcium Level 8.8 Sodium Level 142 Potassium Level 3.7 Chloride Level 105 Carbon Dioxide Level 28.8 Anion Gap 8 Estimat Glomerular Filtration Rate 73 Total Creatine Kinase 110 Creatine Kinase MB 1.6 Troponin I LESS THAN 0.02 Result Diagram: 02/23/17 1155 02/23/17 1155 Imaging Last Impressions Chest X-Ray 02/23/17 1128 Signed Impressions: Service Date/Time: February 12:31 - CONCLUSION: Elevated right hemidiaphragm in part related to pleural effusion. Stable consolidation right upper lobe medially. Jesse Benson MD Head CT 02/23/17 0000 Signed Impressions: Service Date/Time: February 12:56 - CONCLUSION: Normal examination. Jesse Benson MD Capmaximilianoi VTE Risk Assessment Caprini VTE Risk Assessment: Mod/High Risk (score >= 2) Caprini Risk Assessment Model Point Value = 1 Point Value = 2 Point Value = 3 Point Value = 5 Age 41-60 Minor surgery BMI > 25 kg/m2 Swollen legs Varicose veins or History of unexplained or recurrent spontaneous Oral contraceptives or hormone replacement Sepsis (< 1 month) Serious lung disease, including pneumonia (< 1 month) Abnormal pulmonary function Acute myocardial infarction Congestive heart failure (< 1 month) History of inflammatory bowel disease Medical patient at bed rest Age 61-74 Arthroscopic surgery Major open surgery (> 45 min) Laparoscopic surgery (> 45 min) Malignancy Confined to bed (> 72 hours) Immobilizing plaster cast Central venous access Age >= 75 History of VTE Family history of VTE Factor V Leiden Prothrombin [id number] Lupus anticoagulant Anticardiolipin antibodies Elevated serum homocysteine Heparin-induced thrombocytopenia Other congenital or acquired thrombophilia Stroke (< 1 month) Elective arthroplasty Hip, pelvis, or leg fracture Acute spinal cord injury (< 1 month) Prophylaxis Regimen Total Risk Factor Score Risk Level Prophylaxis Regimen 0-1 Low Early ambulation 2 Moderate Order ONE of the following: *Sequential Compression Device (SCD) *Heparin 5000 units SQ BID 3-4 Higher Order ONE of the following medications: *Heparin 5000 units SQ TID *Enoxaparin/Lovenox 40 mg SQ daily (WT < 150 kg, CrCl > 30 mL/min) *Enoxaparin/Lovenox 30 mg SQ daily (WT < 150 kg, CrCl > 10-29 mL/min) *Enoxaparin/Lovenox 30 mg SQ BID (WT < 150 kg, CrCl > 30 mL/min) AND/OR *Sequential Compression Device (SCD) 5 or more Highest Order ONE of the following medications: *Heparin 5000 units SQ TID (Preferred with Epidurals) *Enoxaparin/Lovenox 40 mg SQ daily (WT < 150 kg, CrCl > 30 mL/min) *Enoxaparin/Lovenox 30 mg SQ daily (WT < 150 kg, CrCl > 10-29 mL/min) *Enoxaparin/Lovenox 30 mg SQ BID (WT < 150 kg, CrCl > 30 mL/min) AND *Sequential Compression Device (SCD) Assessment and Plan Problem List: (1) Pleural effusion ICD Code: J90 - Pleural effusion, not elsewhere classified Status: Acute (2) Chest pain ICD Code: R07.9 - Chest pain, unspecified Status: Acute Assessment and Plan 76-year-old male with history of non small cell lung cancer stage III, O2 dependent 2L via NC as needed, recurrent pleural effusions s/p pleurodesis , 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 Right Pleural Effusion: patient with long history of recurrent pleural effusions requiring multiple thoracenteses, s/p pleurodesis Jan 2017. -CXR images reviewed, shows persistent elevation of right hemidiaphragm; combination of likely consolidation and pleural effusion; also consolidation medial RUL unchanged; left lung is clear. -continue patient's Lasix 40mg daily with KCl replacement -continue duonebs prn, O2 prn, incentive spirometry -consult pulmonology Atypical Chest Pain: suspect secondary to pleural effusion. Pain also reproducible on exam, possible musculoskeletal component. CXR as above. Doubt PE as patient anticoagulated on Coumadin. -rule out ACS with serial cardiac enzymes and EKGs -monitor on telemetry -patient known to [facility], consult if needed [id number] Lung Cancer, stage III: -with recurrent pleural effusion, will consult patient's oncologist Dr. Saba SVC Syndrome with Thrombosis: anticoagulated on Coumadin -INR supratherapeutic at 3.6 -hold coumadin today, repeat PT/INR in am Splenic Lesion: patient informed about this last month -has an appointment for outpatient PET scan on Monday02/27/17 Dyslipidemia: chronic -continue patient's gemfibrozil, statin Hypertension: chronic -only on lasix, no other antihypertensives -monitor BP, add antihypertensives as needed Arthritic Pain: patient complaining of pain in hands and back -continue patient's gabapentin -[place] prn -consult PT DVT Prophylaxis: on Coumadin the above note was scribed by Ms.Kristine Cabral ( NAZ). I attest that I had a [id number] encounter with the patient and personally performed the physical exam and medical decision making and reviewed the findings and the plan with the patient. Problem Qualifiers (1) Chest pain: Qualified Codes: R07.9 - Chest pain, unspecified Christy Cabral PA-C Feb 23, 2017 14:08 Ramon Dowling MD Feb 23, 2017 15:46
[2017-02-23] MEDS ORDERED: ONDANSETRON HCL 4 MG/2 ML VIAL IV PUSH PRN (14:15)
[2017-02-23] MEDS ORDERED: ACETAMINOPHEN/HYDROcodone 325 MG/5 MG TAB PO PRN (14:15)
[2017-02-23] MEDS ORDERED: RESP: ALBUTEROL 2.5 MG/IPRATROPIUM 0.5 MG NEB (PRN) NEB (14:30)
[2017-02-23] MEDS ORDERED: ACETAMINOPHEN 325 MG TAB PO PRN (14:45)
[2017-02-23] MEDS: ACETAMINOPHEN/HYDROcodone 325 MG/5 MG TAB PO PRN (16:40)
[2017-02-23] MEDS: GEMFIBROZIL 600 MG TAB PO SCH (18:06)
--- NOTE | 2017-02-23 21:39 | RADRPT ---
EXAM DATE/TIME: 02/23/2017 21:12 [facility] COMPARISON: No previous studies available for comparison. INDICATIONS : Pleural effusion. MEDICAL HISTORY : Hypercholesterolemia. Hypertension. Chronic obstructive pulmonary disease. Cerebrovascular accident. Myocardial infarction. Anticoagulant therapy. GERD. Arthritis. Lung cancer. Chemotherapy. Blood trans fusion. SURGICAL HISTORY : Hernia repair. Thoracentesis. ENCOUNTER: Initial ACUITY: 1 day PAIN SCORE: 0/10 LOCATION: Right chest MEASUREMENTS: SKIN TO PARIETAL PLEURA: 1.6 cm SKIN TO MAX SAFE DEPTH: 6.1 cm ESTIMATED FLUID VOLUME: 1495 cc FLUID COMPOSITION: simple FINDINGS: Right pleural effusion estimated at 1500 cc present. This appears to be primarily free-flowing. A mar k was made on the overlying skin. CONCLUSION: Large right pleural effusion. Chest wall was marked. Vikas Ortiz MD on February 23, 2017 at 21:36 Board Certified Radiologist. This report was verified electronically.
[2017-02-23] MEDS: methylPREDNISolone SOD SUCC 40 MG/1 ML VIAL IV SCH (22:37)
[2017-02-23] MEDS: ATORVASTATIN 20 MG TAB PO SCH (22:38)
[2017-02-23] MEDS: GABAPENTIN 300 MG CAP PO SCH (22:38)
[2017-02-23] MEDS: clonazePAM 0.5 MG TAB PO PRN (22:38)
[2017-02-24] VITALS (22 sets, daily range): BP systolic 122–157; BP diastolic 64–83; PULSE 73–114; RESP 16–18; TEMP 96.5–98.4; O2SAT 93–98
[2017-02-24] MEDS: methylPREDNISolone SOD SUCC 40 MG/1 ML VIAL IV SCH ×3 (05:35→21:03)
[2017-02-24] MEDS: GEMFIBROZIL 600 MG TAB PO SCH ×2 (05:35→16:29)
[2017-02-24 06:09] LABS: INTERNATIONAL NORMALIZED RATIO 3.4 RATIO; PROTHROMBIN TIME - PATIENT 34.6 SEC (9.8-11.6)
[2017-02-24] MEDS: POTASSIUM CHLORIDE 10 MEQ CAP PO SCH (08:29)
[2017-02-24] MEDS: FUROSEMIDE 40 MG TAB PO SCH (08:29)
[2017-02-24] MEDS: GABAPENTIN 300 MG CAP PO SCH ×2 (08:30→21:04)
--- NOTE | 2017-02-24 08:53 | MB ---
cc: FABRICE RICHARDSON MD DATE OF CONSULTATION 02/23/2017 LATE NOTE ENTRY; patient seen at bedside on 02/23 a approximately 9 pm DATE OF 1940 CHIEF COMPLAINT 1. Shortness of breath. 2. Pleural effusion. 3. Non-small cell lung cancer, stage IIIA, status post treatment under my colleague Dr. Saba. HISTORY OF PRESENT ILLNESS Mr. Luna is a 76-year-old gentleman whose oncologic history includes a history of non-small cell lung cancer, at least stage IIIA. 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 CT of the chest at that time showed a 3.2 cm right lower lobe lung mass with 3.4 x 3.4 cm right paratracheal mass causing occlusion of the superior vena cava. There was also subcarinal adenopathy; largest measured 2.3 cm. Bone scan and brain MRI did not reveal any occult metastatic disease. CT of the abdomen and pelvis showed hepatic steatosis but no metastatic disease. Biopsy of the lung showed moderately to poorly differentiated adenocarcinoma. PD-L1 was 5%, EGFR wild type, ALK negative for rearrangement. He was started on weekly carboplatin and Taxol concurrently with radiation therapy and completed this in March 2016. He most recently saw Dr. Saba on February 15, 2017. At that time a PET scan was ordered as he was having recurrent pleural effusion with negative cytology. He reports that he has recently had insurance approval for the PET scan, but has not yet had this performed. He presented to the hospital today with chest pain and shortness of breath. Imaging studies revealed a pleural effusion and lung consolidation REVIEW OF SYSTEMS As mentioned in the history of present illness. PAST MEDICAL HISTORY 1. Non-small cell lung cancer. 2. Recurrent pleural effusion status post pleurodesis in January 2017. 3. Dyslipidemia. 4. Hypertension. 5. Chronic anticoagulation with Coumadin. PAST SURGICAL HISTORY 1. Hernia repair. 2. Multiple thoracentesis. 3. Pleurodesis. 4. Colonoscopy. 5. Port placement. ALLERGIES No known drug allergies. FAMILY HISTORY History of heart disease. SOCIAL HISTORY Past history of tobacco abuse. No alcohol or illegal drug use. Good support system in this area. PHYSICAL EXAMINATION GENERAL: A well-developed, well-nourished man who appears his stated age, in no distress. SKIN: Warm and dry. HEAD: Atraumatic, normocephalic. EYES: Pupils equal and round. No scleral icterus. ENT: Oropharynx clear. NECK: Supple. No palpable lymphadenopathy. HEART: Regular rate and rhythm. LUNGS: Decreased breath sounds at the lung bases. ABDOMEN: Soft, nontender. NEUROLOGIC: Grossly nonfocal. PSYCH: Appropriate mood and affect. LABORATORY STUDIES White blood cell count 3.5, hemoglobin 13.9, platelet count 192,000. ASSESSMENT AND PLAN 1. History of stage III lung cancer status post treatment with concurrent chemotherapy and radiation therapy. He is now admitted to the hospital with shortness of breath and chest pain. Dr. Saba has set up an outpatient PET scan and we await these results. Please be sure to send any pleural fluid for studies to include cytology. 2. Pleural effusion, uncertain etiology, status post pleurodesis. Oncology service will continue to follow while inpatient. MD SALINAS Grace/JERSON /4:32 AM /8:28 AM MTDD
[2017-02-24] MEDS ORDERED: SODIUM CHLOR 0.9% 250 ML INJ 250 ML IV ONE (12:15)
--- NOTE | 2017-02-24 12:24 | MB ---
cc: ZUHAIR SOTO DATE OF CONSULTATION 02/23/2017 REASON FOR CONSULTATION Pleural effusion and dyspnea. PRESENT ILLNESS This a 76-hour-old white male with a past history of non-small cell lung cancer stage IIIA, has previously been evaluated for recurrent right pleural effusions. The patient has been into interventional radiology for multiple procedures including thoracentesis on the right side and he was home and doing fairly well the last few days, but developed some pains in his chest, difficulty in taking deep breaths and felt like the fluid was coming back. The patient then came to the emergency room and a chest x-ray again shows a moderate sized pleural effusion and he is presently on oxygen at three liters nasal cannula. The patient has had previous CAT scans which have shown a 3.2 cm lung mass and paratracheal mass with superior vena caval occlusion and subcarinal adenopathy. He is under the care of Dr. Saba who has been treating and for his lung cancer which was proven to be a poorly differentiated adenocarcinoma. A PET scan was done recently as well and the pleural effusion so far has been negative for malignancy on cytologic exam. The patient denies fevers or chills, night sweats. His chest x-ray, however did show some infiltrate in the right upper lobe. He has no hemoptysis. PAST HISTORY Includes a history of: 1. Recurrent pleural effusion and pleurodesis that was done in January of 2017. 2. He has [id number]-[id number] lung cancer with local progression. 3. History of hernia repair in the past. 4. He has had Lwailg-B-Spaz placed. 5. He has COPD and hypertension. 6. He is on anticoagulation. HABITS The patient smoked one to two packs per day for over 40 years. No significant alcohol use. ALLERGIES None listed. FAMILY HISTORY Significant for heart disease. REVIEW OF SYSTEMS The other systems reviewed includes weakness and dizziness, epigastric distress. He has no urinary symptoms, flank pain. No leg swelling or calf muscle pains. He has some joint pains in his extremities. No anxiety or depression. PHYSICAL EXAMINATION This is a well-built elderly man who is laying flat. He is on oxygen. VITAL SIGNS: His blood pressure is 130/70, pulse 80, respirations 22, temperature 98.2. HEENT: Head normocephalic. Pupils reactive. Tongue is moist. Throat was clear. NECK: Supple. No bruits or thyroid enlargement or lymphadenopathy. CHEST: Decreased breath sounds over the right lower chest with occasional crackles at the right base. Occasional wheezes in the upper chest. HEART: Heart sounds are irregular. S1 and S2, no murmur. ABDOMEN: Soft and benign. No masses or organomegaly. EXTREMITIES: Minimal edema. Normal reflexes. No gross motor deficits. NEUROLOGIC: Cranial nerves grossly intact. The patient is alert, oriented, and cooperative. SKIN: Dry and cool. IMPRESSION 1. Recurrent right pleural effusion with atelectasis right base. 2. Probable pneumonia right upper lobe. 3. Has a history of lung cancer non-small cell stage III, status post radiation and chemotherapy. 4. COPD 5. Hypertension PLAN The patient will be sent for ultrasound examination of the chest. His INR is elevated and we may need to wait until the pro-time is below 18 seconds to do a thoracentesis. We will place a marking on the chest and plan on thoracentesis when his INR is corrected. O2 at [address] was [address] Also place him on nebulized DuoNeb solution q.i.d. Solu-Medrol added 40 mg q.8 h for two days and place him on oral doxycycline for possible pneumonia. Thank you for this consultation. MD JEANETTE Acosta/MACKENZIE /12:00 PM /12:11 PM
[2017-02-24] MEDS ORDERED: PHYTONADIONE 5 MG/SWFI 5 ML ORAL SYR PO ONE (12:45)
--- NOTE | 2017-02-24 13:01 | HHI.PR ---
Subjective Remarks Follow-up for shortness of breath, chest pain, pleural effusion. Patient is currently doing well. He is on room air. He complains of significant headache. No fever or chills. Objective Vitals Vital Signs Date Time Temp Pulse Resp B/P (MAP) Pulse Ox O2 Delivery O2 Flow Rate FiO2 02/24/17 11:00 96.5 114 16 138/64 (88) 96 02/24/17 07:00 97.2 100 16 152/83 (106) 95 02/24/17 07:00 100 02/24/17 06:00 98 02/24/17 05:00 90 02/24/17 04:00 97.0 96 16 122/68 (86) 96 02/24/17 04:00 92 02/24/17 03:00 92 02/24/17 02:00 86 02/24/17 01:00 74 02/24/17 00:00 73 02/24/17 00:00 96.9 81 16 139/79 (99) 98 02/23/17 23:00 84 02/23/17 22:33 98 Nasal Cannula 2.00 02/23/17 22:00 85 02/23/17 22:00 98.6 88 16 128/62 (84) 97 02/23/17 21:42 02/23/17 20:00 97 02/23/17 18:08 91 16 132/72 (92) 94 Room Air 02/23/17 16:36 98 14 143/65 (91) 96 Room Air I/O 02/23/17 02/23/17 02/23/17 02/24/17 02/24/17 02/24/17 07:00 15:00 23:00 07:00 15:00 23:00 Intake Total 240 ml Balance 240 ml Intake Oral 240 ml # Voids 1 Result Diagram: 02/23/17 1155 02/23/17 1155 Imaging Last Impressions Chest X-Ray 02/23/17 1128 Signed Impressions: Service Date/Time: February 12:31 - CONCLUSION: Elevated right hemidiaphragm in part related to pleural effusion. Stable consolidation right upper lobe medially. Jesse Benson MD Head CT 02/23/17 0000 Signed Impressions: Service Date/Time: February 12:56 - CONCLUSION: Normal examination. Jesse Benson MD Chest Ultrasound 02/23/17 0000 Signed Impressions: Service Date/Time: February 21:12 - CONCLUSION: Large right pleural effusion. Chest wall was marked. Vikas Ortiz MD Objective Remarks GENERAL: Alert, oriented 3, NAD. SKIN: Warm and dry. HEAD: Normocephalic. EYES: No scleral icterus. No injection or drainage. NECK: Supple, trachea midline. No JVD or lymphadenopathy. CARDIOVASCULAR: Regular rate and rhythm without murmurs, gallops, or rubs. RESPIRATORY: Moderate air entry. Diminished breath sound on the right. GASTROINTESTINAL: Abdomen soft, non-tender, nondistended. MUSCULOSKELETAL: No cyanosis, or edema. BACK: Nontender without obvious deformity. No CVA tenderness. 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 Right Pleural Effusion: patient with long history of recurrent pleural effusions requiring multiple thoracenteses, s/p pleurodesis Jan 2017. -CXR shows persistent elevation of right hemidiaphragm; combination of likely consolidation and pleural effusion; also consolidation medial RUL unchanged; left lung is clear. -continue patient's Lasix 40mg daily with KCl replacement -continue duonebs prn, O2 prn, incentive spirometry -consult pulmonology. Discussed with Dr. Arrieta who plans to do bedside thoracentesis this afternoon. -Will give patient Vitamin K 5mg and one unit of FFP, repeat PT/INR at 5PM. Atypical Chest Pain: suspect secondary to pleural effusion. Pain also reproducible on exam, possible musculoskeletal component. CXR as above. Doubt PE as patient anticoagulated on Coumadin. - Troponins negative. No further cardiac work up. Aaz-Zbfmo-Dpns Lung Cancer, stage III: -with recurrent pleural effusion, will consult patient's oncologist Dr. Saba SVC Syndrome with Thrombosis: anticoagulated on Coumadin -INR supratherapeutic at 3.6 -hold coumadin. Vitamin K 5mg now and FFP one unit. Repeat INR at 5PM. If numbers are improved, bedside thoracentesis at around 6PM. Splenic Lesion: patient informed about this last month -has an appointment for outpatient PET scan on Monday02/27/17 Dyslipidemia: chronic -continue patient's gemfibrozil, statin Hypertension: chronic -only on lasix, no other antihypertensives -monitor BP, add antihypertensives as needed Arthritic Pain: patient complaining of pain in hands and back -continue patient's gabapentin -[place] prn -consult PT Full code. Warfarin (on hold). INR 3.4 today. Problem Qualifiers (1) Chest pain: Qualified Codes: R07.9 - Chest pain, unspecified Chandrika Epperson DO Feb 24, 2017 1:01 pm
--- NOTE | 2017-02-24 14:40 | PD.ONC.PN ---
Subjective Subjective Remarks Afebrile overnight. "I was freezing last night" Patient states he had a difficult time getting the heater in his room turned on last night. feels better this morning now that the problem is fixed. Objective Data Date Time Temp Pulse Resp B/P (MAP) Pulse Ox O2 Delivery O2 Flow Rate FiO2 02/24/17 11:00 96.5 114 16 138/64 (88) 96 02/24/17 07:00 97.2 100 16 152/83 (106) 95 02/24/17 07:00 100 02/24/17 06:00 98 02/24/17 05:00 90 02/24/17 04:00 97.0 96 16 122/68 (86) 96 02/24/17 04:00 92 02/24/17 03:00 92 02/24/17 02:00 86 02/24/17 01:00 74 02/24/17 00:00 73 02/24/17 00:00 96.9 81 16 139/79 (99) 98 02/23/17 23:00 84 02/23/17 22:33 98 Nasal Cannula 2.00 02/23/17 22:00 85 02/23/17 22:00 98.6 88 16 128/62 (84) 97 02/23/17 21:42 02/23/17 20:00 97 02/23/17 18:08 91 16 132/72 (92) 94 Room Air 02/23/17 16:36 98 14 143/65 (91) 96 Room Air 02/24/17 02/24/17 02/24/17 07:00 15:00 23:00 Intake Total 240 ml Balance 240 ml Result Diagram: 02/23/17 1155 02/23/17 1155 Laboratory Results Laboratory Tests Test 02/23/17 17:32 02/23/17 18:00 02/24/17 04:17 Troponin I LESS THAN 0.02 NG/ML LESS THAN 0.02 NG/ML Prothrombin Time 34.6 SEC Prothromb Time International Ratio 3.4 RATIO Administered Medications Medications (Trade) Dose Ordered Sig/Hilaria Route PRN Reason Start Time Stop Time Status Last Admin Dose Admin Acetaminophen/ Hydrocodone Bitart ([place] 5-325 Mg) 2 tab Q4H PRN PO PAIN 6-10 02/23/17 14:15 02/23/17 16:40 Atorvastatin Calcium (Lipitor) 20 mg HS PO 02/23/17 21:00 02/23/17 22:38 Clonazepam (KlonoPIN) 0.5 mg TID PRN PO ANXIETY 02/23/17 14:15 02/23/17 22:38 Furosemide (Lasix) 40 mg DAILY PO 02/24/17 09:00 02/24/17 08:29 Gabapentin (Neurontin) 300 mg BID PO 02/23/17 21:00 02/24/17 08:30 Gemfibrozil (Lopid) 600 mg BIDAC PO 02/23/17 16:00 02/24/17 05:35 Potassium Chloride (KCl) 20 meq DAILY PO 02/24/17 09:00 02/24/17 08:29 Acetaminophen (Tylenol) 650 mg Q4H PRN PO FEVER/HEADACHE 02/23/17 14:45 02/24/17 13:23 Methylprednisolone Sodium Succinate (SoluMEDROL INJ) 40 mg Q8H IV 02/23/17 21:00 02/24/17 13:22 Objective Remarks GENERAL: Elderly male, sitting up in bed in nad. SKIN: Warm and dry. HEAD: Normocephalic. EYES: No injection or drainage. NECK: Supple, trachea midline. CARDIOVASCULAR: +S1/S2 RESPIRATORY: diminished at right base, anterior shields with occasional rhonchi. GASTROINTESTINAL: Abdomen soft, non-tender, nondistended. EXTREMITIES: No cyanosis NEUROLOGICAL: No obvious focal deficit. Awake, alert, and oriented x3. Assessment/Plan Problem List: (1) Adenocarcinoma of lung ICD Codes: C34.90 - Malignant neoplasm of unspecified part of unspecified bronchus or lung Status: Chronic Plan: 0--s/p treatment with weekly carboplatin and Taxol concurrently with radiation therapy and completed this in March 2016. --needs PET scan outpatient (was waiting on insurance approval) (2) Recurrent right pleural effusion ICD Codes: J90 - Pleural effusion, not elsewhere classified Plan: --will need thoracentesis when INR improved. --on solu-medrol + Doxycycline --pulmonology following. Assessment 76y/o male with NSCLC admitted with pleural effusion. h/o Recurrent pleural effusion status post pleurodesis in January 2017. Dyslipidemia. Hypertension. Chronic anticoagulation with Coumadin. Plan 1. await thoracentesis--will need cytology when performed. 2. monitor CBC, INR 3. plan for PET scan outpatient. Charla Bangura Feb 24, 2017 14:40 Annemarie Solis MD Feb 24, 2017 15:16
--- NOTE | 2017-02-24 14:48 | EKG ---
Date Performed: 02/23/2017 Time Performed: 18:03:55 PTAGE: 76 years EKG: Sinus rhythm RIGHT BUNDLE BRANCH BLOCK ABNORMAL ECG PREVIOUS TRACING : 02/23/2017 11.55 DOCTOR: Romario Orozco Interpretating Date/Time 02/24/2017 14:47:49
--- NOTE | 2017-02-24 14:48 | EKG ---
Date Performed: 02/23/2017 Time Performed: 22:31:32 PTAGE: 76 years EKG: Sinus rhythm RIGHT BUNDLE BRANCH BLOCK ABNORMAL ECG PREVIOUS TRACING : 02/23/2017 18.03 DOCTOR: Romario Orozco Interpretating Date/Time 02/24/2017 14:48:10
--- NOTE | 2017-02-24 14:48 | EKG ---
Date Performed: 02/23/2017 Time Performed: 11:55:23 PTAGE: 76 years EKG: Sinus rhythm RIGHT BUNDLE BRANCH BLOCK ABNORMAL ECG PREVIOUS TRACING : 02/06/2017 20.15 DOCTOR: Rmoario Orozco Interpretating Date/Time 02/24/2017 14:47:42
[2017-02-24 17:57] LABS: INTERNATIONAL NORMALIZED RATIO 2.8 RATIO; PROTHROMBIN TIME - PATIENT 27.9 SEC (9.8-11.6)
--- NOTE | 2017-02-24 19:44 | RADRPT ---
EXAM DATE/TIME: 02/24/2017 19:15 [facility] COMPARISON: CHEST PA & LAT, February 23, 2017, 12:31. CHEST SINGLE AP, January 18, 2017, 16:39. INDICATIONS : Post right thoracentesis MEDICAL HISTORY : Hypercholesterolemia. Hypertension. Chronic obstructive pulmonary disease. Cerebrovascular accident. Myocardial infarction. Anticoagulant therapy. GERD. Arthritis. Lung cancer. SURGICAL HISTORY : Hernia repair. Thoracentesis ENCOUNTER: Initial ACUITY: 1 day PAIN SCORE: 0/10 LOCATION: Right chest FINDINGS: Single AP view of the chest. Minimal residual right pleural effusion. Size of right pleural effusion is markedly decreased. Calcified granuloma in the right midlung. Atelectasis/consolidation of the med ial right upper lung is unchanged.. Cardiomediastinal silhouette unchanged. No evidence of pneumothor ax. CONCLUSION: Marked decrease in size of right pleural effusion. No evidence of pneumothorax. Gus Hogan MD on February 24, 2017 at 19:40 Board Certified Radiologist. This report was verified electronically.
[2017-02-24] MEDS: ATORVASTATIN 20 MG TAB PO SCH (21:04)
[2017-02-24] MEDS: DOXYCYCLINE HYCLATE 100 MG CAP PO SCH (21:04)
[2017-02-24] MEDS: ACETAMINOPHEN/HYDROcodone 325 MG/5 MG TAB PO PRN (21:05)
[2017-02-24] MEDS: clonazePAM 0.5 MG TAB PO PRN (23:11)
[2017-02-25] VITALS (13 sets, daily range): BP systolic 108–139; BP diastolic 52–75; PULSE 68–92; RESP 16–20; TEMP 97.5–98.2; O2SAT 96–97
[2017-02-25] MEDS: GEMFIBROZIL 600 MG TAB PO SCH ×2 (06:07→16:14)
[2017-02-25] MEDS: methylPREDNISolone SOD SUCC 40 MG/1 ML VIAL IV SCH ×3 (06:07→20:35)
[2017-02-25] MEDS: FUROSEMIDE 40 MG TAB PO SCH (08:33)
[2017-02-25] MEDS: POTASSIUM CHLORIDE 10 MEQ CAP PO SCH (08:33)
[2017-02-25] MEDS: DOXYCYCLINE HYCLATE 100 MG CAP PO SCH ×2 (08:33→20:35)
[2017-02-25] MEDS: GABAPENTIN 300 MG CAP PO SCH ×2 (08:33→20:35)
--- NOTE | 2017-02-25 08:54 | HHI.PR ---
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 He follows with a plate glass polisher at [facility]. He reports a long history of pleural effusions, s/p pleurodesis in Jan 2017. he is in status post Thoracentesis performed by doctor Vikas Arrieta on 02/24/17 1600 ml of serosanguineous fluid obtained. stable discussed with nurse improving condition. Objective Vital Signs Date Time Temp Pulse Resp B/P (MAP) Pulse Ox O2 Delivery O2 Flow Rate FiO2 02/25/17 06:00 74 02/25/17 05:00 92 02/25/17 05:00 80 16 108/52 (70) 96 02/25/17 04:00 74 02/25/17 03:00 78 02/25/17 02:00 80 02/25/17 01:00 84 02/25/17 00:00 84 02/24/17 23:00 96 02/24/17 23:00 83 16 130/74 (92) 95 02/24/17 22:49 96 2.00 02/24/17 22:00 92 02/24/17 21:00 106 02/24/17 20:20 98.4 95 18 146/82 (103) 97 02/24/17 20:00 92 02/24/17 19:00 103 02/24/17 17:00 94 02/24/17 16:51 97.8 93 18 136/71 95 02/24/17 16:31 97.4 95 18 157/81 93 02/24/17 16:00 96 02/24/17 15:00 100 02/24/17 14:00 112 02/24/17 11:00 96.5 114 16 138/64 (88) 96 I/O 02/24/17 02/24/17 02/24/17 02/25/17 02/25/17 02/25/17 07:00 15:00 23:00 07:00 15:00 23:00 Intake Total 240 ml 224 ml 300 ml Balance 240 ml 224 ml 300 ml Intake Oral 240 ml 300 ml FFP 224 ml # Voids 1 1 # Bowel Movements 0 Result Diagram: 02/23/17 1155 02/23/17 1155 Imaging Last Impressions Chest X-Ray 02/24/17 0000 Signed Impressions: Service Date/Time: Friday, February 24, 2017 19:15 - CONCLUSION: Marked decrease in size of right pleural effusion. No evidence of pneumothorax. Gus Hogan MD Head CT 02/23/17 0000 Signed Impressions: Service Date/Time: February 12:56 - CONCLUSION: Normal examination. Jesse Benson MD Chest Ultrasound 02/23/17 0000 Signed Impressions: Service Date/Time: February 21:12 - CONCLUSION: Large right pleural effusion. Chest wall was marked. Vikas Ortiz MD Procedures Thoracentesis 02/24/17 obtained 1600 ml. Other Results Laboratory Tests Test 02/23/17 11:55 02/23/17 18:00 02/24/17 16:50 White Blood Count 3.5 TH/MM3 Red Blood Count 4.46 MIL/MM3 Hemoglobin 13.9 GM/DL Hematocrit 41.4 % Mean Corpuscular Volume 92.8 FL Mean Corpuscular Hemoglobin 31.2 PG Mean Corpuscular Hemoglobin Concent 33.6 % Red Cell Distribution Width 13.6 % Platelet Count 192 TH/MM3 Mean Platelet Volume 8.3 FL Neutrophils (%) (Auto) 75.8 % Lymphocytes (%) (Auto) 12.0 % Monocytes (%) (Auto) 10.2 % Eosinophils (%) (Auto) 1.1 % Basophils (%) (Auto) 0.9 % Neutrophils # (Auto) 2.6 TH/MM3 Lymphocytes # (Auto) 0.4 TH/MM3 Monocytes # (Auto) 0.4 TH/MM3 Eosinophils # (Auto) 0.0 TH/MM3 Basophils # (Auto) 0.0 TH/MM3 CBC Comment DIFF FINAL Differential Comment Blood Urea Nitrogen 8 MG/DL Creatinine 1.00 MG/DL Random Glucose 109 MG/DL Calcium Level 8.8 MG/DL Sodium Level 142 MEQ/L Potassium Level 3.7 MEQ/L Chloride Level 105 MEQ/L Carbon Dioxide Level 28.8 MEQ/L Anion Gap 8 MEQ/L Estimat Glomerular Filtration Rate 73 ML/MIN Total Creatine Kinase 110 U/L Creatine Kinase MB 1.6 NG/ML Troponin I LESS THAN 0.02 NG/ML Prothrombin Time 27.9 SEC Prothromb Time International Ratio 2.8 RATIO Objective Remarks GENERAL: Alert, oriented 3, NAD. SKIN: Warm and dry. HEAD: Normocephalic. EYES: No scleral icterus. No injection or drainage. NECK: Supple, trachea midline. No JVD or lymphadenopathy. CARDIOVASCULAR: Regular rate and rhythm without murmurs, gallops, or rubs. RESPIRATORY: Moderate air entry. Diminished breath sound on the right. GASTROINTESTINAL: Abdomen soft, non-tender, nondistended. MUSCULOSKELETAL: No cyanosis, or edema. BACK: Nontender without obvious deformity. No CVA tenderness. Medications and IVs Current Medications Medications (Trade) Dose Ordered Sig/Hilaria Route Start Time Stop Time Status Last Admin ([place] 5-325 Mg) 1 tab Q4H PRN PO 02/23/17 14:15 ([place] 5-325 Mg) 2 tab Q4H PRN PO 02/23/17 14:15 02/24/17 21:05 (Zofran Inj) 4 mg Q8HR PRN IV PUSH 02/23/17 14:15 (Lipitor) 20 mg HS PO 02/23/17 21:00 02/24/17 21:04 (KlonoPIN) 0.5 mg TID PRN PO 02/23/17 14:15 02/24/17 23:11 (Lasix) 40 mg DAILY PO 02/24/17 09:00 02/25/17 08:33 (Neurontin) 300 mg BID PO 02/23/17 21:00 02/25/17 08:33 (Lopid) 600 mg BIDAC PO 02/23/17 16:00 02/25/17 06:07 (KCl) 20 meq DAILY PO 02/24/17 09:00 02/25/17 08:33 (Duoneb Neb) 1 ampule Q6HR NEB PRN NEB 02/23/17 14:30 (Tylenol) 650 mg Q4H PRN PO 02/23/17 14:45 02/24/17 13:23 (SoluMEDROL INJ) 40 mg Q8H IV 02/23/17 21:00 02/25/17 06:07 (Vibramycin) 100 mg BID PO 02/24/17 21:00 02/25/17 08:33 A/P Assessment and Plan 1. Right Pleural Effusion: patient with long history of recurrent pleural effusions requiring multiple thoracenteses, s/p pleurodesis Jan 2017. -CXR shows persistent elevation of right hemidiaphragm; combination of likely consolidation and pleural effusion; also consolidation medial RUL unchanged; left lung is clear. -Continue Lasix, Bronchodilator, Mucolytic, incentive spirometry, status post Thoracentesis 02/24/17 obtained 1600 ml of fluid. 2. Atypical Chest Pain: suspect secondary to pleural effusion. Pain also reproducible on exam, possible musculoskeletal component. CXR as above. Doubt PE as patient anticoagulated on Coumadin. - Troponins negative. No further cardiac work up. 3. Adenocarcinoma of the Lung, Treatment with weekly Carboplatin and Taxol concurrently with radiation therapy and completed this March 2016, need PET scan outpatient. 4. SVC Syndrome with Thrombosis: anticoagulated on Coumadin -INR supratherapeutic at 3.6 -hold coumadin. Vitamin K 5mg now and FFP one unit. Repeat INR at 5PM. If numbers are improved, bedside thoracentesis at around 6PM. 5. Splenic Lesion: patient informed about this last month -has an appointment for outpatient PET scan on Monday02/27/17 6. Dyslipidemia: chronic -continue patient's gemfibrozil, statin 7. Hypertension: controlled. 8. Arthritic Pain: continue pain medicine and PT Full code. Warfarin (on hold). Discharge Planning Expected by tomorrow. Yifan Yoon MD Feb 25, 2017 08:53
[2017-02-25] MEDS: ACETAMINOPHEN/HYDROcodone 325 MG/5 MG TAB PO PRN ×2 (12:58→22:00)
--- NOTE | 2017-02-25 14:39 | MR ---
cc: ZUHAIR ARRIETA DATE: 02/24/2017. PREOPERATIVE DIAGNOSIS Right pleural effusion POSTOPERATIVE DIAGNOSIS Right pleural effusion OPERATIVE PROCEDURE PERFORMED: Right thoracentesis. SURGEON: Zuhair Arrieta MD. ANESTHESIA: 1% Xylocaine. DESCRIPTION OF THE PROCEDURE IN DETAIL AND FINDINGS: The patient's right posterior back was prepped with chlorhexidine solution following which sterile drapes were applied. 1% Xylocaine was then injected in the intercostal space in the posterior axillary line after which a small incision was made with a scalpel bladde. Following this, a 14-gauge catheter was inserted into the pleural space and this was connected to the vacuum bottle and approximately 1600 mL of serosanguineous fluid was aspirated at which time the flow stopped. The patient tolerated procedure well. Zuhair Arrieta MD JVD/TAMRA /7:06 PM /2:16 PM
[2017-02-25] MEDS: ATORVASTATIN 20 MG TAB PO SCH (20:35)
[2017-02-25] MEDS: clonazePAM 0.5 MG TAB PO PRN (22:00)
[2017-02-26] VITALS (10 sets, daily range): BP systolic 113–127; BP diastolic 54–67; PULSE 43–94; RESP 18–20; TEMP 97.5–98.3; O2SAT 95–97
[2017-02-26] MEDS: methylPREDNISolone SOD SUCC 40 MG/1 ML VIAL IV SCH ×3 (04:48→21:06)
[2017-02-26] MEDS: GEMFIBROZIL 600 MG TAB PO SCH ×2 (07:08→14:52)
--- NOTE | 2017-02-26 08:23 | HHI.PR ---
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 He follows with a director of restaurant at [facility] ([facility] He reports a long history of pleural effusions, s/p pleurodesis in Jan 2017. he is in status post Thoracentesis performed by doctor Vikas Arrieta on 02/24/17 1600 ml of serosanguineous fluid obtained. stable discussed with nurse improving condition. 02/26: Stable seen in his bedroom in the presence of his , no nausea, vomit or diarrhea, discussed with nurse call placed to Doctor Arrieta for probable discharge. Objective Vital Signs Date Time Temp Pulse Resp B/P (MAP) Pulse Ox O2 Delivery O2 Flow Rate FiO2 02/26/17 07:20 86 02/26/17 04:47 98.3 69 18 113/54 (73) 96 02/26/17 04:35 43 02/26/17 00:05 68 02/25/17 23:33 98.1 72 17 139/75 (96) 96 02/25/17 23:00 17 02/25/17 20:33 68 02/25/17 20:32 97.5 78 16 135/67 (89) 96 02/25/17 19:30 Nasal Cannula 2.00 02/25/17 16:23 98.2 81 18 116/66 (83) 96 02/25/17 13:02 97.6 92 18 126/63 (84) 97 02/25/17 10:44 97.6 84 20 137/72 (93) 96 02/25/17 10:44 88 I/O 02/25/17 02/25/17 02/25/17 02/26/17 02/26/17 02/26/17 07:00 15:00 23:00 07:00 15:00 23:00 Intake Total 300 ml 720 ml 480 ml Balance 300 ml 720 ml 480 ml Intake Oral 300 ml 720 ml 480 ml # Voids 1 3 2 # Bowel Movements 0 Result Diagram: 02/23/17 1155 02/23/17 1155 Imaging Last Impressions Chest X-Ray 02/24/17 0000 Signed Impressions: Service Date/Time: Friday, February 24, 2017 19:15 - CONCLUSION: Marked decrease in size of right pleural effusion. No evidence of pneumothorax. Gus Hogan MD Head CT 02/23/17 0000 Signed Impressions: Service Date/Time: February 12:56 - CONCLUSION: Normal examination. Jesse Benson MD Chest Ultrasound 02/23/17 0000 Signed Impressions: Service Date/Time: February 21:12 - CONCLUSION: Large right pleural effusion. Chest wall was marked. Vikas Ortiz MD Procedures Thoracentesis 02/24/17 obtained 1600 ml. Other Results Laboratory Tests Test 02/23/17 11:55 02/23/17 18:00 02/24/17 16:50 White Blood Count 3.5 TH/MM3 Red Blood Count 4.46 MIL/MM3 Hemoglobin 13.9 GM/DL Hematocrit 41.4 % Mean Corpuscular Volume 92.8 FL Mean Corpuscular Hemoglobin 31.2 PG Mean Corpuscular Hemoglobin Concent 33.6 % Red Cell Distribution Width 13.6 % Platelet Count 192 TH/MM3 Mean Platelet Volume 8.3 FL Neutrophils (%) (Auto) 75.8 % Lymphocytes (%) (Auto) 12.0 % Monocytes (%) (Auto) 10.2 % Eosinophils (%) (Auto) 1.1 % Basophils (%) (Auto) 0.9 % Neutrophils # (Auto) 2.6 TH/MM3 Lymphocytes # (Auto) 0.4 TH/MM3 Monocytes # (Auto) 0.4 TH/MM3 Eosinophils # (Auto) 0.0 TH/MM3 Basophils # (Auto) 0.0 TH/MM3 CBC Comment DIFF FINAL Differential Comment Blood Urea Nitrogen 8 MG/DL Creatinine 1.00 MG/DL Random Glucose 109 MG/DL Calcium Level 8.8 MG/DL Sodium Level 142 MEQ/L Potassium Level 3.7 MEQ/L Chloride Level 105 MEQ/L Carbon Dioxide Level 28.8 MEQ/L Anion Gap 8 MEQ/L Estimat Glomerular Filtration Rate 73 ML/MIN Total Creatine Kinase 110 U/L Creatine Kinase MB 1.6 NG/ML Troponin I LESS THAN 0.02 NG/ML Prothrombin Time 27.9 SEC Prothromb Time International Ratio 2.8 RATIO Objective Remarks GENERAL: Alert, oriented 3, NAD. SKIN: Warm and dry. HEAD: Normocephalic. EYES: No scleral icterus. No injection or drainage. NECK: Supple, trachea midline. No JVD or lymphadenopathy. CARDIOVASCULAR: Regular rate and rhythm without murmurs, gallops, or rubs. RESPIRATORY: Moderate air entry. Diminished breath sound on the right. GASTROINTESTINAL: Abdomen soft, non-tender, nondistended. MUSCULOSKELETAL: No cyanosis, or edema. BACK: Nontender without obvious deformity. No CVA tenderness. Medications and IVs Current Medications Medications (Trade) Dose Ordered Sig/Hilaria Route Start Time Stop Time Status Last Admin ([place] 5-325 Mg) 1 tab Q4H PRN PO 02/23/17 14:15 ([place] 5-325 Mg) 2 tab Q4H PRN PO 02/23/17 14:15 02/25/17 22:00 (Zofran Inj) 4 mg Q8HR PRN IV PUSH 02/23/17 14:15 02/25/17 21:31 (Lipitor) 20 mg HS PO 02/23/17 21:00 02/25/17 20:35 (KlonoPIN) 0.5 mg TID PRN PO 02/23/17 14:15 02/25/17 22:00 (Lasix) 40 mg DAILY PO 02/24/17 09:00 02/25/17 08:33 (Neurontin) 300 mg BID PO 02/23/17 21:00 02/25/17 20:35 (Lopid) 600 mg BIDAC PO 02/23/17 16:00 02/26/17 07:08 (KCl) 20 meq DAILY PO 02/24/17 09:00 02/25/17 08:33 (Duoneb Neb) 1 ampule Q6HR NEB PRN NEB 02/23/17 14:30 (Tylenol) 650 mg Q4H PRN PO 02/23/17 14:45 02/24/17 13:23 (SoluMEDROL INJ) 40 mg Q8H IV 02/23/17 21:00 02/26/17 04:48 (Vibramycin) 100 mg BID PO 02/24/17 21:00 02/25/17 20:35 A/P Assessment and Plan 1. Right Pleural Effusion: patient with long history of recurrent pleural effusions requiring multiple thoracenteses, s/p pleurodesis Jan 2017. -CXR shows persistent elevation of right hemidiaphragm; combination of likely consolidation and pleural effusion; also consolidation medial RUL unchanged; left lung is clear. -Continue Lasix, Bronchodilator, Mucolytic, incentive spirometry, status post Thoracentesis 02/24/17 obtained 1600 ml of fluid. awaiting for final 2. Atypical Chest Pain: suspect secondary to pleural effusion. Pain also reproducible on exam, possible musculoskeletal component. CXR as above. Doubt PE as patient anticoagulated on Coumadin. - Troponins negative. No further cardiac work up. 3. Adenocarcinoma of the Lung, Treatment with weekly Carboplatin and Taxol concurrently with radiation therapy and completed this March 2016, need PET scan outpatient. 4. SVC Syndrome with Thrombosis: anticoagulated on Coumadin, Coagulopathy secondary to Coumadin, re start Coumadin today and follow INR is 1.2 5. Splenic Lesion: patient informed about this last month -has an appointment for outpatient PET scan on Monday02/27/17 6. Dyslipidemia: chronic -continue patient's gemfibrozil, statin 7. Hypertension: controlled. 8. Arthritic Pain: continue pain medicine and PT Full code. Warfarin re started today. Awaiting final recommendations by operations specialists for discharge. Discharge Planning Expected by tomorrow. Yifan Yoon MD Feb 26, 2017 08:23
[2017-02-26] MEDS: POTASSIUM CHLORIDE 10 MEQ CAP PO SCH (09:51)
[2017-02-26] MEDS: DOXYCYCLINE HYCLATE 100 MG CAP PO SCH ×2 (09:51→21:06)
[2017-02-26] MEDS: GABAPENTIN 300 MG CAP PO SCH ×2 (09:52→21:06)
[2017-02-26] MEDS: FUROSEMIDE 40 MG TAB PO SCH (09:52)
[2017-02-26] MEDS: ACETAMINOPHEN/HYDROcodone 325 MG/5 MG TAB PO PRN ×2 (14:53→21:11)
[2017-02-26 15:26] LABS: INTERNATIONAL NORMALIZED RATIO 1.2 RATIO; PROTHROMBIN TIME - PATIENT 11.9 SEC (9.8-11.6)
[2017-02-26] MEDS ORDERED: WARFARIN SOD 5 MG TAB PO SCH (16:00)
[2017-02-26] MEDS: ATORVASTATIN 20 MG TAB PO SCH (21:06)
[2017-02-26] MEDS: clonazePAM 0.5 MG TAB PO PRN (22:53)
[2017-02-27] VITALS (8 sets, daily range): BP systolic 114–128; BP diastolic 60–64; PULSE 63–84; RESP 16–18; TEMP 97.4–98.2; O2SAT 96–98
[2017-02-27] MEDS: methylPREDNISolone SOD SUCC 40 MG/1 ML VIAL IV SCH ×2 (05:50→12:34)
[2017-02-27] MEDS: GEMFIBROZIL 600 MG TAB PO SCH (07:01)
[2017-02-27] MEDS: POTASSIUM CHLORIDE 10 MEQ CAP PO SCH (08:21)
[2017-02-27] MEDS: GABAPENTIN 300 MG CAP PO SCH (08:21)
[2017-02-27] MEDS: DOXYCYCLINE HYCLATE 100 MG CAP PO SCH (08:21)
[2017-02-27] MEDS: FUROSEMIDE 40 MG TAB PO SCH (08:21)
--- NOTE | 2017-02-27 09:59 | HHI.PR ---
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 He follows with a outdoor adventure instructor at [facility]. He reports a long history of pleural effusions, s/p pleurodesis in Jan 2017. he is in status post Thoracentesis performed by doctor Vikas Arrieta on 02/24/17 1600 ml of serosanguineous fluid obtained. stable discussed with nurse improving condition. 02/26: Stable seen in his bedroom in the presence of his , discussed with nurse call placed to Doctor Arrieta for probable discharge. 02/27: Discussed with guest experience specialist CHILD DAY C[employer] TE[employer] and yadira to discharge from their standpoint, awaiting for final recommendations by crm specialist. As per Doctor Berny may to discharge home now. Objective Vital Signs Date Time Temp Pulse Resp B/P (MAP) Pulse Ox O2 Delivery O2 Flow Rate FiO2 02/27/17 08:16 97.8 73 18 128/62 (84) 97 02/27/17 04:00 70 02/27/17 03:49 98.2 70 18 121/62 (81) 96 02/27/17 00:44 97.4 64 16 114/60 (78) 97 02/27/17 00:05 63 02/26/17 20:52 97.9 71 18 116/62 (80) 97 02/26/17 20:15 82 02/26/17 18:47 97.8 79 18 121/64 (83) 96 02/26/17 12:30 97.5 94 20 124/67 (86) 96 02/26/17 10:00 97 Nasal Cannula 2.00 I/O 02/26/17 02/26/17 02/26/17 02/27/17 02/27/17 02/27/17 07:00 15:00 23:00 07:00 15:00 23:00 Intake Total 480 ml 240 ml 480 ml Balance 480 ml 240 ml 480 ml Intake Oral 480 ml 240 ml 480 ml # Voids 2 3 Result Diagram: 02/23/17 1155 02/23/17 1155 Imaging Last Impressions Chest X-Ray 02/24/17 0000 Signed Impressions: Service Date/Time: Friday, February 24, 2017 19:15 - CONCLUSION: Marked decrease in size of right pleural effusion. No evidence of pneumothorax. Gus Hogan MD Head CT 02/23/17 0000 Signed Impressions: Service Date/Time: February 12:56 - CONCLUSION: Normal examination. Jesse Benson MD Chest Ultrasound 02/23/17 0000 Signed Impressions: Service Date/Time: February 21:12 - CONCLUSION: Large right pleural effusion. Chest wall was marked. Vikas Ortiz MD Procedures Thoracentesis 02/24/17 obtained 1600 ml. Other Results Laboratory Tests Test 02/23/17 11:55 02/23/17 18:00 02/26/17 13:53 White Blood Count 3.5 TH/MM3 Red Blood Count 4.46 MIL/MM3 Hemoglobin 13.9 GM/DL Hematocrit 41.4 % Mean Corpuscular Volume 92.8 FL Mean Corpuscular Hemoglobin 31.2 PG Mean Corpuscular Hemoglobin Concent 33.6 % Red Cell Distribution Width 13.6 % Platelet Count 192 TH/MM3 Mean Platelet Volume 8.3 FL Neutrophils (%) (Auto) 75.8 % Lymphocytes (%) (Auto) 12.0 % Monocytes (%) (Auto) 10.2 % Eosinophils (%) (Auto) 1.1 % Basophils (%) (Auto) 0.9 % Neutrophils # (Auto) 2.6 TH/MM3 Lymphocytes # (Auto) 0.4 TH/MM3 Monocytes # (Auto) 0.4 TH/MM3 Eosinophils # (Auto) 0.0 TH/MM3 Basophils # (Auto) 0.0 TH/MM3 CBC Comment DIFF FINAL Differential Comment Blood Urea Nitrogen 8 MG/DL Creatinine 1.00 MG/DL Random Glucose 109 MG/DL Calcium Level 8.8 MG/DL Sodium Level 142 MEQ/L Potassium Level 3.7 MEQ/L Chloride Level 105 MEQ/L Carbon Dioxide Level 28.8 MEQ/L Anion Gap 8 MEQ/L Estimat Glomerular Filtration Rate 73 ML/MIN Total Creatine Kinase 110 U/L Creatine Kinase MB 1.6 NG/ML Troponin I LESS THAN 0.02 NG/ML Prothrombin Time 11.9 SEC Prothromb Time International Ratio 1.2 RATIO Objective Remarks GENERAL: Alert, oriented 3, NAD. SKIN: Warm and dry. HEAD: Normocephalic. EYES: No scleral icterus. No injection or drainage. NECK: Supple, trachea midline. No JVD or lymphadenopathy. CARDIOVASCULAR: Regular rate and rhythm without murmurs, gallops, or rubs. RESPIRATORY: Moderate air entry. Diminished breath sound on the right. GASTROINTESTINAL: Abdomen soft, non-tender, nondistended. MUSCULOSKELETAL: No cyanosis, or edema. BACK: Nontender without obvious deformity. No CVA tenderness. Medications and IVs Current Medications Medications (Trade) Dose Ordered Sig/Hilaria Route Start Time Stop Time Status Last Admin ([place] 5-325 Mg) 1 tab Q4H PRN PO 02/23/17 14:15 ([place] 5-325 Mg) 2 tab Q4H PRN PO 02/23/17 14:15 02/26/17 21:11 (Zofran Inj) 4 mg Q8HR PRN IV PUSH 02/23/17 14:15 02/25/17 21:31 (Lipitor) 20 mg HS PO 02/23/17 21:00 02/26/17 21:06 (KlonoPIN) 0.5 mg TID PRN PO 02/23/17 14:15 02/26/17 22:53 (Lasix) 40 mg DAILY PO 02/24/17 09:00 02/27/17 08:21 (Neurontin) 300 mg BID PO 02/23/17 21:00 02/27/17 08:21 (Lopid) 600 mg BIDAC PO 02/23/17 16:00 02/27/17 07:01 (KCl) 20 meq DAILY PO 02/24/17 09:00 02/27/17 08:21 (Duoneb Neb) 1 ampule Q6HR NEB PRN NEB 02/23/17 14:30 (Tylenol) 650 mg Q4H PRN PO 02/23/17 14:45 02/24/17 13:23 (SoluMEDROL INJ) 40 mg Q8H IV 02/23/17 21:00 02/27/17 05:50 (Vibramycin) 100 mg BID PO 02/24/17 21:00 02/27/17 08:21 (Coumadin) 5 mg DAILY@1600 PO 02/26/17 16:00 02/26/17 14:52 A/P Assessment and Plan 1. Right Pleural Effusion: patient with long history of recurrent pleural effusions requiring multiple thoracenteses, s/p pleurodesis Jan 2017. -CXR shows persistent elevation of right hemidiaphragm; combination of likely consolidation and pleural effusion; also consolidation medial RUL unchanged; left lung is clear. -Continue Lasix, Bronchodilator, Mucolytic, incentive spirometry, status post Thoracentesis 02/24/17 obtained 1600 ml of fluid. to follow cytology as outpatient, will be followed by his Primary guest experience specialist Doctor Jayant Engel and by his Primary crm specialist Doctor Vikas horowitz. will continue Prednisone titrated dosages as given by crm specialist and Doxycycline for five days more. 2. Atypical Chest Pain: suspect secondary to pleural effusion. Pain also reproducible on exam, possible musculoskeletal component. CXR as above. Doubt PE as patient anticoagulated on Coumadin. - Troponins negative. No further cardiac work up. 3. Adenocarcinoma of the Lung, Treatment with weekly Carboplatin and Taxol concurrently with radiation therapy and completed this March 2016, need PET scan outpatient. 4. SVC Syndrome with Thrombosis: anticoagulated on Coumadin, Coagulopathy secondary to Coumadin, re start Coumadin today and follow INR is 1.2 5. Splenic Lesion: patient informed about this last month -has an appointment for outpatient PET scan on Monday02/27/17 6. Dyslipidemia: chronic -continue patient's gemfibrozil, statin 7. Hypertension: controlled. 8. Arthritic Pain: continue pain medicine and PT Full code. Warfarin continue and follow PT and INR as outpatient will go Home with [facility] Discharge Home with [facility] Discharge Planning Discharge Home with [facility] today Yifan Yoon MD Feb 27, 2017 09:59
--- NOTE | 2017-02-27 10:08 | PD.ONC.PN ---
Subjective Subjective Remarks Afebrile overnight. Patient resting in bed in nad. No complaints. Feels much better since thoracentesis on Monday. Asking if he can have his lung "fixed" before he is discharged, so that he doesn 't have another pleural effusion. Objective Data Date Time Temp Pulse Resp B/P (MAP) Pulse Ox O2 Delivery O2 Flow Rate FiO2 02/27/17 08:16 97.8 73 18 128/62 (84) 97 02/27/17 04:00 70 02/27/17 03:49 98.2 70 18 121/62 (81) 96 02/27/17 00:44 97.4 64 16 114/60 (78) 97 02/27/17 00:05 63 02/26/17 20:52 97.9 71 18 116/62 (80) 97 02/26/17 20:15 82 02/26/17 18:47 97.8 79 18 121/64 (83) 96 02/26/17 12:30 97.5 94 20 124/67 (86) 96 02/27/17 02/27/17 02/27/17 07:00 15:00 23:00 Intake Total 480 ml Balance 480 ml Result Diagram: 02/23/17 1155 02/23/17 1155 Laboratory Results Laboratory Tests Test 02/26/17 13:53 Prothrombin Time 11.9 SEC Prothromb Time International Ratio 1.2 RATIO Administered Medications Medications (Trade) Dose Ordered Sig/Hilaria Route PRN Reason Start Time Stop Time Status Last Admin Dose Admin Acetaminophen/ Hydrocodone Bitart ([place] 5-325 Mg) 2 tab Q4H PRN PO PAIN 6-10 02/23/17 14:15 02/26/17 21:11 Ondansetron HCl (Zofran Inj) 4 mg Q8HR PRN IV PUSH NAUSEA 02/23/17 14:15 02/25/17 21:31 Atorvastatin Calcium (Lipitor) 20 mg HS PO 02/23/17 21:00 02/26/17 21:06 Clonazepam (KlonoPIN) 0.5 mg TID PRN PO ANXIETY 02/23/17 14:15 02/26/17 22:53 Furosemide (Lasix) 40 mg DAILY PO 02/24/17 09:00 02/27/17 08:21 Gabapentin (Neurontin) 300 mg BID PO 02/23/17 21:00 02/27/17 08:21 Gemfibrozil (Lopid) 600 mg BIDAC PO 02/23/17 16:00 02/27/17 07:01 Potassium Chloride (KCl) 20 meq DAILY PO 02/24/17 09:00 02/27/17 08:21 Acetaminophen (Tylenol) 650 mg Q4H PRN PO FEVER/HEADACHE 02/23/17 14:45 02/24/17 13:23 Methylprednisolone Sodium Succinate (SoluMEDROL INJ) 40 mg Q8H IV 02/23/17 21:00 02/27/17 05:50 Doxycycline Hyclate (Vibramycin) 100 mg BID PO 02/24/17 21:00 02/27/17 08:21 Warfarin Sodium (Coumadin) 5 mg DAILY@1600 PO 02/26/17 16:00 02/26/17 14:52 Objective Remarks GENERAL: Elderly male, sitting up in bed in nad. SKIN: Warm and dry. HEAD: Normocephalic. EYES: No scleral icterus. No injection or drainage. NECK: Supple, trachea midline. CARDIOVASCULAR: Regular rate and rhythm RESPIRATORY: diminished at right base. occasional rhonchi. GASTROINTESTINAL: Abdomen soft, non-tender, nondistended. EXTREMITIES: No cyanosis MUSCULOSKELETAL: Adequate muscle tone. NEUROLOGICAL: No obvious focal deficit. Awake, alert, and oriented x3. Assessment/Plan Problem List: (1) Adenocarcinoma of lung ICD Codes: C34.90 - Malignant neoplasm of unspecified part of unspecified bronchus or lung Status: Chronic Plan: --s/p treatment with weekly carboplatin and Taxol concurrently with radiation therapy and completed this in March 2016. --plan for PET scan outpatient (was waiting on insurance approval) (2) Recurrent right pleural effusion ICD Codes: J90 - Pleural effusion, not elsewhere classified Plan: --s/p thoracentesis, 02/24 --pulmonology following. Assessment 76y/o male with NSCLC admitted with pleural effusion. h/o Recurrent pleural effusion status post pleurodesis in January 2017. Dyslipidemia. Hypertension. Chronic anticoagulation with Coumadin. Plan 1. ok to d/c from oncology perspective. 2. follow up in clinic Charla Bangura Feb 27, 2017 10:08 Annemarie Solis MD Feb 28, 2017 00:23
[2017-02-27 12:25] LABS: INTERNATIONAL NORMALIZED RATIO 1.3 RATIO; PROTHROMBIN TIME - PATIENT 13.4 SEC (9.8-11.6)
[2017-02-27] MEDS ORDERED: HYDR-3516 PO (12:26)
[2017-02-27] MEDS ORDERED: PRED10 PO (12:26)
[2017-02-27] MEDS ORDERED: DOXY100C PO (12:26)
--- NOTE | 2017-02-27 12:35 | HHI.DS ---
Discharge Summary Admission Date Feb 23, 2017 at 14:30 Discharge Date: Feb 27, 2017 Admitting Diagnosis (1) Pleural effusion ICD Code: J90 - Pleural effusion, not elsewhere classified Diagnosis: Principal Status: Acute (2) Chest pain ICD Code: R07.9 - Chest pain, unspecified Diagnosis: Principal Status: Acute Procedures Thoracentesis obtained 1600 ml of fluid Brief History - From Admission Written by Christy Cabral, acting as scribe for Dr. Dowling on 02/23/17 at 13: 57. 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 He reports chest pain started at 9:30am this morning and lasted about an hour. He locates the pain to the left anterior chest pain with radiation down the left arm, described as a dull pain, worse with any exertion and deep inspiration, associated with shortness of breath. Denies any associated diaphoresis, nausea, or vomiting. He did not take anything today to relief the pain. He believes his shortness of breath and dyspnea on exertion is getting much worse recently. He states his in-house nurse recommended he go to the hospital today. He reports a recent cough productive of white sputum. He denies any fevers or chills. He denies any history of heart disease or any prior cardiac catheterization. He had a walking stress test many years ago reportedly unremarkable. He follows with a marketing agent at [facility] ([place] but does not know the name. Currently the patient is seen in the ED and the chest pain has mostly resolved. He states he will occasionally feel the pain but he will rub his chest and it will go away. He denies any recent heavy lifting or exercise that could've cause him to injure his chest or shoulder. He reports a long history of pleural effusions, s/p pleurodesis in . He believes the last thoracentesis was just prior to the pleurodesis in . He has recently been told he has a "big spot" on his spleen, recommended to go to [place] for PET scan and has an appointment on Monday02/27/17. He states his last chemo was a long time ago. He sees oncologist Dr. Saba. He is in the process of moving in with his granddaughter. CBC/BMP: 02/23/17 1155 02/23/17 1155 Significant Findings Laboratory Tests Test 02/24/17 16:50 02/26/17 13:53 02/27/17 12:04 Prothrombin Time 27.9 SEC (9.8-11.6) 11.9 SEC (9.8-11.6) 13.4 SEC (9.8-11.6) Imaging Last Impressions Chest X-Ray 02/24/17 0000 Signed Impressions: Service Date/Time: Friday, February 24, 2017 19:15 - CONCLUSION: Marked decrease in size of right pleural effusion. No evidence of pneumothorax. Gus Hogan MD Head CT 02/23/17 0000 Signed Impressions: Service Date/Time: February 12:56 - CONCLUSION: Normal examination. Jesse Benson MD Chest Ultrasound 02/23/17 0000 Signed Impressions: Service Date/Time: February 21:12 - CONCLUSION: Large right pleural effusion. Chest wall was marked. Vikas Ortiz MD PE at Discharge GENERAL: Alert, oriented 3, NAD. SKIN: Warm and dry. HEAD: Normocephalic. EYES: No scleral icterus. No injection or drainage. NECK: Supple, trachea midline. No JVD or lymphadenopathy. CARDIOVASCULAR: Regular rate and rhythm without murmurs, gallops, or rubs. RESPIRATORY: Moderate air entry. Diminished breath sound on the right. GASTROINTESTINAL: Abdomen soft, non-tender, nondistended. MUSCULOSKELETAL: No cyanosis, or edema. BACK: Nontender without obvious deformity. No CVA tenderness. 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 He follows with a marketing agent at [facility] He reports a long history of pleural effusions, s/p pleurodesis in Jan 2017. he is in status post Thoracentesis performed by doctor Vikas Arrieta on 02/24/17 1600 ml of serosanguineous fluid obtained. stable discussed with nurse improving condition. 02/26: Stable seen in his bedroom in the presence of his , discussed with nurse call placed to Doctor Arrieta for probable discharge. 02/27: Discussed with carburetor specialist NO and yadira to discharge from their standpoint, awaiting for final recommendations by equipment mechanic specialist. As per Doctor Berny may to discharge home now. Assessment and Plan 1. Right Pleural Effusion: patient with long history of recurrent pleural effusions requiring multiple thoracenteses, s/p pleurodesis Jan 2017. -CXR shows persistent elevation of right hemidiaphragm; combination of likely consolidation and pleural effusion; also consolidation medial RUL unchanged; left lung is clear. -Continue Lasix, Bronchodilator, Mucolytic, incentive spirometry, status post Thoracentesis 02/24/17 obtained 1600 ml of fluid. to follow cytology as outpatient, will be followed by his Primary carburetor specialist Doctor Jayant Engel and by his Primary equipment mechanic specialist Doctor Vikas Arrieta appreciated. will continue Prednisone titrated dosages as given by equipment mechanic specialist and Doxycycline for five days more. 2. Atypical Chest Pain: suspect secondary to pleural effusion. Pain also reproducible on exam, possible musculoskeletal component. CXR as above. Doubt PE as patient anticoagulated on Coumadin. - Troponins negative. No further cardiac work up. 3. Adenocarcinoma of the Lung, Treatment with weekly Carboplatin and Taxol concurrently with radiation therapy and completed this March 2016, need PET scan outpatient. 4. SVC Syndrome with Thrombosis: anticoagulated on Coumadin, Coagulopathy secondary to Coumadin, re start Coumadin today and follow INR is 1.2 5. Splenic Lesion: patient informed about this last month -has an appointment for outpatient PET scan on Monday02/27/17 6. Dyslipidemia: chronic -continue patient's gemfibrozil, statin 7. Hypertension: controlled. 8. Arthritic Pain: continue pain medicine and PT Full code. Warfarin continue and follow PT and INR as outpatient will go Home with [facility] Discharge Home with [facility] Discharge Planning Discharge Home with [facility] today Pt Condition on Discharge: Good Discharge Disposition: Disch w/ Home Health Serv Discharge Time: > 30 minutes Discharge Instructions DIET: Follow Instructions for: As Tolerated, No Restrictions Activities you can perform: Regular-No Restrictions Yifan Yoon MD Feb 27, 2017 12:35
--- NOTE | 2017-02-27 12:46 | HHI.PR ---
Subjective Remarks Doing well . No SOB and CXR shows resolution of Pleural effusion. On 2 L O2 Objective Vital Signs Date Time Temp Pulse Resp B/P (MAP) Pulse Ox O2 Delivery O2 Flow Rate FiO2 02/27/17 12:32 97.7 84 18 127/64 (85) 97 02/27/17 08:16 97.8 73 18 128/62 (84) 97 02/27/17 07:00 68 02/27/17 04:00 70 02/27/17 03:49 98.2 70 18 121/62 (81) 96 02/27/17 00:44 97.4 64 16 114/60 (78) 97 02/27/17 00:05 63 02/26/17 20:52 97.9 71 18 116/62 (80) 97 02/26/17 20:15 82 02/26/17 18:47 97.8 79 18 121/64 (83) 96 I/O 02/26/17 02/26/17 02/26/17 02/27/17 02/27/17 02/27/17 07:00 15:00 23:00 07:00 15:00 23:00 Intake Total 480 ml 240 ml 480 ml Balance 480 ml 240 ml 480 ml Intake Oral 480 ml 240 ml 480 ml # Voids 2 3 Result Diagram: 02/23/17 1155 02/23/17 1155 Procedures Thoracentesis 02/24/17 obtained 1600 ml. Objective Remarks This is a well-built elderly man who is laying flat. He is on oxygen. HEENT: Head normocephalic. Pupils reactive. Tongue is moist. Throat was clear. NECK: Supple. No bruits or thyroid enlargement or lymphadenopathy. CHEST: Decreased breath sounds over the right lower chest with occasional crackles at the right base. No wheezes . HEART: Heart sounds are irregular. S1 and S2, no murmur. ABDOMEN: Soft and benign. No masses or organomegaly. EXTREMITIES: Minimal edema. Normal reflexes. No gross motor deficits. NEUROLOGIC: Cranial nerves grossly intact. The patient is alert, oriented, and cooperative. SKIN: Dry and cool. Assessment and Plan Assessment and Plan IMPRESSION 1. Recurrent right pleural effusion with atelectasis right base. 2. Probable pneumonia right upper lobe. 3. Has a history of lung cancer non-small cell stage III, status post radiation and chemotherapy. 4. COPD 5. Hypertension Plan : 1. O2 2 L. 2. Nebs tid , Duoneb. 3. OK to go Home. 4. Will F/U as OP in 2 weeks. 5. CXR in 3 weeks. Peace Arrieta MD Feb 27, 2017 12:46
--- NOTE | 2017-02-28 11:30 | HHI.FF ---
Face to Face Verification Diagnosis: (1) Lung cancer (2) Recurrent left pleural effusion (3) Recurrent right pleural effusion Home Health Nursing Order: Medical education Signs/symptoms of disease process Oxygen administration education Medication education-adverse effect Nursing assessment with vital signs I have seen patient Robert Luna on 02/28/17. My clinical findings support the need for the requested home health care services because: Ltd mobility - disease progression I certify that my clinical findings support that this patient is homebound because: Unsafe to leave home unassisted Yifan Yoon MD Feb 28, 2017 11:30
== END 2017-02-27 15:24 | disposition home health service (06) ==
LOC: NEPC 11:21 → NEDA 14:30 → INTOOBSV 14:30 → HCIN 21:34
PROVIDERS: ADMIT Internal Medicine; ATTEND Internal Medicine
DX: J90 Pleural effusion, not elsewhere classified (principal); R07.89 Other chest pain; R06.02 Shortness of breath; R06.00 Dyspnea, unspecified; R05 Cough; R51 Headache; E78.5 Hyperlipidemia, unspecified; I10 Essential (primary) hypertension; D73.89 Other diseases of spleen; I45.10 Unspecified right bundle-branch block; R94.31 Abnormal electrocardiogram [ECG] [EKG]; J44.9 Chronic obstructive pulmonary disease, unspecified; I25.2 Old myocardial infarction; E78.00 Pure hypercholesterolemia, unspecified; K21.9 Gastro-esophageal reflux disease without esophagitis; M19.90 Unspecified osteoarthritis, unspecified site; Z86.73 Personal history of transient ischemic attack (TIA), and cerebral infarction without residual deficits; Z99.81 Dependence on supplemental oxygen; Z85.118 Personal history of other malignant neoplasm of bronchus and lung; Z79.01 Long term (current) use of anticoagulants; Z92.21 Personal history of antineoplastic chemotherapy; Z79.899 Other long term (current) drug therapy; Z87.891 Personal history of nicotine dependence
CPT/HCPCS: 36430; 70450; 71045; 71046; 76604; 80048; 82550; 82552; 84484; 85025; 85610; 86927; 93005; 94150; 96361; 96374; 96375; 96376; 97163; 97530; 99285; G0378; G8987; G8988; J2405; J2920; J7050; P9017

== ENCOUNTER 2017-03-12 14:02 | Emergency (ER) | payer OTHER ==
[~2017-03-12] VITALS: Ht 167.6 cm; Wt 57.0 kg
[~2017-03-12 14:02] MED LIST changes: +DOXY100C PO; +HYDR-3516 PO; +PERC10TA27 PO; +PRED10 PO
[2017-03-12 14:05] VITALS: BP 117/59; PULSE 104; RESP 15; TEMP 97.9; O2SAT 96
[2017-03-12 14:10] VITALS: PULSE 98
[2017-03-12 18:42] LABS: AUTOMATED NEUTROPHIL # 8.5 TH/MM3 (1.8-7.7); BASOPHIL % 0.3 % (0.0-2.0); EOSINOPHIL # 0.1 TH/MM3 (0-0.4); EOSINOPHIL % 0.6 % (0.0-4.0); HEMATOCRIT 38.5 % (39.0-51.0); HEMOGLOBIN 13.4 GM/DL (13.0-17.0); LYMPH % 5.8 % (9.0-44.0); LYMPHOCYTE # 0.6 TH/MM3 (1.0-4.8); MEAN CELL VOLUME 92.6 FL (80.0-100.0); MEAN CORPUSCULAR HEMOGLOBIN 32.1 PG (27.0-34.0); MEAN CORPUSCULAR HGB CONC 34.7 % (32.0-36.0); MEAN PLATELET VOLUME 8.6 FL (7.0-11.0); MONO % 5.8 % (0.0-8.0); MONOCYTE # 0.6 TH/MM3 (0-0.9); NEUT % 87.5 % (16.0-70.0); PLATELET COUNT 145 TH/MM3 (150-450); RED BLOOD COUNT 4.16 MIL/MM3 (4.50-5.90); RED CELL DISTRIBUTION WIDTH 13.8 % (11.6-17.2); WHITE BLOOD COUNT 9.7 TH/MM3 (4.0-11.0)
--- NOTE | 2017-03-12 18:44 | PD ---
HPI . Flulike symptoms Chief Complaint: Cold / Flu Symptoms Time Seen by Provider: 18:09 Travel History International Travel<30 days: No Contact w/Intl Traveler<30days: No Traveled to known affect area: No History of Present Illness HPI This patient presents with flulike symptoms. Onset was 2 days ago. MAXIMUM TEMPERATURE has been 103. He reports coughing, sneezing and dizziness. Last dose of Tylenol was at 11:30 AM. PFSH Past Medical History Hx Anticoagulant Therapy: Yes (WARFARIN) Arthritis: Yes Asthma: No Blood Disorders: No Anxiety: No Depression: No Heart Rhythm Problems: No Cancer: Yes (non-small cell lung cancer) Cardiovascular Problems: Yes (DC) High Cholesterol: Yes Chemotherapy: Yes Chest Pain: No Congestive Heart Failure: No COPD: Yes Cerebrovascular Accident: Yes Diabetes: No Diminished Hearing: No Endocrine: No Gastrointestinal Disorders: No GERD: Yes Genitourinary: No Headaches: No Hiatal Hernia: No Heparin Induced Thrombocytopen: No Hypertension: Yes Immune Disorder: No Implanted Vascular Access Dvce: No Kidney Stones: No Musculoskeletal: Yes Neurologic: No Psychiatric: No Reproductive: No Respiratory: Yes (COPD, LUNG CA) Migraines: No Myocardial Infarction: Yes Radiation Therapy: No Renal Failure: No Sickle Cell Disease: No Sleep Apnea: No Thyroid Disease: No Ulcer: No Past Surgical History Abdominal Surgery: No AICD: No Arteriovenous Shunt: No Cardiac Surgery: No Ear Surgery: No Endocrine Surgery: No Eye Surgery: No Genitourinary Surgery: No Gynecologic Surgery: No Insulin Pump: No Joint Replacement: No Neurologic Surgery: No Oral Surgery: No Pacemaker: No Thoracic Surgery: No Other Surgery: Yes (HERNIA, thoracentesis) Social History Alcohol Use: No (quit) Tobacco Use: No Substance Use: No Allergies-Medications (Allergen,Severity, Reaction): Coded Allergies: No Known Allergies (Verified Allergy, Unknown, 03/12/17) Reported Meds & Prescriptions Reported Meds & Active Scripts Active Prednisone 10 Mg Tab 10 Mg PO DAILY take three tablets by mouth daily for three days then take two tablets by mouth daily for three days then take one tablet by mouth daily for three days. Atorvastatin (Atorvastatin Calcium) 20 Mg Tab 20 Mg PO HS Potassium Chloride ER (Potassium Chloride) 10 Meq Cap 20 Meq PO DAILY 30 Days Coumadin (Warfarin) 5 Mg Tab 5 Mg PO DAILY@1600 30 Days Lasix (Furosemide) 40 Mg Tab 40 Mg PO DAILY Reported Klonopin (Clonazepam) 0.5 Mg Tab 0.5 Mg PO TID PRN Lopid (Gemfibrozil) 600 Mg Tab 600 Mg PO BIDAC Take 30 minutes prior to breakfast and dinner Gabapentin 300 Mg Cap 600 Mg PO TID Review of Systems Except as stated in HPI: all other systems reviewed are Neg General / Constitutional: Positive: Fever, Chills HENT: Positive: Lightheadedness, Congestion Respiratory: Positive: Cough Physical Exam Narrative GENERAL: This patient looks well. SKIN: warm/dry. Normal color and turgor. HEAD: Normocephalic. Atraumatic. EYES: Pupils equal and round. No scleral icterus. No injection or drainage. ENT: No nasal bleeding or discharge. Mucous membranes pink and moist. NECK: Trachea midline. Full range of motion without pain.. CARDIOVASCULAR: Regular rate and rhythm. Heart sounds normal. RESPIRATORY: No accessory muscle use. Clear to auscultation. Breath sounds equal bilaterally. GASTROINTESTINAL: Abdomen soft. Nontender. Bowel sounds present. Nondistended. MUSCULOSKELETAL: No obvious deformities. NEUROLOGICAL: Awake and alert. No obvious cranial nerve deficits. Motor grossly within normal limits. Normal speech. PSYCHIATRIC: Appropriate mood and affect; insight and judgment normal. Data Data Last Documented VS Vital Signs Date Time Temp Pulse Resp B/P (MAP) Pulse Ox O2 Delivery O2 Flow Rate FiO2 03/12/17 19:19 98.5 93 20 130/68 (88) 97 Room Air Orders Orders Electrocardiogram (03/12/17 ) Sepsis Workup Initiated (03/12/17 ) Complete Blood Count With Diff (03/12/17 18:09) Comprehensive Metabolic Panel (03/12/17 18:09) Lactic Acid Sepsis Protocol (03/12/17 18:09) Influenzae A/B Antigen (03/12/17 18:09) Blood Culture (03/12/17 18:09) Chest, Single Ap (03/12/17 18:09) Blood Glucose (03/12/17 18:09) Ecg Monitoring (03/12/17 18:09) Iv Access Insert/Monitor (03/12/17 18:09) Oximetry (03/12/17 18:09) Oxygen Administration (03/12/17 18:09) Azithromycin Inj (Zithromax Inj) (03/12/17 19:15) Ceftriaxone Inj (Rocephin Inj) (03/12/17 19:15) Labs Laboratory Tests Test 03/12/17 18:17 White Blood Count 9.7 TH/MM3 Red Blood Count 4.16 MIL/MM3 Hemoglobin 13.4 GM/DL Hematocrit 38.5 % Mean Corpuscular Volume 92.6 FL Mean Corpuscular Hemoglobin 32.1 PG Mean Corpuscular Hemoglobin Concent 34.7 % Red Cell Distribution Width 13.8 % Platelet Count 145 TH/MM3 Mean Platelet Volume 8.6 FL Neutrophils (%) (Auto) 87.5 % Lymphocytes (%) (Auto) 5.8 % Monocytes (%) (Auto) 5.8 % Eosinophils (%) (Auto) 0.6 % Basophils (%) (Auto) 0.3 % Neutrophils # (Auto) 8.5 TH/MM3 Lymphocytes # (Auto) 0.6 TH/MM3 Monocytes # (Auto) 0.6 TH/MM3 Eosinophils # (Auto) 0.1 TH/MM3 Basophils # (Auto) 0.0 TH/MM3 CBC Comment DIFF FINAL Differential Comment Blood Urea Nitrogen 11 MG/DL Creatinine 0.87 MG/DL Random Glucose 73 MG/DL Total Protein 6.3 GM/DL Albumin 3.6 GM/DL Calcium Level 8.5 MG/DL Alkaline Phosphatase 67 U/L Aspartate Amino Transf (AST/SGOT) 19 U/L Alanine Aminotransferase (ALT/SGPT) 21 U/L Total Bilirubin 0.8 MG/DL Sodium Level 139 MEQ/L Potassium Level 3.3 MEQ/L Chloride Level 103 MEQ/L Carbon Dioxide Level 27.7 MEQ/L Anion Gap 8 MEQ/L Estimat Glomerular Filtration Rate 86 ML/MIN Lactic Acid Level 0.9 mmol/L [facility] Medical Decision Making Medical Screen Exam Complete: Yes Emergency Medical Condition: Yes Differential Diagnosis Differential diagnosis of fever includes but is not limited to viral illness, strep throat, otitis media, pneumonia, sepsis, UTI Narrative Course This patient presents with a chief complaint of flulike symptoms. Flu screen is pending. Septic workup is also pending. Flu test is negative. CBC & BMP Diagram 03/12/17 18:17 Total Protein 6.3 L, Albumin 3.6, Calcium Level 8.5, Alkaline Phosphatase 67, Aspartate Amino Transf (AST/SGOT) 19, Alanine Aminotransferase (ALT/SGPT) 21, Total Bilirubin 0.8 LA 0.9 Last Impressions Chest X-Ray 03/12/17 [id number] Signed Impressions: Service Date/Time: Sunday, March 12, 2017 18:19 - CONCLUSION: 1. Acute right base infiltrate. 2. Chronic right perihilar consolidation. Vikas Ortiz MD The chest x-ray was independently viewed by me. This patient has pneumonia but does not appear to be septic. He is not having any respiratory distress. He is stable for treatment as an outpatient. Sepsis Criteria SIRS Criteria (2 or more): Heart rate over 90 Diagnosis Primary Impression: Pneumonia Qualified Codes: J18.1 - Lobar pneumonia, unspecified organism Patient Instructions: Community Acquired Pneumonia (DC), General Instructions Med/Other Pt SpecificInfo: Prescription(s) given Scripts Azithromycin (Zithromax) 250 Mg Tab 250 MG PO DAILY for Infection for 4 Days, #4 TAB 0 Refills Prov: Candice Masters MD 03/12/17 Disposition: 01 DISCHARGE HOME Condition: Stable Candice Masters MD Mar 12, 2017 18:44
--- NOTE | 2017-03-12 18:47 | RADRPT ---
EXAM DATE/TIME: 03/12/2017 18:19 [facility] COMPARISON: CHEST SINGLE AP, February 24, 2017, 19:15. CT THORAX W/O CONTRAST, January 05, 2017, 12:37. INDICATIONS : Cough. MEDICAL HISTORY : Hypercholesterolemia. Hypertension. Chronic obstructive pulmonary disease. Cerebrovascular accident. Myocardial infarction. Anticoagulant therapy. GERD. Arthritis. Lung cancer. SURGICAL HISTORY : Hernia repair. Thoracentesis ENCOUNTER: Initial ACUITY: 1 day PAIN SCORE: 0/10 LOCATION: Bilateral chest FINDINGS: Chronic right perihilar consolidation again noted. There is superimposed acute infiltrate in the righ t medial lung base, I believe mostly lower lobe. A small right pleural effusion is present. Left lung remains clear. CONCLUSION: 1. Acute right base infiltrate. 2. Chronic right perihilar consolidation. Vikas Ortiz MD on March 12, 2017 at 18:43 Board Certified Radiologist. This report was verified electronically.
[2017-03-12 19:04] LABS: ALT (GPT) 21 U/L (12-78)
[2017-03-12 19:07] LABS: ALKALINE PHOSPHATASE 67 U/L (45-117); TOTAL BILIRUBIN ADULT 0.8 MG/DL (0.2-1.0); TOTAL PROTEIN 6.3 GM/DL (6.4-8.2)
[2017-03-12 19:08] LABS: ALBUMIN 3.6 GM/DL (3.4-5.0); AST (GOT) 19 U/L (15-37); BICARBONATE 27.7 MEQ/L (21.0-32.0); BLOOD UREA NITROGEN 11 MG/DL (7-18); CALCIUM 8.5 MG/DL (8.5-10.1); CHLORIDE 103 MEQ/L (98-107); CREATININE 0.87 MG/DL (0.60-1.30); GLOMERULAR FILTRATION RATE 86 ML/MIN (>89); GLUCOSE,RANDOM 73 MG/DL (74-106); SODIUM (NA) 139 MEQ/L (136-145)
[2017-03-12] MEDS ORDERED: cefTRIAXone INJ 1,000 MG in SODIUM CHLORIDE 0.9% INJ 100 ML IV ONE (19:15)
[2017-03-12] MEDS ORDERED: AZITHROMYCIN INJ 500 MG in SODIUM CHLOR 0.9% 250 ML INJ 250 ML IV ONE (19:15)
[2017-03-12 19:19] VITALS: BP 130/68; PULSE 93; RESP 20; TEMP 98.5; O2SAT 97
[2017-03-12] MEDS ORDERED: ZITH250T PO (19:32)
--- NOTE | 2017-03-13 18:38 | EKG ---
Date Performed: 03/12/2017 Time Performed: 14:34:19 PTAGE: 76 years EKG: Sinus rhythm RIGHT BUNDLE BRANCH BLOCK Consider ANTEROSEPTAL MYOCARDIAL INFARCTION-age Undeterminate. Nonspecific ST-T wave changes. ABNORMAL ECG PREVIOUS TRACING : 02/23/2017 22.31 DOCTOR: Romario Orozco Interpretating Date/Time 03/13/2017 18:37:09
== END 2017-03-12 21:40 | disposition home or self-care (01) ==
LOC: NEPE 14:02
DX: C34.90 Malignant neoplasm of unspecified part of unspecified bronchus or lung (principal); J44.0 Chronic obstructive pulmonary disease with (acute) lower respiratory infection; J18.1 Lobar pneumonia, unspecified organism; E78.00 Pure hypercholesterolemia, unspecified; I25.2 Old myocardial infarction; Z79.01 Long term (current) use of anticoagulants
CPT/HCPCS: 71045; 80053; 83605; 85025; 87040; 87804; 93005; 96365; 96375; 99285; J0456; J0696; J7050

== ENCOUNTER 2017-03-23 08:21 | Day surgery (SDC) | payer OTHER ==
[~2017-03-23 08:21] MED LIST changes: -DOXY100C PO; -ENOX60P SQ; -HYDR-3516 PO; -HYDR-3580 PO; -PERC10TA27 PO; +ZITH250T PO
== END 2017-03-23 09:35 | disposition home or self-care (01) ==
LOC: HRAD 08:21 → HRIP 08:26 → HRAD 09:35
PROVIDERS: ATTEND Internal Medicine Hematology & Oncology
DX: C34.31 Malignant neoplasm of lower lobe, right bronchus or lung (principal); Z53.09 Procedure and treatment not carried out because of other contraindication

== ENCOUNTER 2017-03-23 14:28 | Observation (INO) | payer OTHER ==
[~2017-03-23] VITALS: Ht 170.2 cm; Wt 59.1 kg
[2017-03-23 14:30] VITALS: BP 115/58; PULSE 97; RESP 18; TEMP 97.8; O2SAT 96
[2017-03-23 16:12] VITALS: BP 135/63; PULSE 83; RESP 19; O2SAT 97
[2017-03-23 16:20] LABS: AUTOMATED NEUTROPHIL # 2.6 TH/MM3 (1.8-7.7); BASOPHIL % 0.7 % (0.0-2.0); EOSINOPHIL % 1.3 % (0.0-4.0); HEMATOCRIT 37.5 % (39.0-51.0); HEMOGLOBIN 13.1 GM/DL (13.0-17.0); LYMPH % 17.8 % (9.0-44.0); LYMPHOCYTE # 0.6 TH/MM3 (1.0-4.8); MEAN CELL VOLUME 90.7 FL (80.0-100.0); MEAN CORPUSCULAR HEMOGLOBIN 31.8 PG (27.0-34.0); MEAN CORPUSCULAR HGB CONC 35.1 % (32.0-36.0); MEAN PLATELET VOLUME 7.8 FL (7.0-11.0); MONO % 8.2 % (0.0-8.0); MONOCYTE # 0.3 TH/MM3 (0-0.9); PLATELET COUNT 240 TH/MM3 (150-450); RED BLOOD COUNT 4.13 MIL/MM3 (4.50-5.90); RED CELL DISTRIBUTION WIDTH 13.9 % (11.6-17.2); WHITE BLOOD COUNT 3.6 TH/MM3 (4.0-11.0)
[2017-03-23] MEDS ORDERED: RESP: ALBUTEROL 2.5 MG/IPRATROPIUM 0.5 MG NEB (SCH) INH ONE (16:30)
[2017-03-23 16:31] LABS: INTERNATIONAL NORMALIZED RATIO 2.1 RATIO; PROTHROMBIN TIME - PATIENT 21.1 SEC (9.8-11.6)
--- NOTE | 2017-03-23 16:47 | RADRPT ---
EXAM DATE/TIME: 03/23/2017 15:33 [facility] COMPARISON: CHEST SINGLE AP, March 12, 2017, 18:19. INDICATIONS : Chest pain MEDICAL HISTORY : Carcinoma, lung. SURGICAL HISTORY : None. ENCOUNTER: Initial ACUITY: 1 day PAIN SCORE: 6/10 LOCATION: chest FINDINGS: The examination demonstrates fibrotic change along the right sen and right paratracheal region. Ther e is either loculated fluid or mass evident at the right lung base. The left lung is clear. The osseous structures are intact. CONCLUSION: 1. Radiation fibrotic changes along the right sen and right paratracheal region. 2. Probable loculated right basilar effusion. Wenceslao Vazquez MD on March 23, 2017 at 16:44 Board Certified Radiologist. This report was verified electronically.
[2017-03-23 16:52] LABS: ALKALINE PHOSPHATASE 77 U/L (45-117); TOTAL BILIRUBIN ADULT 0.4 MG/DL (0.2-1.0); TOTAL PROTEIN 6.3 GM/DL (6.4-8.2); TROPONIN I LESS THAN 0.02 NG/ML (0.02-0.05)
[2017-03-23 17:02] LABS: ALBUMIN 3.5 GM/DL (3.4-5.0); ALT (GPT) 19 U/L (12-78); AST (GOT) 24 U/L (15-37); BICARBONATE 28.7 MEQ/L (21.0-32.0); BLOOD UREA NITROGEN 11 MG/DL (7-18); CHLORIDE 110 MEQ/L (98-107); GLOMERULAR FILTRATION RATE 82 ML/MIN (>89); GLUCOSE,RANDOM 109 MG/DL (74-106); MAGNESIUM 1.8 MG/DL (1.5-2.5); SODIUM (NA) 146 MEQ/L (136-145)
[2017-03-23 17:36] VITALS: BP 127/59; PULSE 87; RESP 19; O2SAT 98
[2017-03-23] MEDS ORDERED: IOHEXOL 350 MG/ML 10 ML VIAL (for RAD DIAG) IVCONTRAST ONE (18:07)
--- NOTE | 2017-03-23 18:24 | RADRPT ---
EXAM DATE/TIME: 03/23/2017 18:03 [facility] COMPARISON: No previous studies available for comparison. INDICATIONS : Chest pain. IV CONTRAST: 75 cc Omnipaque 350 (iohexol) IV RADIATION DOSE: 9.43 CTDIvol (mGy) MEDICAL HISTORY : Cardiovascular disease. Chronic obstructive pulmonary disease. Carcinoma, lung. SURGICAL HISTORY : None. ENCOUNTER: Initial ACUITY: 1 day PAIN SCALE: 8/10 LOCATION: chest TECHNIQUE: Volumetric scanning of the chest was performed using a pulmonary embolism protocol MIP images were re constructed. Using automated exposure control and adjustment of the mA and/or kV according to patien t size, radiation dose was kept as low as reasonably achievable to obtain optimal diagnostic quality images. DICOM format image data is available electronically for review and comparison. Follow-up recommendations for detected pulmonary nodules are based at a minimum on nodule size and pa tient risk factors according to Fleischner Society Guidelines. FINDINGS: There is no pulmonary embolus. Treated tumor again seen in the right hilum and perihilar region, similar to before. There is chronic consolidation of the right lower lobe, also similar to before. A moderate right pleural effusion is also not significantly changed. 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 Normal, stable heart size. Coronary artery calcificati on again noted. CONCLUSION: 1. No pulmonary embolus. 2. Treatment changes again noted on the right with chronic lower lobe consolidation and moderate pleu ral effusion on significantly changed. 3. 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 4. Coronary artery calcification. Vikas Ortiz MD on March 23, 2017 at 18:19 Board Certified Radiologist. This report was verified electronically.
[2017-03-23 19:07] VITALS: BP 130/70; PULSE 88; RESP 18; O2SAT 98
[2017-03-23] MEDS ORDERED: SODIUM CHLORIDE 0.9% FLUSH 10 ML FLUSH IV FLUSH PRN (19:15)
--- NOTE | 2017-03-23 19:24 | PD ---
HPI Chief Complaint: Chest Pain Time Seen by Provider: 16:07 Travel History International Travel<30 days: No Contact w/Intl Traveler<30days: No Traveled to known affect area: No History of Present Illness HPI Patient is a 76-year-old male who comes in complaining of left-sided chest pain. He says he has had the pain for a while, but it has gotten worse since yesterday. He says the pain goes from the center of his chest out to the left side. He reports some increased shortness of breath. He denies nausea or vomiting. He has a history of lung cancer, not currently being treated. He says resting seems to make his pain better. Severity is moderate. PFSH Past Medical History Hx Anticoagulant Therapy: Yes Arthritis: Yes Asthma: No Blood Disorders: No Anxiety: No Depression: No Heart Rhythm Problems: No Cancer: Yes (non-small cell lung cancer) Cardiovascular Problems: Yes ([place]) High Cholesterol: Yes Chemotherapy: Yes Chest Pain: No Congestive Heart Failure: No COPD: Yes Cerebrovascular Accident: Yes Diabetes: No Diminished Hearing: No Endocrine: No Gastrointestinal Disorders: No GERD: Yes Genitourinary: No Headaches: No Hiatal Hernia: No Heparin Induced Thrombocytopen: No Hypertension: Yes Immune Disorder: No Implanted Vascular Access Dvce: No Kidney Stones: No Musculoskeletal: Yes Neurologic: No Psychiatric: No Reproductive: No Respiratory: Yes (COPD, LUNG CA) Migraines: No Myocardial Infarction: Yes Radiation Therapy: No Renal Failure: No Sickle Cell Disease: No Sleep Apnea: No Thyroid Disease: No Ulcer: No Tetanus Vaccination: < 5 Years Influenza Vaccination: Yes Past Surgical History Abdominal Surgery: No AICD: No Arteriovenous Shunt: No Cardiac Surgery: No Ear Surgery: No Endocrine Surgery: No Eye Surgery: No Genitourinary Surgery: No Gynecologic Surgery: No Insulin Pump: No Joint Replacement: No Neurologic Surgery: No Oral Surgery: No Pacemaker: No Thoracic Surgery: No Other Surgery: Yes (HERNIA, thoracentesis) Social History Alcohol Use: No (quit) Tobacco Use: No Substance Use: No Allergies-Medications (Allergen,Severity, Reaction): Coded Allergies: No Known Allergies (Verified Allergy, Unknown, 03/23/17) Reported Meds & Prescriptions Reported Meds & Active Scripts Active Zithromax (Azithromycin) 250 Mg Tab 250 Mg PO DAILY 4 Days Prednisone 10 Mg Tab 10 Mg PO DAILY take three tablets by mouth daily for three days then take two tablets by mouth daily for three days then take one tablet by mouth daily for three days. Atorvastatin (Atorvastatin Calcium) 20 Mg Tab 20 Mg PO HS Potassium Chloride ER (Potassium Chloride) 10 Meq Cap 20 Meq PO DAILY 30 Days Coumadin (Warfarin) 5 Mg Tab 5 Mg PO DAILY@1600 30 Days Lasix (Furosemide) 40 Mg Tab 40 Mg PO DAILY Reported Klonopin (Clonazepam) 0.5 Mg Tab 0.5 Mg PO TID PRN Lopid (Gemfibrozil) 600 Mg Tab 600 Mg PO BIDAC Take 30 minutes prior to breakfast and dinner Gabapentin 300 Mg Cap 600 Mg PO TID Review of Systems Except as stated in HPI: all other systems reviewed are Neg General / Constitutional: No: Fever, Chills Eyes: No: Blurred Vision HENT: No: Vertigo, Lightheadedness Cardiovascular: Positive: Chest Pain or Discomfort Respiratory: Positive: Shortness of Breath Gastrointestinal: No: Nausea, Vomiting Genitourinary: No: Dysuria Musculoskeletal: No: Myalgias, Edema Skin: No Rash Neurologic: No: Weakness, Dizziness Physical Exam Narrative GENERAL: Awake and alert, in no acute distress. SKIN: Focused skin assessment warm/dry. No wounds or signs of infection. HEAD: Atraumatic. Normocephalic. EYES: Pupils equal and round. No scleral icterus. ENT: No nasal bleeding or discharge. Mucous membranes pink and moist. NECK: Trachea midline. No JVD. CARDIOVASCULAR: Regular rate and rhythm. No murmur appreciated. RESPIRATORY: No accessory muscle use. Clear to auscultation. Breath sounds equal bilaterally. GASTROINTESTINAL: Abdomen soft, non-tender, nondistended. MUSCULOSKELETAL: No obvious deformities. No clubbing. No cyanosis. No edema. NEUROLOGICAL: Awake and alert. No obvious cranial nerve deficits. Motor grossly within normal limits. Normal speech. PSYCHIATRIC: Appropriate mood and affect; insight and judgment normal. Data Data Last Documented VS Vital Signs Date Time Temp Pulse Resp B/P (MAP) Pulse Ox O2 Delivery O2 Flow Rate FiO2 03/23/17 19:07 88 18 130/70 (90) 98 Nasal Cannula 2.00 03/23/17 14:30 97.8 Orders Orders Electrocardiogram (03/23/17 15:08) B-Type Natriuretic Peptide (03/23/17 15:08) Ckmb (Isoenzyme) Profile (03/23/17 15:08) Complete Blood Count With Diff (03/23/17 15:08) Comprehensive Metabolic Panel (03/23/17 15:08) Magnesium (Mg) (03/23/17 15:08) Prothrombin Time / Inr (Pt) (03/23/17 15:08) Act Partial Throm Time (Ptt) (03/23/17 15:08) Troponin I (03/23/17 15:08) Chest, Pa & Lat (03/23/17 15:08) Ct Pulmonary Angiogram (03/23/17 16:16) Albuterol-Ipratropium Neb (Duoneb Neb) (03/23/17 16:30) CKMB (03/23/17 15:45) CKMB% (03/23/17 15:45) Iohexol 350 Inj (Omnipaque 350 Inj) (03/23/17 18:07) Activity Bed Rest With Brp (03/23/17 19:07) Vital Signs (Adult) Q4H (03/23/17 19:07) Cardiac Rhythm .As Directed (03/23/17 19:07) Notify Dr: Other .PRN (03/23/17 19:07) Notify DrSilvano Parameters (03/23/17 19:07) Resp Oxygen Nasal Cannula (03/23/17 ) Ckmb (Isoenzyme) Profile (03/23/17 19:07) Ckmb (Isoenzyme) Profile (03/23/17 22:07) Troponin I (03/23/17 19:07) Troponin I (03/23/17 22:07) Electrocardiogram (03/23/17 19:07) Electrocardiogram (03/23/17 22:07) ^ Obtain (03/23/17 19:07) Sodium Chloride 0.9% Flush (Ns Flush) (03/23/17 19:15) Sodium Chloride 0.9% Flush (Ns Flush) (03/23/17 21:00) Loan Expeditor / Telemetry [email or web address] (03/23/17 19:07) Admit Order (Ed Use Only) (03/23/17 ) Labs Laboratory Tests Test 03/23/17 15:45 White Blood Count 3.6 TH/MM3 Red Blood Count 4.13 MIL/MM3 Hemoglobin 13.1 GM/DL Hematocrit 37.5 % Mean Corpuscular Volume 90.7 FL Mean Corpuscular Hemoglobin 31.8 PG Mean Corpuscular Hemoglobin Concent 35.1 % Red Cell Distribution Width 13.9 % Platelet Count 240 TH/MM3 Mean Platelet Volume 7.8 FL Neutrophils (%) (Auto) 72.0 % Lymphocytes (%) (Auto) 17.8 % Monocytes (%) (Auto) 8.2 % Eosinophils (%) (Auto) 1.3 % Basophils (%) (Auto) 0.7 % Neutrophils # (Auto) 2.6 TH/MM3 Lymphocytes # (Auto) 0.6 TH/MM3 Monocytes # (Auto) 0.3 TH/MM3 Eosinophils # (Auto) 0.0 TH/MM3 Basophils # (Auto) 0.0 TH/MM3 CBC Comment DIFF FINAL Differential Comment Prothrombin Time 21.1 SEC Prothromb Time International Ratio 2.1 RATIO Activated Partial Thromboplast Time 33.9 SEC Blood Urea Nitrogen 11 MG/DL Creatinine 0.90 MG/DL Random Glucose 109 MG/DL Total Protein 6.3 GM/DL Albumin 3.5 GM/DL Calcium Level 8.0 MG/DL Magnesium Level 1.8 MG/DL Alkaline Phosphatase 77 U/L Aspartate Amino Transf (AST/SGOT) 24 U/L Alanine Aminotransferase (ALT/SGPT) 19 U/L Total Bilirubin 0.4 MG/DL Sodium Level 146 MEQ/L Potassium Level 3.1 MEQ/L Chloride Level 110 MEQ/L Carbon Dioxide Level 28.7 MEQ/L Anion Gap 7 MEQ/L Estimat Glomerular Filtration Rate 82 ML/MIN Total Creatine Kinase 142 U/L Creatine Kinase MB 2.9 NG/ML Troponin I LESS THAN 0.02 NG/ML B-Type Natriuretic Peptide 28 PG/ML MDM Medical Decision Making Medical Screen Exam Complete: Yes Emergency Medical Condition: Yes Medical Record Reviewed: Yes Interpretation(s) ECG shows right bundle branch block Differential Diagnosis ACS versus an STEMI versus STEMI versus PE Narrative Course Patient is a 76-year-old male who comes in complaining of left-sided chest pain. IV status, labs sent. Patient connected to licensed mortgage loan officer. Labs sent show no acute abnormalities. CTA of the chest performed shows no evidence of PE. Last [address] Angiography 03/23/17 1476 Signed Impressions: Service Date/Time: March 18:03 - CONCLUSION: 1. No pulmonary embolus. 2. Treatment changes again noted on the right with chronic lower lobe consolidation and moderate pleural effusion on significantly changed. 3. 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 4. Coronary artery calcification. Vikas Ortiz MD Chest X-Ray 03/23/17 [id number] Signed Impressions: Service Date/Time: March 15:33 - CONCLUSION: 1. Radiation fibrotic changes along the right sen and right paratracheal region. 2. Probable loculated right basilar effusion. Wenceslao Vazquez MD Patient placed Diagnosis Primary Impression: Chest pain Qualified Codes: R07.9 - Chest pain, unspecified Admitting Information Admitting Physician Requests: Nereida Vickers MD Mar 23, 2017 19:24
[2017-03-23] MEDS ORDERED: SODIUM CHLORIDE 0.9% FLUSH 10 ML FLUSH IV FLUSH SCH (21:00)
[2017-03-23 21:15] VITALS: BP 145/63; PULSE 75; RESP 18; TEMP 98; O2SAT 97
[2017-03-24 00:57] LABS: TROPONIN I LESS THAN 0.02 NG/ML (0.02-0.05)
[2017-03-24 06:12] LABS: TROPONIN I LESS THAN 0.02 NG/ML (0.02-0.05)
--- NOTE | 2017-03-24 07:56 | HHI.HP ---
HPI Primary Care Physician Dr. Saba Chief Complaint Chest pain History of Present Illness 76-year-old male with history of non-small cell cancer and recurrent pleural effusions presents as evaluation of chest pain. Onset 3 months, occurring at least once a week, nonexertional. Last episode occurring yesterday afternoon. Location substernal with radiation to left inframammary area. Characterized as "though someone kicked me." Duration constant lasted all day yesterday. Currently is chest pain-free. No associated symptoms of nausea, vomiting, dyspnea, or diaphoresis. No known precipitating or relieving factors. Called his oncologist office who directed him to come to the emergency room for further evaluation. Review of Systems General: No fatigue,weakness, fever, chills, or recent illness change in appetite HEENT: No KOHLI, no vision changes, no nasal congestion or drainage, no dysphasia CV: As stated above. No current chest pain or pressure. RESP: Known non-small cell lung cancer and COPD. No SOB, cough, wheeze. GI: No nausea, vomiting, bowel changes, diarrhea, constipation, pain, distention , melena, blood in the stool. : No dysuria, urgency, frequency EXT: No lower leg edema, no paraesthesias MS: No discomfort or change in ROM NEURO: No difficulty with balance, LOC, motor/sensory deficits PSYCH: No anxiety, depression. SKIN: No rashes, no concerning lesions Past Family Social History Allergies: Coded Allergies: No Known Allergies (Verified Allergy, Unknown, 03/23/17) Past Medical History Non-small cell lung cancer, recurrent pleural effusion, dyslipidemia, hypertension, COPD Past Surgical History Hernia repair, multiple thoracentesis, pleurodesis Reported Medications Reported Meds & Active Scripts Active Zithromax (Azithromycin) 250 Mg Tab 250 Mg PO DAILY 4 Days Prednisone 10 Mg Tab 10 Mg PO DAILY take three tablets by mouth daily for three days then take two tablets by mouth daily for three days then take one tablet by mouth daily for three days. Atorvastatin (Atorvastatin Calcium) 20 Mg Tab 20 Mg PO HS Potassium Chloride ER (Potassium Chloride) 10 Meq Cap 20 Meq PO DAILY 30 Days Coumadin (Warfarin) 5 Mg Tab 5 Mg PO DAILY@1600 30 Days Lasix (Furosemide) 40 Mg Tab 40 Mg PO DAILY Reported Klonopin (Clonazepam) 0.5 Mg Tab 0.5 Mg PO TID PRN Lopid (Gemfibrozil) 600 Mg Tab 600 Mg PO BIDAC Take 30 minutes prior to breakfast and dinner Gabapentin 300 Mg Cap 600 Mg PO TID Active Ordered Medications Current Medications Medications (Trade) Dose Ordered Sig/Hilaria Route Start Time Stop Time Status Last Admin (NS Flush) 2 ml UNSCH PRN IV FLUSH 03/23/17 19:15 (NS Flush) 2 ml BID IV FLUSH 03/23/17 21:00 03/23/17 21:00 Social History No known coronary artery disease or diabetes. Known hypertension and hyperlipidemia. Former smoker quitting 8 years ago. Denies any alcohol or illegal drug use. Past Cardiac testing None Physical Exam Vital Signs Vital Signs Date Time Temp Pulse Resp B/P (MAP) Pulse Ox O2 Delivery O2 Flow Rate FiO2 03/23/17 21:15 98.0 75 18 145/63 (90) 97 03/23/17 19:07 88 18 130/70 (90) 98 Nasal Cannula 2.00 03/23/17 17:36 87 19 127/59 (81) 98 Nasal Cannula 2.00 03/23/17 16:12 83 19 135/63 (87) 97 Room Air 03/23/17 16:09 80 19 97 Room Air 03/23/17 14:30 97.8 97 18 115/58 (77) 96 Physical Exam GENERAL: Alert WN, WD, NAD, frail, pleasant, elderly male who appears older than stated age HEAD: NC, AT CV: RRR, without murmur, rub, gallop, no JVD, S1-S2 no S3-S4. Chest wall pain reproduced with palpation. RESP: Clear lungs throughout bilateral, no crackles, wheeze, rhonchi, symmetrical chest rise, nonlabored, able to speak in full sentences ABD: Soft, NT, ND, no masses, positive bowel tones EXT: Pulses +14, no dependent edema MS: Normal tone 4 extremities, nontender, no obvious deformities, full range of motion NEURO: CN II through CN XII grossly intact, motor strength 5/5 PSYCH: A+O 3, flat affect, appropriate speech, mood, insight and judgment SKIN: Normal turgor, normal texture, no lesions, no rashes Laboratory Laboratory Tests Test 03/23/17 15:45 03/24/17 00:00 03/24/17 05:08 White Blood Count 3.6 Red Blood Count 4.13 Hemoglobin 13.1 Hematocrit 37.5 Mean Corpuscular Volume 90.7 Mean Corpuscular Hemoglobin 31.8 Mean Corpuscular Hemoglobin Concent 35.1 Red Cell Distribution Width 13.9 Platelet Count 240 Mean Platelet Volume 7.8 Neutrophils (%) (Auto) 72.0 Lymphocytes (%) (Auto) 17.8 Monocytes (%) (Auto) 8.2 Eosinophils (%) (Auto) 1.3 Basophils (%) (Auto) 0.7 Neutrophils # (Auto) 2.6 Lymphocytes # (Auto) 0.6 Monocytes # (Auto) 0.3 Eosinophils # (Auto) 0.0 Basophils # (Auto) 0.0 CBC Comment DIFF FINAL Differential Comment Prothrombin Time 21.1 Prothromb Time International Ratio 2.1 Activated Partial Thromboplast Time 33.9 Blood Urea Nitrogen 11 Creatinine 0.90 Random Glucose 109 Total Protein 6.3 Albumin 3.5 Calcium Level 8.0 Magnesium Level 1.8 Alkaline Phosphatase 77 Aspartate Amino Transf (AST/SGOT) 24 Alanine Aminotransferase (ALT/SGPT) 19 Total Bilirubin 0.4 Sodium Level 146 Potassium Level 3.1 Chloride Level 110 Carbon Dioxide Level 28.7 Anion Gap 7 Estimat Glomerular Filtration Rate 82 Total Creatine Kinase 142 103 101 Creatine Kinase MB 2.9 2.0 1.6 Troponin I LESS THAN 0.02 LESS THAN 0.02 LESS THAN 0.02 B-Type Natriuretic Peptide 28 Result Diagram: 03/23/17 1545 03/23/17 1545 Imaging Last 48 hours Impressions Myocardial Perfusion Scan Nuc Med 03/24/17 0000 Signed Impressions: Service Date/Time: Friday, March 24, 2017 09:18 - CONCLUSION: Normal examination. RISK CATEGORY: Low (<1%% Annual Mortality Rate) Vikas Sandoval MD CT Angiography 03/23/17 1616 Signed Impressions: Service Date/Time: March 18:03 - CONCLUSION: 1. No pulmonary embolus. 2. Treatment changes again noted on the right with chronic lower lobe consolidation and moderate pleural effusion on significantly changed. 3. 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 4. Coronary artery calcification. Vikas Ortiz MD Chest X-Ray 03/23/17 1508 Signed Impressions: Service Date/Time: Thursday, March 23, 2017 15:33 - CONCLUSION: 1. Radiation fibrotic changes along the right sen and right paratracheal region. 2. Probable loculated right basilar effusion. Wenceslao Vazquez MD Course EKG Normal sinus rhythm, right bundle branch block, no ST or T-segment changes Caprini VTE Risk Assessment Caprini VTE Risk Assessment: Mod/High Risk (score >= 2) Caprini Risk Assessment Model Point Value = 1 Point Value = 2 Point Value = 3 Point Value = 5 Age 41-60 Minor surgery BMI > 25 kg/m2 Swollen legs Varicose veins or History of unexplained or recurrent spontaneous Oral contraceptives or hormone replacement Sepsis (< 1 month) Serious lung disease, including pneumonia (< 1 month) Abnormal pulmonary function Acute myocardial infarction Congestive heart failure (< 1 month) History of inflammatory bowel disease Medical patient at bed rest Age 61-74 Arthroscopic surgery Major open surgery (> 45 min) Laparoscopic surgery (> 45 min) Malignancy Confined to bed (> 72 hours) Immobilizing plaster cast Central venous access Age >= 75 History of VTE Family history of VTE Factor V Leiden Prothrombin [id number] Lupus anticoagulant Anticardiolipin antibodies Elevated serum homocysteine Heparin-induced thrombocytopenia Other congenital or acquired thrombophilia Stroke (< 1 month) Elective arthroplasty Hip, pelvis, or leg fracture Acute spinal cord injury (< 1 month) Prophylaxis Regimen Total Risk Factor Score Risk Level Prophylaxis Regimen 0-1 Low Early ambulation 2 Moderate Order ONE of the following: *Sequential Compression Device (SCD) *Heparin 5000 units SQ BID 3-4 Higher Order ONE of the following medications: *Heparin 5000 units SQ TID *Enoxaparin/Lovenox 40 mg SQ daily (WT < 150 kg, CrCl > 30 mL/min) *Enoxaparin/Lovenox 30 mg SQ daily (WT < 150 kg, CrCl > 10-29 mL/min) *Enoxaparin/Lovenox 30 mg SQ BID (WT < 150 kg, CrCl > 30 mL/min) AND/OR *Sequential Compression Device (SCD) 5 or more Highest Order ONE of the following medications: *Heparin 5000 units SQ TID (Preferred with Epidurals) *Enoxaparin/Lovenox 40 mg SQ daily (WT < 150 kg, CrCl > 30 mL/min) *Enoxaparin/Lovenox 30 mg SQ daily (WT < 150 kg, CrCl > 10-29 mL/min) *Enoxaparin/Lovenox 30 mg SQ BID (WT < 150 kg, CrCl > 30 mL/min) AND *Sequential Compression Device (SCD) Assessment and Plan Assessment and Plan #1 Atypical chest pain-admitted chest pain center. Ruled out with 3 sets of EKGs, cardiac enzymes, and monitored on telemetry overnight. Seen and evaluated by Dr. Darren Plunkett. Proceed with Lexiscan in a.m. If unremarkable , plan to discharge home with follow-up with PCP and his oncologist. Patient and both agreeable to plan of care. Maritza Marie Mar 24, 2017 07:56
[2017-03-24] MEDS ORDERED: REGADENOSON INJ 0.4 MG/5 ML SYR ONE (09:33)
--- NOTE | 2017-03-24 11:35 | RADRPT ---
EXAM DATE/TIME: 03/24/2017 09:18 [facility] COMPARISON: No previous studies available for comparison. INDICATIONS : Left sided chest pain. Angina. Myocardial infarction. DOSE: 26.5 mCi Tc99m Myoview at stress. 8.1 mCi Tc99m Myoview at rest. 0.4 mg Lexiscan STRESS SYMPTOMS: Chest pressure. EJECTION FRACTION: 69% MEDICAL HISTORY : Carcinoma, lung. Hypertension. Chronic obstructive pulmonary disease. SURGICAL HISTORY : Inguinal hernia repair. ENCOUNTER: Initial ACUITY: 1 day PAIN SCALE: 4/10 LOCATION: Left chest TECHNIQUE: The patient underwent pharmacologic stress with infusion of prescribed dose. Continuous ECG tracing was monitored during stress. Gated SPECT imaging was performed after stress and conventional SPECT i maging was performed at rest. The examination was performed on a SPECT/CT scanner, both attenuation and non-corrected datasets were reviewed. FINDINGS: DISTRIBUTION: The maximum perfused segment at stress is in the anterolateral wall. PERFUSION STUDY: The pattern of perfusion at stress is within normal limits. GATED STUDY: There is intact wall motion and thickening without hypokinetic or dyskinetic segments. CONCLUSION: Normal examination. RISK CATEGORY: Low (<1% Annual Mortality Rate) Vikas Sandoval MD on March 24, 2017 at 11:31 Board Certified Radiologist. This report was verified electronically.
--- NOTE | 2017-03-24 11:52 | HHI.DCPOC ---
Discharge Care Plan Diagnosis: (1) Atypical chest pain (2) COPD (chronic obstructive pulmonary disease) (3) Thrombosis of superior vena cava (4) Lung cancer Goals to Promote Your Health * To prevent worsening of your condition and complications * To maintain your health at the optimal level Directions to Meet Your Goals Take your medications as prescribed Follow your dietary instruction Follow activity as directed Keep your appointments as scheduled Take your immunizations and boosters as scheduled If your symptoms worsen call your PCP, if no PCP go to Urgent Care Center or Emergency Room Smoking is Dangerous to Your Health. Avoid second hand smoke Call the 24-hour hour crisis hotline for domestic abuse at Maritza Marie Mar 24, 2017 11:52
--- NOTE | 2017-03-24 16:18 | EKG ---
Date Performed: 03/23/2017 Time Performed: 21:55:56 PTAGE: 76 years EKG: Sinus rhythm RIGHT BUNDLE BRANCH BLOCK ABNORMAL ECG PREVIOUS TRACING : 03/23/2017 19.41 Since previous tracing, no significant change noted DOCTOR: Darren Plunkett Interpretating Date/Time 03/24/2017 16:16:09
--- NOTE | 2017-03-24 16:19 | EKG ---
Date Performed: 03/23/2017 Time Performed: 19:41:02 PTAGE: 76 years EKG: Sinus rhythm RIGHT BUNDLE BRANCH BLOCK ABNORMAL ECG PREVIOUS TRACING : 03/23/2017 15.43 Since previous tracing, no significant change noted DOCTOR: Darren Plunkett Interpretating Date/Time 03/24/2017 16:17:05
--- NOTE | 2017-03-24 16:21 | EKG ---
Date Performed: 03/23/2017 Time Performed: 15:43:38 PTAGE: 76 years EKG: Sinus rhythm RIGHT BUNDLE BRANCH BLOCK ABNORMAL ECG PREVIOUS TRACING : 03/12/2017 14.34 Since previous tracing, no significant change noted DOCTOR: Darren Plunkett Interpretating Date/Time 03/24/2017 16:19:07
--- NOTE | 2017-03-24 16:29 | TR ---
Date Performed: 03/24/2017 Time Performed: 09:37:51 DOCTOR: Darren Plunkett DRUG LIST: CLINICAL HISTORY: ANGINA REASON FOR TEST: Angina REASON FOR ENDING: OBSERVATION: CONCLUSION: \paul COMMENTS:
== END 2017-03-24 12:48 | disposition home or self-care (01) ==
LOC: NEPC 14:28 → NEDA 19:09 → NEPHCDU 20:03
PROVIDERS: ADMIT Internal Medicine Cardiovascular Disease; ATTEND Internal Medicine Cardiovascular Disease
DX: R07.89 Other chest pain (principal); J90 Pleural effusion, not elsewhere classified; I20.9 Angina pectoris, unspecified; R94.31 Abnormal electrocardiogram [ECG] [EKG]; I10 Essential (primary) hypertension; J44.9 Chronic obstructive pulmonary disease, unspecified; I45.10 Unspecified right bundle-branch block; E78.00 Pure hypercholesterolemia, unspecified; I82.211 Chronic embolism and thrombosis of superior vena cava; I25.2 Old myocardial infarction; K21.9 Gastro-esophageal reflux disease without esophagitis; M19.90 Unspecified osteoarthritis, unspecified site; Z87.891 Personal history of nicotine dependence; Z86.73 Personal history of transient ischemic attack (TIA), and cerebral infarction without residual deficits; Z85.118 Personal history of other malignant neoplasm of bronchus and lung; Z79.899 Other long term (current) drug therapy; Z79.01 Long term (current) use of anticoagulants
CPT/HCPCS: 71046; 71275; 78452; 80053; 82550; 82552; 83735; 83880; 84484; 85025; 85610; 85730; 93005; 93017; 94664; 99285; A9502; G0378; J2785; Q9967

== ENCOUNTER 2017-04-20 16:33 | Emergency (ER) | payer OTHER ==
[~2017-04-20] VITALS: Ht 167.6 cm; Wt 60.0 kg
[2017-04-20 16:52] VITALS: BP 116/55; PULSE 104; RESP 20; TEMP 97.7; O2SAT 96
--- NOTE | 2017-04-20 17:16 | RADRPT ---
EXAM DATE/TIME: 04/20/2017 16:51 [facility] COMPARISON: CT PULMONARY ANGIOGRAM, March 23, 2017, 18:03. CHEST PA & LAT, March 23, 2017, 15:33. INDICATIONS : Chest pain MEDICAL HISTORY : Carcinoma, lung. Hypertension. Chronic obstructive pulmonary disease SURGICAL HISTORY : Inguinal hernia repair. ENCOUNTER: Initial ACUITY: 1 day PAIN SCORE: 0/10 LOCATION: chest FINDINGS: There is stable fibrotic changes along the right suprahilar area. There continues to be opacification of the right lower lung suggestive of probable right effusion and parenchymal changes. The left lung is clear and well-aerated. No new infiltrates are seen. There is a stable granuloma in the right mid lung. Compared to the prior exam no new or significant changes are demonstrated. There is no evidence of pneumothorax. CONCLUSION: 1. Stable right-sided pleural effusion and parenchymal changes. 2. Stable fibrotic changes along the right suprahilar area. 3. No new infiltrates are seen. Yosef Chappell MD on April 20, 2017 at 17:12 Board Certified Radiologist. This report was verified electronically.
[2017-04-20 17:50] LABS: AUTOMATED NEUTROPHIL # 4.1 TH/MM3 (1.8-7.7); BASOPHIL % 0.9 % (0.0-2.0); EOSINOPHIL # 0.1 TH/MM3 (0-0.4); EOSINOPHIL % 1.2 % (0.0-4.0); HEMATOCRIT 34.7 % (39.0-51.0); HEMOGLOBIN 12.5 GM/DL (13.0-17.0); LYMPH % 6.3 % (9.0-44.0); LYMPHOCYTE # 0.3 TH/MM3 (1.0-4.8); MEAN CELL VOLUME 90.3 FL (80.0-100.0); MEAN CORPUSCULAR HEMOGLOBIN 32.7 PG (27.0-34.0); MEAN PLATELET VOLUME 7.8 FL (7.0-11.0); MONOCYTE # 0.5 TH/MM3 (0-0.9); NEUT % 81.6 % (16.0-70.0); PLATELET COUNT 271 TH/MM3 (150-450); RED BLOOD COUNT 3.84 MIL/MM3 (4.50-5.90); RED CELL DISTRIBUTION WIDTH 13.7 % (11.6-17.2); WHITE BLOOD COUNT 5.1 TH/MM3 (4.0-11.0)
[2017-04-20 17:57] LABS: MEAN CORPUSCULAR HGB CONC 36.2 % (32.0-36.0)
[2017-04-20 18:18] LABS: BICARBONATE 31.9 MEQ/L (21.0-32.0); BLOOD UREA NITROGEN 10 MG/DL (7-18); CALCIUM 8.5 MG/DL (8.5-10.1); CHLORIDE 106 MEQ/L (98-107); CREATININE 1.02 MG/DL (0.60-1.30); GLOMERULAR FILTRATION RATE 71 ML/MIN (>89); GLUCOSE,RANDOM 111 MG/DL (74-106); SODIUM (NA) 144 MEQ/L (136-145)
[2017-04-20 18:22] LABS: TROPONIN I LESS THAN 0.02 NG/ML (0.02-0.05)
[2017-04-20 19:01] VITALS: BP 134/64; PULSE 100; RESP 18; O2SAT 98
[2017-04-20] MEDS ORDERED: POTASSIUM CHLORIDE 10 MEQ CONTROLLED RELEASE TAB PO ONE (19:30)
--- NOTE | 2017-04-20 19:36 | PD ---
HPI Chief Complaint: Cardiac Complaint Time Seen by Provider: 19:09 Travel History International Travel<30 days: No Contact w/Intl Traveler<30days: No Traveled to known affect area: No History of Present Illness HPI 76-year-old male with history of COPD and lung cancer presents emergency department at the request of his family physician for increased INR that was found yesterday. Says his number was around 7 was concerned about bleeding. In addition, patient is concerned about a 10 out of 10 sharp chest pain located in the left midsternal region with radiation to the axilla that is increased with standing and decreases completely with sitting and rest. Patient says his breathing is actually been improved recently and does use oxygen as needed at home. Patient denies cardiac history but states that he does follow a abatement worker here at [facility]. Says he takes Lasix for his lungs. His last thoracentesis was 2 months ago with a drained 1-1/2 L, per patient. He denies fever, chills, abdominal pain, back pain. Denies leg swelling or pain. PFSH Past Medical History Hx Anticoagulant Therapy: Yes Arthritis: Yes Asthma: No Blood Disorders: No Anxiety: No Depression: No Heart Rhythm Problems: No Cancer: Yes (non-small cell lung cancer) Cardiovascular Problems: Yes ([place]) High Cholesterol: Yes Chemotherapy: Yes Chest Pain: No Congestive Heart Failure: No COPD: Yes Cerebrovascular Accident: Yes Diabetes: No Diminished Hearing: No Endocrine: No Gastrointestinal Disorders: No GERD: Yes Genitourinary: No Headaches: No Hiatal Hernia: No Heparin Induced Thrombocytopen: No Hypertension: Yes Immune Disorder: No Implanted Vascular Access Dvce: No Kidney Stones: No Musculoskeletal: Yes Neurologic: No Psychiatric: No Reproductive: No Respiratory: Yes (COPD, LUNG CA) Migraines: No Myocardial Infarction: Yes Radiation Therapy: No Renal Failure: No Sickle Cell Disease: No Sleep Apnea: No Thyroid Disease: No Ulcer: No Tetanus Vaccination: < 5 Years Influenza Vaccination: Yes Past Surgical History Abdominal Surgery: No AICD: No Arteriovenous Shunt: No Cardiac Surgery: No Ear Surgery: No Endocrine Surgery: No Eye Surgery: No Genitourinary Surgery: No Gynecologic Surgery: No Insulin Pump: No Joint Replacement: No Neurologic Surgery: No Oral Surgery: No Pacemaker: No Thoracic Surgery: No Other Surgery: Yes (HERNIA, thoracentesis) Family History Family Myocardial Infarction: Yes (father, granfather) Social History Alcohol Use: No (quit) Tobacco Use: No Substance Use: No Allergies-Medications (Allergen,Severity, Reaction): Coded Allergies: No Known Allergies (Verified Allergy, Unknown, 03/23/17) Reported Meds & Prescriptions Reported Meds & Active Scripts Active Atorvastatin (Atorvastatin Calcium) 20 Mg Tab 20 Mg PO HS Potassium Chloride ER (Potassium Chloride) 10 Meq Cap 20 Meq PO DAILY 30 Days Lasix (Furosemide) 40 Mg Tab 40 Mg PO DAILY Reported Klonopin (Clonazepam) 0.5 Mg Tab 0.5 Mg PO TID PRN Gabapentin 300 Mg Cap 600 Mg PO TID Review of Systems Except as stated in HPI: all other systems reviewed are Neg Physical Exam Narrative GENERAL: WD, Wn in NAD, resting comfrtably in bed. SKIN: Focused skin assessment warm/dry. HEAD: Atraumatic. Normocephalic. EYES: Pupils equal and round. No scleral icterus. No injection or drainage. ENT: No nasal bleeding or discharge. Mucous membranes pink and moist. NECK: Trachea midline. No JVD. CARDIOVASCULAR: Regular rate and rhythm. No murmur appreciated. RESPIRATORY: No accessory muscle use. Clear to auscultation. Breath sounds equal bilaterally. left lower lobe rhonchi GASTROINTESTINAL: Abdomen soft, non-tender, nondistended. Hepatic and splenic margins not palpable. MUSCULOSKELETAL: No obvious deformities. No clubbing. No cyanosis. No edema. Homans sign negative bilaterally NEUROLOGICAL: Awake and alert. No obvious cranial nerve deficits. Motor grossly within normal limits. Normal speech. PSYCHIATRIC: Appropriate mood and affect; insight and judgment normal. Data Data Last Documented VS Vital Signs Date Time Temp Pulse Resp B/P (MAP) Pulse Ox O2 Delivery O2 Flow Rate FiO2 04/20/17 20:09 Room Air 04/20/17 20:09 100 20 134/64 (87) 98 04/20/17 16:52 97.7 Orders Orders Electrocardiogram (04/20/17 16:40) Complete Blood Count With Diff (04/20/17 16:40) Basic Metabolic Panel (Bmp) (04/20/17 16:40) Ckmb (Isoenzyme) Profile (04/20/17 16:40) Troponin I (04/20/17 16:40) Iv Access Insert/Monitor (04/20/17 16:40) Ecg Monitoring (04/20/17 16:40) Oxygen Administration (04/20/17 16:40) Oximetry (04/20/17 16:40) Chest, Pa & Lat (04/20/17 ) Act Partial Throm Time (Ptt) (04/20/17 19:13) Prothrombin Time / Inr (Pt) (04/20/17 19:13) Potassium Chloride (Kcl) (04/20/17 19:30) Phytonadione Inj (Vitamin K Inj) (04/21/17 09:00) Ed Discharge Order (04/20/17 21:24) Phytonadione Inj (Aquamephyton Inj) (04/20/17 21:45) Labs Laboratory Tests Test 04/20/17 17:14 04/20/17 19:00 White Blood Count 5.1 TH/MM3 Red Blood Count 3.84 MIL/MM3 Hemoglobin 12.5 GM/DL Hematocrit 34.7 % Mean Corpuscular Volume 90.3 FL Mean Corpuscular Hemoglobin 32.7 PG Mean Corpuscular Hemoglobin Concent 36.2 % Red Cell Distribution Width 13.7 % Platelet Count 271 TH/MM3 Mean Platelet Volume 7.8 FL Neutrophils (%) (Auto) 81.6 % Lymphocytes (%) (Auto) 6.3 % Monocytes (%) (Auto) 10.0 % Eosinophils (%) (Auto) 1.2 % Basophils (%) (Auto) 0.9 % Neutrophils # (Auto) 4.1 TH/MM3 Lymphocytes # (Auto) 0.3 TH/MM3 Monocytes # (Auto) 0.5 TH/MM3 Eosinophils # (Auto) 0.1 TH/MM3 Basophils # (Auto) 0.0 TH/MM3 CBC Comment DIFF FINAL Differential Comment Blood Urea Nitrogen 10 MG/DL Creatinine 1.02 MG/DL Random Glucose 111 MG/DL Calcium Level 8.5 MG/DL Sodium Level 144 MEQ/L Potassium Level 3.2 MEQ/L Chloride Level 106 MEQ/L Carbon Dioxide Level 31.9 MEQ/L Anion Gap 6 MEQ/L Estimat Glomerular Filtration Rate 71 ML/MIN Total Creatine Kinase 63 U/L Troponin I LESS THAN 0.02 NG/ML Prothrombin Time 83.2 SEC Prothromb Time International Ratio 8.3 RATIO Activated Partial Thromboplast Time 80.0 SEC MDM Medical Decision Making Medical Screen Exam Complete: Yes Emergency Medical Condition: Yes Differential Diagnosis pleural effusion, pneumonia, pneumothorax, COPD exacerbation Narrative Course 76-year-old male with history of COPD and lung cancer presents emergency department at the request of his family physician for increased INR that was found yesterday. Says his number was around 7 was concerned about bleeding. In addition, patient is concerned about a 10 out of 10 sharp chest pain located in the left midsternal region with radiation to the axilla that is increased with standing and decreases completely with sitting and rest. Patient says his breathing is actually been improved recently and does use oxygen as needed at home. Patient denies cardiac history but states that he does follow a abatement worker here at [facility]. Says he takes Lasix for his lungs. His last thoracentesis was 2 months ago with a drained 1-1/2 L, per patient. He denies fever, chills, abdominal pain, back pain. Denies leg swelling or pain. Says this pain is similar to previous episodes of his other pleural effusions. Vital signs stable. EKG Physical exam findings of left lower lobe rhonchi, no CVA tenderness, no calf pain with palpation, no lower extremity edema Last Impressions Chest X-Ray 04/20/17 0000 Signed Impressions: Service Date/Time: April 16:51 - CONCLUSION: 1. Stable right-sided pleural effusion and parenchymal changes. 2. Stable fibrotic changes along the right suprahilar area. 3. No new infiltrates are seen. Yosef Chappell MD Review of the EMR, note from April 12 from his oncologist, Dr. Saba- it appears that patient has non-small cell lung carcinoma initially stage IIIa. 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 He has received chemo and radiation therapy with good response. Noted recurrent right pleural effusions with multiple thoracenteses and cytologies which were negative. An extensive note was completed by Dr. Saba as he was due to follow-up with the [facility] in [place] to continue his treatment. It appears that this appointment was to be his last before his move. Pt had a stress test 1 month ago to evaluate for his chest pain and this was unremarkable. He also had a CT pulmonary angiogram without pulmonary embolus and chronic occlusion of superior vena cava. Coronary artery calcifications noted. After further discussion, patient is actually supposed to move to [place] tomorrow to the [facility]. INR 8.3. Pt last took his coumadin last night. He did not take his coumadin today. Because I am concerned about follow-up in [place], will call oncology for their recommendations. 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 I spoke with Dr. Resendiz who recommended a small 2.5mg Vitamin K dose to ensure reduction of INR. He advised that patient follow-up in an ER or hospital once he arrives in [place] for an INR follow-up. I explained this in depth to the patient and wrote this in the instructions. Advised that this is very important. Patient states understanding and will comply. Physician Communication Physician Communication Dr Aquilino Resendiz Diagnosis Primary Impression: Recurrent right pleural effusion Additional Impression: Supratherapeutic INR Referrals: Oncologist Primary Care Physician Additional Instructions: Your INR today is 8.3. You been given vitamin K to help reduce this number. Hold your coumadin until Monday. Follow-up in 1-2 days for another INR check. If you develop uncontrolled bleeding, bright red bleeding from the rectum or in the urine, follow up in an emergency department immediately. You also have a right pleural effusion that is stable. You are to follow-up with the [facility] and [facility] for further evaluation and treatment. If you develop increased shortness of breath return to the emergency department immediately. Disposition: 01 DISCHARGE HOME Condition: Stable Ramila Burks Apr 20, 2017 19:36
[2017-04-20 20:09] VITALS: BP 134/64; PULSE 100; RESP 20; O2SAT 98
[2017-04-20 20:14] LABS: PROTHROMBIN TIME - PATIENT 83.2 SEC (9.8-11.6)
[2017-04-20 20:19] LABS: INTERNATIONAL NORMALIZED RATIO 8.3 RATIO
[2017-04-20] MEDS ORDERED: PHYTONADIONE INJ 1 MG/0.5 ML AMP SQ ONE (21:45)
[2017-04-20] MEDS ORDERED: PHYTONADIONE 10 MG/ML VIAL SQ ONE (23:45)
--- NOTE | 2017-04-20 23:46 | EKG ---
Date Performed: 04/20/2017 Time Performed: 17:20:51 PTAGE: 76 years EKG: PROBABLE Sinus rhythm RIGHT BUNDLE BRANCH BLOCK ABNORMAL ECG PREVIOUS TRACING : 03/23/2017 21.55 Since the prior tracing, there has been no significant banks DOCTOR: Joe Meyer Interpretating Date/Time 04/20/2017 23:46:27
[2017-04-21] MEDS ORDERED: PHYTONADIONE 10 MG/ML VIAL SQ SCH (09:00)
== END 2017-04-20 23:58 | disposition home or self-care (01) ==
LOC: NEPC 16:33
DX: J90 Pleural effusion, not elsewhere classified (principal); R79.1 Abnormal coagulation profile; R94.31 Abnormal electrocardiogram [ECG] [EKG]; J44.9 Chronic obstructive pulmonary disease, unspecified; C34.90 Malignant neoplasm of unspecified part of unspecified bronchus or lung; I10 Essential (primary) hypertension; E78.00 Pure hypercholesterolemia, unspecified; K21.9 Gastro-esophageal reflux disease without esophagitis; Z86.73 Personal history of transient ischemic attack (TIA), and cerebral infarction without residual deficits
CPT/HCPCS: 71046; 80048; 82550; 84484; 85025; 85610; 85730; 93005; 96372; 99285; J3430